=== PATIENT | female | born 1945 | race Caucasian/White ===

== ENCOUNTER 2019-06-03 13:01 | Inpatient (IN) | payer OTHER ==
--- NOTE | 2019-06-03 14:42 | RAD REPORT ---
EXAM DESCRIPTION: Simon Single View06/03/2019 2:28 pm CLINICAL HISTORY: Cough COMPARISON: 2017 FINDINGS: The lungs appear clear of acute infiltrate. The heart is mildly enlarged. Upper lobe vess els are prominent indicative of pulmonary venous hypertension
--- NOTE | 2019-06-03 14:53 | EKG ---
Test Date: 2019-06-03 Test Time: 13:21:11 Lard Maker: DAVIDE MEASUREMENT RESULTS: Intervals: Rate: 130 ME: 214 QRSD: 148 QT: 376 QTc: 553 [place]: P: 82 ME: 214 QRS: -42 T: 100 INTERPRETIVE STATEMENTS: Sinus tachycardia with 1st degree AV block with frequent premature ventricular complexes and fusion complexes Left axis deviation Left bundle branch block Abnormal ECG Compared to ECG 01/20/2017 21:49:05 Fusion complex(es) now present Ventricular premature complex(es) now present First degree AV block now present Left-axis deviation now present Sinus bradycardia no longer present Electronically Signed On 06-03-19 14:52:10 CDT by Bharat Vaca
[2019-06-03 14:59] LABS: ALT/SGPT 21 U/L (12-78); AST/SGOT 16 U/L (15-37); Albumin 3.3 g/dL (3.4-5.0); Alkaline Phosphatase 107 U/L (45-117); BUN Blood Urea Nitrogen 101 mg/dL (7-18); Bicarbonate 22 mmol/L (21-32); Bilirubin Direct < 0.1 mg/dL (0-0.2); Bilirubin Total 0.6 mg/dL (0.2-1.0); Glucose Level 268 mg/dL (74-106); Magnesium 2.4 mg/dL (1.8-2.4); NT PRO-BNP 1054 pg/mL (<125); Protein, Total 7.5 g/dL (6.4-8.2); Sodium Level 133 mmol/L (136-145); Troponin (Emerg Dept Use Only) < 0.02 ng/mL (0.0-0.045)
[2019-06-03 15:14] LABS: Absolute Lymphocytes (CBC) 1.4 K/uL (0.7-4.9); Basophils % 0.3 % (0-1.3); Hematocrit 33.2 % (36.0-45.0); Lymphocytes % 7.9 % (15.3-44.8); MPV 8.1 fL (7.6-11.3); RBC Red Blood Cell Count 3.59 M/uL (3.86-4.86)
[2019-06-03 15:14] LABS: Potassium 7.5 mmol/L (3.5-5.1)
[2019-06-03 15:15] LABS: Protime INR 1.11
[2019-06-03] MEDS ORDERED: INSULIN -REGULAR HUMAN 50 UNIT/0.5 ML ML ONE (15:17)
[2019-06-03] MEDS ORDERED: D50W 25 GM/50 ML SYRINGE IV ONE ×2 (15:18→23:19)
[2019-06-03] MEDS ORDERED: Caclcium Chloride 10% INJ SYR IV ONE (15:18)
[2019-06-03] MEDS ORDERED: NA CHLORIDE 0.9% 100 ML IV ONE (15:18)
[2019-06-03] MEDS ORDERED: SOD POLYSTYREN SUL 15 GM/60 ML UCUP ONE (15:18)
[2019-06-03] MEDS ORDERED: ALBUTEROL 2.5 MG/3 ML NEB SOL ONE (15:18)
[2019-06-03 16:12] LABS: Urine Bacteria >50 /HPF (<20); Urine Culture Reflex Order NOT NEEDED; Urine Mucus 2+ /HPF (NONE SEEN)
[2019-06-03] MEDS ORDERED: METHYLPREDNISOLONE 125 MG INJ ONE (16:12)
[2019-06-03 16:48] LABS: Absolute Lymphocytes (CBC) 3.3 K/uL (0.7-4.9); Basophils % 0.2 % (0-1.3); Hematocrit 31.3 % (36.0-45.0); Lymphocytes % 18.2 % (15.3-44.8); MPV 8.2 fL (7.6-11.3); RBC Red Blood Cell Count 3.33 M/uL (3.86-4.86)
[2019-06-03 17:02] LABS: Albumin 3.3 g/dL (3.4-5.0); Bilirubin Total 0.3 mg/dL (0.2-1.0); Protein, Total 7.2 g/dL (6.4-8.2)
[2019-06-03 17:17] LABS: Blood Morphology Comment NOT SEEN (NOT SEEN); Platelet Estimate ADEQ; Urine White Blood Cell Casts OK
[2019-06-03] MEDS ORDERED: NA CHLORIDE 0.9% 1,000 ML IV SCH ×3 (17:18→18:00)
[2019-06-03] MEDS ORDERED: INSULIN -REGULAR HUMAN 50 UNIT/0.5 ML ML IV ONE ×3 (17:19→23:20)
[2019-06-03] MEDS ORDERED: GLUCAGON 1 MG/VIAL IM PRN ×2 (17:19→23:19)
[2019-06-03] MEDS ORDERED: D50W 25 GM/50 ML SYRINGE IV PRN ×2 (17:19→23:19)
[2019-06-03] MEDS ORDERED: ONDANSETRON 4 MG/2 ML VIAL IV PRN (17:20)
[2019-06-03] MEDS: INSULIN -REGULAR HUMAN 50 UNIT/0.5 ML ML SQ SCH ×2 (17:41→21:59)
--- NOTE | 2019-06-03 17:41 | P.HP ---
Certification for Inpatient Patient admitted to: Inpatient With expected LOS: >2 Midnights Patient will require the following post-hospital care: None Practitioner: I am a practitioner with admitting privileges, knowledge of patient current condition, hospital course, and medical plan of care. Services: Services provided to patient in accordance with Admission requirements found in Title 42 Section 412.3 of the Code of Federal Regulations Patient History Date of Service: 06/03/19 Primary Care Provider: Dr Bustos Reason for admission: Hyperkalemia History of Present Illness: 74 y/o F with H.o of DM, HTN, Hypothyroidism, AFib, CAD, COPD, and DCHF who presented to the ED with generalized Weakness and fall today. Pt states she has been feeling weak for past 1 month and yesterday she was not able to get up out of bed. Her Weakness got progressively worse and she fall this AM and was wound down by her DIL. She did not hit her head or back. She slumped over as far as she can remember but she is not sure. She states she has been having low grade temp as well at home. Negative for chills, N/V, Increase frequency or Polyuria. Pt denies the use of NSAIDS, however does state she has not been taking her Insulin for past 3 to 4 months as she ran out. She has not been having to urinate like before now. She also states she has been having loss of appetite. No other complains to offer. She sees Dr Bustos in the office for Kidney function. In the ER was found to have HyperK with CHELLE and thus was admitted for further care Allergies No Known Allergies Allergy (Verified 01/21/17 05:13) Home Medications: Gabapentin [Neurontin] 800 mg PO TID 12/16/16 Albuterol Sulfate [Ventolin Hfa] 1 puff DOMINICK Q4HR 01/21/17 Aspirin Chewable [Aspirin Chewable*] 162 mg PO DAILY #60 tab.chew 01/23/17 Atorvastatin Calcium [Lipitor] 80 mg PO BEDTIME #60 tab 01/23/17 Carvedilol [Coreg*] 12.5 mg PO BID #60 tab 01/23/17 Clopidogrel Bisulfate [Plavix*] 75 mg PO DAILY #30 01/23/17 Furosemide 1 tab PO BID #60 01/23/17 Levothyroxine [Synthroid*] 0.1 mg PO [id number] #30 tab 01/23/17 Lisinopril [Prinivil*] 10 mg PO BEDTIME #30 tab 01/23/17 Magnesium Oxide [Mag 0X*] 400 mg PO BID #60 tab 01/23/17 Sertraline [Zoloft*] 100 mg PO BEDTIME #30 tab 01/23/17 Spironolactone [Aldactone*] 25 mg PO BID #60 tab 01/23/17 - Past Medical/Surgical History Diabetic: Yes -: hypothyroid -: hx of afib -: hyperlipidemia -: htn -: COPD -: CHF -: IDDM -: [place] x4 stents 2 mos. ago -: thyroidectomy -: coronary stents - Family History Father -: Cancer - Social History Smoking Status: Never smoker Counseled patient to stop smoking for: less than 10 minutes Smoking therapy provided: Yes Patient receptive to therapy: Yes Alcohol use: No CD- Drugs: No Caffeine use: Yes Place of Residence: Home Review of Systems 10-point ROS is otherwise unremarkable Physical Examination - Physical Exam General: Alert, In no apparent distress HEENT: Atraumatic, PERRLA, Mucous membr. moist/pink, EOMI, Sclerae nonicteric Neck: Supple, 2+ carotid pulse no bruit, No LAD, Without JVD or thyroid abnormality Respiratory: Clear to auscultation bilaterally, Normal air movement Cardiovascular: Regular rate/rhythm, Normal S1 S2 Gastrointestinal: Normal bowel sounds, No tenderness Musculoskeletal: No tenderness Integumentary: No rashes Neurological: Normal gait, Normal speech, Normal strength at 5/5 x4 extr, Normal tone, Normal affect Lymphatics: No axilla or inguinal lymphadenopathy - Studies Laboratory Data (last 24 hrs) 06/03/19 14:48: PT 13.0 H, INR 1.11 06/03/19 14:48: WBC 17.3 H, Hgb 10.8 L, Hct 33.2 L, Plt Count 259 06/03/19 14:22: Sodium 133 L, Potassium 7.5 H*, BUN 101 H, Creatinine 4.73 H, Glucose 268 H, Magnesium 2.4, Total Bilirubin 0.6, AST 16, ALT 21, Alkaline Phosphatase 107 Assessment and Plan - Problems (Diagnosis) (1) Fall Current Visit: Yes Status: Acute Plan: Fall most likely 2.2 to Generalized Weakness -Will get CKMB, CPK done at this time given the HyperK and CHELLE -PT/OT consulted. Qualifiers: Encounter type: initial encounter Qualified Code(s): W19.XXXA - Unspecified fall, initial encounter (2) Hyperkalemia Current Visit: Yes Status: Acute Plan: HyperK most likely 2.2 to CHELLE -Initial K 7.2 and Repeat K is 6.0 now -Insulin 10units, Solumedrol 125mg, Albuterol x 1, CaCL, Kax 45mg given in the ER -Nephrology consulted. Appreciated Reccs -Insulin 10units now and Calcium Gluconate 1g q1h for ectopy -IV NS at 50ml/hr -Cardiac Tele for now -Awaiting BM as well (3) CHELLE (acute kidney injury) Current Visit: Yes Status: Acute Plan: CHELLE most likely 2.2 to Dehydration due to Hyperglycemia -IV NS at 50 ml.hr -Nephrology consulted. Appreciated Reccs (4) Afib Current Visit: Yes Status: Chronic Plan: Stable for now -Will restart Home medication Qualifiers: Atrial fibrillation type: longstanding persistent Qualified Code(s): I48.11 - Longstanding persistent atrial fibrillation (5) CAD (coronary artery disease) Onset Date: 01/21/17 Current Visit: No Status: Chronic Plan: AK x 6 in the past with Stent Placement -Cardiac Tele -Restart home medication Qualifiers: Coronary Disease-Associated Artery/Lesion type: creek artery [place] vs. transplanted heart: creek heart Associated angina: without angina Qualified Code(s): I25.10 - Atherosclerotic heart disease of creek coronary artery without angina pectoris (6) COPD (chronic obstructive pulmonary disease) Onset Date: 01/21/17 Current Visit: No Status: Chronic Plan: COPD stable -Duonebs for now Qualifiers: COPD type: chronic bronchitis Chronic bronchitis type: simple Qualified Code(s): J41.0 - Simple chronic bronchitis (7) DM2 (diabetes mellitus, type 2) Onset Date: 01/21/17 Current Visit: No Status: Chronic Plan: ISS and Acc Checks -Pt has not been taking her insulin for past 3 months. -Recently got Insulin and started taking it today Qualifiers: Diabetes mellitus correction insulin use: with correction use Diabetes mellitus complication status: without complication Qualified Code(s): E11.9 - Type 2 diabetes mellitus without complications; Z79.4 - intermission coordinator (current) use of insulin (8) Diastolic dysfunction Onset Date: 01/21/17 Current Visit: No Status: Chronic Plan: Diastolic Dysfunction -Will monitor closely given IV fluids (9) Dyslipidemia Onset Date: 01/21/17 Current Visit: No Status: Chronic Plan: Restart Home medication (10) HTN (hypertension) Onset Date: 01/21/17 Current Visit: No Status: Chronic Plan: Restart Home medication -On hypotensive side for now -Will monitor closely Qualifiers: Hypertension type: essential hypertension Qualified Code(s): I10 - Essential (primary) hypertension (11) Hypothyroidism (acquired) Onset Date: 01/21/17 Current Visit: No Status: Chronic Plan: Restart Home medication - Plan Admit to cardiac Tele for Hyperkalemia with CHELLE Discharge Plan: Home Plan to discharge in: Greater than 2 days - Advance Directives Does patient have a Living Will: No Does patient have a Durable POA for Healthcare: No - Code Status/Comfort Care Code Status Assessed: Yes Critical Care: No
[2019-06-03] MEDS ORDERED: CALCIUM GLUC 10% INJ 4.65 MEQ in NA CHLORIDE 0.9% 100 ML IV ONE ×2 (18:00→23:19)
[2019-06-03] MEDS ORDERED: SOD POLYSTYREN SUL 15 GM/60 ML UCUP PO ONE ×2 (18:00→23:19)
[2019-06-03] MEDS: IPRATROPIUM BROM 0.5MG/2.5ML NEB PRN (18:15)
[2019-06-03] MEDS: LEVALBUTEROL 0.63 MG/3 ML NEB NEB PRN (18:15)
[2019-06-03] MEDS: ENOXAPARIN 40 MG/0.4 ML SQ SCH (18:27)
--- NOTE | 2019-06-03 18:42 | ER ---
Nurse's Notes [facility] Name: Carrol Lundberg Age: 74 yrs Sex: Female : 1945 Arrival Date: 06/03/2019 Time: 13:06 Bed External Waiting Private MD: Diagnosis: Shortness of breath;Hyperkalemia;Weakness;Acute kidney failure Presentation: 06/03 13:07 Presenting complaint: EMS states: Generalized weakness x 3 days. Home health nurse hb report pt is normally able to stand with assistance, has been unable to stand the last few days. BP 122/50, HR 70s, SpO2 95-98% on 3LNC home O2, BGL 362, 20g LAC. Transition of care: patient was not received from another setting of care. Onset of symptoms was June 01, 2019. Risk Assessment: Do you want to hurt yourself or someone else? Patient reports no desire to harm self or others. Initial Sepsis Screen: Does the patient meet any 2 criteria? No. Patient's initial sepsis screen is negative. Does the patient have a suspected source of infection? No. Patient's initial sepsis screen is negative. Care prior to arrival: IV initiated. 20 GA, in the left antecubital area, Glucose check: 362. 13:07 Method Of Arrival: EMS: [facility] 13:07 Acuity: AUGUST 3 hb Historical: - Allergies: 13:10 No Known Allergies; hb - PMHx: 13:10 COPD; Diabetes - IDDM; Myocardial infarction; CHF; Hypertension; hb - Immunization history:: Adult Immunizations up to date. - Social history:: Smoking status: Patient/guardian denies using tobacco. - Ebola Screening: : No symptoms or risks identified at this time. Screenin:17 Abuse screen: Denies threats or abuse. Denies injuries from another. Nutritional ca1 screening: No deficits noted. Tuberculosis screening: No symptoms or risk factors identified. Fall Risk Fall in past 12 months (25 points). IV access (20 points). Ambulatory Aid- Crutches/Cane/Walker (15 pts). Gait- Weak (10 pts.). Total Talbert Fall Scale indicates High Risk Score (45 or more points). Fall prevention measures have been instituted. Side Rails Up X 2 Frequent Obs/Assessments Occuring As available patient and family educated on Fall Prevention Program and Strategies. Assessment: 13:17 General: Appears in no apparent distress. comfortable, Behavior is calm, cooperative, ca1 appropriate for age. General: Reports fatigue for >3 days. Pain: Denies pain. Neuro: Neuro: Level of Consciousness is awake, alert, obeys commands, Oriented to person, place, time, situation, Appropriate for age. Cardiovascular: Heart tones S1 S2 present Capillary refill < 3 seconds Patient's skin is warm and dry. Rhythm is sinus rhythm with unifocal PVCs. Respiratory: Reports cough that is productive, since 2 days ago Airway is patent Respiratory effort is even, unlabored, Respiratory pattern is regular, symmetrical, Sputum is brown Breath sounds are clear bilaterally. GI: Abdomen is round non-distended, Bowel sounds present X 4 quads. Abd is soft and non tender X 4 quads. : No deficits noted. No signs and/or symptoms were reported regarding the genitourinary system. EENT: Reports nasal congestion since 2 days ago. Derm: Skin is intact, is healthy with good turgor, Skin is pink, warm \T\ dry. Musculoskeletal: Circulation, motion, and sensation intact. Capillary refill < 3 seconds, Range of motion: intact in all extremities. 14:28 Reassessment: Patient appears in no apparent distress at this time. Patient and/or ca1 family updated on plan of care and expected duration. Pain level reassessed. Patient is alert, oriented x 3, equal unlabored respirations, skin warm/dry/pink. Family at bedside. 15:30 Reassessment: Patient appears in no apparent distress at this time. Patient and/or ca1 family updated on plan of care and expected duration. Pain level reassessed. Patient is alert, oriented x 3, equal unlabored respirations, skin warm/dry/pink. 16:25 Reassessment: HR elevated to 105. EKG repeated and Pt attached to life pack. ca1 16:30 Reassessment: Patient appears in no apparent distress at this time. Patient and/or ca1 family updated on plan of care and expected duration. Pain level reassessed. Patient is alert, oriented x 3, equal unlabored respirations, skin warm/dry/pink. 17:30 Reassessment: Patient appears in no apparent distress at this time. Patient and/or ca1 family updated on plan of care and expected duration. Pain level reassessed. Patient is alert, oriented x 3, equal unlabored respirations, skin warm/dry/pink. Vital Signs: 13:09 BP 125 / 54; Pulse 81; Resp 23; Temp 98.3; Pulse Ox 97% on 3 lpm NC; Weight 101.6 kg; hb Height 5 ft. 2 in. (157.48 cm); Pain 8/10; 14:28 BP 111 / 55; Pulse 72; Resp 22 S; Pulse Ox 98% on 2 lpm NC; ca1 15:30 BP 102 / 47; Pulse 105; Resp 24 S; Pulse Ox 100% on 2 lpm NC; ca1 16:30 BP 95 / 52; Pulse 105; Resp 22 S; Pulse Ox 100% on 2 lpm NC; ca1 17:30 BP 119 / 52; Pulse 98; Resp 20; Temp 98.1(O); Pulse Ox 99% on 2 lpm NC; ca1 13:09 Body Mass Index 40.97 (101.60 kg, 157.48 cm) hb ED Course: 13:06 Patient arrived in ED. hb 13:08 Marek Bledsoe MD is Attending Physician. kdr 13:09 Triage completed. hb 13:09 Arm band placed on. hb 13:11 Jamila Saldivar, RN is Primary Nurse. ca1 13:17 Patient has correct armband on for positive identification. Placed in gown. Bed in low ca1 position. Call light in reach. Side rails up X2. nurse monitoring on. Pulse ox on. NIBP on. Warm blanket given. 13:17 No provider procedures requiring assistance completed. ca1 13:30 EKG done, by field service tech. reviewed by Marek Bledsoe MD. sm3 13:32 Maintain EMS IV. Dressing intact. Good blood return noted. Site clean \T\ dry. Gauge \T\ ca 1 site: 20G LFA. 14:28 XRAY Chest (1 view) In Process Unspecified. EDMS 14:28 Lab(s) recollected, by me, sent to lab. ca1 15:00 Lab(s) recollected, by me, sent to lab. 3 15:21 Bo cath inserted, using sterile technique, 16 Fr., by me, balloon inflated, to dh3 gravity drainage, urine specimen collected. returned cloudy urine. Patient tolerated well. 15:35 Missed attempt(s): 22 gauge in right forearm. Bleeding controlled, band aid applied, dh3 catheter tip intact. 15:40 Missed attempt(s): 22 gauge in right antecubital area. Bleeding controlled, band aid dh3 applied, catheter tip intact. 16:19 Patient admitted, IV remains in place. Inserted saline lock: 24 gauge in right upper ca1 arm, using aseptic technique. Administered Medications: 15:24 Drug: D50W 50 ml Route: IVP; Site: left upper arm; ca1 17:30 Follow up: Response: No adverse reaction; Other; Potassium Decreased ca1 15:24 Drug: Albuterol 2.5 mg Route: Inhalation; ca1 15:24 Drug: Albuterol 2.5 mg Route: Inhalation; ca1 15:24 Drug: Albuterol 2.5 mg Route: Inhalation; ca1 15:26 Drug: Insulin Regular Human 10 units {Co-Signature: raiza (Kaur Mckenzie RN).} Route: ca1 IVP; Site: left upper arm; 17:30 Follow up: Response: No adverse reaction; No adverse reaction. K decereased. ca1 15:28 Drug: Calcium Chloride 10% 10 ml Route: IVP; Site: left upper arm; ca1 17:30 Follow up: Response: No adverse reaction; K decreased to 6 ca1 16:00 Drug: Kayexalate 45 grams Route: PO; ca1 17:30 Follow up: Response: No adverse reaction; No BM. Notified provider. K decreased to 6 ca1 Intake: Outcome: 17:33 Admitted to Tele accompanied by tech, family with patient, via stretcher, room 412, ca1 with chart, Report called to Ld Ventura RN 17:33 Condition: stable 17:33 Instructed on the need for admit. 18:41 Discharge ordered by . iw 18:41 Patient left the ED. iw Signatures: Dispatcher [employer] EDMS Marek Bledsoe MD MD [facility] Paola Patel RN RN Kaur Mckenzie RN RN Noemi [facility] Briana Weinstein [facility] Jamila Saldivar RN RN ca1 Kaur eastman Corrections: (The following items were deleted from the chart) 13:19 13:17 EENT: No deficits noted. No signs and/or symptoms were reported regarding the ca1 EENT system. ca1 13:21 13:07 Initial Sepsis Screen: Does the patient meet any 2 criteria? hb ca1 14:29 14:28 Reassessment: Patient appears in no apparent distress at this time. Patient ca1 and/or family updated on plan of care and expected duration. Pain level reassessed. Patient is alert, oriented x 3, equal unlabored respirations, skin warm/dry/pink. ca1 15:49 15:30 Missed attempt(s): 22 gauge in right forearm. Bleeding controlled, band aid dh3 applied, catheter tip intact. dh3 20:02 16:30 BP 102 / 47; Pulse 105bpm; Resp 24bpm; Spontaneous; Pulse Ox 100% 2 lpm Nasal ca1 Cannula; ca1
[2019-06-03 18:45] LABS: CKMB Creatine Kinase MB 2.8 ng/mL (0.3-3.6)
[2019-06-03 18:57] LABS: Urine Blood TRACE (NEG); Urine Glucose TRACE (NEG); Urine Protein 2+ (NEG); Urine pH 5.5 (5.0-7.0)
[2019-06-03] MEDS ORDERED: CALCIUM GLUC 10% INJ 4.65 MEQ in NA CHLORIDE 0.9% 100 ML IV PRN (19:00)
[2019-06-03 22:58] LABS: Potassium 7.3 mmol/L (3.5-5.1)
[2019-06-03] MEDS ORDERED: FUROSEMIDE 40 MG/4 ML VIAL IV ONE (23:38)
[2019-06-03] MEDS ORDERED: WATER FOR INJ,STERILE 1,000 ML with NA BICARB 8.4% 100 MEQ IV SCH ×2 (23:45)
[2019-06-04] MEDS ORDERED: CALCIUM GLUCONATE 1 GM IVPB 1 GM/50 ML BAG IV ONE (00:22)
[2019-06-04] MEDS ORDERED: D5W 1,000 ML IV ONE (00:26)
[2019-06-04] MEDS ORDERED: NA BICARB IV SCH ×2 (01:00)
[2019-06-04] MEDS ORDERED: D5 NS IV SCH ×2 (01:00)
[2019-06-04] MEDS ORDERED: INSULIN -REGULAR HUMAN 50 UNIT/0.5 ML ML IV ONE (03:47)
[2019-06-04] MEDS ORDERED: INSULIN -REGULAR HUMAN 100 UNIT in NA CHLORIDE 0.9% 100 ML IV SCH ×2 (04:00→05:15)
[2019-06-04] MEDS ORDERED: FUROSEMIDE 40 MG/4 ML VIAL IV ONE (04:03)
[2019-06-04] MEDS ORDERED: SOD POLYSTYREN SUL 15 GM/60 ML UCUP PO ONE (04:03)
--- NOTE | 2019-06-04 04:19 | P.PN ---
Date of Service: 06/04/19 Patient was seen and examined Her Potassium level inspite of antihyperkalemic measures with Kayexalate , Calcium ,Insulin /dextrose ,Lasix,and Sodabicarb drip are still high aling with High Blood Sugar . Patients Vitals Stable Resting comfortably Monitor showing Sinus Rhythm Will transfer the patient to ICU Will start on Insulin drip, Lasix , Kayexalate and continue sodabicarb drip as well Closely monitor In ICU
[2019-06-04] MEDS ORDERED: NA CHLORIDE 0.9% 100 ML ONE (04:54)
[2019-06-04 06:21] LABS: Bilirubin Total 0.4 mg/dL (0.2-1.0)
[2019-06-04 06:26] LABS: Potassium 6.2 mmol/L (3.5-5.1)
--- NOTE | 2019-06-04 07:44 | EKG ---
Test Date: 2019-06-03 Test Time: 16:33:42 Deputy Fire Marshal: DAVIDE MEASUREMENT RESULTS: Intervals: Rate: 102 OR: 178 QRSD: 152 QT: 360 QTc: 469 [place]: P: 83 OR: 178 QRS: -10 T: 30 INTERPRETIVE STATEMENTS: Sinus tachycardia Left bundle branch block Abnormal ECG Compared to ECG 06/03/2019 13:21:11 Ventricular premature complex(es) no longer present First degree AV block no longer present Left-axis deviation no longer present Electronically Signed On 06-04-19 07:43:44 CDT by Alok Iglesias
[2019-06-04] MEDS ORDERED: PNEUMOCOCCAL VACCINE 0.5 ML IMVAC ONE (08:00)
[2019-06-04] MEDS ORDERED: INFLUENZA VACCINE (for 3y+) 0.5 ML DOSE IMVAC ONE (08:00)
[2019-06-04] MEDS: LEVOTHYROXINE SOD 0.075 MG TAB PO SCH (08:41)
[2019-06-04] MEDS: ENOXAPARIN 40 MG/0.4 ML SQ SCH (08:42)
[2019-06-04] MEDS: SERTRALINE HCL 100 MG TAB PO SCH (08:43)
[2019-06-04] MEDS ORDERED: GLUCAGON 1 MG/VIAL IM PRN (11:52)
[2019-06-04] MEDS ORDERED: D50W 25 GM/50 ML SYRINGE IV PRN (11:52)
[2019-06-04] MEDS: INSULIN -REGULAR HUMAN 50 UNIT/0.5 ML ML SQ SCH ×3 (12:00→21:17)
[2019-06-04] MEDS: CEFTRIAXONE/SWI 1gm 1 GM/10 ML SYR IV SCH (12:03)
[2019-06-04] MEDS: NA CHLORIDE 0.9% 1,000 ML IV SCH (12:03)
--- NOTE | 2019-06-04 15:41 | P.PN ---
Subjective Date of Service: 06/04/19 Primary Care Provider: Dr Bustos Chief Complaint: Hyperkalemia Subjective: Improving Physical Examination - Vital Signs Temperature: 97.6 F Blood Pressure: 122/55 Pulse: 85 Respirations: 14 Pulse Ox (%): 98 - Physical Exam General: Alert, In no apparent distress, Oriented x3, Cooperative HEENT: Atraumatic Neck: Supple Respiratory: Clear to auscultation bilaterally, Normal air movement Cardiovascular: Normal pulses, Regular rate/rhythm Gastrointestinal: Normal bowel sounds, Soft and benign, Non-distended Musculoskeletal: No erythema, No tenderness, No warmth Integumentary: No erythema, No warmth, No cyanosis Neurological: Normal speech, Normal strength at 5/5 x4 extr, Normal tone, Normal affect - Studies Laboratory Data (last 24 hrs) 06/03/19 14:48: WBC 17.3 H, Hgb 10.8 L, Hct 33.2 L, Plt Count 259 Medications List Reviewed: Yes Assessment & Plan Discharge Plan: Home Plan to discharge in: 48 Hours Physician Review Additional Text: Impression: Fatigue secondary to acute on chronic renal disease with hyperkalemia UTI Diabetes mellitus type 2 with hyperglycemia non insulin-dependent Hypertension Hypothyroidism Hyperlipidemia Chronic diastolic CHF COPD CAD Plan: Fatigue secondary to acute on chronic renal disease stage 5 with hyperkalemia: Patient has significantly improved. Case discussed with nephrology. Discontinue IV insulin drip. Hyperkalemia now resolved. Patient stable at this time. Will transfer patient from ICU to telemetry. Will consult physical therapy to ambulate. Continue monitor renal function. Continue with IV fluids. Continue to monitor and recheck electrolytes. Protocol in place. Anticipate discharge in the next 2-3 days with clinical improvement. UTI: Urine culture pending. Continue IV antibiotic therapy. Diabetes mellitus type 2 with hyperglycemia non insulin-dependent: Will check A1c. Prior A1c greater than 12. Continue Accu-Cheks and sliding scale. Patient may require basal insulin. Hypertension: Blood pressure stable at this time. Continue to hold blood pressure medication. If elevated will restart medication. Hypothyroidism: Continue home medication. Hyperlipidemia: Continue home medication. Chronic diastolic CHF: Will discuss with nephrology on when to restart diuretic therapy. Continue 1500 cc per day fluid restriction. COPD: Continue with COPD medication. Maintain sats above 93%. CAD: Restart aspirin and Plavix. Will provide DVT prophylaxis. Time Spent Managing Pts Care (In Minutes): 55
--- NOTE | 2019-06-04 15:51 | ECHO ---
HEIGHT: 5 ft 2 in WEIGHT: 227 lb 0 oz DATE OF STUDY: 06/04/[address]: Dennis Schmitz DO 2-DIMENSIONAL: YES M.MODE: YES DOPPLER: YES COLOR FLOW: YES TDS: NO PORTABLE: NO DEFINITY: NO BUBBLE STUDY: NO DIAGNOSIS: ATRIAL FIBRILLATION/HYPERTENSION CARDIAC HISTORY: CATHERIZATION: NO SURGERY: NO PROSTHETIC VALVE: NO PACEMAKER: NO MEASUREMENTS (cm) DIASTOLIC (NORMALS) SYSTOLIC (NORMALS) IVSd 1.1 (0.6-1.2) LA Diam 3.5 (1.9-4.0) LVEF 57% LVIDd 4.7 (3.5-5.7) LVIDs 3.3 (2.0-3.5) %FS 30% LVPWd 1.1 (0.6-1.2) Ao Diam 2.7 (2.0-3.7) 2 DIMENSIONAL ASSESSMENT: RIGHT ATRIUM: NORMAL LEFT ATRIUM: NORMAL RIGHT VENTRICLE: NORMAL LEFT VENTRICLE: NORMAL TRICUSPID VALVE: NORMAL MITRAL VALVE: NORMAL PULMONIC VALVE: NORMAL AORTIC VALVE: NORMAL PERICARDIAL EFFUSION: NONE AORTIC ROOT: NORMAL LEFT VENTRICULAR WALL MOTION: NORMAL. DOPPLER/COLOR FLOW: NORMAL. COMMENTS: NORMAL 2D ECHO WITH DOPPLER. NORMAL SINUS RHYTHM. TECHNOLOGIST: JONN KYLE
[2019-06-04] MEDS: NYSTATIN PWDR 100000 UNIT/GM TOP SCH ×2 (15:56→21:17)
--- NOTE | 2019-06-04 16:17 | CON ---
Date of Consultation: 06/04/2019 Reason For Consult: Acute renal insufficiency. History Of Present Illness: Ms. Lundberg is a 74-year-old female with past medical history significant f or history of type 2 diabetes, chronic renal insufficiency with history of multiple episodes of CHELLE i n the past, presented to [facility] after she was witnessed to have an episode of fall. She states that she has been progressively getting weak for 1 month prior to admission. She has been un able to get out of her bed and has had progressive decline in her functional status. She was found t o have a creatinine of 4.3 at the time of admission with severe hyperkalemia. She has been admitted and was noted to have hyperglycemia overnight with worsening of her hyperkalemia. She has been admit keegan to the ICU for further level of care and has been started on IV fluids with sodium bicarbonate an d also with multiple doses of Kayexalate and also started on insulin drip. She states that she is do ing okay at this moment and denies any pain or discomfort at this time. Past Medical History: Significant for history of type 2 diabetes, hypertension. The patient was on lisinopril as outpatient. She has history of depression, history of congestive heart failure, hypoth yroidism, AFib, NC with stents 2 months ago, thyroidectomy. Family History: Noncontributory. Social History: She has history of COPD. She is on home oxygen. She has previous history of smokin g. No alcohol or drug use reported. Review of Systems: Positive for weakness, lethargy, falls. Has some shortness of breath. Denies any chest pain. Denie s any abdominal pain. Denies any nausea, vomiting, or diarrhea. Physical Examination: Vital Signs: At this time are showing temperature of 97.6, pulse rate of 81, respiratory rate of 19, and blood pressure 106/60. General: She appears in no acute distress. HEENT: Atraumatic head. Lungs: Auscultation of lungs revealed bilateral equal air entry with wheezes occasionally. Heart: Auscultation of the heart revealed irregular rate and rhythm. Abdomen: Soft and nontender. Extremities: Show no evidence of edema. Current Medications: Include atorvastatin, Lovenox for DVT prophylaxis, Lasix one-time dose, insulin drip, sertraline, multiple doses of Kayexalate. She is getting D5 normal saline with sodium bicarbo megan 100 mEq at 75 cc an hour. Laboratory Data: Showing creatinine improving to 3.4 from 4.7 at the time of admission. Potassium i s improving to 5 from 7.5 at the time of admission. Sodium improving to 141. Albumin of 3. Lactic acid was 1. CBC showing leukocytosis with WBC count of 18,000, hemoglobin of 10.2, hematocrit of 31. 3, and platelet count of 241. Urinalysis showing evidence of 2+ leukocyte esterase and 2+ proteinuri a. Urine preliminary culture is showing more than 100,000 count gram-negative rods. She has not bee n started on any antibiotics at this time. Impression: 1.Acute renal failure, etiology unclear, possibly secondary to acute tubular necrosis. She is nonol iguric and she is making good amount of urine output with improving renal function. Hence, we will h old off on dialysis at this time. We will change IV fluids to just plain normal saline and monitor h er labs closely. 2.Hyperkalemia, possibly secondary to history of TESHA inhibitor use in the setting of acute renal ins ufficiency. Obviously, TESHA inhibitor is on hold at this time. We will continue with IV fluid supple mentation, especially with sodium supplementation to improve distal sodium delivery to promote kaliur esis. 3.Severe hyperglycemia, currently on insulin drip. 4.Possible urinary tract infection. We will go ahead and start her on Rocephin to improve her urina ry tract infection, which possibly could have led to her acute renal insufficiency episode. 5.Underlying chronic obstructive pulmonary disease. The patient does not seem to be having any volu me overload issues at this time or any chronic obstructive pulmonary disease exacerbation. We will c ontinue to monitor closely with nebulizer treatments and pulmonary toilet. Hold off on any steroids secondary to severe hyperglycemia. Plan: Overall, the patient's renal function is improving and I do not think that she would necessari ly require dialysis. Her hyperkalemia is also improving with conservative measures. We will continu e with IV fluid supplementation and start her on antibiotics to treat her urinary tract infection. W e will follow up closely and also request a renal ultrasound for further evaluation as well. Thank you very much for this consultation. Please do not hesitate to call us with any questions or c oncerns. VV/MODL Voice ID: [id number] Report ID: [id number]
--- NOTE | 2019-06-04 19:48 | RAD REPORT ---
EXAM DESCRIPTION: US - Renal Ultrasound-Complete - 06/04/2019 7:39 pm CLINICAL HISTORY: acute renal failure COMPARISON: <Comparisons> FINDINGS: Both kidneys are normal in size, shape and echotexture. The right kidney measures 9.8 x 5.9 x 4.6 cm. No hydronephrosis, focal mass or perinephric fluid. The left kidney measures 9.9 x 5.7 x 4.7 cm. No hydronephrosis, focal mass or perinephric fluid. The urinary bladder is incompletely distended due to Bo catheter. IMPRESSION: Unremarkable renal sonogram.
[2019-06-04] MEDS: ARFORMOTEROL TARTRATE 15 MCG/2 ML VIAL.NEB NEB SCH (20:45)
[2019-06-04] MEDS: ATORVASTATIN 80 MG TAB PO SCH (21:15)
[2019-06-04] MEDS: GABAPENTIN 400 MG CAP PO SCH (21:16)
[2019-06-04] MEDS: HEPARIN 5000 UNIT/ML 1 ML VIAL SQ SCH (21:17)
[2019-06-04] MEDS: JUVEN PACKET PO SCH (21:18)
[2019-06-05] MEDS: NA CHLORIDE 0.9% 1,000 ML IV SCH ×2 (02:18→14:00)
[2019-06-05] MEDS: LEVOTHYROXINE SOD 0.075 MG TAB PO SCH (05:32)
[2019-06-05 05:52] LABS: Absolute Lymphocytes (CBC) 1.3 K/uL (0.7-4.9); Basophils % 0.4 % (0-1.3); Hematocrit 27.5 % (36.0-45.0); Lymphocytes % 11.8 % (15.3-44.8); MPV 8.3 fL (7.6-11.3); RBC Red Blood Cell Count 3.04 M/uL (3.86-4.86)
[2019-06-05 06:01] LABS: Magnesium 2.1 mg/dL (1.8-2.4); Potassium 4.6 mmol/L (3.5-5.1)
[2019-06-05] MEDS: ARFORMOTEROL TARTRATE 15 MCG/2 ML VIAL.NEB NEB SCH ×3 (08:28→20:00)
[2019-06-05] MEDS: NYSTATIN PWDR 100000 UNIT/GM TOP SCH ×2 (09:00→20:31)
[2019-06-05] MEDS: CEFTRIAXONE/SWI 1gm 1 GM/10 ML SYR IV SCH (09:09)
[2019-06-05] MEDS: INSULIN -REGULAR HUMAN 50 UNIT/0.5 ML ML SQ SCH ×4 (09:09→21:42)
[2019-06-05] MEDS: ASPIRIN 81 MG CHEWABLE TABLET PO SCH (09:10)
[2019-06-05] MEDS: SERTRALINE HCL 100 MG TAB PO SCH (09:10)
[2019-06-05] MEDS: CLOPIDOGREL 75 MG TABLET PO SCH (09:10)
[2019-06-05] MEDS: GABAPENTIN 400 MG CAP PO SCH ×3 (09:10→20:31)
[2019-06-05] MEDS: HEPARIN 5000 UNIT/ML 1 ML VIAL SQ SCH ×2 (09:10→20:30)
[2019-06-05] MEDS: JUVEN PACKET PO SCH ×2 (09:11→20:30)
--- NOTE | 2019-06-05 10:02 | P.PN ---
Subjective Date of Service: 06/05/19 Primary Care Provider: Dr Bustos Chief Complaint: Hyperkalemia Subjective: Improving, Doing well Physical Examination - Vital Signs Temperature: 98.1 F Blood Pressure: 125/60 Pulse: 80 Respirations: 20 Pulse Ox (%): 96 - Physical Exam General: Alert, In no apparent distress, Oriented x3, Cooperative HEENT: Atraumatic Neck: Supple Respiratory: Clear to auscultation bilaterally, Normal air movement Cardiovascular: Normal pulses, Regular rate/rhythm Gastrointestinal: Normal bowel sounds, Soft and benign, Non-distended, No tenderness, No masses, No rebound, No guarding Musculoskeletal: No erythema, No tenderness, No warmth Integumentary: No tenderness/swelling, No erythema, No warmth, No cyanosis Neurological: Normal speech, Normal strength at 5/5 x4 extr, Normal tone - Studies Microbiology Data (last 24 hrs): 06/03/19 15:30 Catheterized Urine [place] Count - Final >100,000 CFU/ML. 06/03/19 15:30 Catheterized Urine - Final Escherichia Coli Medications List Reviewed: Yes Assessment & Plan Discharge Plan: Home Plan to discharge in: 48 Hours Physician Review Additional Text: Impression: Fatigue secondary to acute on chronic renal disease stage IV with hyperkalemia UTI, urine culture positive for E coli Diabetes mellitus type 2 with hyperglycemia non insulin-dependent Hypertension Hypothyroidism Hyperlipidemia Chronic diastolic CHF COPD CAD Plan: Fatigue secondary to acute on chronic renal disease stage 4 with hyperkalemia: Patient continues to improve. Renal function also improving. No longer with hyperkalemia. Nephrology continues with IV fluids. Patient now on the floor. Will have physical therapy assess ambulation. Will check chest x-ray today. Continue to monitor closely. Likely discharge in the next 1-2 days with clinical improvement. UTI, urine culture positive for E coli: Urine culture reviewed. Will transition from IV antibiotic to oral doxycycline. Will need course of 7 days. Diabetes mellitus type 2 with hyperglycemia non insulin-dependent: Previous A1c greater than 12. Will check A1c.. Will start Lantus 10 units at night for better diabetic control. Continue to monitor Accu-Cheks and provide sliding scale. Hypertension: Blood pressure stable at this time without medication. Continue to hold lisinopril/hydrochlorothiazide. May need to start medication for blood pressure if blood pressure elevated. Hypothyroidism: Continue home medication. Hyperlipidemia: Continue home medication. Chronic diastolic CHF: Echocardiogram unremarkable. Continue 1500 cc per day fluid restriction. Will discuss with nephrology on whether to restart diuretic therapy. Will check chest x-ray. COPD: Continue with COPD medication. Maintain sats above 93%. CAD: Continue with aspirin and Plavix. Will provide DVT prophylaxis. Time Spent Managing Pts Care (In Minutes): 55
--- NOTE | 2019-06-05 12:18 | RAD REPORT ---
EXAM DESCRIPTION: Simon Schneider (2 Views)06/05/2019 7:56 am CLINICAL HISTORY: sob COMPARISON: June 02, 2019 FINDINGS: Borderline mild interstitial pulmonary edema The heart is mildly enlarged
[2019-06-05] MEDS: ACETAMINOPHEN 500 MG TAB PO PRN (16:00)
--- NOTE | 2019-06-05 18:27 | PN ---
Date of Progress Note: 06/05/2019 Subjective: Patient is seen and examined. Patient is doing much better. She did physical therapy, has been transferred out to the floor. Has remained hemodynamically. Objective: General: She appears in no acute distress. Lungs: Clear to auscultation. Abdomen: Soft and nontender. Extremities: Without any evidence of edema. Laboratory Data: At this time are showing creatinine improving to 2.2. Potassium improving to 4.6. She remains hyperglycemic with blood sugars running above 200. CBC showing stable hemoglobin, hemat ocrit, and platelet count and WBC count has significantly improved. Her urine culture showing eviden ce of E coli on the culture reports, which is sensitive to the cefazolin. Current Medications: Have been reviewed in detail. Impression: 1.Acute renal failure secondary to acute tubular necrosis, improving. 2.Hyperkalemia, improving off TESHA inhibitors at this time. 3.Chronic obstructive pulmonary disease, stable. 4.Hyperglycemia. 5.Urinary tract infection secondary to Escherichia coli. 6.Depression, on Zoloft. Plan: Patient is overall doing okay at this time. We will go ahead and decrease her rate of IV flui ds to 40 cc an hour and monitor her labs closely to prevent any further volume overload at this time. Continue antibiotics and continue PT, OT. We will follow up closely with the labs and hopefully sh ould be able to be discharged by Friday. Continue all other medications and plan of care. Discontinue off the TESHA inhibitor at this time. VV/MODL Voice ID: [id number] Report ID: [id number]
[2019-06-05] MEDS: DOXYCYCLINE 100 MG CAP PO SCH (20:31)
[2019-06-05] MEDS: ATORVASTATIN 80 MG TAB PO SCH (20:31)
[2019-06-05] MEDS ORDERED: INSULIN GLARGINE 100 UNITS/ML SQ SCH (21:00)
[2019-06-06] MEDS: NA CHLORIDE 0.9% 1,000 ML IV SCH (04:09)
[2019-06-06 05:53] VITALS: BMI 41.3
[2019-06-06] MEDS: LEVOTHYROXINE SOD 0.075 MG TAB PO SCH (06:36)
[2019-06-06 06:58] LABS: Absolute Lymphocytes (CBC) 1.2 K/uL (0.7-4.9); Basophils % 0.5 % (0-1.3); Hematocrit 30.3 % (36.0-45.0); Lymphocytes % 12.9 % (15.3-44.8); MPV 8.1 fL (7.6-11.3); RBC Red Blood Cell Count 3.32 M/uL (3.86-4.86)
[2019-06-06 06:59] LABS: Potassium 4.2 mmol/L (3.5-5.1)
[2019-06-06] MEDS ORDERED: IPRATROPIUM BROM 0.5MG/2.5ML ONE (07:29)
[2019-06-06] MEDS ORDERED: ARFORMOTEROL TARTRATE 15 MCG/2 ML VIAL.NEB ONE (07:29)
[2019-06-06] MEDS ORDERED: LEVALBUTEROL 0.63 MG/3 ML NEB ONE (07:29)
[2019-06-06] MEDS: ARFORMOTEROL TARTRATE 15 MCG/2 ML VIAL.NEB NEB SCH (07:45)
[2019-06-06] MEDS: LEVALBUTEROL 0.63 MG/3 ML NEB NEB PRN ×2 (07:45→14:10)
[2019-06-06] MEDS: IPRATROPIUM BROM 0.5MG/2.5ML NEB PRN ×2 (07:45→14:10)
[2019-06-06] MEDS: INSULIN -REGULAR HUMAN 50 UNIT/0.5 ML ML SQ SCH ×4 (08:43→20:50)
[2019-06-06] MEDS: HEPARIN 5000 UNIT/ML 1 ML VIAL SQ SCH ×2 (08:44→20:51)
[2019-06-06] MEDS: SERTRALINE HCL 100 MG TAB PO SCH (08:44)
[2019-06-06] MEDS: GABAPENTIN 400 MG CAP PO SCH ×3 (08:45→20:48)
[2019-06-06] MEDS: DOXYCYCLINE 100 MG CAP PO SCH ×2 (08:46→20:48)
[2019-06-06] MEDS: CLOPIDOGREL 75 MG TABLET PO SCH (08:46)
[2019-06-06] MEDS: JUVEN PACKET PO SCH ×2 (08:46→20:51)
[2019-06-06] MEDS: ASPIRIN 81 MG CHEWABLE TABLET PO SCH (08:46)
[2019-06-06] MEDS: NYSTATIN PWDR 100000 UNIT/GM TOP SCH ×2 (08:47→21:00)
--- NOTE | 2019-06-06 09:37 | P.PN ---
Subjective Date of Service: 06/06/19 Primary Care Provider: Dr Bustos Chief Complaint: Hyperkalemia Subjective: Improving, Doing well Physical Examination - Vital Signs Temperature: 97.2 F Blood Pressure: 135/63 Pulse: 72 Respirations: 20 Pulse Ox (%): 97 - Physical Exam General: Alert, In no apparent distress, Oriented x3, Cooperative HEENT: Atraumatic Neck: Supple Respiratory: Clear to auscultation bilaterally, Normal air movement Cardiovascular: Normal pulses, Regular rate/rhythm Gastrointestinal: Normal bowel sounds, Soft and benign, Non-distended Musculoskeletal: No tenderness, No warmth Integumentary: No erythema, No warmth, No cyanosis Neurological: Normal speech, Normal strength at 5/5 x4 extr, Normal tone, Normal affect - Studies Microbiology Data (last 24 hrs): 06/03/19 15:30 Catheterized Urine [place] Count - Final >100,000 CFU/ML. 06/03/19 15:30 Catheterized Urine - Final Escherichia Coli Medications List Reviewed: Yes Assessment & Plan Discharge Plan: Home Plan to discharge in: 24 Hours Physician Review Additional Text: Impression: Fatigue secondary to acute on chronic renal disease stage 3 with hyperkalemia UTI, urine culture positive for E coli Diabetes mellitus type 2 with hyperglycemia non insulin-dependent Hypertension Hypothyroidism Hyperlipidemia Chronic diastolic CHF COPD CAD Plan: Fatigue secondary to acute on chronic renal disease stage 3 with hyperkalemia: Patient continues to improve. Renal function appears to be returning back to normal baseline function. Patient remains on IV fluids. No hyperkalemia noted. Suspect nephrology to discontinue fluids soon. Encourage oral intake. Will have patient continue to work with physical therapy. Patient desires to go home with home health at discharge. Will consult neonatal social worker to help arrange for discharge planning-home health physical therapy. Anticipate discharge tomorrow.. UTI, urine culture positive for E coli: Urine culture reviewed. Continue with doxycycline. Will need course of 7 days. Diabetes mellitus type 2 with hyperglycemia non insulin-dependent: Previous A1c greater than 12. Await A1c results. Lantus started yesterday. Will continue to adjust for better diabetic control. Continue to monitor Accu-Cheks and provide sliding scale. Hypertension: Blood pressure returning back to normal but slightly elevated. Patient previously on lisinopril/hydrochlorothiazide. Will continue to hold lisinopril/hydrochlorothiazide. Will start low-dose carvedilol. Hypothyroidism: Continue home medication. Hyperlipidemia: Continue home medication. Chronic diastolic CHF: Echocardiogram unremarkable. Continue 1500 cc per day fluid restriction. Will discuss with nephrology on whether to restart diuretic therapy. COPD: Continue with COPD medication. Maintain sats above 93%. CAD: Continue with aspirin and Plavix. Will provide DVT prophylaxis. Time Spent Managing Pts Care (In Minutes): 55
[2019-06-06] MEDS ORDERED: PNEUMOCOCCAL VACCINE 0.5 ML IMVAC ONE (14:00)
[2019-06-06] MEDS ORDERED: INFLUENZA VACCINE (for 3y+) 0.5 ML DOSE IMVAC ONE (14:00)
[2019-06-06] MEDS: ACETAMINOPHEN 500 MG TAB PO PRN (17:10)
[2019-06-06] MEDS: CARVEDILOL 3.125 MG TAB PO SCH (18:00)
[2019-06-06] MEDS: ATORVASTATIN 80 MG TAB PO SCH (20:48)
[2019-06-06] MEDS ORDERED: INSULIN GLARGINE 100 UNITS/ML SQ SCH (21:00)
[2019-06-07 05:51] LABS: Magnesium 1.8 mg/dL (1.8-2.4); Potassium 3.8 mmol/L (3.5-5.1)
[2019-06-07] MEDS: CARVEDILOL 3.125 MG TAB PO SCH (06:49)
[2019-06-07] MEDS: LEVOTHYROXINE SOD 0.075 MG TAB PO SCH (06:50)
[2019-06-07] MEDS: NA CHLORIDE 0.9% 1,000 ML IV SCH (06:51)
[2019-06-07] MEDS: INSULIN -REGULAR HUMAN 50 UNIT/0.5 ML ML SQ SCH (07:30)
[2019-06-07] MEDS: ARFORMOTEROL TARTRATE 15 MCG/2 ML VIAL.NEB NEB SCH (08:00)
[2019-06-07] MEDS: SERTRALINE HCL 100 MG TAB PO SCH (08:30)
[2019-06-07] MEDS: GABAPENTIN 400 MG CAP PO SCH (08:30)
[2019-06-07] MEDS: DOXYCYCLINE 100 MG CAP PO SCH (08:31)
[2019-06-07] MEDS: HEPARIN 5000 UNIT/ML 1 ML VIAL SQ SCH (08:31)
[2019-06-07] MEDS: CLOPIDOGREL 75 MG TABLET PO SCH (08:31)
[2019-06-07] MEDS: ASPIRIN 81 MG CHEWABLE TABLET PO SCH (08:31)
[2019-06-07] MEDS: JUVEN PACKET PO SCH (08:32)
[2019-06-07] MEDS: NYSTATIN PWDR 100000 UNIT/GM TOP SCH (08:32)
[2019-06-07] MEDS ORDERED: MAGNESIUM SULFATE 1 gm IVPB 1 GM/100 ML BAG IV ONE (09:00)
[2019-06-07 09:53] VITALS: O2SAT 98
[2019-06-07 11:01] VITALS: BP 150/59; TEMP 97.9
--- NOTE | 2019-06-07 14:32 | P.DS ---
Admission Date: 06/03/19 Discharge Date: 06/07/19 Primary Care Provider: Dr Bustos Disposition: ROUTINE DISCHARGE Discharge Condition: GOOD Reason for Admission: Hyperkalemia Consultations: Nephrology - Problems (1) Fall Status: Acute Qualifiers: Encounter type: initial encounter Qualified Code(s): W19.XXXA - Unspecified fall, initial encounter (2) Hyperkalemia Status: Acute (3) CHELLE (acute kidney injury) Status: Acute (4) Afib Status: Chronic Qualifiers: Atrial fibrillation type: longstanding persistent Qualified Code(s): I48.11 - Longstanding persistent atrial fibrillation (5) CAD (coronary artery disease) Onset Date: 01/21/17 Status: Chronic Qualifiers: Coronary Disease-Associated Artery/Lesion type: [place] artery [place] vs. transplanted heart: [place] heart Associated angina: without angina Qualified Code(s): I25.10 - Atherosclerotic heart disease of [place] coronary artery without angina pectoris (6) COPD (chronic obstructive pulmonary disease) Onset Date: 01/21/17 Status: Chronic Qualifiers: COPD type: chronic bronchitis Chronic bronchitis type: simple Qualified Code(s): J41.0 - Simple chronic bronchitis (7) DM2 (diabetes mellitus, type 2) Onset Date: 01/21/17 Status: Chronic Qualifiers: Diabetes mellitus training development director insulin use: with fci use Diabetes mellitus complication status: without complication Qualified Code(s): E11.9 - Type 2 diabetes mellitus without complications; Z79.4 - parts remover (current) use of insulin (8) Diastolic dysfunction Onset Date: 01/21/17 Status: Chronic (9) Dyslipidemia Onset Date: 01/21/17 Status: Chronic (10) HTN (hypertension) Onset Date: 01/21/17 Status: Chronic Qualifiers: Hypertension type: essential hypertension Qualified Code(s): I10 - Essential (primary) hypertension (11) Hypothyroidism (acquired) Onset Date: 01/21/17 Status: Chronic Brief History of Present Illness: 74 y/o F with H.o of DM, HTN, Hypothyroidism, AFib, CAD, COPD, and DCHF who presented to the ED with generalized Weakness and fall today. Pt states she has been feeling weak for past 1 month and yesterday she was not able to get up out of bed. Her Weakness got progressively worse and she fall this AM and was wound down by her DIL. She did not hit her head or back. She slumped over as far as she can remember but she is not sure. She states she has been having low grade temp as well at home. Negative for chills, N/V, Increase frequency or Polyuria. Pt denies the use of NSAIDS, however does state she has not been taking her Insulin for past 3 to 4 months as she ran out. She has not been having to urinate like before now. She also states she has been having loss of appetite. No other complains to offer. She sees Dr Bustos in the office for Kidney function. In the ER was found to have HyperK with CHELLE and thus was admitted for further care Hospital Course: Overall during the hospital stay patient remained stable Patient was initially admitted to the hospital for hyperkalemia with chronic kidney disease with acute worsening. Nephrology was consulted. Patient was started on IV fluids while here in the hospital. Patient also had calcium gluconate, insulin, albuterol, Lasix for initial hyperkalemia. Patient had marked improvement and potassium levels were trending down. Patient was monitored here in the hospital for 24-48 hr. Once patient being creatinine was better patient was referred over for discharge. Patient also had physical therapy and occupational therapy consulted here in the hospital. Patient did well overall and thus was discharged home under stable condition. Patient had acute kidney injury was most likely secondary to dehydration. Patient was asked to continue drinking fluids and follow up with nephrology and cardiology in about 1-2 days post discharge. Patient was asked to stop taking lisinopril and hydrochlorothiazide. Resume Lasix and was given a prescription for Coreg. While here in the hospital patient also had a urine culture done which was positive for UTI and thus patient was discharged home on doxycycline as well. Vital Signs/Physical Exam: Temp Pulse Resp BP Pulse Ox 97.9 F 75 17 150/59 H 97 06/07/19 08:00 06/07/19 08:00 06/07/19 08:00 06/07/19 08:00 06/07/19 08:00 General: Alert, In no apparent distress HEENT: Atraumatic, PERRLA, EOMI Neck: Supple, JVD not distended Respiratory: Clear to auscultation bilaterally, Normal air movement Cardiovascular: Regular rate/rhythm, Normal S1 S2 Gastrointestinal: Normal bowel sounds, No tenderness Musculoskeletal: No tenderness Integumentary: No rashes Neurological: Normal speech, Normal tone, Normal affect Lymphatics: No axilla or inguinal lymphadenopathy Laboratory Data at Discharge: WBC 9.6 K/uL (4.3-10.9) 06/06/19 06:01 Hgb 10.0 g/dL (12.0-15.0) L 06/06/19 06:01 Hct 30.3 % (36.0-45.0) L 06/06/19 06:01 Plt Count 201 K/uL (152-406) 06/06/19 06:01 PT 13.0 SECONDS (9.5-12.5) H 06/03/19 14:48 INR 1.11 06/03/19 14:48 Sodium 143 mmol/L (136-145) 06/07/19 05:28 Potassium 3.8 mmol/L (3.5-5.1) 06/07/19 05:28 BUN 39 mg/dL (7-18) H D 06/07/19 05:28 Creatinine 0.93 mg/dL (0.55-1.3) 06/07/19 05:28 Glucose 152 mg/dL (74-106) H 06/07/19 05:28 Magnesium 1.8 mg/dL (1.8-2.4) 06/07/19 05:28 Total Bilirubin 0.4 mg/dL (0.2-1.0) 06/04/19 05:45 AST 14 U/L (15-37) L 06/04/19 05:45 ALT 20 U/L (12-78) 06/04/19 05:45 Alkaline Phosphatase 89 U/L (45-117) 06/04/19 05:45 Home Medications: Gabapentin [Neurontin] 800 mg PO TID 12/16/16 Aspirin Chewable [Aspirin Chewable*] 162 mg PO DAILY #60 tab.chew 01/23/17 Atorvastatin Calcium [Lipitor] 80 mg PO BEDTIME #60 tab 01/23/17 Clopidogrel Bisulfate [Plavix*] 75 mg PO DAILY #30 01/23/17 Furosemide 1 tab PO BID #60 01/23/17 Spironolactone [Aldactone*] 25 mg PO BID #60 tab 01/23/17 Levothyroxine [Synthroid*] 150 mcg PO [id number] 06/03/19 Sertraline [Zoloft*] 2 tab PO DAILY 06/03/19 Carvedilol [Coreg*] 3.125 mg PO BID 6AM 6PM #60 tab 06/07/19 Doxycycline Monohydrate 100 mg PO BID #14 tablet 06/07/19 New Medications: Carvedilol [Coreg*] 3.125 mg PO BID 6AM 6PM #60 tab Doxycycline Monohydrate 100 mg PO BID #14 tablet Patient Discharge Instructions: Please f.u with PCP and Nephrology in 1 to 2 week post discharge. New medication. Coreg 3.125mg BID. Doxycycline 100mg BID for 7 days. Stop medication. Lisinopril/HCTZ Diet: Regular Activity: Ad alireza Followup: Figueroa Martinez DO [ACTIVE - CAN ADMIT] - 1 Week (please call to make an appointment. )
--- NOTE | 2019-06-07 19:28 | P.PN ---
Date of Service: 06/07/19 Vital Signs Temp Pulse Resp BP Pulse Ox 97.9 F 75 17 150/59 H 97 06/07/19 08:00 06/07/19 08:00 06/07/19 08:00 06/07/19 08:00 06/07/19 08:00 Microbiology Results 06/03/19 15:30 Catheterized Urine [place] Count - Final >100,000 CFU/ML. 06/03/19 15:30 Catheterized Urine - Final Escherichia Coli Assessment/ Plan: Nephrology. Feeling better. CPS improved without CP or SOB. No acute events overnight. Vitals, medications, blood work and imaging reviewed in the chart. NAD. Obese. MMM. Neck supple. CTA. RRR. Soft Abd. No C/C. LE Edema 1+. AAO. Normal speech. A/ CHELLE improved. Proteinuria. DM II with CKD. Hyperkalemia resolved. Hypocalcemia. HTN with CKD. Anemia in chronic illness. Acute cystitis. P/ Continue current POC and Medications. Recommend Vitamin D. Agree with Doxycycline. No NSAIDs. AM labs prn. Daily weight. Case reviewed with Dr. Abreu.
[2019-06-08 03:06] LABS: HBsAG Nonreactive (Nonreactive)
--- OUTSIDE RECORDS SUMMARY | 2019-06-13 18:37 | XMS REPORT ---
:1945 Author Organization [facility] Address [address] [place] [address] Care Team Providers Name Role Phone JENNIFER ZELAYA Unavailable Unavailable Problems This patient has no known problems. Allergies, Adverse Reactions, Alerts This patient has no known allergies or adverse reactions. Medications This patient has no known medications. Results Test Description Test Time Test Comments Text Results Atomic Results Result Comments POCT-GLUCOSE METER 2016-10-25 18:02:00 Test Item Value Reference Range Comments POC-GLUCOSE METER (BEAKER) (test 125 mg/dL 70-110 TESTED AT [address] nkyw=8934) [facility] [address] POCT-GLUCOSE [id number] 11:32:00 Test Item Value Reference Range Comments POC-GLUCOSE METER (BEAKER) 178 mg/dL 70-110 TESTED AT [address] (test mwxx=7961) [facility] [address] POCT-GLUCOSE [id number] 07:36:00 Test Item Value Reference Range Comments POC-GLUCOSE METER (BEAKER) 159 mg/dL 70-110 TESTED AT [address] (test zsjr=5424) [facility] [address] [id number] 04:24:00 Test Item Value Reference Range Comments MAGNESIUM (BEAKER) (test rwer=140) 1.8 mg/dL 1.6-2.6 Please draw today if not done already.BASIC METABOLIC [id number] 04:24:00 Test Item Value Reference Range Comments SODIUM (BEAKER) (test 137 meq/L 136-145 mcvv=263) POTASSIUM (BEAKER) (test 3.7 meq/L 3.5-5.1 xsah=916) CHLORIDE (BEAKER) (test 96 meq/L 98-107 rrwx=954) CO2 (BEAKER) (test 28 meq/L 22-29 cibo=707) BLOOD UREA NITROGEN 21 mg/dL 7-21 (BEAKER) (test zivx=935) CREATININE (BEAKER) (test 0.78 mg/dL 0.57-1.25 eamn=148) GLUCOSE RANDOM (BEAKER) 155 mg/dL 70-105 (test rkao=712) CALCIUM (BEAKER) (test 8.6 mg/dL 8.4-10.2 cyys=282) EGFR (BEAKER) (test 73 mL/min/1.73 sq m ESTIMATED GFR IS NOT fvno=5760) ACCURATE CREATININE CLEARANCE IN PREDICTING GLOMERULAR FILTRATION RATE. ESTIMATED GFR IS NOT APPLICABLE FOR DIALYSIS PATIENTS. Please draw today if not done already.CBC (HEMOGRAM ONLY)2016-10-25 04:11:00 Test Item Value Reference Range Comments WHITE BLOOD CELL COUNT (BEAKER) (test yghi=116) 13.9 K/ L 4.0-10.0 RED BLOOD CELL COUNT (BEAKER) (test jiek=529) 3.68 M/ L 4.00-5.00 HEMOGLOBIN (BEAKER) (test bxrs=488) 12.0 GM/DL 12.0-15.0 HEMATOCRIT (BEAKER) (test stgr=222) 34.8 % 36.0-45.0 MEAN CORPUSCULAR VOLUME (BEAKER) (test jghh=064) 94.8 fL 82.0-99.0 MEAN CORPUSCULAR HEMOGLOBIN (BEAKER) (test 32.6 pg 27.0-33.0 kvzu=883) MEAN CORPUSCULAR HEMOGLOBIN CONC (BEAKER) (test 34.4 GM/DL 32.0-36.0 wikz=918) RED CELL DISTRIBUTION WIDTH (BEAKER) (test 13.7 % 10.3-14.2 wcup=429) PLATELET COUNT (BEAKER) (test swot=763) 318 K/CU MM 150-430 MEAN PLATELET VOLUME (BEAKER) (test hxlw=467) 7.2 fL 6.5-10.5 NUCLEATED RED BLOOD CELLS (BEAKER) (test 0 /100 WBC 0-0 hhdt=584) 0.00POCT-GLUCOSE [id number] 21:59:00 Test Item Value Reference Range Comments POC-GLUCOSE METER (BEAKER) 161 mg/dL 70-110 TESTED AT [facility] [address] [facility] (test qukf=2540) [facility] [address] POCT-GLUCOSE [id number] 17:22:00 Test Item Value Reference Range Comments POC-GLUCOSE METER (BEAKER) 106 mg/dL 70-110 TESTED AT [facility] [address] [facility] (test hrit=0812) [facility] [address] POCT-GLUCOSE [id number] 12:49:00 Test Item Value Reference Range Comments POC-GLUCOSE METER (BEAKER) 143 mg/dL 70-110 TESTED AT [address] (test rkvw=3360) [place] [id number] POCT-GLUCOSE [id number] 08:52:00 Test Item Value Reference Range Comments POC-GLUCOSE METER (BEAKER) 257 mg/dL 70-110 TESTED AT [address] (test ynju=1089) [facility] [address] B-TYPE NATRIURETIC FACTOR (BNP)2016-10-24 05:49:00 Test Item Value Reference Range Comments B-TYPE NATRIURETIC PEPTIDE (BEAKER) (test 478 pg/mL 0-100 altf=300) [id number] 05:45:00 Test Item Value Reference Range Comments MAGNESIUM (BEAKER) (test mmub=295) 2.0 mg/dL 1.6-2.6 Please draw today if not done already.BASIC METABOLIC [id number] 05:45:00 Test Item Value Reference Range Comments SODIUM (BEAKER) (test 140 meq/L 136-145 djha=003) POTASSIUM (BEAKER) (test 3.7 meq/L 3.5-5.1 gloc=525) CHLORIDE (BEAKER) (test 99 meq/L 98-107 iehu=558) CO2 (BEAKER) (test 30 meq/L 22-29 fals=755) BLOOD UREA NITROGEN 18 mg/dL 7-21 (BEAKER) (test mddi=412) CREATININE (BEAKER) (test 0.75 mg/dL 0.57-1.25 ozpv=183) GLUCOSE RANDOM (BEAKER) 97 mg/dL 70-105 (test kcis=530) CALCIUM (BEAKER) (test 8.6 mg/dL 8.4-10.2 ujvf=012) EGFR (BEAKER) (test 77 mL/min/1.73 sq m ESTIMATED GFR IS NOT saay=4718) ACCURATE CREATININE CLEARANCE IN PREDICTING GLOMERULAR FILTRATION RATE. ESTIMATED GFR IS NOT APPLICABLE FOR DIALYSIS PATIENTS. Please draw today if not done already.POCT-GLUCOSE [id number] 21:05:00 Test Item Value Reference Range Comments POC-GLUCOSE METER (BEAKER) 207 mg/dL 70-110 TESTED AT [address] (test okkw=3745) [place] [id number] POCT-GLUCOSE [id number] 17:36:00 Test Item Value Reference Range Comments POC-GLUCOSE METER (BEAKER) 217 mg/dL 70-110 TESTED AT [address] (test blqj=0837) [place] [address] POCT-GLUCOSE [id number] 12:27:00 Test Item Value Reference Range Comments POC-GLUCOSE METER (BEAKER) 187 mg/dL 70-110 TESTED AT [address] (test wwhq=8500) [place] [id number] POCT-GLUCOSE [id number] 08:32:00 Test Item Value Reference Range Comments POC-GLUCOSE METER (BEAKER) 190 mg/dL 70-110 TESTED AT [address] (test xucd=0346) [place] [address] CBC (HEMOGRAM ONLY)2016-10-23 05:22:00 Test Item Value Reference Range Comments WHITE BLOOD CELL COUNT (BEAKER) (test gger=556) 13.1 K/ L 4.0-10.0 RED BLOOD CELL COUNT (BEAKER) (test ecgx=261) 4.12 M/ L 4.00-5.00 HEMOGLOBIN (BEAKER) (test utag=151) 11.5 GM/DL 12.0-15.0 HEMATOCRIT (BEAKER) (test nsek=283) 39.0 % 36.0-45.0 MEAN CORPUSCULAR VOLUME (BEAKER) (test eccd=303) 94.7 fL 82.0-99.0 MEAN CORPUSCULAR HEMOGLOBIN (BEAKER) (test 27.8 pg 27.0-33.0 exxo=448) MEAN CORPUSCULAR HEMOGLOBIN CONC (BEAKER) (test 29.4 GM/DL 32.0-36.0 bbcu=735) RED CELL DISTRIBUTION WIDTH (BEAKER) (test 13.1 % 10.3-14.2 gtlt=180) PLATELET COUNT (BEAKER) (test uaxv=472) 296 K/CU MM 150-430 MEAN PLATELET VOLUME (BEAKER) (test ixkz=682) 7.4 fL 6.5-10.5 NUCLEATED RED BLOOD CELLS (BEAKER) (test 0 /100 WBC 0-0 krws=575) [id number] 05:21:00 Test Item Value Reference Range Comments MAGNESIUM (BEAKER) (test cplw=962) 2.0 mg/dL 1.6-2.6 Please draw today if not done already.BASIC METABOLIC [id number] 05:21:00 Test Item Value Reference Range Comments SODIUM (BEAKER) (test 138 meq/L 136-145 ymfy=603) POTASSIUM (BEAKER) (test 4.0 meq/L 3.5-5.1 pkte=729) CHLORIDE (BEAKER) (test 99 meq/L 98-107 hpcy=152) CO2 (BEAKER) (test 25 meq/L 22-29 akhy=423) BLOOD UREA NITROGEN 18 mg/dL 7-21 (BEAKER) (test itrk=378) CREATININE (BEAKER) (test 0.78 mg/dL 0.57-1.25 tspk=305) GLUCOSE RANDOM (BEAKER) 219 mg/dL 70-105 (test ncng=434) CALCIUM (BEAKER) (test 8.8 mg/dL 8.4-10.2 ghsx=612) EGFR (BEAKER) (test 73 mL/min/1.73 sq m ESTIMATED GFR IS NOT ktvs=2181) ACCURATE CREATININE CLEARANCE IN PREDICTING GLOMERULAR FILTRATION RATE. ESTIMATED GFR IS NOT APPLICABLE FOR DIALYSIS PATIENTS. Please draw today if not done already.POCT-GLUCOSE [id number] 04:07:00 Test Item Value Reference Range Comments POC-GLUCOSE METER (BEAKER) 226 mg/dL 70-110 TESTED AT [facility] [address] [facility] (test gukb=1175) [facility] [address] POCT-GLUCOSE [id number] 23:07:00 Test Item Value Reference Range Comments POC-GLUCOSE METER (BEAKER) 208 mg/dL 70-110 TESTED AT [address] (test yrfa=4888) [facility] [address] POCT-GLUCOSE [id number] 20:53:00 Test Item Value Reference Range Comments POC-GLUCOSE METER (BEAKER) 279 mg/dL 70-110 TESTED AT [address] (test crbe=5603) [facility] [address] POCT-GLUCOSE [id number] 18:27:00 Test Item Value Reference Range Comments POC-GLUCOSE METER (BEAKER) 233 mg/dL 70-110 TESTED AT [address] (test kjyu=2314) [facility] [address] POCT-GLUCOSE [id number] 12:41:00 Test Item Value Reference Range Comments POC-GLUCOSE METER (BEAKER) 282 mg/dL 70-110 TESTED AT [address] (test glim=4477) [facility] [address] BLOOD GAS, [id number] 10:14:00 Test Item Value Reference Range Comments PH VENOUS (BEAKER) (test mfzz=872) 7.48 7.32-7.42 PCO2 VENOUS (BEAKER) (test glpr=605) 41 mmHg 41-51 PO2 VENOUS (BEAKER) (test ycja=847) 141 mmHg 25-40 O2 SATURATION VENOUS (BEAKER) (test itnc=388) 99.0 % 40.0-70.0 HCO3 VENOUS (BEAKER) (test udgm=151) 30 mmol/L 21-29 BASE EXCESS VENOUS (BEAKER) (test yvjd=837) 5.5 mmol/L -2.0-3.0 PATIENT TEMPERATURE (BEAKER) (test emqt=4673) 36.0 C FIO2 (BEAKER) (test ptqb=0552) 21.0 % POCT-GLUCOSE [id number] 08:55:00 Test Item Value Reference Range Comments POC-GLUCOSE METER (BEAKER) 149 mg/dL 70-110 TESTED AT [address] (test ddhm=2587) [facility] [address] [id number] 07:04:00 Test Item Value Reference Range Comments PARTIAL THROMBOPLASTIN TIME (BEAKER) (test 27.7 seconds 22.5-36.0 kufv=817) [id number] 04:59:00 Test Item Value Reference Range Comments MAGNESIUM (BEAKER) (test lhvk=929) 1.9 mg/dL 1.6-2.6 Please draw today if not done already.BASIC METABOLIC [id number] 04:59:00 Test Item Value Reference Range Comments SODIUM (BEAKER) (test 138 meq/L 136-145 hxbr=514) POTASSIUM (BEAKER) (test 4.4 meq/L 3.5-5.1 efpz=049) CHLORIDE (BEAKER) (test 99 meq/L 98-107 ttfh=804) CO2 (BEAKER) (test 29 meq/L 22-29 okjt=907) BLOOD UREA NITROGEN 12 mg/dL 7-21 (BEAKER) (test ttbg=632) CREATININE (BEAKER) (test 0.68 mg/dL 0.57-1.25 ntri=008) GLUCOSE RANDOM (BEAKER) 161 mg/dL 70-105 (test ehsz=111) CALCIUM (BEAKER) (test 8.6 mg/dL 8.4-10.2 iwkk=223) EGFR (BEAKER) (test 86 mL/min/1.73 sq m ESTIMATED GFR IS NOT yptt=5716) ACCURATE CREATININE CLEARANCE IN PREDICTING GLOMERULAR FILTRATION RATE. ESTIMATED GFR IS NOT APPLICABLE FOR DIALYSIS PATIENTS. Please draw today if not done already.CBC (HEMOGRAM ONLY)2016-10-22 04:57:00 Test Item Value Reference Range Comments WHITE BLOOD CELL COUNT (BEAKER) (test ubjd=931) 14.2 K/ L 4.0-10.0 RED BLOOD CELL COUNT (BEAKER) (test ptgc=622) 3.80 M/ L 4.00-5.00 HEMOGLOBIN (BEAKER) (test xbxn=542) 11.2 GM/DL 12.0-15.0 HEMATOCRIT (BEAKER) (test ajra=857) 35.7 % 36.0-45.0 MEAN CORPUSCULAR VOLUME (BEAKER) (test jktd=709) 94.0 fL 82.0-99.0 MEAN CORPUSCULAR HEMOGLOBIN (BEAKER) (test 29.6 pg 27.0-33.0 rszy=783) MEAN CORPUSCULAR HEMOGLOBIN CONC (BEAKER) (test 31.5 GM/DL 32.0-36.0 okhw=696) RED CELL DISTRIBUTION WIDTH (BEAKER) (test 13.0 % 10.3-14.2 ijhy=344) PLATELET COUNT (BEAKER) (test ycpw=867) 247 K/CU MM 150-430 MEAN PLATELET VOLUME (BEAKER) (test kqbo=023) 7.1 fL 6.5-10.5 NUCLEATED RED BLOOD CELLS (BEAKER) (test 0 /100 WBC 0-0 prkv=317) 0.00POCT-GLUCOSE [id number] 20:38:00 Test Item Value Reference Range Comments POC-GLUCOSE METER (BEAKER) 196 mg/dL 70-110 TESTED AT [address] (test ewgb=5005) [place] [address] POCT-GLUCOSE [id number] 17:09:00 Test Item Value Reference Range Comments POC-GLUCOSE METER (BEAKER) 146 mg/dL 70-110 TESTED AT [address] (test wfga=3428) [place] [address] POCT-GLUCOSE [id number] 13:52:00 Test Item Value Reference Range Comments POC-GLUCOSE METER (BEAKER) 96 mg/dL 70-110 TESTED AT [address] (test ahap=7920) [place] [address] [id number] 11:12:00 Test Item Value Reference Range Comments ACTIVATED CLOTTING TIME 255 sec [address] (BEAKER) (test tksz=230) [place] [address] [id number] 10:21:00 Test Item Value Reference Range Comments ACTIVATED CLOTTING TIME 302 sec [address] (BEAKER) (test uwpy=614) [place] [address] [id number] 10:21:00 Test Item Value Reference Range Comments ACTIVATED CLOTTING TIME 569 sec [address] (BEAKER) (test vyxq=111) [place] [address] POCT-GLUCOSE [id number] 07:23:00 Test Item Value Reference Range Comments POC-GLUCOSE METER (BEAKER) 87 mg/dL 70-110 TESTED AT [address] (test klly=4621) [place] [address] B-TYPE NATRIURETIC FACTOR (BNP)2016-10-21 06:33:00 Test Item Value Reference Range Comments B-TYPE NATRIURETIC PEPTIDE (BEAKER) (test 494 pg/mL 0-100 dzam=315) [id number] 06:21:00 Test Item Value Reference Range Comments MAGNESIUM (BEAKER) (test etkv=352) 1.9 mg/dL 1.6-2.6 Please draw today if not done already.BASIC METABOLIC [id number] 06:21:00 Test Item Value Reference Range Comments SODIUM (BEAKER) (test 139 meq/L 136-145 vdne=998) POTASSIUM (BEAKER) (test 3.4 meq/L 3.5-5.1 btln=545) CHLORIDE (BEAKER) (test 99 meq/L 98-107 cgud=905) CO2 (BEAKER) (test 31 meq/L 22-29 vfcl=316) BLOOD UREA NITROGEN 16 mg/dL 7-21 (BEAKER) (test lozx=862) CREATININE (BEAKER) (test 0.65 mg/dL 0.57-1.25 utnm=672) GLUCOSE RANDOM (BEAKER) 88 mg/dL 70-105 (test wbtp=581) CALCIUM (BEAKER) (test 8.6 mg/dL 8.4-10.2 jggl=371) EGFR (BEAKER) (test 90 mL/min/1.73 sq m ESTIMATED GFR IS NOT dwiw=3219) ACCURATE CREATININE CLEARANCE IN PREDICTING GLOMERULAR FILTRATION RATE. ESTIMATED GFR IS NOT APPLICABLE FOR DIALYSIS PATIENTS. Please draw today if not done already.CBC (HEMOGRAM ONLY)2016-10-21 06:01:00 Test Item Value Reference Range Comments WHITE BLOOD CELL COUNT (BEAKER) (test upfg=914) 13.9 K/ L 4.0-10.0 RED BLOOD CELL COUNT (BEAKER) (test jteg=688) 4.06 M/ L 4.00-5.00 HEMOGLOBIN (BEAKER) (test ajti=250) 11.9 GM/DL 12.0-15.0 HEMATOCRIT (BEAKER) (test izmu=020) 38.2 % 36.0-45.0 MEAN CORPUSCULAR VOLUME (BEAKER) (test ogjo=933) 94.2 fL 82.0-99.0 MEAN CORPUSCULAR HEMOGLOBIN (BEAKER) (test 29.4 pg 27.0-33.0 xjdu=908) MEAN CORPUSCULAR HEMOGLOBIN CONC (BEAKER) (test 31.2 GM/DL 32.0-36.0 llsa=964) RED CELL DISTRIBUTION WIDTH (BEAKER) (test 13.0 % 10.3-14.2 luni=935) PLATELET COUNT (BEAKER) (test wrpu=290) 229 K/CU MM 150-430 MEAN PLATELET VOLUME (BEAKER) (test kgfr=513) 7.2 fL 6.5-10.5 NUCLEATED RED BLOOD CELLS (BEAKER) (test 0 /100 WBC 0-0 kxzy=056) 0.00POCT-GLUCOSE [id number] 20:36:00 Test Item Value Reference Range Comments POC-GLUCOSE METER (BEAKER) 280 mg/dL 70-110 TESTED AT [address] (test vpdd=1800) [facility] [address] POCT-GLUCOSE [id number] 16:29:00 Test Item Value Reference Range Comments POC-GLUCOSE METER (BEAKER) 218 mg/dL 70-110 TESTED AT [address] (test btyg=6035) [facility] [address] POCT-GLUCOSE [id number] 12:24:00 Test Item Value Reference Range Comments POC-GLUCOSE METER (BEAKER) 193 mg/dL 70-110 TESTED AT [address] (test dpzz=0746) [place] [id number] POCT-GLUCOSE [id number] 07:21:00 Test Item Value Reference Range Comments POC-GLUCOSE METER (BEAKER) 179 mg/dL 70-110 TESTED AT [address] (test bvyy=4999) [facility] [address] [id number] 06:24:00 Test Item Value Reference Range Comments THYROID STIMULATING HORMONE (BEAKER) (test 1.09 uIU/mL 0.35-4.94 ntjf=923) [id number] 05:47:00 Test Item Value Reference Range Comments MAGNESIUM (BEAKER) (test peuw=743) 2.0 mg/dL 1.6-2.6 Please draw today if not done already.BASIC METABOLIC [id number] 05:47:00 Test Item Value Reference Range Comments SODIUM (BEAKER) (test 137 meq/L 136-145 nysw=156) POTASSIUM (BEAKER) (test 4.0 meq/L 3.5-5.1 lxse=824) CHLORIDE (BEAKER) (test 98 meq/L 98-107 rern=286) CO2 (BEAKER) (test 27 meq/L 22-29 irgf=341) BLOOD UREA NITROGEN 16 mg/dL 7-21 (BEAKER) (test szjb=234) CREATININE (BEAKER) (test 0.67 mg/dL 0.57-1.25 mamz=888) GLUCOSE RANDOM (BEAKER) 200 mg/dL 70-105 (test ajsp=951) CALCIUM (BEAKER) (test 8.4 mg/dL 8.4-10.2 jhnc=615) EGFR (BEAKER) (test 87 mL/min/1.73 sq m ESTIMATED GFR IS NOT xksi=0478) ACCURATE CREATININE CLEARANCE IN PREDICTING GLOMERULAR FILTRATION RATE. ESTIMATED GFR IS NOT APPLICABLE FOR DIALYSIS PATIENTS. Please draw today if not done already.POCT-GLUCOSE [id number] 21:41:00 Test Item Value Reference Range Comments POC-GLUCOSE METER (BEAKER) 191 mg/dL 70-110 TESTED AT [address] (test ddhu=1994) [facility] [address] POCT-GLUCOSE [id number] 17:13:00 Test Item Value Reference Range Comments POC-GLUCOSE METER (BEAKER) 197 mg/dL 70-110 TESTED AT [address] (test nfli=3044) [facility] [address] POCT-GLUCOSE [id number] 11:30:00 Test Item Value Reference Range Comments POC-GLUCOSE METER (BEAKER) 236 mg/dL 70-110 TESTED AT [address] (test cfhy=4818) [facility] [address] POCT-GLUCOSE [id number] 07:26:00 Test Item Value Reference Range Comments POC-GLUCOSE METER (BEAKER) 231 mg/dL 70-110 TESTED AT [address] (test ekuu=4145) [facility] [address] BASIC METABOLIC [id number] 06:07:00 Test Item Value Reference Range Comments SODIUM (BEAKER) (test 137 meq/L 136-145 rixs=801) POTASSIUM (BEAKER) (test 4.7 meq/L 3.5-5.1 wqlg=581) CHLORIDE (BEAKER) (test 98 meq/L 98-107 wcdm=489) CO2 (BEAKER) (test 29 meq/L 22-29 npkk=988) BLOOD UREA NITROGEN 21 mg/dL 7-21 (BEAKER) (test lcyu=593) CREATININE (BEAKER) (test 0.84 mg/dL 0.57-1.25 xjon=845) GLUCOSE RANDOM (BEAKER) 211 mg/dL 70-105 (test pmry=683) CALCIUM (BEAKER) (test 8.1 mg/dL 8.4-10.2 nyhr=150) EGFR (BEAKER) (test 67 mL/min/1.73 sq m ESTIMATED GFR IS NOT lnwb=5207) ACCURATE CREATININE CLEARANCE IN PREDICTING GLOMERULAR FILTRATION RATE. ESTIMATED GFR IS NOT APPLICABLE FOR DIALYSIS PATIENTS. Please draw today if not done already.CBC (HEMOGRAM ONLY)2016-10-19 05:56:00 Test Item Value Reference Range Comments WHITE BLOOD CELL COUNT (BEAKER) (test uxfo=627) 15.2 K/ L 4.0-10.0 RED BLOOD CELL COUNT (BEAKER) (test bjtw=239) 4.05 M/ L 4.00-5.00 HEMOGLOBIN (BEAKER) (test sfdm=127) 12.1 GM/DL 12.0-15.0 HEMATOCRIT (BEAKER) (test dcys=475) 37.9 % 36.0-45.0 MEAN CORPUSCULAR VOLUME (BEAKER) (test vgeb=516) 93.5 fL 82.0-99.0 MEAN CORPUSCULAR HEMOGLOBIN (BEAKER) (test 29.9 pg 27.0-33.0 tzeg=847) MEAN CORPUSCULAR HEMOGLOBIN CONC (BEAKER) (test 32.0 GM/DL 32.0-36.0 bilh=648) RED CELL DISTRIBUTION WIDTH (BEAKER) (test 13.2 % 10.3-14.2 qpel=725) PLATELET COUNT (BEAKER) (test ntmu=237) 224 K/CU MM 150-430 MEAN PLATELET VOLUME (BEAKER) (test epmv=648) 7.4 fL 6.5-10.5 NUCLEATED RED BLOOD CELLS (BEAKER) (test 0 /100 WBC 0-0 gyzt=972) 0.00TROPONIN [id number] 01:02:00 Test Item Value Reference Range Comments TROPONIN I (BEAKER) (test gkdt=936) 30.39 ng/mL 0.00-0.03 Effective 06/21/2014: Reference Range ChangeNew: 0.00-0.03 Previous 0.00- 0.15Troponin I (TnI) levels must be interpreted in the context of the presenting symptoms and the clinical findings. Elevated TnI levels indicate myocardial damage, but are not specific for ischemic heart disease. Elevated TnI levels are seen in patients with other cardiac conditions (including myocarditis and congestive heartfailure), and slight TnI elevations occur in patients with other conditions, including sepsis, renalfailure, acidosis, acute neurological disease, and persistent tachyarrhythmia.FastingLIPID [id number] 00:53:00 Test Item Value Reference Range Comments TRIGLYCERIDES (BEAKER) (test nesi=991) 184 mg/dL CHOLESTEROL (BEAKER) (test qthh=044) 204 mg/dL HDL CHOLESTEROL (BEAKER) (test jjeu=644) 39 mg/dL LDL CHOLESTEROL CALCULATED (BEAKER) (test 128 mg/dL phgg=649) Triglyceride Reference Range: Low Risk <150 Borderline 150- 199 High Risk 200-499 Very High Risk >=500Cholesterol Reference Range: Low Risk <200 Borderline 200-239 High Risk > 240HDL Cholesterol Reference Range: Low Risk >=60 High Risk <40LDL Cholesterol Reference Range: Optimal <100 Near Optimal 100-129 Borderline 130-159 High 160-189 Very High >=190 FastingPOCT-GLUCOSE [id number] 21:57:00 Test Item Value Reference Range Comments POC-GLUCOSE METER ([place] MOD) 223 mg/dL 70-110 TESTED AT [address] (test rznq=5295) [place] [id number] TROPONIN [id number] 18:46:00 Test Item Value Reference Range Comments TROPONIN I (BEAKER) (test yqln=720) 30.60 ng/mL 0.00-0.03 Effective 06/21/2014: Reference Range ChangeNew: 0.00-0.03 Previous 0.00- 0.15Troponin I (TnI) levels must be interpreted in the context of the presenting symptoms and the clinical findings. Elevated TnI levels indicate myocardial damage, but are not specific for ischemic heart disease. Elevated TnI levels are seen in patients with other cardiac conditions (including myocarditis and congestive heartfailure), and slight TnI elevations occur in patients with other conditions, including sepsis, renalfailure, acidosis, acute neurological disease, and persistent tachyarrhythmia.POCT-GLUCOSE [id number] 17:10:00 Test Item Value Reference Range Comments POC-GLUCOSE METER ([facility] MOD) 225 mg/dL 70-110 TESTED AT [address] (test awcf=8720) [place] [id number] POCT-GLUCOSE [id number] 14:36:00 Test Item Value Reference Range Comments POC-GLUCOSE METER (BEAKER) 303 mg/dL 70-110 [facility] [address] [facility] (test zoyd=5283) [facility] [address] HEMOGLOBIN [id number] 13:32:00 Test Item Value Reference Range Comments HEMOGLOBIN A1C (BEAKER) (test ksco=608) 11.4 % 4.3-6.1 TROPONIN [id number] 12:17:00 Test Item Value Reference Range Comments TROPONIN I (BEAKER) (test seix=934) 19.92 ng/mL 0.00-0.03 Effective 06/21/2014: Reference Range ChangeNew: 0.00-0.03 Previous 0.00- 0.15Troponin I (TnI) levels must be interpreted in the context of the presenting symptoms and the clinical findings. Elevated TnI levels indicate myocardial damage, but are not specific for ischemic heart disease. Elevated TnI levels are seen in patients with other cardiac conditions (including myocarditis and congestive heartfailure), and slight TnI elevations occur in patients with other conditions, including sepsis, renalfailure, acidosis, acute neurological disease, and persistent tachyarrhythmia.COMPREHENSIVE METABOLIC [id number] 12:16:00 Test Item Value Reference Range Comments TOTAL PROTEIN (BEAKER) 6.6 gm/dL 6.0-8.3 Specimen slightly (test wqdb=060) hemolyzed ALBUMIN (BEAKER) (test 3.4 g/dL 3.5-5.0 Specimen slightly mqbh=9814) hemolyzed ALKALINE PHOSPHATASE 79 U/L 40-150 (BEAKER) (test mdfj=700) BILIRUBIN TOTAL (BEAKER) 0.7 mg/dL 0.2-1.2 Specimen slightly (test cbod=243) hemolyzed SODIUM (BEAKER) (test 134 meq/L 136-145 wltf=117) POTASSIUM (BEAKER) (test 4.6 meq/L 3.5-5.1 Specimen slightly dvpz=746) hemolyzed CHLORIDE (BEAKER) (test 96 meq/L 98-107 rxny=663) CO2 (BEAKER) (test 24 meq/L 22-29 tfvc=263) BLOOD UREA NITROGEN 21 mg/dL 7-21 (BEAKER) (test luqt=235) CREATININE (BEAKER) (test 0.92 mg/dL 0.57-1.25 Specimen slightly buhz=056) hemolyzed GLUCOSE RANDOM (BEAKER) 451 mg/dL 70-105 (test ceol=945) CALCIUM (BEAKER) (test 7.9 mg/dL 8.4-10.2 jmuf=222) AST (SGOT) (BEAKER) (test 35 U/L 5-34 Specimen slightly gxim=345) hemolyzed ALT (SGPT) (BEAKER) (test 19 U/L 6-55 Specimen slightly tvaj=248) hemolyzed EGFR (BEAKER) (test 61 mL/min/1.73 sq m INSUFFICIENT CLINICAL qqfc=2993) DATA TO CALCULATE ESTIMATED GFR. B-TYPE NATRIURETIC FACTOR (BNP)2016-10-18 10:49:00 Test Item Value Reference Range Comments B-TYPE NATRIURETIC PEPTIDE (BEAKER) (test 351 pg/mL 0-100 pbyn=224) [id number] 10:41:00 Test Item Value Reference Range Comments PARTIAL THROMBOPLASTIN TIME (BEAKER) (test 58.8 seconds 22.5-36.0 puca=577) Prior to initiating heparinPROTHROMBIN TIME/[id number] 10:40:00 Test Item Value Reference Range Comments PROTIME (BEAKER) (test gmjv=728) 14.1 seconds 11.7-14.7 INR (BEAKER) (test lypz=273) 1.1 <=5.9 RECOMMENDED COUMADIN/WARFARIN INR THERAPY RANGESSTANDARD DOSE: 2.0 - 3.0 Includes: PROPHYLAXIS forvenous thrombosis, systemic embolization; TREATMENT for venous thrombosis and/or pulmonary embolus.HIGH RISK: Target INR is 2.5-3.5 for patients with mechanical heart valves.Prior to initiating heparinPLATELET [id number] 10:39:00 Test Item Value Reference Range Comments PLATELET COUNT (BEAKER) (test elnd=453) 242 K/CU MM 150-430 CBC (HEMOGRAM ONLY)2016-10-18 10:39:00 Test Item Value Reference Range Comments WHITE BLOOD CELL COUNT (BEAKER) (test rsdm=152) 13.4 K/ L 4.0-10.0 RED BLOOD CELL COUNT (BEAKER) (test bvwf=049) 4.53 M/ L 4.00-5.00 HEMOGLOBIN (BEAKER) (test txuv=710) 14.2 GM/DL 12.0-15.0 HEMATOCRIT (BEAKER) (test wizd=425) 41.8 % 36.0-45.0 MEAN CORPUSCULAR VOLUME (BEAKER) (test tbsa=129) 92.4 fL 82.0-99.0 MEAN CORPUSCULAR HEMOGLOBIN (BEAKER) (test 31.3 pg 27.0-33.0 uiwb=360) MEAN CORPUSCULAR HEMOGLOBIN CONC (BEAKER) (test 33.9 GM/DL 32.0-36.0 bzbe=729) RED CELL DISTRIBUTION WIDTH (BEAKER) (test 13.2 % 10.3-14.2 rbte=329) PLATELET COUNT (BEAKER) (test tvye=841) 242 K/CU MM 150-430 MEAN PLATELET VOLUME (BEAKER) (test qmgz=889) 8.0 fL 6.5-10.5 NUCLEATED RED BLOOD CELLS (BEAKER) (test 0 /100 WBC 0-0 kiaj=739) POCT-GLUCOSE [id number] 09:41:00 Test Item Value Reference Range Comments POC-GLUCOSE METER ([facility]) 416 mg/dL 70-110 TESTED AT [address] (test ixtd=5381) [place] [address] [id number] 08:15:00 Test Item Value Reference Range Comments ACTIVATED CLOTTING TIME 209 sec TESTED AT [place] [id number] [facility] ([facility]) (test hrnt=309) [place] [address] [id number] 07:18:00 Test Item Value Reference Range Comments ACTIVATED CLOTTING TIME 286 sec TESTED AT [address] ([facility]) (test wwgi=413) [place] [address]
== END 2019-06-07 12:10 | disposition home health service (06) | DRG 291 ==
LOC: ER 13:01 → ERHOLD 16:04 → 4TH 17:35 → 3RD-ICU 06-04 04:40 → 2ND 06-04 15:20
PROVIDERS: ADMIT Family Medicine; ATTEND Family Medicine
DX: I13.0 Hypertensive heart and chronic kidney disease with heart failure and stage 1 through stage 4 chronic kidney disease, or unspecified chronic kidney disease (principal); N17.0 Acute kidney failure with tubular necrosis; N39.0 Urinary tract infection, site not specified; I50.32 Chronic diastolic (congestive) heart failure; E87.5 Hyperkalemia; B96.20 Unspecified Escherichia coli [E. coli] as the cause of diseases classified elsewhere; E11.22 Type 2 diabetes mellitus with diabetic chronic kidney disease; E11.65 Type 2 diabetes mellitus with hyperglycemia; N18.3 Chronic kidney disease, stage 3 (moderate); E03.9 Hypothyroidism, unspecified; E78.5 Hyperlipidemia, unspecified; J44.9 Chronic obstructive pulmonary disease, unspecified; I25.10 Atherosclerotic heart disease of native coronary artery without angina pectoris; F32.9 Major depressive disorder, single episode, unspecified; Z99.81 Dependence on supplemental oxygen; Z87.891 Personal history of nicotine dependence; Z23 Encounter for immunization
CPT/HCPCS: 36415; 51702; 71045; 71046; 76770; 80048; 80053; 80076; 81003; 81015; 82550; 82553; 82947; 83036; 83605; 83735; 83880; 84145; 84484; 85025; 85610; 86704; 86706; 86803; 87077; 87086; 87088; 87186; 87340; 90471; 93005; 93306; 94640; 96374; 96375; 97112; 97116; 97161; 97530; 99285; J0610; J0696; J1610; J1644; J1650; J1815; J1940; J2930; J3475; J7030; J7042; J7605; Q2035

== ENCOUNTER 2020-02-17 13:02 | Day surgery (SDC) | payer OTHER ==
[2020-02-14 13:50] LABS: Absolute Lymphocytes (CBC) 1.5 K/uL (0.7-4.9); Basophils % 0.7 % (0-1.3); Lymphocytes % 16.8 % (15.3-44.8); MPV 8.4 fL (7.6-11.3); RBC Red Blood Cell Count 4.15 M/uL (3.86-4.86)
[2020-02-14 14:03] LABS: Potassium 4.6 mmol/L (3.5-5.1)
[2020-02-17] MEDS ORDERED: NA CHLORIDE 0.9% 500 ML ONE (13:17)
[2020-02-17] MEDS ORDERED: HEPARIN 5000 UNIT/ML 1 ML VIAL ONE (13:35)
[2020-02-17] MEDS ORDERED: MIDAZOLAM HCL 2 MG/2 ML INJ ONE (13:35)
[2020-02-17] MEDS ORDERED: HEPA 1000U/500MLS 1,000 UNIT/500 ML BAG IV ONE (13:35)
[2020-02-17] MEDS ORDERED: HEPARIN 10,000 UNIT/10 ML VIAL IV ONE (13:36)
[2020-02-17] MEDS ORDERED: ATROPINE SULF 1 MG/10 ML SYR IV ONE (13:36)
[2020-02-17] MEDS ORDERED: FENTANYL CITR 100 MCG/2 ML ONE ×2 (13:36→15:04)
[2020-02-17] MEDS ORDERED: NICARDIPINE HCL 25 MG/10 ML IV ONE (13:36)
[2020-02-17] MEDS ORDERED: NITROGLYCERIN 100 MCG/ML SYR (for cath lab use only) IV ONE (13:36)
--- OUTSIDE RECORDS SUMMARY | 2020-02-17 14:01 | XMS REPORT | Continuity of Care Document ---
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[facility] - type 2, type 2, 00:00: Medical uncontroll uncontroll 00 Ce nter ed, with ed, with complicati complicati ons ons Hypertensi Hypertensi Disease Active [facility] on 3[facility] - 00:00: Medical 00 [place] CAD, CAD, Disease Active [facility] multiple multiple 3-18 [facility] - vessel vessel 00:00: Medical 00 [place] 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 [facility] - coronary coronary 00:00: Medica l artery of artery of 00 [facility] [place] heart with heart with unstable unstable angina angina pectoris pectoris Coronary Coronary Disease [facility] - calcificat calcificat 00:00: Me dical ion of ion of 00 [place] artery artery Hyperlipid Hyperlipid Disease Active [facility] em[facility] emia 3-18 [facility] - associated associated 00:00: Me dical with type with type 00 Cent er 2 diabetes 2 diabetes mellitus mellitus Continuous Continuous Disease Active [facility] tobacco tobacco 3-18 [facility] - abuse abuse 00:00: Medical [address] Disease [facility] elevation elevation 3-17 [facility] - myocardial myocardial 00:00: Me dical infarction infarction 00 Ce nter (STEMI) (STEMI) involving involving right right coronary coronary artery artery Allergies, Adverse Reactions, Alerts This patient has no known allergies or adverse reactions. Social History Social Habit Start Date Stop Date Quantity Comments Source Sex Assigned At [facility] Smoking Status Start Date Stop Date Source Current every day smoker 2016-10-23 00:00:00 [facility] Medications Ordered Filled Start Stop Current Ordering Indication Dosage Frequency Signature Comments Components Source Medication Medication Date Date Medication? Clinician (SIG) Name Name furosemide Yes visible 40mg Q.5D Take [address] (LASIX) 40 3-24 water tablet (40 Starr kes - MG tablet 00:00: retention mg total) Medical 00 by mouth 2 Center (two) times daily. gabapentin Yes neuropathic 800mg [id number] Take [address] (NEURONTIN) 3-17 pain [id number] mg by L ukes - 300 MG 13:08: 3D mouth 3 Medical capsule 37 (three) Center times daily . levothyroxi Yes a condition 150ug Take [address] ne 3-17 with low mcg by [facility] - (SYNTHROID, 12:36: thyroid mouth Me dical LEVOTHROID) 49 hormone Every Cent er 100 MCG levels morning on tablet an empty stomach . sertraline Yes 150mg QD Take [address] (ZOLOFT) 3-17 mg by [facility] - 100 MG 12:36: mouth Medical tablet 49 daily Center Unknown dose. Procedures This patient has no known procedures. Results Test Description Test Time Test Comments Results Result Comments Source POCT-GLUCOSE METER 2016-10-25 18:02:00 Test Item Value Reference Range Interpretation Comme nts POC-GLUCOSE METER (Marro.ws) (test 125 mg/dL 70-[address] [facility] [address] [facility] code = 1538) [facility] 7703 0 POCT-GLUCOSE [id number] 11:32:00 Test Item Value Reference Range Interpretation Comments POC-GLUCOSE METER 178 mg/dL 70-[address] [facility] 6720 ([facility]) (test code = CANDIDO Page [facility] 1538) [id number] POCT-GLUCOSE [id number] 07:36:00 Test Item Value Reference Range Interpretation Comments POC-GLUCOSE METER 159 mg/dL 70-[address] [facility] 6720 (BEAKER) (test code = CANDIDO SURESH 1538) [id number] 04:24:00 Test Item Value Reference Range Interpretation Comments MAGNESIUM (BEAKER) (test code = 1.8 mg/dL 1.6-2.6 627) Please draw today if not done already.BASIC METABOLIC [id number] 04:24:00 Test Item Value Reference Range Interpretation Comments SODIUM (BEAKER) 137 meq/L 136-145 (test code = 381) POTASSIUM (BEAKER) 3.7 meq/L 3.5-5.1 (test code = 379) CHLORIDE (BEAKER) 96 meq/L 98-107 L (test code = 382) CO2 (BEAKER) (test 28 meq/L 22-29 code = 355) BLOOD UREA NITROGEN 21 mg/dL 7-21 (BEAKER) (test code = 354) CREATININE (BEAKER) 0.78 mg/dL 0.57-1.25 (test code = 358) GLUCOSE RANDOM 155 mg/dL 70-105 H (BEAKER) (test code = 652) CALCIUM (BEAKER) 8.6 mg/dL 8.4-10.2 (test code = 697) EGFR (BEAKER) (test 73 mL/min/1.73 ESTIMA TAMMI GFR IS code = 1092) sq m NOT ACCURATE CREATININE CLEARANCE IN PREDICTING GLOMERULAR FILTRATION RATE . ESTIMATED GFR I S NOT APPLICABLE FOR DIALYSIS PATIEN TS. Please draw today if not done already.CBC (HEMOGRAM ONLY)2016-10-25 04:11:00 Test Item Value Reference Range Interpretation Comments WHITE BLOOD CELL COUNT (BEAKER) 13.9 K/ L 4.0-10.0 H (test code = 775) RED BLOOD CELL COUNT (BEAKER) 3.68 M/ L 4.00-5.00 L (test code = 761) HEMOGLOBIN (BEAKER) (test code = 12.0 GM/DL 12.0-15.0 410) HEMATOCRIT (BEAKER) (test code = 34.8 % 36.0-45.0 L 411) MEAN CORPUSCULAR VOLUME (BEAKER) 94.8 fL 82.0-99.0 (test code = 753) MEAN CORPUSCULAR HEMOGLOBIN 32.6 pg 27.0-33.0 ([facility]) (test code = 751) MEAN CORPUSCULAR HEMOGLOBIN CONC 34.4 GM/DL 32.0-36.0 ([facility]) (test code = 752) RED CELL DISTRIBUTION WIDTH 13.7 % 10.3-14.2 ([facility]) (test code = 412) PLATELET COUNT ([facility]) (test 318 K/CU MM 150-430 code = 756) MEAN PLATELET VOLUME ([facility]) 7.2 fL 6.5-10.5 (test code = 754) NUCLEATED RED BLOOD CELLS 0 /100 WBC 0-0 ([facility]) (test code = 413) 0.00POCT-GLUCOSE [id number] 21:59:00 Test Item Value Reference Range Interpretation Comments POC-GLUCOSE METER 161 mg/dL 70-110 H TESTED AT [place] [address] ([facility]) (test code = CANDIDO Page [facility] 1538) [id number] POCT-GLUCOSE [id number] 17:22:00 Test Item Value Reference Range Interpretation Comments POC-GLUCOSE METER 106 mg/dL 70-110 TESTED AT [place] [address] ([facility]) (test code = CANDIDO Page [facility] 1538) [address] POCT-GLUCOSE [id number] 12:49:00 Test Item Value Reference Range Interpretation Comments POC-GLUCOSE METER 143 mg/dL 70-110 H TESTED AT [place] [address] ([facility]) [facility] 1538[facility] [id number] POCT-GLUCOSE [id number] 08:52:00 Test Item Value Reference Range Interpretation Comments POC-GLUCOSE METER 257 mg/dL 70-110 H TESTED AT [place] [address] ([facility]) (test code = [facility] Kaylee [facility] 1538) [id number] B-TYPE NATRIURETIC FACTOR (BNP)2016-10-24 05:49:00 Test Item Value Reference Range Interpretation Comments B-TYPE NATRIURETIC PEPTIDE ([facility]) 478 pg/mL 0-100 H (test code = 700) [id number] 05:45:00 Test Item Value Reference Range Interpretation Comments MAGNESIUM ([facility]) (test code = 2.0 mg/dL 1.6-2.6 627) Please draw today if not done already.BASIC METABOLIC [id number] 05:45:00 Test Item Value Reference Range Interpretation Comments SODIUM (BEAKER) 140 meq/L 136-145 (test code = 381) POTASSIUM (BEAKER) 3.7 meq/L 3.5-5.1 (test code = 379) CHLORIDE (BEAKER) 99 meq/L 98-107 (test code = 382) CO2 (BEAKER) (test 30 meq/L 22-29 H code = 355) BLOOD UREA NITROGEN 18 mg/dL 7-21 (BEAKER) (test code = 354) CREATININE (BEAKER) 0.75 mg/dL 0.57-1.25 (test code = 358) GLUCOSE RANDOM 97 mg/dL 70-105 (BEAKER) (test code = 652) CALCIUM (BEAKER) 8.6 mg/dL 8.4-10.2 (test code = 697) EGFR (BEAKER) (test 77 mL/min/1.73 ESTIMA TAMMI GFR IS code = 1092) sq m NOT ACCURATE CREATININE CLEARANCE IN PREDICTING GLOMERULAR FILTRATION RATE . ESTIMATED GFR I S NOT APPLICABLE FOR DIALYSIS PATIEN TS. Please draw today if not done already.POCT-GLUCOSE [id number] 21:05:00 Test Item Value Reference Range Interpretation Comments POC-GLUCOSE METER 207 mg/dL 70-110 H TESTED AT [place] [address] ([facility]) (test code = [facility] 1538) [address] POCT-GLUCOSE [id number] 17:36:00 Test Item Value Reference Range Interpretation Comments POC-GLUCOSE METER 217 mg/dL 70-110 H TESTED AT [place] [address] ([facility]) (test code = [facility] 1538) [address] POCT-GLUCOSE [id number] 12:27:00 Test Item Value Reference Range Interpretation Comments POC-GLUCOSE METER 187 mg/dL 70-[address] [facility] 6720 ([facility] (test code = [facility] 1538) [id number] POCT-GLUCOSE [id number] 08:32:00 Test Item Value Reference Range Interpretation Comments POC-GLUCOSE METER 190 mg/dL 70-110 H TESTED AT [place] [id number] ([facility]) (test code = [facility] 1538) [id number] CBC (HEMOGRAM ONLY)2016-10-23 05:22:00 Test Item Value Reference Range Interpretation Comments WHITE BLOOD CELL COUNT (BEAKER) 13.1 K/ L 4.0-10.0 H (test code = 775) RED BLOOD CELL COUNT (BEAKER) 4.12 M/ L 4.00-5.00 (test code = 761) HEMOGLOBIN (BEAKER) (test code = 11.5 GM/DL 12.0-15.0 L 410) HEMATOCRIT (BEAKER) (test code = 39.0 % 36.0-45.0 411) MEAN CORPUSCULAR VOLUME (BEAKER) 94.7 fL 82.0-99.0 (test code = 753) MEAN CORPUSCULAR HEMOGLOBIN 27.8 pg 27.0-33.0 (BEAKER) (test code = 751) MEAN CORPUSCULAR HEMOGLOBIN CONC 29.4 GM/DL 32.0-36.0 L (BEAKER) (test code = 752) RED CELL DISTRIBUTION WIDTH 13.1 % 10.3-14.2 (BEAKER) (test code = 412) PLATELET COUNT (BEAKER) (test 296 K/CU MM 150-430 code = 756) MEAN PLATELET VOLUME (BEAKER) 7.4 fL 6.5-10.5 (test code = 754) NUCLEATED RED BLOOD CELLS 0 /100 WBC 0-0 (BEAKER) (test code = 413) [id number] 05:21:00 Test Item Value Reference Range Interpretation Comments MAGNESIUM (BEAKER) (test code = 2.0 mg/dL 1.6-2.6 627) Please draw today if not done already.BASIC METABOLIC [id number] 05:21:00 Test Item Value Reference Range Interpretation Comments SODIUM (BEAKER) 138 meq/L 136-145 (test code = 381) POTASSIUM (BEAKER) 4.0 meq/L 3.5-5.1 (test code = 379) CHLORIDE (BEAKER) 99 meq/L 98-107 (test code = 382) CO2 (BEAKER) (test 25 meq/L 22-29 code = 355) BLOOD UREA NITROGEN 18 mg/dL 7-21 (BEAKER) (test code = 354) CREATININE (BEAKER) 0.78 mg/dL 0.57-1.25 (test code = 358) GLUCOSE RANDOM 219 mg/dL 70-105 H ([facility]) (test code = 652) CALCIUM (BEAKER) 8.8 mg/dL 8.4-10.2 (test code = 697) EGFR ([facility]) (test 73 mL/min/1.73 ESTIMA TAMMI GFR IS code = 1092) sq m NOT ACCURATE CREATININE CLEARANCE IN PREDICTING GLOMERULAR FILTRATION RATE . ESTIMATED GFR I S NOT APPLICABLE FOR DIALYSIS PATIEN TS. Please draw today if not done already.POCT-GLUCOSE [id number] 04:07:00 Test Item Value Reference Range Interpretation Comments POC-GLUCOSE METER 226 mg/dL 70-110 H TESTED AT [place] [address] ([facility]) (test code = [employer] [place] 1538) [id number] POCT-GLUCOSE [id number] 23:07:00 Test Item Value Reference Range Interpretation Comments POC-GLUCOSE METER 208 mg/dL 70-110 H TESTED AT [place] [address] ([facility]) (test code = [facility] [employer] [place] 1538) [address] POCT-GLUCOSE [id number] 20:53:00 Test Item Value Reference Range Interpretation Comments POC-GLUCOSE METER 279 mg/dL 70-110 H TESTED AT [place] [address] ([facility]) (test code = [employer] [place] 1538) [id number] POCT-GLUCOSE [id number] 18:27:00 Test Item Value Reference Range Interpretation Comments POC-GLUCOSE METER 233 mg/dL 70-110 H TESTED AT [place] [address] ([facility]) (test code = [employer] [place] 1538) [id number] POCT-GLUCOSE [id number] 12:41:00 Test Item Value Reference Range Interpretation Comments POC-GLUCOSE METER 282 mg/dL 70-110 H TESTED AT [place] [address] ([facility]) (test code = [facility] [employer] [place] 1538) [address] BLOOD GAS, [id number] 10:14:00 Test Item Value Reference Range Interpretation Comments PH VENOUS ([facility]) (test code = 7.48 7.32-7.42 H 701) PCO2 VENOUS ([facility]) (test code = 41 mmHg 41-51 755) PO2 VENOUS ([facility]) (test code = 141 mmHg 25-40 H 702) O2 SATURATION VENOUS (BEAKER) 99.0 % 40.0-70.0 H (test code = 703) HCO3 VENOUS (BEAKER) (test code = 30 mmol/L 21-29 H 705) BASE EXCESS VENOUS (BEAKER) (test 5.5 mmol/L -2.0-3.0 H code = 704) PATIENT TEMPERATURE (BEAKER) (test 36.0 C code = 1818) FIO2 (BEAKER) (test code = 1819) 21.0 % POCT-GLUCOSE [id number] 08:55:00 Test Item Value Reference Range Interpretation Comments POC-GLUCOSE METER 149 mg/dL 70-[address] [facility] 6720 (BEAKER) (test code = [place]O [place] 1538) [id number] 07:04:00 Test Item Value Reference Range Interpretation Comments PARTIAL THROMBOPLASTIN TIME 27.7 seconds 22.5-36.0 (BEAKER) (test code = 760) [id number] 04:59:00 Test Item Value Reference Range Interpretation Comments MAGNESIUM (BEAKER) (test code = 1.9 mg/dL 1.6-2.6 627) Please draw today if not done already.BASIC METABOLIC [id number] 04:59:00 Test Item Value Reference Range Interpretation Comments SODIUM (BEAKER) 138 meq/L 136-145 (test code = 381) POTASSIUM (BEAKER) 4.4 meq/L 3.5-5.1 (test code = 379) CHLORIDE (BEAKER) 99 meq/L 98-107 (test code = 382) CO2 (BEAKER) (test 29 meq/L 22-29 code = 355) BLOOD UREA NITROGEN 12 mg/dL 7-21 (BEAKER) (test code = 354) CREATININE (BEAKER) 0.68 mg/dL 0.57-1.25 (test code = 358) GLUCOSE RANDOM 161 mg/dL 70-105 H (BEAKER) (test code = 652) CALCIUM (BEAKER) 8.6 mg/dL 8.4-10.2 (test code = 697) EGFR (BEAKER) (test 86 mL/min/1.73 ESTIMA TAMMI GFR IS code = 1092) sq m NOT ACCURATE CREATININE CLEARANCE IN PREDICTING GLOMERULAR FILTRATION RATE . ESTIMATED GFR I S NOT APPLICABLE FOR DIALYSIS PATIEN TS. Please draw today if not done already.CBC (HEMOGRAM ONLY)2016-10-22 04:57:00 Test Item Value Reference Range Interpretation Comments WHITE BLOOD CELL COUNT (BEAKER) 14.2 K/ L 4.0-10.0 H (test code = 775) RED BLOOD CELL COUNT (BEAKER) 3.80 M/ L 4.00-5.00 L (test code = 761) HEMOGLOBIN (BEAKER) (test code = 11.2 GM/DL 12.0-15.0 L 410) HEMATOCRIT (BEAKER) (test code = 35.7 % 36.0-45.0 L 411) MEAN CORPUSCULAR VOLUME (BEAKER) 94.0 fL 82.0-99.0 (test code = 753) MEAN CORPUSCULAR HEMOGLOBIN 29.6 pg 27.0-33.0 (BEAKER) (test code = 751) MEAN CORPUSCULAR HEMOGLOBIN CONC 31.5 GM/DL 32.0-36.0 L (BEAKER) (test code = 752) RED CELL DISTRIBUTION WIDTH 13.0 % 10.3-14.2 (BEAKER) (test code = 412) PLATELET COUNT (BEAKER) (test 247 K/CU MM 150-430 code = 756) MEAN PLATELET VOLUME (BEAKER) 7.1 fL 6.5-10.5 (test code = 754) NUCLEATED RED BLOOD CELLS 0 /100 WBC 0-0 (BEAKER) (test code = 413) 0.00POCT-GLUCOSE [id number] 20:38:00 Test Item Value Reference Range Interpretation Comments POC-GLUCOSE METER 196 mg/dL 70-110 H TESTED AT [place] [address] ([facility]) (test code = [facility] 1538) [id number] POCT-GLUCOSE [id number] 17:09:00 Test Item Value Reference Range Interpretation Comments POC-GLUCOSE METER 146 mg/dL 70-110 H TESTED AT [place] [address] ([facility]) (test code = [facility] 1538) [id number] POCT-GLUCOSE [id number] 13:52:00 Test Item Value Reference Range Interpretation Comments POC-GLUCOSE METER 96 mg/dL 70-110 TESTED AT [place] [address] ([facility]) (test code = [facility] [id number] 1538) [id number] 11:12:00 Test Item Value Reference Range Interpretation Comments ACTIVATED CLOTTING TIME 255 sec TEST ED AT [place] [address] ([facility] (test code = CANDIDO Page [place] 441) [address] [id number] 10:21:00 Test Item Value Reference Range Interpretation Comments ACTIVATED CLOTTING TIME 302 sec TEST ED AT [place] [address] ([facility]) (test code = CANDIDO Page [place] 441) [address] [id number] 10:21:00 Test Item Value Reference Range Interpretation Comments ACTIVATED CLOTTING TIME 569 sec TEST ED AT [place] [address] ([facility] (test code = CANDIDO Page [place] 441) [address] POCT-GLUCOSE [id number] 07:23:00 Test Item Value Reference Range Interpretation Comments POC-GLUCOSE METER 87 mg/dL 70-110 TESTED AT [place] [address] ([facility]) (test code = CANDIDO Page [facility] [address] 1538) B-TYPE NATRIURETIC FACTOR (BNP)2016-10-21 06:33:00 Test Item Value Reference Range Interpretation Comments B-TYPE NATRIURETIC PEPTIDE (BEAKER) 494 pg/mL 0-100 H (test code = 700) [id number] 06:21:00 Test Item Value Reference Range Interpretation Comments MAGNESIUM (BEAKER) (test code = 1.9 mg/dL 1.6-2.6 627) Please draw today if not done already.BASIC METABOLIC [id number] 06:21:00 Test Item Value Reference Range Interpretation Comments SODIUM (BEAKER) 139 meq/L 136-145 (test code = 381) POTASSIUM (BEAKER) 3.4 meq/L 3.5-5.1 L (test code = 379) CHLORIDE (BEAKER) 99 meq/L 98-107 (test code = 382) CO2 (BEAKER) (test 31 meq/L 22-29 H code = 355) BLOOD UREA NITROGEN 16 mg/dL 7-21 (BEAKER) (test code = 354) CREATININE (BEAKER) 0.65 mg/dL 0.57-1.25 (test code = 358) GLUCOSE RANDOM 88 mg/dL 70-105 (BEAKER) (test code = 652) CALCIUM (BEAKER) 8.6 mg/dL 8.4-10.2 (test code = 697) EGFR (BEAKER) (test 90 mL/min/1.73 ESTIMA TAMMI GFR IS code = 1092) sq m NOT ACCURATE CREATININE CLEARANCE IN PREDICTING GLOMERULAR FILTRATION RATE . ESTIMATED GFR I S NOT APPLICABLE FOR DIALYSIS PATIEN TS. Please draw today if not done already.CBC (HEMOGRAM ONLY)2016-10-21 06:01:00 Test Item Value Reference Range Interpretation Comments WHITE BLOOD CELL COUNT (BEAKER) 13.9 K/ L 4.0-10.0 H (test code = 775) RED BLOOD CELL COUNT (BEAKER) 4.06 M/ L 4.00-5.00 (test code = 761) HEMOGLOBIN (BEAKER) (test code = 11.9 GM/DL 12.0-15.0 L 410) HEMATOCRIT (BEAKER) (test code = 38.2 % 36.0-45.0 411) MEAN CORPUSCULAR VOLUME (BEAKER) 94.2 fL 82.0-99.0 (test code = 753) MEAN CORPUSCULAR HEMOGLOBIN 29.4 pg 27.0-33.0 (BEAKER) (test code = 751) MEAN CORPUSCULAR HEMOGLOBIN CONC 31.2 GM/DL 32.0-36.0 L (BEAKER) (test code = 752) RED CELL DISTRIBUTION WIDTH 13.0 % 10.3-14.2 (BEAKER) (test code = 412) PLATELET COUNT (BEAKER) (test 229 K/CU MM 150-430 code = 756) MEAN PLATELET VOLUME (BEAKER) 7.2 fL 6.5-10.5 (test code = 754) NUCLEATED RED BLOOD CELLS 0 /100 WBC 0-0 (BEAKER) (test code = 413) 0.00POCT-GLUCOSE [id number] 20:36:00 Test Item Value Reference Range Interpretation Comments POC-GLUCOSE METER 280 mg/dL 70-[address] [facility] 6720 ([facility]) (test code = CANDIDO Page [place] 1538) [id number] POCT-GLUCOSE [id number] 16:29:00 Test Item Value Reference Range Interpretation Comments POC-GLUCOSE METER 218 mg/dL 70-[address] [facility] 6720 ([facility]) (test code = CANDIDO Page [place] 1538) [address] POCT-GLUCOSE [id number] 12:24:00 Test Item Value Reference Range Interpretation Comments POC-GLUCOSE METER 193 mg/dL 70-[address] [facility] 6720 (BEAKER) (test code = CANDIDO Page [place] 1538) [id number] POCT-GLUCOSE [id number] 07:21:00 Test Item Value Reference Range Interpretation Comments POC-GLUCOSE METER 179 mg/dL 70-[address] [facility] 6720 (BEAKER) (test code = CANDIDO Page [facility] 1538) [address] [id number] 06:24:00 Test Item Value Reference Range Interpretation Comments THYROID STIMULATING HORMONE 1.09 uIU/mL 0.35-4.94 (BEAKER) (test code = 772) [id number] 05:47:00 Test Item Value Reference Range Interpretation Comments MAGNESIUM (BEAKER) (test code = 2.0 mg/dL 1.6-2.6 627) Please draw today if not done already.BASIC METABOLIC [id number] 05:47:00 Test Item Value Reference Range Interpretation Comments SODIUM (BEAKER) 137 meq/L 136-145 (test code = 381) POTASSIUM (BEAKER) 4.0 meq/L 3.5-5.1 (test code = 379) CHLORIDE (BEAKER) 98 meq/L 98-107 (test code = 382) CO2 (BEAKER) (test 27 meq/L 22-29 code = 355) BLOOD UREA NITROGEN 16 mg/dL 7-21 (BEAKER) (test code = 354) CREATININE (BEAKER) 0.67 mg/dL 0.57-1.25 (test code = 358) GLUCOSE RANDOM 200 mg/dL 70-105 H (BEAKER) (test code = 652) CALCIUM (BEAKER) 8.4 mg/dL 8.4-10.2 (test code = 697) EGFR (BEAKER) (test 87 mL/min/1.73 ESTIMA TAMMI GFR IS code = 1092) sq m NOT ACCURATE CREATININE CLEARANCE IN PREDICTING GLOMERULAR FILTRATION RATE . ESTIMATED GFR I S NOT APPLICABLE FOR DIALYSIS PATIEN TS. Please draw today if not done already.POCT-GLUCOSE [id number] 21:41:00 Test Item Value Reference Range Interpretation Comments POC-GLUCOSE METER 191 mg/dL 70-110 H TESTED AT [facility] 6720 (BEAKER) (test code = CANDIDO Page [facility] 1538) [id number] POCT-GLUCOSE [id number] 17:13:00 Test Item Value Reference Range Interpretation Comments POC-GLUCOSE METER 197 mg/dL 70-110 H TESTED AT [place] [address] ([facility]) (test code = CANDIDO Page [facility] 1538) [id number] POCT-GLUCOSE [id number] 11:30:00 Test Item Value Reference Range Interpretation Comments POC-GLUCOSE METER 236 mg/dL 70-110 H TESTED AT [place] [address] ([facility]) (test code = [facility] Kaylee [facility] 1538) [address]185 POCT-GLUCOSE [id number] 07:26:00 Test Item Value Reference Range Interpretation Comments POC-GLUCOSE METER 231 mg/dL 70-110 H TESTED AT [place] [address] ([facility]) (test code = [facility] 1538) [id number] BASIC METABOLIC [id number] 06:07:00 Test Item Value Reference Range Interpretation Comments SODIUM (BEAKER) 137 meq/L 136-145 (test code = 381) POTASSIUM (BEAKER) 4.7 meq/L 3.5-5.1 (test code = 379) CHLORIDE (BEAKER) 98 meq/L 98-107 (test code = 382) CO2 (BEAKER) (test 29 meq/L 22-29 code = 355) BLOOD UREA NITROGEN 21 mg/dL 7-21 (BEAKER) (test code = 354) CREATININE (BEAKER) 0.84 mg/dL 0.57-1.25 (test code = 358) GLUCOSE RANDOM 211 mg/dL 70-105 H (BEAKER) (test code = 652) CALCIUM (BEAKER) 8.1 mg/dL 8.4-10.2 L (test code = 697) EGFR (BEAKER) (test 67 mL/min/1.73 ESTIMA TAMMI GFR IS code = 1092) sq m NOT ACCURATE CREATININE CLEARANCE IN PREDICTING GLOMERULAR FILTRATION RATE . ESTIMATED GFR I S NOT APPLICABLE FOR DIALYSIS PATIEN TS. Please draw today if not done already.CBC (HEMOGRAM ONLY)2016-10-19 05:56:00 Test Item Value Reference Range Interpretation Comments WHITE BLOOD CELL COUNT (BEAKER) 15.2 K/ L 4.0-10.0 H (test code = 775) RED BLOOD CELL COUNT (BEAKER) 4.05 M/ L 4.00-5.00 (test code = 761) HEMOGLOBIN (BEAKER) (test code = 12.1 GM/DL 12.0-15.0 410) HEMATOCRIT (BEAKER) (test code = 37.9 % 36.0-45.0 411) MEAN CORPUSCULAR VOLUME (BEAKER) 93.5 fL 82.0-99.0 (test code = 753) MEAN CORPUSCULAR HEMOGLOBIN 29.9 pg 27.0-33.0 (BEAKER) (test code = 751) MEAN CORPUSCULAR HEMOGLOBIN CONC 32.0 GM/DL 32.0-36.0 (BEAKER) (test code = 752) RED CELL DISTRIBUTION WIDTH 13.2 % 10.3-14.2 (BEAKER) (test code = 412) PLATELET COUNT (BEAKER) (test 224 K/CU MM 150-430 code = 756) MEAN PLATELET VOLUME (BEAKER) 7.4 fL 6.5-10.5 (test code = 754) NUCLEATED RED BLOOD CELLS 0 /100 WBC 0-0 (BEAKER) (test code = 413) 0.00TROPONIN [id number] 01:02:00 Test Item Value Reference Range Interpretation Comments TROPONIN I (BEAKER) (test code = 30.39 ng/mL 0.00-0.03 HH 397) Effective 06/21/2014: Reference Range ChangeNew: 0.00-0.03 Previous [...] acidosis, acute neurological disease, and persistent tachyarrhythmia.FastingLIPID [id number] 00:53:00 Test Item Value Reference Range Interpretation Comments TRIGLYCERIDES (BEAKER) (test code = 184 mg/dL 540) CHOLESTEROL (BEAKER) (test code = 204 mg/dL 631) HDL CHOLESTEROL (BEAKER) (test code 39 mg/dL = 976) LDL CHOLESTEROL CALCULATED ([facility]) 128 mg/dL (test code = 633) Triglyceride Reference Range: Low Risk <150 Borderline 150-199 High Risk 200-499 Very High Risk >=500Cholesterol Reference Range: Low Risk <200 Borderline 200-239 High Risk >240HDL Cholesterol Reference Range: Low Risk >=60 High Risk <40LDL Cholesterol Reference Range: Optimal <100 Near Optimal 100-129 Borderline 130-159 High 160-189 Very High >=190 FastingPOCT-GLUCOSE [id number] 21:57:00 Test Item Value Reference Range Interpretation Comments POC-GLUCOSE METER 223 mg/dL 70-110 H TESTED AT [place] [address] ([facility]) (test code = [facility] 1538) [id number] TROPONIN [id number] 18:46:00 Test Item Value Reference Range Interpretation Comments TROPONIN I ([facility]) (test code = 30.60 ng/mL 0.00-0.03 397) Effective 06/21/2014: Reference Range ChangeNew: 0.00-0.03 Previous [...] acidosis, acute neurological disease, and persistent tachyarrhythmia.POCT-GLUCOSE [id number] 17:10:00 Test Item Value Reference Range Interpretation Comments POC-GLUCOSE METER 225 mg/dL 70-[address] [facility] [address] ([facility]) (test code = [facility] 1538) [id number] POCT-GLUCOSE [id number] 14:36:00 Test Item Value Reference Range Interpretation Comments POC-GLUCOSE METER 303 mg/dL 70-[address] [facility] 67 ([facility]) (test code = [facility] 1538) [id number] HEMOGLOBIN [id number] 13:32:00 Test Item Value Reference Range Interpretation Comments HEMOGLOBIN A1C (BEAKER) (test code = 11.4 % 4.3-6.1 H 368) TROPONIN [id number] 12:17:00 Test Item Value Reference Range Interpretation Comments TROPONIN I (BEAKER) (test code = 19.92 ng/mL 0.00-0.03 HH 397) Effective 06/21/2014: Reference Range ChangeNew: 0.00-0.03 Previous [...] acute neurological disease, and persistent tachyarrhythmia.COMPREHENSIVE METABOLIC [id number] 12:16:00 Test Item Value Reference Range Interpretation Comments TOTAL PROTEIN 6.6 gm/dL 6.0-8.3 Specimen sligh tly (BEAKER) (test code hemolyze d = 770) ALBUMIN (BEAKER) 3.4 g/dL 3.5-5.0 L Specimen sl ightly (test code = 1145) hemolyzed ALKALINE PHOSPHATASE 79 U/L 40-150 (BEAKER) (test code = 346) BILIRUBIN TOTAL 0.7 mg/dL 0.2-1.2 Specimen sli ghtly (BEAKER) (test code hemolyze d = 377) SODIUM (BEAKER) 134 meq/L 136-145 L (test code = 381) POTASSIUM (BEAKER) 4.6 meq/L 3.5-5.1 Specimen slightly (test code = 379) hemolyzed CHLORIDE (BEAKER) 96 meq/L 98-107 L (test code = 382) CO2 (BEAKER) (test 24 meq/L 22-29 code = 355) BLOOD UREA NITROGEN 21 mg/dL 7-21 (BEAKER) (test code = 354) CREATININE (BEAKER) 0.92 mg/dL 0.57-1.25 Specimen slightly (test code = 358) hemolyzed GLUCOSE RANDOM 451 mg/dL 70-105 HH (BEAKER) (test code = 652) CALCIUM (BEAKER) 7.9 mg/dL 8.4-10.2 L (test code = 697) AST (SGOT) (BEAKER) 35 U/L 5-34 H Specimen slightly (test code = 353) hemolyzed ALT (SGPT) (BEAKER) 19 U/L 6-55 Specimen slightly (test code = 347) hemolyzed EGFR (BEAKER) (test 61 mL/min/1.73 INSUFF ICIENT code = 1092) sq m CLINICAL DATA T O CALCULATE ESTIM ATED GFR. B-TYPE NATRIURETIC FACTOR (BNP)2016-10-18 10:49:00 Test Item Value Reference Range Interpretation Comments B-TYPE NATRIURETIC PEPTIDE (BEAKER) 351 pg/mL 0-100 H (test code = 700) [id number] 10:41:00 Test Item Value Reference Range Interpretation Comments PARTIAL THROMBOPLASTIN TIME 58.8 seconds 22.5-36.0 H (BEAKER) (test code = 760) Prior to initiating heparinPROTHROMBIN TIME/[id number] 10:40:00 Test Item Value Reference Range Interpretation Comments PROTIME (BEAKER) (test code = 14.1 seconds 11.7-14.7 759) INR (BEAKER) (test code = 370) 1.1 <=5.9 RECOMMENDED COUMADIN/WARFARIN INR THERAPY RANGESSTANDARD DOSE: 2.0 - 3.0 Includes: PROPHYLAXIS forvenous thrombosis, systemic embolization; TREATMENT for venous thrombosis and/or pulmonary embolus.HIGH RISK: Target INR is 2.5-3.5 for patients with mechanical heart valves.Prior to initiating heparinPLATELET COUNT 2016-10-18 10:39:00 Test Item Value Reference Range Interpretation Comments PLATELET COUNT (BEAKER) (test 242 K/CU MM 150-430 code = 756) CBC (HEMOGRAM ONLY)2016-10-18 10:39:00 Test Item Value Reference Range Interpretation Comments WHITE BLOOD CELL COUNT (BEAKER) 13.4 K/ L 4.0-10.0 H (test code = 775) RED BLOOD CELL COUNT (BEAKER) 4.53 M/ L 4.00-5.00 (test code = 761) HEMOGLOBIN (BEAKER) (test code = 14.2 GM/DL 12.0-15.0 410) HEMATOCRIT (BEAKER) (test code = 41.8 % 36.0-45.0 411) MEAN CORPUSCULAR VOLUME ([facility]) 92.4 fL 82.0-99.0 (test code = 753) MEAN CORPUSCULAR HEMOGLOBIN 31.3 pg 27.0-33.0 ([facility]) (test code = 751) MEAN CORPUSCULAR HEMOGLOBIN CONC 33.9 GM/DL 32.0-36.0 ([facility]) (test code = 752) RED CELL DISTRIBUTION WIDTH 13.2 % 10.3-14.2 ([facility]) (test code = 412) PLATELET COUNT ([facility]) (test 242 K/CU MM 150-430 code = 756) MEAN PLATELET VOLUME ([facility]) 8.0 fL 6.5-10.5 (test code = 754) NUCLEATED RED BLOOD CELLS 0 /100 WBC 0-0 ([facility]) (test code = 413) POCT-GLUCOSE [id number] 09:41:00 Test Item Value Reference Range Interpretation Comments POC-GLUCOSE METER 416 mg/dL 70-110 HH TESTED AT [place] [address] ([facility]) (test code = [facility] 1538) [id number] 08:15:00 Test Item Value Reference Range Interpretation Comments ACTIVATED CLOTTING TIME 209 sec TEST ED AT [place] [address] ([facility]) (test code = [facility] 441) [id number] 07:18:00 Test Item Value Reference Range Interpretation Comments ACTIVATED CLOTTING TIME 286 sec TEST ED AT [place] [address] ([facility]) (test code = [facility] 441) [id number]
--- OUTSIDE RECORDS SUMMARY | 2020-02-17 14:01 | XMS REPORT | Clinical Summary ---
:1945 Author Organization [facility] Address [address] [place] [address] Care Team Providers Name Role Phone George Primary Care Provider Allergies No Known Allergies Medications Medication Sig Dispensed Refills Start Date End Date Status levothyroxine Take 150 mcg by 0 Active (SYNTHROID, LEVOTHROID) mouth Every 100 MCG morning on an tabletIndications: a empty stomach . condition with low thyroid hormone levels gabapentin (NEURONTIN) Take 800 mg by 0 Active 300 MG mouth 3 (three) capsuleIndications: times daily . neuropathic pain sertraline (ZOLOFT) 100 Take 150 mg by 0 Active MG tablet mouth daily Unknown dose. furosemide (LASIX) 40 Take 1 tablet (40 60 tablet 1 10/25/2016 Active MG tabletIndications: mg total) by visible water retention mouth 2 (two) times daily. Active Problems Problem Noted Date Diabetes mellitus type 2, uncontrolled, with complicat ions 10/19/2016 Hypertension 10/19/2016 CAD, multiple vessel 10/19/2016 Atherosclerosis of coronary artery of [place] heart wit h unstable angina 10/19/2016 pectoris Coronary artery calcification of [place] artery 017 Hyperlipidemia associated with type 2 diabetes mellitu s 10/19/2016 Continuous tobacco abuse 10/19/[address] elevation myocardial infarction (STEMI) invol ving right coronary 10/18/2016 artery Social History Tobacco Use Types Packs/Day Years Used Date Current Every Day Smoker 50 Alcohol Use Drinks/Week oz/Week Comments No Sex Assigned at Date Recorded Not on file Job Start Date Occupation Industry Not on file Not on file Not on file Travel History Travel Start Travel End No recent travel history available. Last Filed Vital Signs Not on file Plan of Treatment Not on file Implants Implanted Type Area Juvenile Probation Officer Device Shelf Model / Identifier Expiration Serial / Date Lot Device Clsr Angio-Seal Vip 8fr [id number] - [id number] Cardiovascular N/A: Groin ST RAMU 03/03/2017 [id number] / Implanted: Qty: 1 on 10/21/2016 by Derick Schwarz MD MED:CARDIAC / [id number] [id number] Synergy Stents-Coronary N/A: [place] 07/04/2017 H74 [id number] / Implanted: Qty: 1 on 10/18/2016 by Derick Schwarz MD [employer] / [id number] Synergy Stents-Coronary N/A: [place] 07/04/2017 H74 [id number] / Implanted: Qty: 1 on 10/18/2016 by Derick Schwarz MD [employer] / [id number] Synergy Stents-Coronary N/A: [place] 06/10/2017 H74 [id number] / Implanted: Qty: 1 on 10/18/2016 by Derick Schwarz MD [employer] / [id number] Synergy Stents-Coronary N/A: [place] 07/04/2017 H74 [id number] / Implanted: Qty: 1 on 10/21/2016 by Derick Schwarz MD [employer] / [id number] Results Not on fileafter 02/16/2019 Insurance Payer Benefit Plan / Group Subscriber ID Type Phone A ddress MEDICARE MEDICARE A B xxxxxxxxxx Medicare Advance Directives For more information, please contact:[place] [id number] [place], [place] [phone] Code Status Date Activated Date Inactivated Comments Full Code 10/18/2016 9:54 AM 10/25/2016 8:57 PM This code status was determined by: Patient
[2020-02-17] MEDS ORDERED: CLOPIDOGREL 75 MG TABLET ONE (15:19)
[2020-02-17] MEDS ORDERED: NITROGLYCERIN 0.4 MG/TAB SL PRN (16:41)
[2020-02-17] MEDS ORDERED: ACETAMINOPHEN 325 MG TABLET PO PRN (16:41)
[2020-02-17] MEDS ORDERED: ONDANSETRON 4 MG/2 ML VIAL IV PRN (16:45)
[2020-02-17] MEDS ORDERED: ZOLPIDEM TARTRATE 5 MG TABLET PO PRN (16:45)
[2020-02-17] MEDS ORDERED: FENTANYL CITR 100 MCG/2 ML IV PRN (16:46)
[2020-02-17] MEDS: NA CHLORIDE 0.9% 1,000 ML IV SCH (17:00)
[2020-02-17] MEDS: FUROSEMIDE 40 MG/4 ML VIAL IV SCH (17:00)
[2020-02-17] MEDS ORDERED: GLUCAGON 1 MG/VIAL IM PRN (17:50)
[2020-02-17] MEDS ORDERED: D50W 25 GM/50 ML SYRINGE/VIAL IV PRN (17:50)
--- NOTE | 2020-02-17 18:03 | P.HP ---
Certification for Inpatient Patient admitted to: Observation With expected LOS: <2 Midnights Patient will require the following post-hospital care: Home Health Services Practitioner: I am a practitioner with admitting privileges, knowledge of patient current condition, hospital course, and medical plan of care. Services: Services provided to patient in accordance with Admission requirements found in Title 42 Section 412.3 of the Code of Federal Regulations Patient History Date of Service: 02/17/20 Primary Care Provider: Graciela Miles NP; Cardiology-Dr. Wilson Reason for admission: Status post heart catheterization History of Present Illness: 74-year-old female with history of diabetes, hypertension, CAD, COPD, hyperlipidemia and hypothyroidism. Patient was admitted for observation after heart catheterization. Patient had recent stress test done. Heart catheterization done today. Patient had stent to the proximal and distal RCA. Patient also has mid LAD stenosis. Cardiology asked the hospitalist service to admit the patient for observation. Patient will continue with aspirin, Plavix, statin medication and beta-tor therapy. Cardiology anticipates home discharge tomorrow. When I saw the patient in recovery, she was doing fine. No complaints noted. No chest pain noted. Patient did refuse COVID test. She is practicing social distance seen and hand washing. She also uses a mask. Patient stable this time. Blood pressure stable. Allergies No Known Allergies Allergy (Verified 02/14/20 12:33) Home medications list reviewed: Yes Home Medications: Gabapentin [Neurontin] 800 mg PO TID 12/16/16 Aspirin Chewable [Aspirin Chewable*] 162 mg PO DAILY #60 tab.chew 01/23/17 Atorvastatin Calcium [Lipitor] 80 mg PO BEDTIME #60 tab 01/23/17 Clopidogrel Bisulfate [Plavix*] 75 mg PO DAILY #30 01/23/17 Furosemide 1 tab PO BID #60 01/23/17 Spironolactone [Aldactone*] 25 mg PO BID #60 tab 01/23/17 Levothyroxine [Synthroid*] 150 mcg PO [id number] 06/03/19 Sertraline [Zoloft*] 2 tab PO DAILY 06/03/19 Doxycycline Monohydrate 100 mg PO BID #14 tablet 06/07/19 carvediloL [Coreg*] 3.125 mg PO BID 6AM 6PM #60 tab 06/07/19 - Past Medical/Surgical History Diabetic: Yes -: Postsurgical hypothyroidism -: History of atrial fibrillation -: Hyperlipidemia -: Hypertension -: CAD -: COPD -: Diabetes mellitus type 2 insulin dependent -: Diastolic CHF -: Depression with anxiety -: Thyroidectomy -: CAD with prior stents Psychosocial/ Personal History: Patient is a . She lives at home. - Family History Father -: Cancer Sister -: Cancer morther -: Cancer - Social History Smoking Status: Former smoker Alcohol use: No CD- Drugs: No Caffeine use: Yes Place of Residence: Home Review of Systems 10-point ROS is otherwise unremarkable Physical Examination - Vital Signs Temperature: 97.3 F Blood Pressure: 117/50 Pulse: 63 Respirations: 16 - Physical Exam General: Alert, In no apparent distress, Oriented x3, Cooperative HEENT: Atraumatic, Mucous membr. moist/pink Neck: Supple Respiratory: Clear to auscultation bilaterally, Normal air movement Cardiovascular: Normal pulses, Regular rate/rhythm Gastrointestinal: Normal bowel sounds, Soft and benign, Non-distended, No tenderness, No masses, No rebound, No guarding Musculoskeletal: No erythema, No tenderness, No warmth Integumentary: No erythema, No warmth, No cyanosis, Tenderness/swelling (Minimal pitting edema to the lower extremities) Neurological: Normal speech, Normal strength at 5/5 x4 extr, Normal tone, Normal affect Assessment and Plan - Plan Impression: CAD status post heart catheterization with stenting of the proximal and distal RCA with noted mid LAD stenosis Hypertension Diabetes mellitus type 2 insulin dependent Chronic diastolic CHF Postsurgical hypothyroidism COPD on chronic oxygen Hyperlipidemia Depression with anxiety Plan: CAD status post heart catheterization with stenting of the proximal and distal RCA with noted mid LAD stenosis: Case discussed at length with cardiology. Patient had successful stenting of the proximal and distal RCA. Anticipate discharge tomorrow. Patient will continue with aspirin, Plavix, statin medication and blood pressure medication. Cardiology plans to provide IV Lasix 40 mg twice daily Overnite. Will monitor the patient closely. Anticipate improvement Overnite and discharge tomorrow. I will turn the service over to the hospitalist team tomorrow. I will go the plan of care with him. Hypertension: Continue home medication. Diabetes mellitus type 2 insulin dependent: Will provide sliding scale. Continue home medication of NPH. Accu-Cheks to be monitored. Chronic diastolic CHF: Cardiology plans to start Lasix IV 40 mg twice daily. Patient also takes Aldactone. Continue 1500 cc per day fluid restriction and low-salt diet. Postsurgical hypothyroidism: Continue home medication levothyroxine 150 mcg daily. COPD on chronic oxygen: Patient uses home oxygen. Continue to maintain oxygen above 93%. Will provide Dulera and albuterol. Hyperlipidemia: Continue Lipitor 80 mg daily Depression with anxiety: Continue home medication. Discharge Plan: Home Plan to discharge in: 24 Hours - Advance Directives Does patient have a Living Will: No Does patient have a Durable POA for Healthcare: No - Code Status/Comfort Care Code Status Assessed: Yes (Patient is full code) Time Spent Managing Pts Care (In Minutes): 55
[2020-02-17] MEDS ORDERED: ATORVASTATIN 80 MG TAB PO SCH (21:00)
[2020-02-17] MEDS: DULERA 100/5 (MOMETASONE/FORMOTEROL) INHALER IH SCH (21:28)
[2020-02-17] MEDS: ALBUTEROL INHALER 60 PUFF/8 GM IH PRN (21:28)
[2020-02-17] MEDS: INSULIN -REGULAR HUMAN 50 UNIT/0.5 ML ML SQ SCH (21:35)
[2020-02-17] MEDS: GABAPENTIN 300 MG CAP PO SCH (21:35)
--- NOTE | 2020-02-18 01:44 | OP ---
Date of Procedure: 02/17/2020 Surgeon: NAYAN LOWERY Procedures Performed: 1.Selective coronary angiogram. 2.Percutaneous coronary intervention of proximal severe right coronary artery stenosis using 2.75 x 16 mm Synergy drug-eluting stent. Lesion length is 12 mm that is calcified. Stenosis is 90% before percutaneous coronary intervention. SERGEY-3 flow before and after percutaneous coronary intervention and no complication. Residual stenosis post percutaneous coronary intervention is 0%. 3.Percutaneous coronary intervention of severe distal right coronary artery stenosis post stent. St enosis is 80%. Length is 10 mm. Used 2.75 x 16 mm Synergy drug-eluting stent. SERGEY-3 flow before a nd after percutaneous coronary intervention and 0% residual stenosis. 4.Left heart catheterization. Indication For Procedure: Unstable angina with abnormal stress test and low EF. Access: Right radial artery 6-[place] closed with TR band. Anesthesia: Total sedation time is 55 minutes. Description Of Procedure: After risks, benefits, alternatives were explained to the patient, she agr eed to the procedure and signed informed consent. The patient was brought to the cardiac catheteriza tion laboratory, prepped and draped in usual sterile fashion. Then, using fentanyl and Versed in inc remental doses, adequate amount of sedation was achieved. Then, we took a pediatric micropuncture ki t and accessed the right radial artery. A 6-[place] slender sheath was placed and we took a 5-[place] catheter into the aortic root and over the J-wire engaged left main and right coronary artery a nd took standard views and then proceeded to the intervention part. Intervention Details: Systemic heparin was given to assure ACT level above 250 throughout the proced ure and we took JR4 guide over a J-wire into the aortic root, engaged the RCA and then we took a shor t run-through wire across the stenosis of the proximal and distal RCA. Initially, we took a 2.5 x 15 mm Compliant balloon, dilated the distal lesion and then we placed a 2.75 x 16 mm Synergy drug-eluti ng stent without complication. Overlap was ballooned as well. Then, we took the same balloon and __ the proximal lesion. We took 2.75 x 16 mm Synergy drug-eluting stent across the proximal le pedro pablo, deployed without complication. Then, we removed the wires and took final pictures. There was no complication with excellent results and 0 residual stenosis. We took wires and catheters outside the body and we took the sheath out. We closed with TR band. Findings: 1.Severe proximal RCA stenosis, status post PCI as above. 2.Severe distal RCA stenosis, status post PCI as above. 3.Patent mid RCA stent. 4.Large normal left main. 5.Proximal LAD with 20% diffuse stenosis and mid LAD 50% stenosis. 6.Knjcwmuy-vb-hivec left circumflex with proximal to mid patent stent and then distal stent has 40% stenosis and the first OM branch has 40% to 50% ostial stenosis. 7.The JR4 catheter was advanced over the J-wire into the LV across the aortic valve and recorded LVE DP of 24 mmHg. Catheter was pulled back and there was no gradient, recording LVEDP of 24 mmHg. Impression: 1.Severe proximal and distal right coronary artery, status post percutaneous coronary intervention a s above with excellent results. 2.Moderate mid left anterior descending stenosis that will require fractional flow reserve-guided in tervention and due to contrast load that was given today and due to the lack of availabili ty of fractional flow reserve as well, we will stage the left anterior descending procedure and will do fractional flow reserve-guided percutaneous coronary intervention. 3.Recommend IV Lasix 40 mg q.12 hours over the next 24 hours while in the hospital. 4.Loaded with 300 mg of Plavix as she is on 75 mg daily. Continue 75 mg daily along with aspirin 81 mg daily and high-dose statin at least Lipitor 40 or 80 mg q.h.s. or its equivalent. The patient is to follow up with me in the office in 4 weeks post discharge. SR/MODL Voice ID: [id number] Report ID: [id number]
[2020-02-18] MEDS: NA CHLORIDE 0.9% 1,000 ML IV SCH (06:22)
[2020-02-18] MEDS ORDERED: LEVOTHYROXINE SOD 0.125 MG TAB PO SCH (06:30)
[2020-02-18 07:20] LABS: Protime INR 1.05
[2020-02-18] MEDS ORDERED: NPH (HUMAN) 100 UNITS/ML INSULIN SQ SCH (08:00)
[2020-02-18] MEDS: GABAPENTIN 300 MG CAP PO SCH (08:10)
[2020-02-18] MEDS: FUROSEMIDE 40 MG/4 ML VIAL IV SCH (08:11)
[2020-02-18] MEDS: INSULIN -REGULAR HUMAN 50 UNIT/0.5 ML ML SQ SCH (08:12)
[2020-02-18] MEDS: DULERA 100/5 (MOMETASONE/FORMOTEROL) INHALER IH SCH (08:12)
[2020-02-18 08:13] VITALS: BP 143/61
--- NOTE | 2020-02-18 08:50 | PN ---
Date of Progress Note: 02/18/2020 Subjective: The patient had a catheterization yesterday by Dr. Wilson, underwent stent to the RCA in 2 different lesions in the proximal and distal area. She had some other moderate disease in the LAD that had been treated medically. Overnight, she had some issues with bleeding from her right wrist site, but that has been controlled since. She had no complaints this morning. Objective: Vital Signs: Stable. She was afebrile. Chest: Clear. Extremities: Her right wrist site appeared intact without any hematoma and good radial pulse. She h ad no edema. Assessment And Plan: The patient is status post angioplasty and stent of her right coronary artery, moderate left anterior descending disease. We will continue her aspirin, Lipitor, and Plavix at home . Plan is to discharge today and she will follow up with Dr. Wilson in the next 3 to 4 weeks. RONAN/SVETLANA Voice ID: [id number] Report ID: [id number]
[2020-02-18] MEDS ORDERED: VITAMIN D 1000 UNIT TAB PO SCH (09:00)
[2020-02-18] MEDS ORDERED: SERTRALINE HCL 100 MG TAB PO SCH (09:00)
[2020-02-18] MEDS ORDERED: SPIRONOLACTONE 25 MG TABLET PO SCH (09:00)
[2020-02-18] MEDS ORDERED: CLOPIDOGREL 75 MG TABLET PO SCH (09:00)
[2020-02-18] MEDS ORDERED: ASPIRIN EC 81 MG TAB PO SCH (09:00)
[2020-02-18 09:42] VITALS: TEMP 97
[2020-02-18 09:44] VITALS: O2SAT 94
[2020-02-18] MEDS: ALBUTEROL INHALER 60 PUFF/8 GM IH PRN (09:48)
--- NOTE | 2020-02-18 12:38 | P.DS ---
Discharge Date: 02/18/20 Primary Care Provider: Graciela Miles NP; Cardiology-Dr. Wilson Disposition: DC HOME/HOME HEALTH CARE Discharge Condition: GOOD Reason for Admission: Status post heart catheterization Brief History of Present Illness: 74-year-old female with history of diabetes, hypertension, CAD, COPD, hyperlipidemia and hypothyroidism. Patient was admitted for observation after heart catheterization. Patient had recent stress test done. Heart catheterization done today. Patient had stent to the proximal and distal RCA. Patient also has mid LAD stenosis. Cardiology asked the hospitalist service to admit the patient for observation. Patient will continue with aspirin, Plavix, statin medication and beta-tor therapy. Hospital Course: Patient was admitted and was monitor closely under telemetry. No acute events were noted. Cardiology recommended conservative management with outpatient follow up The patient is being discharged home today in a stable condition with advice to follow up with PCP and also with Cardiology in 1-2 weeks Vital Signs/Physical Exam: Temp Pulse Resp BP Pulse Ox 97 F 77 20 143/61 H 94 02/18/20 10:59 02/18/20 10:59 02/18/20 10:59 02/18/20 10:59 02/18/20 08:00 General: Alert, In no apparent distress HEENT: Atraumatic, Normocephalic Neck: Supple Respiratory: Clear to auscultation bilaterally, Normal air movement Cardiovascular: Normal pulses, Regular rate/rhythm Capillary refill: <2 Seconds Gastrointestinal: Non-distended, W/out hepatosplenomegaly Musculoskeletal: No clubbing, No swelling Integumentary: No rashes, No breakdown Neurological: Normal strength at 5/5 x4 extr Lymphatics: No axilla or inguinal lymphadenopathy Laboratory Data at Discharge: WBC 8.9 K/uL (4.3-10.9) 02/14/20 12:53 Hgb 11.7 g/dL (12.0-15.0) L 02/14/20 12:53 Hct 36.0 % (36.0-45.0) 02/14/20 12:53 Plt Count 204 K/uL (152-406) 02/14/20 12:53 PT 12.4 SECONDS (9.5-12.5) 02/18/20 06:45 INR 1.05 02/18/20 06:45 APTT 29.9 SECONDS (24.3-36.9) 02/18/20 06:45 Sodium 138 mmol/L (136-145) 02/14/20 12:50 Potassium 4.6 mmol/L (3.5-5.1) 02/14/20 12:50 BUN 31 mg/dL (7-18) H 02/14/20 12:50 Creatinine 1.17 mg/dL (0.55-1.3) 02/14/20 12:50 Glucose 262 mg/dL (74-106) H 02/14/20 12:50 Home Medications: Atorvastatin Calcium [Lipitor] 80 mg PO BEDTIME #60 tab 01/23/17 Clopidogrel Bisulfate [Plavix*] 75 mg PO DAILY #30 01/23/17 Furosemide 1 tab PO BID #60 01/23/17 Spironolactone [Aldactone*] 25 mg PO BID #60 tab 01/23/17 Levothyroxine [Synthroid*] 150 mcg PO [id number] 06/03/19 Sertraline [Zoloft*] 2 tab PO DAILY 06/03/19 Aspirin Chewable [Aspirin Chewable*] 81 mg PO DAILY 02/17/20 Cholecalciferol (Vitamin D3) [Vitamin D3] 1 cap PO DAILY 02/17/20 Insulin Lispro [Humalog] 5 unit SQ TIDWM 02/17/20 NPH, Human Insulin Isophane [Humulin N] 25 unit SQ BID 02/17/20 Followup: Darren Wilson MD [OUTSIDE PHYSICIAN] - Time spent managing pt's care (in minutes): 35
== END 2020-02-18 11:05 | disposition home health service (06) ==
LOC: CCL 13:02 → 2ND 17:38 → CCL 02-18 11:05
PROVIDERS: ATTEND Internal Medicine
DX: I25.110 Atherosclerotic heart disease of native coronary artery with unstable angina pectoris (principal); I11.0 Hypertensive heart disease with heart failure; I50.32 Chronic diastolic (congestive) heart failure; I48.91 Unspecified atrial fibrillation; E78.5 Hyperlipidemia, unspecified; E11.9 Type 2 diabetes mellitus without complications; J44.9 Chronic obstructive pulmonary disease, unspecified; E89.0 Postprocedural hypothyroidism; F41.8 Other specified anxiety disorders; Z95.5 Presence of coronary angioplasty implant and graft; Z87.891 Personal history of nicotine dependence; Z99.81 Dependence on supplemental oxygen; Z79.82 Long term (current) use of aspirin; Z80.9 Family history of malignant neoplasm, unspecified
CPT/HCPCS: 85025; 80048; 36415 ×2; 85610 ×2; 82947 ×3; 85347; 85730 ×2; 93458; C1893; C1725; C9600; J1940; J1644 ×2; J2250; J3010 ×2; J7040; J1815; J7606

== ENCOUNTER 2020-05-30 11:28 | Observation (INO) | payer OTHER ==
--- OUTSIDE RECORDS SUMMARY | 2020-05-30 11:58 | XMS REPORT | Clinical Summary ---
:1945 Author Organization [facility] Address [address] [place] [address] Care Team Providers Name Role Phone George Primary Care Provider Allergies No Known Allergies Medications Medication Sig Dispensed Refills Start Date End Date Status levothyroxine Take 150 mcg by 0 Active (SYNTHROID, LEVOTHROID) mouth Every 100 MCG morning on an tabletIndications: empty stomach . hypothyroidism gabapentin (NEURONTIN) Take 800 mg by 0 Active 300 MG mouth 3 (three) capsuleIndications: times daily . neuropathic pain sertraline (ZOLOFT) 100 Take 150 mg by 0 Active MG tablet mouth daily Unknown dose. furosemide (LASIX) 40 MG Take 1 tablet 60 tablet 1 10/25/2016 Active tabletIndications: edema (40 mg total) by mouth 2 (two) times daily. Active Problems Problem Noted Date Diabetes mellitus type 2, uncontrolled, with complicat ions 10/19/2016 Hypertension 10/19/2016 CAD, multiple vessel 10/19/2016 Atherosclerosis of coronary artery of [place] heart wit h unstable angina 10/19/2016 pectoris Coronary artery calcification of [place] artery 017 Hyperlipidemia associated with type 2 diabetes mellitu s 10/19/2016 Continuous tobacco abuse 10/19/[address] elevation myocardial infarction (STEMI) invol ving right coronary 10/18/2016 artery Social History Tobacco Use Types Packs/Day Years Used Date Current Every Day Smoker 50 Alcohol Use Drinks/Week oz/Week Comments No Sex Assigned at Date Recorded Not on file Last Filed Vital Signs Not on file Plan of Treatment Not on file Implants Implanted Type Area Internet Sales Representative Device Shelf Model / Identifier Expiration Serial / Date Lot Device Clsr Angio-Seal Vip 8fr [id number] - [id number] Cardiovascular N/A: Groin ST RAMU 03/03/2017 [id number] / Implanted: Qty: 1 on 10/21/2016 by Derick Gonzalez MD at [facility] MED:CARDIAC / SURG [id number] Synergy Stents-Coronary N/A: [place] 07/04/2017 H74 [id number] / Implanted: Qty: 1 on 10/18/2016 by Derick Gonzalez MD at [facility] Coronary SCIENTIFIC / Synergy Stents-Coronary N/A: [place] 07/04/2017 H74 [id number] / Implanted: Qty: 1 on 10/18/2016 by Derick Gonzalez MD at [facility] Coronary SCIENTIFIC / Synergy Stents-Coronary N/A: [place] 06/10/2017 H74 [id number] / Implanted: Qty: 1 on 10/18/2016 by Derick Gonzalez MD at [facility] Coronary SCIENTIFIC / [id number] Synergy Stents-Coronary N/A: [place] 07/04/2017 H74 [id number] / Implanted: Qty: 1 on 10/21/2016 by Derick Gonzalez MD at [facility] Coronary SCIENTIFIC / Description:[facility] Results Not on fileafter 05/30/2019 Advance Directives For more information, please contact: [phone] Code Status Date Activated Date Inactivated Comments Full Code 10/18/2016 9:54 AM 10/25/2016 8:57 PM This code status was determined by: Patient
--- OUTSIDE RECORDS SUMMARY | 2020-05-30 11:59 | XMS REPORT | Continuity of Care Document ---
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 [facility] - coronary coronary 00:00: Medica l artery of artery of 00 [facility] [place] with heart with unstable unstable angina angina pectoris pectoris Coronary Coronary Disease Active [facility] artery artery 3[facility]18 [facility] - calcificat calcificat 00:00: Me dical ion of ion of 00 [place] artery artery Hyperlipid Hyperlipid Disease Active C [...] Date Quantity Comments Source Sex Assigned At [facility] Alcohol intake 2016-10-23 2016-10-23 [facility] non-drinker of Medical Ce nter alcohol (finding) Smoking Status Start Date Stop Date Source Current every day smoker 2016-10-23 00:00:00 [facility] Medications Ordered Filled Start Stop Current Ordering Indication Dosage Frequency Signature Comments Components Source Medication Medication Date Date Medication? Clinician (SIG) Name Name levothyroxi Yes hypothyroid 150ug Take [address] ne 3-24 ism mcg by [facility] - (SYNTHROID, 18:57: mouth Medic al LEVOTHROID) 38 Every Center 100 MCG morning on tablet an empty stomach . gabapentin Yes neuropathic 800mg [id number] Take [address] (NEURONTIN) 3-24 pain [id number] mg by L ukes - 300 MG 18:57: 3D mouth 3 Medical capsule 38 (three) Center times daily . sertraline Yes 150mg QD Take [address] (ZOLOFT) 3-24 mg by [facility] - 100 MG 18:57: mouth Medical tablet 38 daily Center Unknown dose. furosemide Yes edema 40mg Q.5D Take [address] (LASIX) 40 3-24 tablet (40 Riaz es - MG tablet 00:00: mg total) Med ical 00 by mouth 2 Center (two) times daily. Procedures This patient has no known procedures. Results Test Description Test Time Test Comments Results Result Comments Source POCT-GLUCOSE METER 2016-10-25 18:02:00 Test Item Value Reference Range Interpretation Comme nts POC-GLUCOSE METER (BEAKER) (test 125 mg/dL 70-110 H TESTED AT [facility] [address] [facility] 1538[facility] 7703 0 POCT-GLUCOSE [id number] 11:32:00 Test Item Value Reference Range Interpretation Comments POC-GLUCOSE METER 178 mg/dL 70-110 H TESTED AT [facility] 6720 (BEAKER) (test code = [place] 1538) [address] POCT-GLUCOSE [id number] 07:36:00 Test Item Value Reference Range Interpretation Comments POC-GLUCOSE METER 159 mg/dL 70-110 [facility] ([facility] (test code = CANDIDO Page [place] 1538) [address] [id number] 04:24:00 Test Item Value Reference Range Interpretation Comments MAGNESIUM (BEAKER) (test code = 1.8 mg/dL 1.6-2.6 627) Please draw today if not done already.BASIC METABOLIC [id number] 04:24:00 Test Item Value Reference Range Interpretation [...] % 36.0-45.0 L 411) MEAN CORPUSCULAR VOLUME ([facility]) 94.8 fL 82.0-99.0 (test code = 753) MEAN CORPUSCULAR HEMOGLOBIN 32.6 pg 27.0-33.0 ([facility]) (test code = 751) MEAN CORPUSCULAR HEMOGLOBIN CONC 34.4 GM/DL 32.0-36.0 ([facility]) (test code = 752) RED CELL DISTRIBUTION WIDTH 13.7 % 10.3-14.2 (AKER) (test code = 412) PLATELET COUNT ([facility]) (test 318 K/CU MM 150-430 code = 756) MEAN PLATELET VOLUME ([facility]) 7.2 fL 6.5-10.5 (test code = 754) NUCLEATED RED BLOOD CELLS 0 /100 WBC 0-0 ([facility]) (test code = 413) 0.00POCT-GLUCOSE [id number] 21:59:00 Test Item Value Reference Range Interpretation Comments POC-GLUCOSE METER 161 mg/dL 70-110 H TESTED AT [place] [address] ([facility]) (test code = [facility] 1538) [address] POCT-GLUCOSE [id number] 17:22:00 Test Item Value Reference Range Interpretation Comments POC-GLUCOSE METER 106 mg/dL 70-110 TESTED AT [place] [address] ([facility]) (test code = [facility] 1538) [address] POCT-GLUCOSE [id number] 12:49:00 Test Item Value Reference Range Interpretation Comments POC-GLUCOSE METER 143 mg/dL 70-110 H TESTED AT [place] [address] ([facility]) (test code = [facility] 1538) [address] POCT-GLUCOSE [id number] 08:52:00 Test Item Value Reference Range Interpretation Comments POC-GLUCOSE METER 257 mg/dL 70-110 H TESTED AT [place] [address] ([facility]) (test code = [facility] 1538) [address] B-TYPE NATRIURETIC FACTOR (BNP)2016-10-24 05:49:00 Test Item Value Reference Range Interpretation Comments B-TYPE NATRIURETIC PEPTIDE ([facility]) 478 pg/mL 0-100 H (test code = 700) [id number] 05:45:00 Test Item Value Reference Range Interpretation Comments MAGNESIUM (BEAKER) (test code = 2.0 mg/dL 1.6-2.6 627) Please draw today if not done already.BASIC METABOLIC [id number] 05:45:00 Test Item Value Reference Range Interpretation [...] Please draw today if not done already.POCT-GLUCOSE [id number] 21:05:00 Test Item Value Reference Range Interpretation Comments POC-GLUCOSE METER 207 mg/dL 70-110 H TESTED AT [facility] 6720 (BEAKER) (test code = CANDIDO Page [place] 1538) [address] POCT-GLUCOSE [id number] 17:36:00 Test Item Value Reference Range Interpretation Comments POC-GLUCOSE METER 217 mg/dL 70-110 H TESTED AT [facility] 6720 (BEAKER) (test code = CANDIDO Page [place] 1538) [address] POCT-GLUCOSE [id number] 12:27:00 Test Item Value Reference Range Interpretation Comments POC-GLUCOSE METER 187 mg/dL 70-110 H TESTED AT [facility] 6720 (BEAKER) (test code = CANDIDO Page [place] 1538) [address] POCT-GLUCOSE [id number] 08:32:00 Test Item Value Reference Range Interpretation Comments POC-GLUCOSE METER 190 mg/dL 70-110 H TESTED AT [facility] 6720 (BEAKER) (test code = [place] 9223) [address] CBC (HEMOGRAM ONLY)2016-10-23 05:22:00 Test Item Value [...] WBC 0-0 (BEAKER) (test code = 413) [id number] 05:21:00 Test Item Value Reference Range Interpretation Comments MAGNESIUM (BEAKER) (test code = 2.0 mg/dL 1.6-2.6 627) Please draw today if not done already.BASIC METABOLIC [id number] 05:21:00 Test Item Value Reference Range Interpretation Comments SODIUM (BEAKER) 138 meq/L 136-145 (test code = 381) POTASSIUM (BEAKER) 4.0 meq/L 3.5-5.1 (test code = 379) CHLORIDE (BEAKER) 99 meq/L 98-107 (test code = 382) CO2 (BEAKER) (test 25 meq/L 22-29 code = 355) BLOOD UREA NITROGEN 18 mg/dL 7-21 ([facility]) (test code = 354) CREATININE ([facility]) 0.78 mg/dL 0.57-1.25 (test code = 358) GLUCOSE RANDOM 219 mg/dL 70-105 H ([facility]) (test code = 652) CALCIUM ([facility]) 8.8 mg/dL 8.4-10.2 (test code = 697) EGFR ([facility]) (test 73 mL/min/1.73 ESTIMA TAMMI GFR IS code = 1092) sq m NOT ACCURATE CREATININE CLEARANCE IN PREDICTING GLOMERULAR FILTRATION RATE . ESTIMATED GFR I S NOT APPLICABLE FOR DIALYSIS PATIEN TS. Please draw today if not done already.POCT-GLUCOSE [id number] 04:07:00 Test Item Value Reference Range Interpretation Comments POC-GLUCOSE METER 226 mg/dL 70-110 H TESTED AT [place] [address] ([facility]) (test code = RENEEJALYN Kaylee [place] 1538) [address] POCT-GLUCOSE [id number] 23:07:00 Test Item Value Reference Range Interpretation Comments POC-GLUCOSE METER 208 mg/dL 70-110 H TESTED AT [place] [address] ([facility]) (test code = [facility] [place] 1538) [address] POCT-GLUCOSE [id number] 20:53:00 Test Item Value Reference Range Interpretation Comments POC-GLUCOSE METER 279 mg/dL 70-110 H TESTED AT [place] [address] ([facility]) (test code = [facility] [employer] [place] 1538) [address] POCT-GLUCOSE [id number] 18:27:00 Test Item Value Reference Range Interpretation Comments POC-GLUCOSE METER 233 mg/dL 70-110 H TESTED AT [place] [address] ([facility]) (test code = [facility] [employer] [place] 1538) [address] POCT-GLUCOSE [id number] 12:41:00 Test Item Value Reference Range Interpretation Comments POC-GLUCOSE METER 282 mg/dL 70-110 H TESTED AT [place] [address] ([facility]) (test code = [facility] [employer] [place] 1538) [address] BLOOD GAS, [id number] 10:14:00 Test Item Value Reference Range Interpretation Comments PH VENOUS ([facility]) (test code = 7.48 7.32-7.42 H 701) PCO2 VENOUS (BEAKER) (test code = 41 mmHg 41-51 755) PO2 VENOUS (BEAKER) (test code = 141 mmHg 25-40 H 702) O2 SATURATION VENOUS (BEAKER) 99.0 % 40.0-70.0 H (test code = 703) HCO3 VENOUS (BEAKER) (test code = 30 mmol/L 21-29 H 705) BASE EXCESS VENOUS (BEAKER) (test 5.5 mmol/L -2.0-3.0 H code = 704) PATIENT TEMPERATURE (BEAKER) (test 36.0 C code = 1818) FIO2 (BEAKER) (test code = 1819) 21.0 % POCT-GLUCOSE [id number] 08:55:00 Test Item Value Reference Range Interpretation Comments POC-GLUCOSE METER 149 mg/dL 70-110 H TESTED AT [facility] 6720 (BEAKER) (test code = [place] 1538) [address] [id number] 07:04:00 Test Item Value Reference Range Interpretation Comments PARTIAL THROMBOPLASTIN TIME 27.7 seconds 22.5-36.0 (BEAKER) (test code = 760) [id number] 04:59:00 Test Item Value Reference Range Interpretation Comments MAGNESIUM (BEAKER) (test code = 1.9 mg/dL 1.6-2.6 627) Please draw today if not done already.BASIC METABOLIC [id number] 04:59:00 Test Item Value Reference Range Interpretation [...] 0-0 (BEAKER) (test code = 413) 0.00POCT-GLUCOSE [id number] 20:38:00 Test Item Value Reference Range Interpretation Comments POC-GLUCOSE METER 196 mg/dL 70-110 H TESTED AT [facility] 6720 ([facility] (test code = [place] 1538) [address] POCT-GLUCOSE [id number] 17:09:00 Test Item Value Reference Range Interpretation Comments POC-GLUCOSE METER 146 mg/dL 70-110 H TESTED AT [facility] 6720 (BEAKER) (test code = CANDIDO [place] 1538) [address] POCT-GLUCOSE [id number] 13:52:00 Test Item Value Reference Range Interpretation Comments POC-GLUCOSE METER 96 mg/dL 70-110 TESTED AT [place] [address] ([facility]) (test code = CANDIDO Page [facility] [address] 1538) [id number] 11:12:00 Test Item Value Reference Range Interpretation Comments ACTIVATED CLOTTING TIME 255 sec TEST ED AT [place] [address] ([facility]) (test code = CANDIDO Page [facility] 441) [address] [id number] 10:21:00 Test Item Value Reference Range Interpretation Comments ACTIVATED CLOTTING TIME 302 sec TEST ED AT [place] [address] ([facility]) (test code = CANDIDO Page [facility] 441) [address] [id number] 10:21:00 Test Item Value Reference Range Interpretation Comments ACTIVATED CLOTTING TIME 569 sec TEST ED AT [place] [address] ([facility]) (test code = CANDIDO Page [facility] 441) [address] POCT-GLUCOSE [id number] 07:23:00 Test Item Value Reference Range Interpretation Comments POC-GLUCOSE METER 87 mg/dL 70-110 TESTED AT [place] [address] ([facility]) (test code = CNADIDO Page [facility] [address] 1538) B-TYPE NATRIURETIC FACTOR (BNP)2016-10-21 06:33:00 Test Item Value Reference Range Interpretation Comments B-TYPE NATRIURETIC PEPTIDE (BEAKER) 494 pg/mL 0-100 H (test code = 700) [id number] 06:21:00 Test Item Value Reference Range Interpretation Comments MAGNESIUM (BEAKER) (test code = 1.9 mg/dL 1.6-2.6 627) Please draw today if not done already.BASIC METABOLIC [id number] 06:21:00 Test Item Value Reference Range Interpretation [...] 0-0 (BEAKER) (test code = 413) 0.00POCT-GLUCOSE [id number] 20:36:00 Test Item Value Reference Range Interpretation Comments POC-GLUCOSE METER 280 mg/dL 70-110 H TESTED AT [facility] 6720 (BEAKER) (test code = [place] 1538) [address] POCT-GLUCOSE [id number] 16:29:00 Test Item Value Reference Range Interpretation Comments POC-GLUCOSE METER 218 mg/dL 70-110 H TESTED AT [facility] 6720 (BEAKER) (test code = CANDIDO Page [facility] 1538) [address] POCT-GLUCOSE [id number] 12:24:00 Test Item Value Reference Range Interpretation Comments POC-GLUCOSE METER 193 mg/dL 70-110 H TESTED AT [facility] 6720 (BEAKER) (test code = CANDIDO Page [facility] 1538) [address] POCT-GLUCOSE [id number] 07:21:00 Test Item Value Reference Range Interpretation Comments POC-GLUCOSE METER 179 mg/dL 70-110 H TESTED AT [facility] 6720 (BEAKER) (test code = [facility] Kaylee [facility] 1538) [address] [id number] 06:24:00 Test Item Value Reference Range Interpretation Comments THYROID STIMULATING HORMONE 1.09 uIU/mL 0.35-4.94 (BEAKER) (test code = 772) [id number] 05:47:00 Test Item Value Reference Range Interpretation Comments MAGNESIUM (BEAKER) (test code = 2.0 mg/dL 1.6-2.6 627) Please draw today if not done already.BASIC METABOLIC [id number] 05:47:00 Test Item Value Reference Range Interpretation [...] Please draw today if not done already.POCT-GLUCOSE [id number] 21:41:00 Test Item Value Reference Range Interpretation Comments POC-GLUCOSE METER 191 mg/dL 70-110 H TESTED AT [facility] 6720 (BEAKER) (test code = [facility] 1538) [address] POCT-GLUCOSE [id number] 17:13:00 Test Item Value Reference Range Interpretation Comments POC-GLUCOSE METER 197 mg/dL 70-110 H TESTED AT [place] [address] ([facility] (test code = [facility] 1538) [address] POCT-GLUCOSE [id number] 11:30:00 Test Item Value Reference Range Interpretation Comments POC-GLUCOSE METER 236 mg/dL 70-110 H TESTED AT [place] [address] ([facility] (test code = [facility] 1538) [address] POCT-GLUCOSE [id number] 07:26:00 Test Item Value Reference Range Interpretation Comments POC-GLUCOSE METER 231 mg/dL 70-110 H TESTED AT [place] [address] ([facility] (test code = [facility] 1538) [address] BASIC METABOLIC [id number] 06:07:00 Test Item Value Reference Range Interpretation [...] 0-0 (BEAKER) (test code = 413) 0.00TROPONIN [id number] 01:02:00 Test Item Value Reference Range Interpretation [...] acidosis, acute neurological disease, and persistent tachyarrhythmia.FastingLIPID [id number] 00:53:00 Test Item Value Reference Range Interpretation Comments TRIGLYCERIDES (BEAKER) (test code = 184 mg/dL 540) CHOLESTEROL ([facility]) (test code = 204 mg/dL 631) HDL CHOLESTEROL ([facility]) (test code 39 mg/dL = 976) LDL CHOLESTEROL CALCULATED ([facility]) 128 mg/dL (test code = 633) Triglyceride Reference Range: Low Risk <150 Borderline 150-199 High Risk 200-499 Very High Risk >=500Cholesterol Reference Range: Low Risk <200 Borderline 200-239 High Risk >240HDL Cholesterol Reference Range: Low Risk >=60 High Risk <40LDL Cholesterol Reference Range: Optimal <100 Near Optimal 100-129 Borderline 130-159 High 160-189 Very High >=190 FastingPOCT-GLUCOSE [id number] 21:57:00 Test Item Value Reference Range Interpretation Comments POC-GLUCOSE METER 223 mg/dL 70-110 H TESTED AT [place] [address] ([facility]) (test code = [facility] 1538) [address] TROPONIN [id number] 18:46:00 Test Item Value Reference Range Interpretation Comments TROPONIN I ([facility]) (test code = 30.60 ng/mL 0.00-0.03 HH 397) Effective 06/21/2014: Reference [...] acidosis, acute neurological disease, and persistent tachyarrhythmia.POCT-GLUCOSE [id number] 17:10:00 Test Item Value Reference Range Interpretation Comments POC-GLUCOSE METER 225 mg/dL 70-110 H TESTED AT [place] [address] ([facility]) (test code = [facility] 1538) 11962 POCT-GLUCOSE [id number] 14:36:00 Test Item Value Reference Range Interpretation Comments POC-GLUCOSE METER 303 mg/dL 70-110 H TESTED AT [place] [address] ([facility]) (test code = [facility] 1538) [address] HEMOGLOBIN [id number] 13:32:00 Test Item Value Reference Range Interpretation Comments HEMOGLOBIN A1C (BEAKER) (test code = 11.4 % 4.3-6.1 H 368) TROPONIN [id number] 12:17:00 Test Item Value Reference Range Interpretation [...] acute neurological disease, and persistent tachyarrhythmia.COMPREHENSIVE METABOLIC [id number] 12:16:00 Test Item Value Reference Range Interpretation [...] pg/mL 0-100 H (test code = 700) [id number] 10:41:00 Test Item Value Reference Range Interpretation Comments PARTIAL THROMBOPLASTIN TIME 58.8 seconds 22.5-36.0 H (BEAKER) (test code = 760) Prior to initiating heparinPROTHROMBIN [id number] 10:40:00 Test Item Value Reference Range Interpretation [...] code = 14.2 GM/DL 12.0-15.0 410) HEMATOCRIT ([facility]) (test code = 41.8 % 36.0-45.0 411) MEAN CORPUSCULAR VOLUME ([facility]) 92.4 fL 82.0-99.0 (test code = 753) MEAN CORPUSCULAR HEMOGLOBIN 31.3 pg 27.0-33.0 ([facility]) (test code = 751) MEAN CORPUSCULAR HEMOGLOBIN CONC 33.9 GM/DL 32.0-36.0 ([facility]) (test code = 752) RED CELL DISTRIBUTION WIDTH 13.2 % 10.3-14.2 ([facility]) (test code = 412) PLATELET COUNT ([facility]) (test 242 K/CU MM 150-430 code = 756) MEAN PLATELET VOLUME ([facility]) 8.0 fL 6.5-10.5 (test code = 754) NUCLEATED RED BLOOD CELLS 0 /100 WBC 0-0 ([facility]) (test code = 413) POCT-GLUCOSE [id number] 09:41:00 Test Item Value Reference Range Interpretation Comments POC-GLUCOSE METER 416 mg/dL 70-110 HH TESTED AT [place] [address] ([facility]) (test code = CANDIDO aPge [place] 1538) [address] [id number] 08:15:00 Test Item Value Reference Range Interpretation Comments ACTIVATED CLOTTING TIME 209 sec TEST ED AT [place] [address] ([facility]) (test code = RENEEAR Kaylee [facility] 441) [address] [id number] 07:18:00 Test Item Value Reference Range Interpretation Comments ACTIVATED CLOTTING TIME 286 sec TEST ED AT [place] [address] ([facility]) (test code = [facility] 441) [address]
--- NOTE | 2020-05-30 12:39 | EDPHYS ---
Physician Documentation [facility] Name: Carrol Lundberg Age: 74 yrs Sex: Female : 1945 Arrival Date: 05/30/2020 Time: 11:29 Bed 3 Private MD: ED Physician Je Mcdonough HPI: 05/30 12:25 This 74 yrs old Female presents to ER via EMS with complaints of Fall Injury. mayela 12:25 Details of fall: The patient fell from an upright position, while walking. Onset: The mayela symptoms/episode began/occurred just prior to arrival. Associated injuries: The patient sustained injury to the head, neck injury, chest, contusion, laceration. Severity of symptoms: At their worst the symptoms were mild, in the emergency department the symptoms are unchanged. 12:28 The patient or guardian reports chest pain that is located primarily in the substernal mayela area. The patient has experienced near-syncope. Duration: This was a single episode, that is still ongoing. The pain does not radiate. Associated signs and symptoms: Pertinent positives: dizziness, lightheadedness, near-syncope. Historical: - Allergies: 11:25 No Known Allergies; rb1 - Home Meds: 11:25 aspirin 81 mg Oral chew [Active]; atorvastatin 80 mg Oral tab 1 tab once daily rb1 [Active]; Atrovent Inhl [Active]; clopidogrel 75 mg Oral tab 1 tab once daily [Active]; furosemide 40 mg Oral tab 1 tab 2 times per day for Hypertension [Active]; Novolog 100 unit/mL Sub-Q soln [Active]; ReliOn Glucose 15-400 gram-unit/60 mL Oral liqd [Active]; spironolactone 25 mg Oral tab 1 tab 2 times per day [Active]; Ventolin HFA 90 mcg/actuation Nebulizer HFAA 1 puff every 4 hours [Active]; symbacort [Active]; 11:25 levothyroxine 150 mcg oral tab 1 tab once daily [Active]; gabapentin 800 mg Oral tab 3 rb1 times per day [Active]; sertraline 100 mg Oral tab 2 tabs once daily [Active]; - PMHx: 11:25 CHF; COPD; Diabetes - IDDM; Hypertension; Myocardial infarction; rb1 - PSHx: 11:25 Heart stents; rb1 - Immunization history:: Adult Immunizations not up to date. - Social history:: Smoking status: Patient/guardian denies using. - Immunization history: Last tetanus immunization: unknown. - Family history:: not pertinent. ROS: 12:28 Constitutional: Negative for fever, chills, and weight loss, Eyes: Negative for injury, mayela pain, redness, and discharge, ENT: Negative for injury, pain, and discharge, Neck: Negative for injury, pain, and swelling, Respiratory: Negative for shortness of breath, cough, wheezing, and pleuritic chest pain, Abdomen/GI: Negative for abdominal pain, nausea, vomiting, diarrhea, and constipation, Back: Negative for injury and pain, : Negative for injury, bleeding, discharge, and swelling, MS/Extremity: Negative for injury and deformity, Skin: Negative for injury, rash, and discoloration, Neuro: Negative for headache, weakness, numbness, tingling, and seizure, Psych: Negative for depression, anxiety, suicide ideation, homicidal ideation, and hallucinations, Allergy/Immunology: Negative for hives, rash, and allergies, Endocrine: Negative for neck swelling, polydipsia, polyuria, polyphagia, and marked weight changes. 12:28 Cardiovascular: Positive for chest pain. 12:28 MS/extremity: Positive for abrasion, laceration, of the palmar aspect of right forearm. Exam: 12:28 Constitutional: This is a well developed, well nourished patient who is awake, alert, mayela and in no acute distress. Head/Face: Normocephalic, atraumatic. Eyes: Pupils equal round and reactive to light, extra-ocular motions intact. Lids and lashes normal. Conjunctiva and sclera are non-icteric and not injected. Cornea within normal limits. Periorbital areas with no swelling, redness, or edema. ENT: Nares patent. No nasal discharge, no septal abnormalities noted. Tympanic membranes are normal and external auditory canals are clear. Oropharynx with no redness, swelling, or masses, exudates, or evidence of obstruction, uvula midline. Mucous membranes moist. Neck: Trachea midline, no thyromegaly or masses palpated, and no cervical lymphadenopathy. Supple, full range of motion without nuchal rigidity, or vertebral point tenderness. No Meningismus. Chest/axilla: Normal chest wall appearance and motion. Nontender with no deformity. No lesions are appreciated. Cardiovascular: Regular rate and rhythm with a normal S1 and S2. No gallops, murmurs, or rubs. Normal PMI, no JVD. No pulse deficits. Respiratory: Lungs have equal breath sounds bilaterally, clear to auscultation and percussion. No rales, rhonchi or wheezes noted. No increased work of breathing, no retractions or nasal flaring. Abdomen/GI: Soft, non-tender, with normal bowel sounds. No distension or tympany. No guarding or rebound. No evidence of tenderness throughout. Back: No spinal tenderness. No costovertebral tenderness. Full range of motion. Skin: Warm, dry with normal turgor. Normal color with no rashes, no lesions, and no evidence of cellulitis. MS/ Extremity: Pulses equal, no cyanosis. Neurovascular intact. Full, normal range of motion. Neuro: Awake and alert, GCS 15, oriented to person, place, time, and situation. Cranial nerves II-XII grossly intact. Motor strength 5/5 in all extremities. Sensory grossly intact. Cerebellar exam normal. Normal gait. Psych: Awake, alert, with orientation to person, place and time. Behavior, mood, and affect are within normal limits. 12:28 Musculoskeletal/extremity: ROM: intact in all extremities, full active range of motion, full passive range of motion, Circulation is intact in all extremities. Sensation intact. Compartment Syndrome exam of affected extremity: is normal. DVT Exam: no swelling, negative Homans' sign noted on exam, no appreciated bluish discoloration, no erythema, no increased warmth, pain, tenderness. 14:00 ECG was reviewed by the Attending Physician. mayela Vital Signs: 11:25 BP 153 / 59; Pulse 74; Resp 25; Temp 98; Pulse Ox 100% on 2 lpm NC; Weight 120.66 kg; rb1 Height 5 ft. 2 in. (157.48 cm); 12:30 BP 120 / 51; Pulse 62; Resp 19; Pulse Ox 100% on R/A; rb1 13:40 BP 125 / 46; Pulse 74; Resp 19; Pulse Ox 99% on 2 lpm NC; rb1 14:40 BP 122 / 49; Pulse 65; Resp 19; Pulse Ox 99% on 2 lpm NC; Pain 4/10; rb1 15:40 BP 134 / 78; Pulse 66; Resp 20; Pulse Ox 100% on 2 lpm NC; rb1 11:25 Body Mass Index 48.65 (120.66 kg, 157.48 cm) rb1 [place] Coma Score: 11:25 Eye Response: spontaneous(4). Verbal Response: oriented(5). Motor Response: obeys rb1 commands(6). Total: 15. Trauma Score (Adult): 11:25 Eye Response: spontaneous(1); Verbal Response: oriented(1); Motor Response: obeys rb1 commands(2); Systolic BP: > 89 mm Hg(4); Respiratory Rate: 10 to 29 per min(4); Briseyda Score: 15; Trauma Score: 12 12:30 Eye Response: spontaneous(1); Verbal Response: oriented(1); Motor Response: obeys rb1 commands(2); Systolic BP: > 89 mm Hg(4); Respiratory Rate: 10 to 29 per min(4); [place] Score: 15; Trauma Score: 12 13:40 Eye Response: spontaneous(1); Verbal Response: oriented(1); Motor Response: obeys rb1 commands(2); Systolic BP: > 89 mm Hg(4); Respiratory Rate: 10 to 29 per min(4); [place] Score: 15; Trauma Score: 12 14:40 Eye Response: spontaneous(1); Verbal Response: oriented(1); Motor Response: obeys rb1 commands(2); Systolic BP: > 89 mm Hg(4); Respiratory Rate: 10 to 29 per min(4); Briseyda Score: 15; Trauma Score: 12 15:40 Eye Response: spontaneous(1); Verbal Response: oriented(1); Motor Response: obeys rb1 commands(2); Systolic BP: > 89 mm Hg(4); Respiratory Rate: 10 to 29 per min(4); Briseyda Score: 15; Trauma Score: 12 MDM: 11:31 Patient medically screened. [facility] 12:31 Differential diagnosis: abnormal EKG, acute pericarditis, anxiety, congestive heart mayela failure hiatal hernia, pancreatitis, stable angina, unstable angina. HEART Score: History: Moderately Suspicious (1), ECG: Non specific repolarization disturbance / LBTB / PM (1), Age: > or = 65 years (2), Risk Factors: > or = 3 Risk factors for atherosclerotic disease (2), [Hypercholesterolemia] [Hypertension] [DM] [+ Family HX] [Obesity] Troponin: < or = 1 x Normal Limit (0). Differential diagnosis: closed head injury, contusion, multiple trauma, sprain, strain, cardiac arrhythmia, GI bleed, idiopathic syncope, seizure, transient ischemic attack, vasovagal episode. The patient was given aspirin in the Emergency Department. The patient's deep vein thrombosis risk score was calculated as follows: Total Score: 0. This patient was found to be at low risk for a deep vein thrombosis by using the Well's assessment criteria. The patient's pulmonary embolism risk score was calculated as follows: Total Score: 0-2 points. This patient was found to be at low risk for a pulmonary embolism by using the Well's assessment criteria. SERGEY Risk Score: 1 - patient's age is greater or equal to 65 years, 1 - Three or more CAD risk factors, 1 - ASA use in past 7 days, TOTAL SCORE = 3. Data reviewed: vital signs, nurses notes, lab test result(s), EKG, radiologic studies, CT scan, plain films. 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 Test interpretation: by ED physician or midlevel provider: ECG, plain radiologic studies. Counseling: I had a detailed discussion with the patient and/or guardian regarding: the historical points, exam findings, and any diagnostic results supporting the discharge/admit diagnosis, lab results, radiology results, the need for further work-up and treatment in the hospital. 05/30 12:25 Order name: Basic Metabolic Panel [facility] 05/30 12:25 Order name: CBC with Diff 05/30 12:25 Order name: LFT's 05/30 12:25 Order name: Magnesium [facility] 05/30 12:25 Order name: NT PRO-BNP 05/30 12:25 Order name: PT-INR 05/30 12:25 Order name: Troponin (emerg Dept Use Only) 05/30 12:25 Order name: Lipase [facility] 05/30 12:25 Order name: Urine Culture [facility] 05/30 12:56 Order name: CBC with Automated Diff; Complete Time: 13:39 [facility] 05/30 12:57 Order name: Protime (+INR); Complete Time: 13:39 [facility]MO 05/30 13:10 Order name: Basic Metabolic Panel; Complete Time: 13:39 [facility] 05/30 13:10 Order name: Liver (Hepatic) Function; Complete Time: 13:39 [facility] 05/30 13:10 Order name: Troponin (Emerg Dept Use Only); Complete Time: 13:39 [facility] 05/30 12:25 Order name: XRAY Chest (1 view) [facility] 05/30 12:25 Order name: EKG; Complete Time: 12:26 [facility] 05/30 12:25 Order name: CT Traumagram (Head C Spine CAP wo con) [facility] 05/30 13:09 Order name: CT; Complete Time: 13:39 [facility] 05/30 13:10 Order name: NT PRO-BNP; Complete Time: 13:39 [facility] 05/30 13:10 Order name: Magnesium; Complete Time: 13:39 [facility] 05/30 13:10 Order name: Lipase; Complete Time: 13:39 [facility] 05/30 13:48 Order name: RAD; Complete Time: 15:27 [facility] 05/30 14:18 Order name: Urine Dipstick--Ancillary (enter results) 05/30 14:59 Order name: Urine Dipstick-Ancillary; Complete Time: 15:27 [facility] 05/30 15:28 Order name: COVID-19 iw 05/30 15:43 Order name: CORONAVIRUS [facility] 05/30 16:42 Order name: SARS-COV-2 RT PCR [facility] 05/30 12:25 Order name: Cardiac monitoring; Complete Time: 12:44 [facility] 05/30 12:25 Order name: EKG - Nurse/Tech; Complete Time: 14:24 [facility] 05/30 12:25 Order name: IV Saline Lock; Complete Time: 12:44 [facility] 05/30 12:25 Order name: Labs collected and sent; Complete Time: 12:44 [facility] 05/30 12:25 Order name: O2 Per Protocol; Complete Time: 12:44 [facility] 05/30 12:25 Order name: O2 Sat Monitoring; Complete Time: 12:44 [facility] 05/30 12:25 Order name: Urine Dipstick-Ancillary (obtain specimen); Complete Time: 14:23 [facility] 05/30 12:25 Order name: Misc. Order: clean and dress right arm skin tear; Complete Time: 14:55 [facility] EC:00 Rate is 60 beats/min. Rhythm is regular. QRS [place] is Normal. [place] interval is normal. QRS mayela interval is prolonged at 134 msec. QT interval is normal. No Q waves. T waves are Normal. No ST changes noted. Clinical impression: NSR w/ Non-specific ST/T Changes. Interpreted by me. Reviewed by me. Administered Medications: 12:39 Drug: NS 0.9% 1000 ml Route: IV; Rate: 75 ml/hr; Site: right wrist; rb1 14:24 Follow up: IV Status: Infusion continued upon admission jl7 12:39 Drug: Pepcid 20 mg Route: IVP; Site: right wrist; rb1 13:10 Follow up: Response: No adverse reaction jl7 16:35 Drug: Proventil 2.5 mg Route: Inhalation; rb1 Disposition: 12:31 Critical Care:. mayela Disposition: 05/30/20 12:38 Hospitalization ordered by Pedro Youssef for Observation. Preliminary diagnosis are Syncope and collapse - near, Fall due to bumping against object, Chest pain, unspecified, Obesity, unspecified, Type 1 diabetes mellitus. - Bed requested for Telemetry/MedSurg (observation). - Status is Observation. rb1 - Condition is Stable. - Problem is new. - Symptoms have improved. Critical care time excluding procedures: 12:31 Critical care time: Bedside Care: 20 minutes, Consultation: 5 minutes. Total time: 25 mayela minutes Signatures: Dispatcher [employer] Faviola Sorensen RN RN dw Anderson, Corey, MD MD cha Barber, Rebecca, RN RN rb1 Marquis Jarrett RN RN [email or web address] Corrections: (The following items were deleted from the chart) 11:25 Home Meds: Anoro Ellipta 62.5-25 mcg/actuation inhalation dsdv 1 puff once daily; rb1 rb1 11:25 Home Meds: gabapentin 800 mg Oral tab 3 times per day; rb1 rb1 11:25 Home Meds: levothyroxine 100 mcg tab; rb1 rb1 11:25 Home Meds: sertraline 100 mg Oral tab 1.5 tabs once daily; rb1 rb1 15:00 12:38 Hospitalization Ordered by Pedro Youssef MD for Observation. Preliminary dw diagnosis is Syncope and collapse - near; Fall due to bumping against object; Chest pain, unspecified; Obesity, unspecified; Type 1 diabetes mellitus. Bed requested for Telemetry/MedSurg (observation). Status is Observation. Condition is Stable. Problem is new. Symptoms have improved. mayela 16:55 15:00 05/30/2020 12:38 Hospitalization Ordered by Pedro Youssef MD for Observation. rb1 Preliminary diagnosis is Syncope and collapse - near; Fall due to bumping against object; Chest pain, unspecified; Obesity, unspecified; Type 1 diabetes mellitus. Bed requested for Telemetry/MedSurg (observation). Status is Observation. Condition is Stable. Problem is new. Symptoms have improved. dw
--- NOTE | 2020-05-30 12:39 | ER ---
Nurse's Notes [facility] Name: Carrol Lunbderg Age: 74 yrs Sex: Female : 1945 Arrival Date: 05/30/2020 Time: 11:29 Bed 3 Private MD: Diagnosis: Syncope and collapse-near;Fall due to bumping against object;Chest pain, unspecified;Obesity, unspecified;Type 1 diabetes mellitus Presentation: 05/30 11:25 Chief complaint: EMS states: Pt. is 74 yr., A \T\ O x 4, fell and landed on her right arm rb1 and hit her head on the TV stand when she fell. Is currently on Blood Thinners. Pt. reports that she fell due to chest pain and dizziness.. C/o SOB, and cough x 2 weeks. Has a cardiac history. 12 Lead showed PVC's, Couplets, and L BBB. IV 22 g R wrist, EMS administered aspirin 324 mg PO x once, Zofran 4 mg IVP x once. Stroke assessment was negative. BP 160's-170's/100, 97% 2 L NC, R 20, P 100, BS 212. Care prior to arrival: Medication(s) given: ASA, 324 mg zofran 4 mg, IV initiated. 22 GA, in the right wrist. Mechanism of Injury: Fall. 11:25 Acuity: AUGUST 3 rb1 11:25 Method Of Arrival: EMS: [facility] rb1 11:25 Coronavirus screen: Client denies travel out of the [place] in the last 14 days. cough rb1 unrelated to allergies, shortness of breath. Ebola Screen: Patient denies travel to an Ebola-affected area in the 21 days before illness onset. Initial Sepsis Screen: Does the patient meet any 2 criteria? No. Patient's initial sepsis screen is negative. Risk Assessment: Do you want to hurt yourself or someone else? Patient reports no desire to harm self or others. Onset of symptoms was May 30, 2020. 11:25 Initial Sepsis Screen: Does the patient have a suspected source of infection? No. rb1 Patient's initial sepsis screen is negative. Triage Assessment: 11:25 General: See triage assessment. rb1 Historical: - Allergies: 11:25 No Known Allergies; rb1 - Home Meds: 11:25 aspirin 81 mg Oral chew [Active]; atorvastatin 80 mg Oral tab 1 tab once daily rb1 [Active]; Atrovent Inhl [Active]; clopidogrel 75 mg Oral tab 1 tab once daily [Active]; furosemide 40 mg Oral tab 1 tab 2 times per day for Hypertension [Active]; Novolog 100 unit/mL Sub-Q soln [Active]; ReliOn Glucose 15-400 gram-unit/60 mL Oral liqd [Active]; spironolactone 25 mg Oral tab 1 tab 2 times per day [Active]; Ventolin HFA 90 mcg/actuation Nebulizer HFAA 1 puff every 4 hours [Active]; symbacort [Active]; 11:25 levothyroxine 150 mcg oral tab 1 tab once daily [Active]; gabapentin 800 mg Oral tab 3 rb1 times per day [Active]; sertraline 100 mg Oral tab 2 tabs once daily [Active]; - PMHx: 11:25 CHF; COPD; Diabetes - IDDM; Hypertension; Myocardial infarction; rb1 - PSHx: 11:25 Heart stents; rb1 - Immunization history:: Adult Immunizations not up to date. - Social history:: Smoking status: Patient/guardian denies using. - Immunization history: Last tetanus immunization: unknown. - Family history:: not pertinent. Screenin:25 Abuse screen: Denies threats or abuse. Tuberculosis screening: No symptoms or risk rb1 factors identified. 14:24 Nutritional screening: No deficits noted. Fall Risk Fall in past 12 months (25 points). jl7 IV access (20 points). Gait- Weak (10 pts.). Total Talbert Fall Scale indicates High Risk Score (45 or more points). Fall prevention measures have been instituted. Side Rails Up X 2 Placed Close to Nursing Station Frequent Obs/Assessments Occuring As available patient and family educated on Fall Prevention Program and Strategies. Primary Survey: 11:25 NO uncontrolled hemorrhage observed. A: The patient is alert. Airway: patent, Oxygen rb1 via nasal cannula at 2 liters per minute. Breathing/Chest: Respiratory pattern: regular, Respiratory effort: spontaneous, unlabored, Chest inspection: symmetrical rise and fall of the chest. Circulation: Skin color: pink, Skin temperature: warm, dry. Disability Alert. Exposure/Environment: All clothing and personal items were removed. Forensic evidence collection is not deemed to be indicated at this time. Items placed in patient belonging bag. There is no evidence of uncontrolled external bleeding. Obvious injury(ies) are noted at this time: skin tear on the right forearm. 11:56 Reassessment Airway Airway Patent Breathing/Chest Respiratory pattern Regular jl7 Respiratory effort Spontaneous Unlabored Breath sounds Wheezes Chest inspection Symmetrical Circulation Pulses Palpable Color [place] Temperature Warm. Assessment: 11:25 General: Appears in no apparent distress. comfortable, Behavior is calm, cooperative. rb1 Neuro: Level of Consciousness is awake, alert, obeys commands, Oriented to person, place, time, situation, Reports dizziness. Cardiovascular: Patient's skin is warm and dry. Respiratory: Reports shortness of breath cough that is since SOB for months but has gotten increasingly worse the last 2 weeks Airway is patent Respiratory effort is even, unlabored, Respiratory pattern is regular, symmetrical. 11:25 Pain: Complains of pain in mid-sternal area Pain radiates to right anterior chest Pain rb1 currently is 4 out of 10 on a pain scale. at worst was 6 out of 10 on a pain scale. 11:25 GI: No signs and/or symptoms were reported involving the gastrointestinal system. : rb1 No signs and/or symptoms were reported regarding the genitourinary system. Derm: Skin is pink, warm \T\ dry. Musculoskeletal: Swelling present in bilateral lower extremities. 12:22 Reassessment: Patient appears in no apparent distress at this time. No changes from rb1 previously documented assessment. 12:40 Reassessment: Pt. went to CT. rb1 13:28 Reassessment: Patient appears in no apparent distress at this time. Patient and/or rb1 family updated on plan of care and expected duration. Pain level reassessed. Patient is alert, oriented x 3, equal unlabored respirations, skin warm/dry/pink. 14:40 Reassessment: Patient appears in no apparent distress at this time. Patient and/or rb1 family updated on plan of care and expected duration. Pain level reassessed. Patient is alert, oriented x 3, equal unlabored respirations, skin warm/dry/pink. 15:18 Reassessment: Tried to call report, unable to give report at this time, Tavon will rb1 call me back when he is done passing medications. 16:00 Reassessment: Waiting on COVID results to send the pt. to the floor. rb1 16:15 Reassessment: Patient appears in no apparent distress at this time. Patient and/or rb1 family updated on plan of care and expected duration. Pain level reassessed. Patient is alert, oriented x 3, equal unlabored respirations, skin warm/dry/pink. 16:27 Reassessment: Received verbal order via telephone from Dr. Youssef for Proventil 0.0083% rb1 2.5 mg Neb x once. 100% verbal read back. Vital Signs: 11:25 BP 153 / 59; Pulse 74; Resp 25; Temp 98; Pulse Ox 100% on 2 lpm NC; Weight 120.66 kg; rb1 Height 5 ft. 2 in. (157.48 cm); 12:30 BP 120 / 51; Pulse 62; Resp 19; Pulse Ox 100% on R/A; rb1 13:40 BP 125 / 46; Pulse 74; Resp 19; Pulse Ox 99% on 2 lpm NC; rb1 14:40 BP 122 / 49; Pulse 65; Resp 19; Pulse Ox 99% on 2 lpm NC; Pain 4/10; rb1 15:40 BP 134 / 78; Pulse 66; Resp 20; Pulse Ox 100% on 2 lpm NC; rb1 11:25 Body Mass Index 48.65 (120.66 kg, 157.48 cm) rb1 [place] Coma Score: 11:25 Eye Response: spontaneous(4). Verbal Response: oriented(5). Motor Response: obeys rb1 commands(6). Total: 15. Trauma Score (Adult): 11:25 Eye Response: spontaneous(1); Verbal Response: oriented(1); Motor Response: obeys rb1 commands(2); Systolic BP: > 89 mm Hg(4); Respiratory Rate: 10 to 29 per min(4); Briseyda Score: 15; Trauma Score: 12 12:30 Eye Response: spontaneous(1); Verbal Response: oriented(1); Motor Response: obeys rb1 commands(2); Systolic BP: > 89 mm Hg(4); Respiratory Rate: 10 to 29 per min(4); [place] Score: 15; Trauma Score: 12 13:40 Eye Response: spontaneous(1); Verbal Response: oriented(1); Motor Response: obeys rb1 commands(2); Systolic BP: > 89 mm Hg(4); Respiratory Rate: 10 to 29 per min(4); Briseyda Score: 15; Trauma Score: 12 14:40 Eye Response: spontaneous(1); Verbal Response: oriented(1); Motor Response: obeys rb1 commands(2); Systolic BP: > 89 mm Hg(4); Respiratory Rate: 10 to 29 per min(4); Briseyda Score: 15; Trauma Score: 12 15:40 Eye Response: spontaneous(1); Verbal Response: oriented(1); Motor Response: obeys rb1 commands(2); Systolic BP: > 89 mm Hg(4); Respiratory Rate: 10 to 29 per min(4); [place] Score: 15; Trauma Score: 12 ED Course: 11:25 Patient has correct armband on for positive identification. Placed in gown. Bed in low rb1 position. Call light in reach. Side rails up X2. 11:25 Arm band placed on right wrist. rb1 11:25 Oxygen administration via nasal cannula \T\ 2L/min. rb1 11:25 Maintain EMS IV. Dressing intact. Good blood return noted. Site clean \T\ dry. Gauge \T\ jl 7 site: 22 right wrist. 11:25 Thermoregulation: warm blanket given to patient. rb1 11:29 Patient arrived in ED. rb1 11:31 Je Mcdonough MD is Attending Physician. mayela 11:40 Triage completed. rb1 11:56 Marquis Jarrett, CHELSEA is Primary Nurse. jl7 12:36 Pedro Youssef MD is Hospitalizing Provider. mayela 13:37 Yohana Roberson, RN is Primary Nurse. rb1 14:24 child monitor on. Pulse ox on. NIBP on. jl7 16:12 COVID-19 Sent. rb1 16:51 No provider procedures requiring assistance completed. Patient admitted, IV remains in rb1 place. Administered Medications: 12:39 Drug: NS 0.9% 1000 ml Route: IV; Rate: 75 ml/hr; Site: right wrist; rb1 14:24 Follow up: IV Status: Infusion continued upon admission jl7 12:39 Drug: Pepcid 20 mg Route: IVP; Site: right wrist; rb1 13:10 Follow up: Response: No adverse reaction jl7 16:35 Drug: Proventil 2.5 mg Route: Inhalation; rb1 Outcome: 12:38 Decision to Hospitalize by Provider. mayela 16:51 Admitted to Med/surg accompanied by tech, via stretcher, room 225, with oxygen, with rb1 chart, Report called to CHELSEA Montes De Oca 16:51 Condition: stable 16:51 Instructed on the need for admit. 16:51 Patient's length of stay in the Emergency Department was greater than 2 hours. Being rb1 admitted.Patient's length of stay extended due to 16:55 Patient left the ED. rb1 Signatures: Je Mcdonough MD MD cha Barber, Rebecca, RN RN rb1 Marquis Jarrett RN RN jl7 Corrections: (The following items were deleted from the chart) 11:49 11:25 Neuro: Level of Consciousness is awake, alert, obeys commands, Oriented to rb1 person, place, time, situation, rb1 11:25 Home Meds: Anoro Ellipta 62.5-25 mcg/actuation inhalation dsdv 1 puff once daily; rb1 rb1 11:25 Home Meds: gabapentin 800 mg Oral tab 3 times per day; rb1 rb1 11:25 Home Meds: levothyroxine 100 mcg tab; rb1 rb1 11:25 Home Meds: sertraline 100 mg Oral tab 1.5 tabs once daily; rb1 rb1
[2020-05-30] MEDS ORDERED: FAMOTIDINE 20 MG/2 ML VIAL IV ONE (12:43)
[2020-05-30] MEDS ORDERED: NA CHLORIDE 0.9% 1,000 ML ONE (12:43)
[2020-05-30 12:54] LABS: Protime INR 0.97
[2020-05-30 12:56] LABS: Absolute Lymphocytes (CBC) 1.6 K/uL (0.7-4.9); Basophils % 0.8 % (0-1.3); Lymphocytes % 17.7 % (15.3-44.8); MPV 7.5 fL (7.6-11.3); RBC Red Blood Cell Count 3.93 M/uL (3.86-4.86)
--- NOTE | 2020-05-30 13:07 | RAD REPORT ---
EXAM DESCRIPTION: CT - Head C Spine Cap Wo Con - 05/30/2020 12:49 pm CLINICAL HISTORY: Trauma, head and neck injury. Chest, abdomen and pelvis pain. Pain;Weakness COMPARISON: No comparisons TECHNIQUE: CT head without contrast. CT cervical spine without contrast with coronal and sagittal reformatted images. CT chest, abdomen and pelvis without contrast with coronal and sagittal reformatted images of the [facility] ne. All CT scans are performed using dose optimization technique as appropriate and may include automated exposure control or mA/KV adjustment according to patient size. FINDINGS: CT HEAD WITHOUT CONTRAST: No intracranial hemorrhage, hydrocephalus or extra-axial fluid collection. No areas of brain edema o r midline shift. The paranasal sinuses and mastoids are clear. The calvarium is intact. Mild vertebral atherosclerosis . CT CERVICAL SPINE WITHOUT CONTRAST: No fracture or subluxation. Degenerative changes are present mid and lower cervical spine with disc t hinning and posterior osteophyte. The prevertebral soft tissues are normal in thickness. CT CHEST, ABDOMEN, PELVIS WITHOUT CONTRAST: NOTE: Lack of contrast is a significant limitation in the assessment of trauma related findings. Spec ifically, solid organ, vascular and bowel evaluation is significantly limited. The lungs are clear.No pneumothorax or pericardial/pleural fluid. No evidence of intra-abdominal visceral injury, free fluid or free air is seen within the above detai led limitations. Small gallstones. 2 cm nonspecific left adrenal mass. Aortoiliac atherosclerosis. No concerning pelvic findings. No acute fracture is seen. IMPRESSION: Negative for acute traumatic findings within the above detailed limitations.
[2020-05-30 13:09] LABS: ALT/SGPT 20 U/L (12-78); AST/SGOT 14 U/L (15-37); Albumin 3.1 g/dL (3.4-5.0); Alkaline Phosphatase 96 U/L (45-117); BUN Blood Urea Nitrogen 24 mg/dL (7-18); Bicarbonate 33 mmol/L (21-32); Bilirubin Direct < 0.1 mg/dL (0-0.2); Bilirubin Total 0.3 mg/dL (0.2-1.0); Glucose Level 201 mg/dL (74-106); Lipase 111 U/L (73-393); Magnesium 2.1 mg/dL (1.8-2.4); NT PRO-BNP 724 pg/mL (<125); Potassium 4.3 mmol/L (3.5-5.1); Sodium Level 140 mmol/L (136-145); Troponin (Emerg Dept Use Only) < 0.02 ng/mL (0.0-0.045)
--- NOTE | 2020-05-30 13:46 | RAD REPORT ---
EXAM DESCRIPTION: RAD - Chest Single View - 05/30/2020 1:35 pm CLINICAL HISTORY: Cough;Chest pain, fall COMPARISON: June 2019 TECHNIQUE: AP portable chest image was obtained 05/30/2020 1:35 pm . FINDINGS: Prominent interstitial markings are present similar to comparison. Right upper lobe opacif ication seen previously has cleared. No dense consolidation or mass. Hilar regions within normal limi ts. Trachea is midline. Heart and vasculature are normal. No measurable pleural effusion and no pneum othorax. No acute bony abnormality seen. No acute aortic findings suspected. IMPRESSION: No acute cardiopulmonary finding. No worrisome change from 2019 comparison.
--- NOTE | 2020-05-30 13:51 | P.HP ---
Certification for Inpatient Patient admitted to: Observation With expected LOS: <2 Midnights Practitioner: I am a practitioner with admitting privileges, knowledge of patient current condition, hospital course, and medical plan of care. Services: Services provided to patient in accordance with Admission requirements found in Title 42 Section 412.3 of the Code of Federal Regulations Patient History Date of Service: 05/30/20 Reason for admission: near-syncope, chest pain History of Present Illness: 74yo female, PMH: AFib, HFpEF, prior AL s/p stents, IDDM, COPD on chronic 2 L NC, hypothyroidism who presented to the ED this morning after a fall at home. She reports she fell when taking a step backwards from her front door. Reports some dizziness at that time, no loss of consciousness. She hit her right forearm on her entertainment center and hit her head as well. She endorses history of falls, but has been doing well in the past year. She denies any new weakness. She does endorse some progressively worsening dyspnea on exertion over the past month is with some slight increase in lower extremity swelling despite taking Lasix and spironolactone b.i.d.. She otherwise denies any recent illness, no fever/chills, no abdominal pain, no dysuria, no diarrhea. Patient reports prior to the fall she had chest pain, located substernally, no radiation, no recurrence. She states this is typical for her chest pain that she gets a few times a month. Labwork notable for no leukocytosis, mild anemia (11.3), mild a KI (1.39), mild elevation BNP (724), negative troponin. Afebrile CT head, C-spine, chest, abdomen, pelvis: Negative for acute traumatic findings. Lungs are clear. No pneumothorax, no pericardial/pleural fluid Allergies No Known Allergies Allergy (Verified 02/14/20 12:33) Home Medications: Atorvastatin Calcium [Lipitor] 80 mg PO BEDTIME #60 tab 01/23/17 Clopidogrel Bisulfate [Plavix*] 75 mg PO DAILY #30 01/23/17 Furosemide 1 tab PO BID #60 01/23/17 Spironolactone [Aldactone*] 25 mg PO BID #60 tab 01/23/17 Levothyroxine [Synthroid*] 150 mcg PO [id number] 06/03/19 Sertraline [Zoloft*] 2 tab PO DAILY 10/31/19 Aspirin Chewable [Aspirin Chewable*] 81 mg PO DAILY 02/17/20 Cholecalciferol (Vitamin D3) [Vitamin D3] 1 cap PO DAILY 02/17/20 Insulin Lispro [Humalog] 5 unit SQ TIDWM 02/17/20 NPH, Human Insulin Isophane [Humulin N] 25 unit SQ BID 02/17/20 - Past Medical/Surgical History Diabetic: Yes -: Postsurgical hypothyroidism -: History of atrial fibrillation -: Hyperlipidemia -: Hypertension -: CAD -: COPD -: Diabetes mellitus type 2 insulin dependent -: Diastolic CHF -: Depression with anxiety -: Thyroidectomy -: CAD with prior stents Psychosocial/ Personal History: Patient is a . She lives at home. - Family History Father -: Cancer Sister -: Cancer morther -: Cancer - Social History Smoking Status: Former smoker Alcohol use: No CD- Drugs: No Caffeine use: Yes Review of Systems 10-point ROS is otherwise unremarkable Physical Examination - Physical Exam General: Alert, In no apparent distress, Oriented x3 HEENT: Mucous membr. moist/pink, Sclerae nonicteric Neck: Supple Respiratory: Clear to auscultation bilaterally Cardiovascular: Edema (1+ bilateral lower extremities), Irregular heart rate/rhythm Gastrointestinal: Soft and benign, Non-distended, No tenderness Musculoskeletal: No tenderness Neurological: Normal speech, Normal affect - Studies Laboratory Data (last 24 hrs) 05/30/20 12:35: PT 11.5, INR 0.97 05/30/20 12:35: WBC 9.1, Hgb 11.3 L, Hct 34.0 L, Plt Count 228 05/30/20 12:35: Sodium 140, Potassium 4.3, BUN 24 H, Creatinine 1.39 H, Glucose 201 H, Magnesium 2.1, Total Bilirubin 0.3, AST 14 L, ALT 20, Alkaline Phosphatase 96, Lipase 111 Assessment and Plan - Advance Directives Does patient have a Living Will: No Does patient have a Durable POA for Healthcare: No Physician Review Additional Text: Chest pain fall, near-syncope ?CHELLE AFib HFpEF prior AL s/p stents IDDM COPD on chronic 2 L NC hypothyroidism (s/p thyroidectomy) -bring pt in for obs -significant cardiac history, patient reports chest pain was no different than what she typically has -trend troponins, initial negative -fall sounds mechanical, non-syncopal / no LOC -CT negative for acute traumatic injuries, also known pneumonia/pulmonary edema/pleural effusions noted -will monitor on telemetry overnight -unclear etiology of CHELLE / if true CHELLE, BUN/Cr: ~17, will check urine studies. - baseline seems to be ~1.17, Cr today was 1.39 -pt received bolus of 1L NS in ED -repeat labs in AM -obtain and continue home medications -Urine dip with trace blood, will check UA w/ micro, CPK, possible myoglobinuria Dispo: anticipate dc home to resume HH in 24 hrs Time Spent Managing Pts Care (In Minutes): 55
[2020-05-30 14:59] LABS: Urine Blood TRACE (NEG); Urine Glucose NEGATIVE (NEG); Urine Protein 1+ (NEG)
[2020-05-30] MEDS ORDERED: ACETAMINOPHEN 500 MG TAB PO PRN (15:54)
[2020-05-30] MEDS ORDERED: ALBUTEROL 2.5 MG/3 ML NEB SOL NEB PRN (15:54)
[2020-05-30] MEDS: INSULIN -REGULAR HUMAN 50 UNIT/0.5 ML ML SQ SCH ×2 (16:30→21:03)
[2020-05-30] MEDS ORDERED: ALBUTEROL 2.5 MG/3 ML NEB SOL ONE (16:43)
[2020-05-30 17:09] VITALS: BMI 41.3
[2020-05-30 17:27] LABS: Creatine Phosphokinase 337 U/L (26-192); Troponin I < 0.02 ng/mL (0.0-0.045)
[2020-05-30] MEDS: ENOXAPARIN 40 MG/0.4 ML SQ SCH (17:40)
[2020-05-30] MEDS ORDERED: INFLUENZA VACCINE (for 3y+) 0.5 ML DOSE IMVAC ONE (20:00)
[2020-05-31] MEDS ORDERED: IPRATROPIUM 200 PUFF/12.9 GM INH IH PRN (03:35)
[2020-05-31 05:16] LABS: Absolute Lymphocytes (CBC) 1.4 K/uL (0.7-4.9); Basophils % 0.7 % (0-1.3); Hematocrit 32.6 % (36.0-45.0); Lymphocytes % 16.8 % (15.3-44.8); MPV 7.7 fL (7.6-11.3); RBC Red Blood Cell Count 3.77 M/uL (3.86-4.86)
[2020-05-31 05:33] LABS: Albumin 2.9 g/dL (3.4-5.0); Bilirubin Total 0.4 mg/dL (0.2-1.0); Magnesium 2.2 mg/dL (1.8-2.4); Potassium 4.5 mmol/L (3.5-5.1); Protein, Total 6.5 g/dL (6.4-8.2)
[2020-05-31] MEDS ORDERED: LEVOTHYROXINE SOD 0.1 MG TAB PO SCH (06:00)
--- NOTE | 2020-05-31 07:21 | EKG ---
Test Date: 2020-05-30 Test Time: 13:22:27 Outreach Liaison: ABAD MEASUREMENT RESULTS: Intervals: Rate: 60 LA: 170 QRSD: 134 QT: 444 QTc: 444 [place]: P: 70 LA: 170 QRS: -30 T: 112 INTERPRETIVE STATEMENTS: Normal sinus rhythm Left axis deviation Left bundle branch block Abnormal ECG Compared to ECG 06/03/2019 16:33:42 Left-axis deviation now present Sinus tachycardia no longer present Electronically Signed On 05-31-20 07:19:39 CDT by Bharat Vaca
[2020-05-31] MEDS: ENOXAPARIN 40 MG/0.4 ML SQ SCH (07:57)
[2020-05-31] MEDS: INSULIN -REGULAR HUMAN 50 UNIT/0.5 ML ML SQ SCH (07:57)
[2020-05-31] MEDS: METHYLPREDNISOLONE 40 MG INJ IV SCH ×2 (07:59→08:27)
[2020-05-31] MEDS ORDERED: ASPIRIN 81 MG CHEWABLE TABLET PO SCH (09:00)
[2020-05-31] MEDS ORDERED: NPH (HUMAN) 100 UNITS/ML INSULIN SQ SCH (09:00)
[2020-05-31] MEDS ORDERED: CLOPIDOGREL 75 MG TABLET PO SCH (09:00)
[2020-05-31] MEDS ORDERED: SERTRALINE HCL 100 MG TAB PO SCH (09:00)
[2020-05-31] MEDS ORDERED: SPIRONOLACTONE 25 MG TABLET PO SCH (09:00)
[2020-05-31] MEDS ORDERED: FUROSEMIDE 40 MG TABLET PO SCH (09:00)
[2020-05-31] MEDS ORDERED: GABAPENTIN 400 MG CAP PO SCH (09:00)
[2020-05-31 12:28] VITALS: BP 149/67; TEMP 97.9; O2SAT 95
--- NOTE | 2020-05-31 15:32 | P.DS ---
Admission Date: 05/30/20 Discharge Date: 05/31/20 Disposition: [place] HOME/HOME HEALTH CARE Discharge Condition: GOOD Reason for Admission: near-syncope, chest pain, COPD exacerbation Procedures: CXR (05/30): No acute cardiopulmonary findings. Prominent interstitial markings are present similar to comparison. Right upper lobe opacification seen previously has cleared. CT traumaogram (head, C-spine, chest, abdomen, pelvis): Negative for acute traumatic findings. Lungs are clear. No pneumothorax or pericardial/pleural fluid. Problem list Chest pain fall, near-syncope COPD exacerbation AFib HFpEF prior [place] s/p stents IDDM COPD on chronic 2 L NC hypothyroidism (s/p thyroidectomy) Brief History of Present Illness: 74yo female, PMH: AFib, HFpEF, prior [place] s/p stents, IDDM, COPD on chronic 2 L NC, hypothyroidism who presented to the ED this morning after a fall at home. She fell when taking a step backwards from her front door. Reports some dizziness at that time, no loss of consciousness. She hit her right forearm on her entertainment center and hit her head as well. She endorses history of falls, but has been doing well in the past year. She denies any new weakness. She does endorse some progressively worsening dyspnea on exertion over the past month is with some slight increase in lower extremity swelling despite taking Lasix and spironolactone b.i.d.. She otherwise denies any recent illness, no fever/chills, no abdominal pain, no dysuria, no diarrhea. Patient reports prior to the fall she had chest pain, located substernally, no radiation, no recurrence. She states this is typical for her chest pain that she gets a few times a month. Hospital Course: Patient was brought in for observation and further evaluation. On exam, patient was noted to have some expiratory wheezing, and she was treated for a COPD exacerbation. Her troponins were trended and remained negative. Physical therapy was consulted and patient did well but would become dyspneic with short distances. On day of discharge, patient was breathing much more comfortably she was able to walk from the nursing station back to her room. She was breathing more comfortably on her chronic 2 L nasal cannula. She is discharged home with home health/physical therapy and a short course of prednisone for COPD exacerbation. She did have a mild increase in her CPK (337) likely from her fall, which improved to 133. Her renal function remained stable and near her baseline (1.39 on admission, 1.38 on discharge). Baseline seems to be around 1.2. She was advised to follow up with her PCP who can repeat BMP to monitor her renal function. Vital Signs/Physical Exam: Temp Pulse Resp BP Pulse Ox 97.9 F 65 18 149/67 H 95 05/31/20 12:00 05/31/20 12:00 05/31/20 12:00 05/31/20 12:00 05/31/20 12:00 General: Alert, In no apparent distress, Oriented x3 HEENT: Sclerae nonicteric Neck: Supple Respiratory: Expiratory wheezes (Mild, diffusely) Cardiovascular: Regular rate/rhythm, Edema (Trace-1+ to the knees bilaterally) Gastrointestinal: Soft and benign, Non-distended, No tenderness Integumentary: No rashes Neurological: Normal speech, Normal affect Laboratory Data at Discharge: WBC 8.1 K/uL (4.3-10.9) 05/31/20 04:56 Hgb 10.9 g/dL (12.0-15.0) L 05/31/20 04:56 Hct 32.6 % (36.0-45.0) L 05/31/20 04:56 Plt Count 212 K/uL (152-406) 05/31/20 04:56 PT 11.5 SECONDS (9.5-12.5) 05/30/20 12:35 INR 0.97 05/30/20 12:35 Sodium 140 mmol/L (136-145) 05/31/20 04:56 Potassium 4.5 mmol/L (3.5-5.1) 05/31/20 04:56 BUN 22 mg/dL (7-18) H 05/31/20 04:56 Creatinine 1.38 mg/dL (0.55-1.3) H 05/31/20 04:56 Glucose 225 mg/dL (74-106) H 05/31/20 04:56 Magnesium 2.2 mg/dL (1.8-2.4) 05/31/20 04:56 Total Bilirubin 0.4 mg/dL (0.2-1.0) 05/31/20 04:56 AST 14 U/L (15-37) L 05/31/20 04:56 ALT 17 U/L (12-78) 05/31/20 04:56 Alkaline Phosphatase 86 U/L (45-117) 05/31/20 04:56 Troponin I < 0.02 ng/mL (0.0-0.045) 05/30/20 23:22 Lipase 111 U/L (73-393) 05/30/20 12:35 Home Medications: Atorvastatin Calcium [Lipitor] 80 mg PO BEDTIME #60 tab 01/23/17 Clopidogrel Bisulfate [Plavix*] 75 mg PO DAILY #30 01/23/17 Furosemide 1 tab PO BID #60 01/23/17 Spironolactone [Aldactone*] 25 mg PO BID #60 tab 01/23/17 Levothyroxine [Synthroid*] 150 mcg PO [id number] 06/03/19 Sertraline [Zoloft*] 2 tab PO DAILY 06/03/19 Aspirin Chewable [Aspirin Chewable*] 81 mg PO DAILY 02/17/20 Insulin Lispro [Humalog] 5 unit SQ TIDWM 02/17/20 NPH, Human Insulin Isophane [Humulin N] 25 unit SQ BID 02/17/20 Gabapentin [Neurontin] 800 mg PO TID 05/30/20 Ipratropium Mdi [Atrovent Hf Inhaler*] 200 puff IH BID PRN 05/30/20 predniSONE [Deltasone] 20 mg PO BID 5 Days #10 tab 05/31/20 New Medications: predniSONE [Deltasone] 20 mg PO BID 5 Days #10 tab Patient Discharge Instructions: follow up with PCP within 1 week. follow up with jockey room custodian (Dr. Patricia) in the next few weeks. Diet: ADA Activity: Fall precautions Followup: Ramin Patricia MD [ACTIVE - CAN ADMIT] - Unknown,U [Primary Care Provider] - Time spent managing pt's care (in minutes): 35
[2020-05-31] MEDS ORDERED: ATORVASTATIN 80 MG TAB PO SCH (21:00)
== END 2020-05-31 12:22 | disposition home health service (06) ==
LOC: ER 11:28 → ERHOLD 13:47 → 2ND 15:46
PROVIDERS: ADMIT Hospitalist; ATTEND Hospitalist
DX: R07.9 Chest pain, unspecified (principal); R55 Syncope and collapse; J44.1 Chronic obstructive pulmonary disease with (acute) exacerbation; I48.91 Unspecified atrial fibrillation; Z20.828 Contact with and (suspected) exposure to other viral communicable diseases; I25.2 Old myocardial infarction; Z95.5 Presence of coronary angioplasty implant and graft; E11.9 Type 2 diabetes mellitus without complications; Z79.4 Long term (current) use of insulin; E89.0 Postprocedural hypothyroidism; Z99.81 Dependence on supplemental oxygen; Z91.81 History of falling; Z79.02 Long term (current) use of antithrombotics/antiplatelets; Z79.52 Long term (current) use of systemic steroids; I11.0 Hypertensive heart disease with heart failure; I50.30 Unspecified diastolic (congestive) heart failure; E78.5 Hyperlipidemia, unspecified; I25.10 Atherosclerotic heart disease of native coronary artery without angina pectoris; F41.8 Other specified anxiety disorders; Z87.891 Personal history of nicotine dependence; R94.31 Abnormal electrocardiogram [ECG] [EKG]
CPT/HCPCS: 96361; 93005; 87088; 85025 ×2; 87086; 80048; 36415; 83735 ×2; 82550 ×2; 85610; 82947 ×4; 80076; 81003; 84484 ×3; 83690; 80053; 83880; 70450; 71250; 72125; 71045; 97110; 97116; 97161; 97530; 94760 ×3; 96374; 99285; U0003; J1650 ×2; J7030; J2920; G0378 ×3; J1815

== ENCOUNTER 2021-02-05 12:14 | Inpatient (IN) | payer OTHER ==
[2021-02-05 12:25] LABS: Urine Blood 1+ (Negative); Urine Glucose 2+ (Negative); Urine Protein 2+ (Negative); Urine Specific Gravity 1.015 (1.005-1.030)
--- OUTSIDE RECORDS SUMMARY | 2021-02-05 12:37 | XMS REPORT | Continuity of Care Document ---
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 00 [facility] 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 Coronary Coronary Disease [facility] - calcificat calcificat 00:00: Me dical ion of ion of 00 Center match[facility] band match-e-be-nash-she-wish band artery artery Hyperlipid Hyperlipid Disease Active [facility] emia emia 3-18 [facility] - associated associated 00:00: Me dical with type with type 00 Cent er 2 diabetes 2 diabetes mellitus mellitus Continuous Continuous Disease Active [facility] tobacco tobacco -18 [facility] abuse abuse [facility]: [facility] Diabetes Diabetes Disease [facility] - type 2, type 2, 00:00: Medical uncontroll uncontroll 00 Ce nter ed, with ed, with complicati complicati ons ons Hypertensi Hypertensi Disease Active [facility] on [facility] - 00:[facility]: Medical 00 Center CAD, CAD, Disease Active [facility] multiple multiple 3-18 [facility] - vessel vessel 00:00: Medical [address] Acute [...] Date Quantity Comments Source Sex Assigned At [facility] Alcohol intake 2016-10-23 2016[facility] non-drinker of Medical Ce nter alcohol (finding) Smoking Status Start Date Stop Date Source Current every day smoker 2016-10-23 00:00:00 [facility] Medications Ordered Filled Start Stop Current Ordering Indication Dosage Frequency Signature Comments Components Source Medication Medication Date Date Medication? Clinician (SIG) Name Name levothyroxi Yes hypothyroid 150ug Take [address] [facility] ne 3-24 ism mcg by [facility] - (SYNTHROID, 18:57: mouth Medic al LEVOTHROID) 38 Every Center 100 MCG morning on tablet an empty stomach . gabapentin Yes neuropathic 800mg [id number] Take [address] (NEURONTIN) 3-24 pain [id number] mg by L ukes - 300 MG [...] (test 125 mg/dL 70-110 H TESTED AT [facility] [address] code = 1538) [facility] 7703 0 POCT-GLUCOSE [id number] 11:32:00 Test Item Value Reference Range Interpretation Comments POC-GLUCOSE METER 178 mg/dL 70-110 H TESTED AT [facility] 67[address] (BEAKER) (test code = [address] [place] 1538) [address] POCT-GLUCOSE [id number] 07:36:00 Test Item Value Reference Range Interpretation Comments POC-GLUCOSE METER 159 mg/dL 70-110 H TESTED AT [facility] 6720 (BEAKER) (test code = [address] [place] 1538) [address] [id number] 04:24:00 Test Item Value Reference Range Interpretation Comments MAGNESIUM (BEAKER) (test code = 1.8 mg/dL 1.6-2.6 627) Please draw today if not done already.BASIC METABOLIC [id number] 04:24:00 Test Item Value Reference Range Interpretation [...] % 36.0-45.0 L 411) MEAN CORPUSCULAR VOLUME ([facility]) 94.8 fL 82.0-99.0 (test code = 753) MEAN CORPUSCULAR HEMOGLOBIN 32.6 pg 27.0-33.0 (AKER) (test code = 751) MEAN CORPUSCULAR HEMOGLOBIN CONC 34.4 GM/DL 32.0-36.0 ([facility]) (test code = 752) RED CELL DISTRIBUTION WIDTH 13.7 % 10.3-14.2 (AKER) (test code = 412) PLATELET COUNT ([facility]) (test 318 K/CU MM 150-430 code = 756) MEAN PLATELET VOLUME ([facility]) 7.2 fL 6.5-10.5 (test code = 754) NUCLEATED RED BLOOD CELLS 0 /100 WBC 0-0 ([facility]) (test code = 413) 0.00POCT-GLUCOSE [id number] 21:59:00 Test Item Value Reference Range Interpretation Comments POC-GLUCOSE METER 161 mg/dL 70-110 H TESTED AT [place] [address] ([facility]) (test code = [facility] 1538) [address] POCT-GLUCOSE [id number] 17:22:00 Test Item Value Reference Range Interpretation Comments POC-GLUCOSE METER 106 mg/dL 70-110 TESTED AT [place] [address] ([facility]) (test code = [facility] 1538) 14049 POCT-GLUCOSE [id number] 12:49:00 Test Item Value Reference Range Interpretation Comments POC-GLUCOSE METER 143 mg/dL 70-110 H TESTED AT [place] [address] ([facility]) (test code = [facility] 1538) 45855 POCT-GLUCOSE [id number] 08:52:00 Test Item Value Reference Range Interpretation Comments POC-GLUCOSE METER 257 mg/dL 70-110 H TESTED AT [place] [address] ([facility]) (test code = [facility] 1538) [address] B-TYPE NATRIURETIC FACTOR (BNP)2016-10-24 05:49:00 Test Item Value Reference Range Interpretation Comments B-TYPE NATRIURETIC PEPTIDE ([facility]) 478 pg/mL 0-100 H (test code = 700) [id number] 05:45:00 Test Item Value Reference Range Interpretation Comments MAGNESIUM (BEAKER) (test code = 2.0 mg/dL 1.6-2.6 627) Please draw today if not done already.BASIC METABOLIC [id number] 05:45:00 Test Item Value Reference Range Interpretation [...] Please draw today if not done already.POCT-GLUCOSE [id number] 21:05:00 Test Item Value Reference Range Interpretation Comments POC-GLUCOSE METER 207 mg/dL 70-110 H TESTED AT [facility] 67[address] (BEAKER) (test code = [address] [place] 1538) [address] POCT-GLUCOSE [id number] 17:36:00 Test Item Value Reference Range Interpretation Comments POC-GLUCOSE METER 217 mg/dL 70-110 H TESTED AT [facility] 67[address] (BEAKER) (test code = [address] [place] 1538) 7[address] POCT-GLUCOSE [id number] 12:27:00 Test Item Value Reference Range Interpretation Comments POC-GLUCOSE METER 187 mg/dL 70-110 H TESTED AT [facility] 6720 (BEAKER) (test code = [address] [place] 1538) 101[address] POCT-GLUCOSE [id number] 08:32:00 Test Item Value Reference Range Interpretation Comments POC-GLUCOSE METER 190 mg/dL 70-110 H TESTED AT [facility] 67[address] (BEAKER) (test code = [address] [place] 1530) [address] CBC (HEMOGRAM ONLY)2016-10-23 05:22:00 Test Item Value [...] WBC 0-0 (BEAKER) (test code = 413) [id number] 05:21:00 Test Item Value Reference Range Interpretation Comments MAGNESIUM (BEAKER) (test code = 2.0 mg/dL 1.6-2.6 627) Please draw today if not done already.BASIC METABOLIC [id number] 05:21:00 Test Item Value Reference Range Interpretation Comments SODIUM (BEAKER) 138 meq/L 136-145 (test code = 381) POTASSIUM (BEAKER) 4.0 meq/L 3.5-5.1 (test code = 379) CHLORIDE (BEAKER) 99 meq/L 98-107 (test code = 382) CO2 (BEAKER) (test 25 meq/L 22-29 code = 355) BLOOD UREA NITROGEN 18 mg/dL 7-21 ([facility]) (test code = 354) CREATININE ([facility]) 0.78 mg/dL 0.57-1.25 (test code = 358) GLUCOSE RANDOM 219 mg/dL 70-105 H ([facility]) (test code = 652) CALCIUM ([facility]) 8.8 mg/dL 8.4-10.2 (test code = 697) EGFR ([facility]) (test 73 mL/min/1.73 ESTIMA TAMMI GFR IS code = 1092) sq m NOT ACCURATE CREATININE CLEARANCE IN PREDICTING GLOMERULAR FILTRATION RATE . ESTIMATED GFR I S NOT APPLICABLE FOR DIALYSIS PATIEN TS. Please draw today if not done already.POCT-GLUCOSE [id number] 04:07:00 Test Item Value Reference Range Interpretation Comments POC-GLUCOSE METER 226 mg/dL 70-110 H TESTED AT [place] [address] ([facility]) (test code = [facility] [email or web address] [facility] 1538) 21863 POCT-GLUCOSE [id number] 23:07:00 Test Item Value Reference Range Interpretation Comments POC-GLUCOSE METER 208 mg/dL 70-110 H TESTED AT [place] [address] ([facility]) (test code = [facility] [email or web address] [facility] 1538) 14941 POCT-GLUCOSE [id number] 20:53:00 Test Item Value Reference Range Interpretation Comments POC-GLUCOSE METER 279 mg/dL 70-110 H TESTED AT [place] [address] ([facility]) (test code = [facility] [email or web address] [facility] 1538) 45171 POCT-GLUCOSE [id number] 18:27:00 Test Item Value Reference Range Interpretation Comments POC-GLUCOSE METER 233 mg/dL 70-110 H TESTED AT [place] [address] ([facility]) (test code = [facility] [email or web address] [facility] 1538) 66008 POCT-GLUCOSE [id number] 12:41:00 Test Item Value Reference Range Interpretation Comments POC-GLUCOSE METER 282 mg/dL 70-110 H TESTED AT [place] [address] ([facility]) (test code = [facility] [email or web address] [place] 1538) 14[address] BLOOD GAS, [id number] 10:14:00 Test Item Value Reference Range Interpretation Comments PH VENOUS ([facility]) (test code = 7.48 7.32-7.42 H 701) PCO2 VENOUS ([facility]) (test code = 41 mmHg 41-51 [...] (test code = 1819) 21.0 % POCT-GLUCOSE [id number] 08:55:00 Test Item Value Reference Range Interpretation Comments POC-GLUCOSE METER 149 mg/dL 70-110 H TESTED AT [facility] 67[address] (BEAKER) (test code = [address] [place] 1538) [address] [id number] 07:04:00 Test Item Value Reference Range Interpretation Comments PARTIAL THROMBOPLASTIN TIME 27.7 seconds 22.5-36.0 (BEAKER) (test code = 760) [id number] 04:59:00 Test Item Value Reference Range Interpretation Comments MAGNESIUM (BEAKER) (test code = 1.9 mg/dL 1.6-2.6 627) Please draw today if not done already.BASIC METABOLIC [id number] 04:59:00 Test Item Value Reference Range Interpretation [...] 0-0 (BEAKER) (test code = 413) 0.00POCT-GLUCOSE [id number] 20:38:00 Test Item Value Reference Range Interpretation Comments POC-GLUCOSE METER 196 mg/dL 70-110 H TESTED AT [facility] 6720 ([facility]) (test code = [address] [place] 1538) 28681 POCT-GLUCOSE [id number] 17:09:00 Test Item Value Reference Range Interpretation Comments POC-GLUCOSE METER 146 mg/dL 70-110 H TESTED AT [facility] 6720 ([facility]) (test code = [address] [place] 1538) [address] POCT-GLUCOSE [id number] 13:52:00 Test Item Value Reference Range Interpretation Comments POC-GLUCOSE METER 96 mg/dL 70-110 TESTED AT [place] [address] ([facility]) (test code = [address] [facility] [address] 1538) [id number] 11:12:00 Test Item Value Reference Range Interpretation Comments ACTIVATED CLOTTING TIME 255 sec TEST ED AT [place] [address] ([facility]) (test code = [address] [facility] 441) [address] [id number] 10:21:00 Test Item Value Reference Range Interpretation Comments ACTIVATED CLOTTING TIME 302 sec TEST ED AT [place] [address] ([facility]) (test code = [address] [facility] 441) 97875 [id number] 10:21:00 Test Item Value Reference Range Interpretation Comments ACTIVATED CLOTTING TIME 569 sec TEST ED AT [place] [address] ([facility]) (test code = [address] [facility] 441) 23132 POCT-GLUCOSE [id number] 07:23:00 Test Item Value Reference Range Interpretation Comments POC-GLUCOSE METER 87 mg/dL 70-110 TESTED AT [place] [address] ([facility]) (test code = [address] [facility] [address] 1538) B-TYPE NATRIURETIC FACTOR (BNP)2016-10-21 06:33:00 Test Item Value Reference Range Interpretation Comments B-TYPE NATRIURETIC PEPTIDE (BEAKER) 494 pg/mL 0-100 H (test code = 700) [id number] 06:21:00 Test Item Value Reference Range Interpretation Comments MAGNESIUM (BEAKER) (test code = 1.9 mg/dL 1.6-2.6 627) Please draw today if not done already.BASIC METABOLIC [id number] 06:21:00 Test Item Value Reference Range Interpretation [...] 0-0 (BEAKER) (test code = 413) 0.00POCT-GLUCOSE [id number] 20:36:00 Test Item Value Reference Range Interpretation Comments POC-GLUCOSE METER 280 mg/dL 70-110 H TESTED AT [facility] 6720 (BEAKER) (test code = [address] [place] 1538) 9[address] POCT-GLUCOSE [id number] 16:29:00 Test Item Value Reference Range Interpretation Comments POC-GLUCOSE METER 218 mg/dL 70-110 H TESTED AT [facility] 6720 (BEAKER) (test code = [address] [place] 1538) 40[address] POCT-GLUCOSE [id number] 12:24:00 Test Item Value Reference Range Interpretation Comments POC-GLUCOSE METER 193 mg/dL 70-110 H TESTED AT [facility] 6720 (BEAKER) (test code = [address] [place] 1538) 0[address] POCT-GLUCOSE [id number] 07:21:00 Test Item Value Reference Range Interpretation Comments POC-GLUCOSE METER 179 mg/dL 70-110 H TESTED AT [place] [address] (BEAKER) (test code = [address]ID[address] Page [facility] 1538) 97675 [id number] 06:24:00 Test Item Value Reference Range Interpretation Comments THYROID STIMULATING HORMONE 1.09 uIU/mL 0.35-4.94 (BEAKER) (test code = 772) [id number] 05:47:00 Test Item Value Reference Range Interpretation Comments MAGNESIUM (BEAKER) (test code = 2.0 mg/dL 1.6-2.6 627) Please draw today if not done already.BASIC METABOLIC [id number] 05:47:00 Test Item Value Reference Range Interpretation [...] Please draw today if not done already.POCT-GLUCOSE [id number] 21:41:00 Test Item Value Reference Range Interpretation Comments POC-GLUCOSE METER 191 mg/dL 70-110 H TESTED AT [facility] 6720 (BEAKER) (test code = [facility] 1538) 14974 POCT-GLUCOSE [id number] 17:13:00 Test Item Value Reference Range Interpretation Comments POC-GLUCOSE METER 197 mg/dL 70-110 H TESTED AT [place] [address] ([facility]) (test code = [facility] 1538) 41036 POCT-GLUCOSE [id number] 11:30:00 Test Item Value Reference Range Interpretation Comments POC-GLUCOSE METER 236 mg/dL 70-110 H TESTED AT [place] [address] ([facility]) (test code = [facility] 1538) 88090 POCT-GLUCOSE [id number] 07:26:00 Test Item Value Reference Range Interpretation Comments POC-GLUCOSE METER 231 mg/dL 70-110 H TESTED AT [place] [address] ([facility]) (test code = [facility] 1538) 749[address] BASIC METABOLIC [id number] 06:07:00 Test Item Value Reference Range Interpretation [...] 0-0 (BEAKER) (test code = 413) 0.00TROPONIN [id number] 01:02:00 Test Item Value Reference Range Interpretation [...] acidosis, acute neurological disease, and persistent tachyarrhythmia.FastingLIPID [id number] 00:53:00 Test Item Value Reference Range Interpretation Comments TRIGLYCERIDES (BEAKER) (test code = 184 mg/dL 540) CHOLESTEROL ([facility]) (test code = 204 mg/dL 631) HDL CHOLESTEROL ([facility]) (test code 39 mg/dL = 976) LDL CHOLESTEROL CALCULATED ([facility]) 128 mg/dL (test code = 633) Triglyceride Reference Range: Low Risk <150 Borderline 150-199 High Risk 200-499 Very High Risk >=500Cholesterol Reference Range: Low Risk <200 Borderline 200-239 High Risk >240HDL Cholesterol Reference Range: Low Risk >=60 High Risk <40LDL Cholesterol Reference Range: Optimal <100 Near Optimal 100-129 Borderline 130-159 High 160-189 Very High >=190 FastingPOCT-GLUCOSE [id number] 21:57:00 Test Item Value Reference Range Interpretation Comments POC-GLUCOSE METER 223 mg/dL 70-110 H TESTED AT [place] [address] ([facility]) (test code = [facility] 1538) 25774 TROPONIN [id number] 18:46:00 Test Item Value Reference Range Interpretation Comments TROPONIN I ([facility]) (test code = 30.60 ng/mL 0.00-0.03 [...] acidosis, acute neurological disease, and persistent tachyarrhythmia.POCT-GLUCOSE [id number] 17:10:00 Test Item Value Reference Range Interpretation Comments POC-GLUCOSE METER 225 mg/dL 70-110 H TESTED AT [place] [address] ([facility]) (test code = [facility] 1538) 04548 POCT-GLUCOSE [id number] 14:36:00 Test Item Value Reference Range Interpretation Comments POC-GLUCOSE METER 303 mg/dL 70-110 H TESTED AT [place] [address] ([facility]) (test code = [facility] 1538) 96532 HEMOGLOBIN [id number] 13:32:00 Test Item Value Reference Range Interpretation Comments HEMOGLOBIN A1C (BEAKER) (test code = 11.4 % 4.3-6.1 H 368) TROPONIN [id number] 12:17:00 Test Item Value Reference Range Interpretation [...] acute neurological disease, and persistent tachyarrhythmia.COMPREHENSIVE METABOLIC [id number] 12:16:00 Test Item Value Reference Range Interpretation [...] pg/mL 0-100 H (test code = 700) [id number] 10:41:00 Test Item Value Reference Range Interpretation Comments PARTIAL THROMBOPLASTIN TIME 58.8 seconds 22.5-36.0 H (BEAKER) (test code = 760) Prior to initiating heparinPROTHROMBIN [id number] 10:40:00 Test Item Value Reference Range Interpretation [...] code = 14.2 GM/DL 12.0-15.0 410) HEMATOCRIT ([facility]) (test code = 41.8 % 36.0-45.0 411) MEAN CORPUSCULAR VOLUME ([facility]) 92.4 fL 82.0-99.0 (test code = 753) MEAN CORPUSCULAR HEMOGLOBIN 31.3 pg 27.0-33.0 ([facility]) (test code = 751) MEAN CORPUSCULAR HEMOGLOBIN CONC 33.9 GM/DL 32.0-36.0 ([facility]) (test code = 752) RED CELL DISTRIBUTION WIDTH 13.2 % 10.3-14.2 ([facility]) (test code = 412) PLATELET COUNT ([facility]) (test 242 K/CU MM 150-430 code = 756) MEAN PLATELET VOLUME ([facility]) 8.0 fL 6.5-10.5 (test code = 754) NUCLEATED RED BLOOD CELLS 0 /100 WBC 0-0 ([facility]) (test code = 413) POCT-GLUCOSE [id number] 09:41:00 Test Item Value Reference Range Interpretation Comments POC-GLUCOSE METER 416 mg/dL 70-110 HH TESTED AT [place] [address] ([facility]) (test code = [address] [place] 1538) [id number] 08:15:00 Test Item Value Reference Range Interpretation Comments ACTIVATED CLOTTING TIME 209 sec TEST ED AT [place] [address] ([facility]) (test code = C[address]IDO Page [facility] 441) 459[address] [id number] 07:18:00 Test Item Value Reference Range Interpretation Comments ACTIVATED CLOTTING TIME 286 sec TEST ED AT [place] [address] ([facility]) (test code = CANDIDO Page [facility] 441) 0[address]
[2021-02-05 12:58] LABS: Absolute Lymphocytes (CBC) 1.2 K/uL (0.7-4.9); Basophils % 0.6 % (0-1.3); Hematocrit 34.3 % (36.0-45.0); Lymphocytes % 12.5 % (15.3-44.8); MPV 7.5 fL (7.6-11.3); RBC Red Blood Cell Count 3.88 M/uL (3.86-4.86)
[2021-02-05 13:01] LABS: Protime INR 0.95
--- NOTE | 2021-02-05 13:20 | RAD REPORT ---
EXAM DESCRIPTION: RAD - Chest Single View - 02/05/2021 1:10 pm CLINICAL HISTORY: DYSPNEA Chest pain. COMPARISON: Chest Single View dated 05/30/2020; Chest Pa And Lat (2 Views) dated 06/05/2019; Chest Si ngle View dated 06/03/2019; Chest Single View dated 01/20/2017 FINDINGS: Portable technique limits examination quality. Mild interstitial pulmonary edema suspected. The heart is mildly enlarged in size. No displaced fract ures. IMPRESSION: Mild CHF.
[2021-02-05 13:21] LABS: ALT/SGPT 25 U/L (12-78); AST/SGOT 16 U/L (15-37); Albumin 2.9 g/dL (3.4-5.0); Alkaline Phosphatase 102 U/L (45-117); BUN Blood Urea Nitrogen 17 mg/dL (7-18); Bicarbonate 32 mmol/L (21-32); Bilirubin Direct < 0.1 mg/dL (0-0.2); Bilirubin Total 0.4 mg/dL (0.2-1.0); Glucose Level 357 mg/dL (74-106); Magnesium 2.9 mg/dL (1.8-2.4); NT PRO-BNP 1089 pg/mL (<125); Potassium 4.1 mmol/L (3.5-5.1); Sodium Level 137 mmol/L (136-145); Troponin (Emerg Dept Use Only) 0.02 ng/mL (0.0-0.045)
--- NOTE | 2021-02-05 14:30 | ER ---
Nurse's Notes [facility] Name: Carrol Lundberg Age: 75 yrs Sex: Female : 1945 Arrival Date: 02/05/2021 Time: 12:14 Bed 4 Private MD: Diagnosis: Unspecified combined systolic (congestive) and diastolic (congestive) heart failure;COPD/ Chronic obstructive pulmonary disease, unspecified Presentation: 02/05 12:15 Chief complaint: EMS states: SOB, COPD and CHF exacerbation. Coronavirus screen: Client kg denies travel out of the [place] in the last 14 days. At this time, unable to obtain information related to travel outside the [place] At this time, the client does not indicate any symptoms associated with coronavirus-19. Ebola Screen: Patient negative for fever greater than or equal to 101.5 degrees Fahrenheit, and additional compatible Ebola Virus Disease symptoms Patient denies exposure to infectious person. Patient denies travel to an Ebola-affected area in the 21 days before illness onset. Initial Sepsis Screen: Does the patient meet any 2 criteria? No. Patient's initial sepsis screen is negative. Does the patient have a suspected source of infection? No. Patient's initial sepsis screen is negative. Risk Assessment: Do you want to hurt yourself or someone else? Patient reports no desire to harm self or others. Onset of symptoms was February 02, 2021. 12:15 Method Of Arrival: EMS: [facility] kg 12:15 Acuity: AUGUST 3 kg 12:31 Note Pt received, 1 GM mag IV and 125 mg solumedrol IV in route from [facility]. Care kg prior to arrival: Medication(s) given: 1G Mag, 125 mg solumedrol. Triage Assessment: 12:33 General: Appears uncomfortable, Behavior is calm, cooperative, appropriate for age. kg Pain: Complains of pain in Generalized Pain currently is 6 out of 10 on a pain scale. at worst was 8 out of 10 on a pain scale. level that patient reports is acceptable is 3 out of 10 on a pain scale. Quality of pain is described as aching. EENT: No deficits noted. Neuro: Level of Consciousness is awake, alert, obeys commands, Oriented to person, place, time, situation, Appropriate for age Weakness Gait is unsteady. Cardiovascular: No deficits noted. Heart tones S1 S2. Respiratory: Airway is patent Trachea midline Respiratory effort is even, labored, with nasal flaring, pursed lip, using tripod position, Respiratory pattern is Ventilator assessment: HOB > 30 degrees. Breath sounds with wheezes bilaterally. in left posterior upper lobe, right posterior upper lobe, left posterior lower lobe, right posterior middle lobe and right posterior lower lobe the patient has moderate shortness of breath. GI: No deficits noted. : No deficits noted. Derm: Skin is fragile, with poor turgor has blisters on BLE Skin is moist, Skin is red, Skin temperature is warm. Historical: - Allergies: 16:42 No Known Allergies; kg - Home Meds: 12:25 spironolactone 50 mg oral tab [Active]; symbacort [Active]; sertraline 100 mg Oral tab kg 2 tabs once daily [Active]; furosemide 40 mg Oral tab 1 tab 2 times per day for Hypertension [Active]; clopidogrel 75 mg Oral tab 1 tab once daily [Active]; atorvastatin 80 mg Oral tab 1 tab once daily [Active]; aspirin 81 mg Oral chew [Active]; Ventolin HFA 90 mcg/actuation Nebulizer HFAA 1 puff every 4 hours [Active]; Atrovent Inhl [Active]; levothyroxine 150 mcg tab 1 tab once daily [Active]; Novolog 100 unit/mL Sub-Q soln [Active]; - PMHx: 12:25 CHF; COPD; Diabetes - IDDM; Hypertension; Myocardial infarction; kg - Immunization history:: Adult Immunizations not up to date, Client reports having NOT received the Covid vaccine. - Social history:: Smoking status: Patient denies any tobacco usage or history of. Smoking status: Patient denies any tobacco usage or history of. Patient/guardian denies using tobacco, but has a distant history of tobacco abuse. Screenin:32 Abuse screen: Denies threats or abuse. Denies injuries from another. Nutritional kg screening: No deficits noted. Tuberculosis screening: No symptoms or risk factors identified. Fall Risk None identified. No fall in past 12 months (0 pts). No secondary diagnosis (0 pts). IV access (20 points). Ambulatory Aid- Crutches/Cane/Walker (15 pts). Gait- Weak (10 pts.). Mental Status- Oriented to own ability (0 pts). Total Talbert Fall Scale indicates Low Risk Score (25-44 pts). Fall prevention measures have been instituted. Side Rails Up X 2 Placed close to Nursing Station Frequent Obs/Assesments occuring Family Present and informed to notify staff if they need to leave bedside As available Patient and Family Educated on Fall Prevention Program and strategies. Assessment: 12:55 Reassessment: See triage assessment. kg Vital Signs: 12:15 BP 132 / 86; Pulse 85; Resp 24; Temp 98.2(O); Pulse Ox 99% on 2 lpm NC; Weight 113.4 kg kg; Height 5 ft. 3 in. (160.02 cm); Pain 6/10; 12:30 BP 113 / 86; Pulse 79; Resp 20; Pulse Ox 100% on 2 lpm NC; kg 13:28 BP 118 / 78; Pulse 82; Resp 18; Pulse Ox 99% on 2 lpm NC; kg 15:00 BP 155 / 52; Pulse 83; Resp 20; Pulse Ox 98% on 2 lpm NC; kg 15:30 BP 148 / 78; Pulse 75; Resp 20; Pulse Ox 97% ; kg 16:30 BP 148 / 63; Pulse 76; Resp 21; Pulse Ox 99% on 2 lpm NC; kg 12:15 Body Mass Index 44.29 (113.40 kg, 160.02 cm) kg ED Course: 12:14 Patient arrived in ED. kg 12:14 Sahara Lester, RN is Primary Nurse. kg 12:15 Maintain EMS IV. Dressing intact. Good blood return noted. Site clean \T\ dry. Gauge \T\ kg site: 20 L forearm. 12:25 Triage completed. kg 12:26 Marilyn Goldberg FNP-C is PHCP. kb 12:26 Je Mcdonough MD is Attending Physician. kb 12:33 Arm band placed on left wrist. kg 13:09 Patient has correct armband on for positive identification. Placed in gown. Bed in low kg position. Call light in reach. Side rails up X2. 13:11 XRAY Chest (1 view) In Process Unspecified. EDMS 13:15 Assisted with bedpan. mt 14:29 Dennis Schmitz DO is Hospitalizing Provider. kb 14:39 Gerry Velazquez is Hospitalizing Provider. kb 16:56 No provider procedures requiring assistance completed. Converted IV to saline lock on kg left forearm. Administered Medications: 15:06 Drug: Lasix (furosemide) 20 mg Route: IVP; Site: left forearm; kg 16:57 Follow up: Response: No adverse reaction kg Outcome: 14:29 Decision to Hospitalize by Provider. kb 16:56 Admitted to Med/surg accompanied by tech, via stretcher, room 215, with oxygen, Report kg called to Marly TRAN 16:57 Condition: stable kg 16:57 Instructed on the need for admit. 17:16 Patient left the ED. iw Signatures: Dispatcher [employer] EDMS Marilyn Goldberg, LAURA-C STAFF MIDWIFE-Paola Saldaña RN RN Radha León RN RN [facility] Sahara Maravilla RN RN kg Corrections: (The following items were deleted from the chart) 13:47 12:30 BP 113 / 86; Pulse 79bpm; Resp 20bpm; Pulse Ox 100% RA; kg kg 13:47 13:28 BP 118 / 78; Pulse 82bpm; Resp 18bpm; Pulse Ox 99% RA; ph kg
--- NOTE | 2021-02-05 14:30 | EDPHYS ---
Physician Documentation [facility] Name: Carrol Lundberg Age: 75 yrs Sex: Female : 1945 Arrival Date: 02/05/2021 Time: 12:14 Bed 4 Private MD: ED Physician Je Mcdonough HPI: 02/05 14:22 This 75 yrs old Female presents to ER via EMS with complaints of shortness of kb breath. 14:22 The patient has shortness of breath at rest, with light activity. Onset: The kb symptoms/episode began/occurred 2 week(s) ago. Duration: The symptoms are continuous, and are steadily getting worse. The patient's shortness of breath is aggravated by exertion, light activity, talking. Associated signs and symptoms: Pertinent positives: non-productive cough. Severity of symptoms: At their worst the symptoms were moderate in the emergency department the symptoms are unchanged. The patient has not experienced similar symptoms in the past. The patient has not recently seen a physician. Pt reports shortness of breath, worse on exertion, for the past 2 weeks. Symptoms worse over the past 2-3 days. Today couldn't make it to the restroom without having a very hard time breathing. Historical: - Allergies: 16:42 No Known Allergies; kg - Home Meds: 12:25 spironolactone 50 mg oral tab [Active]; symbacort [Active]; sertraline 100 mg Oral tab kg 2 tabs once daily [Active]; furosemide 40 mg Oral tab 1 tab 2 times per day for Hypertension [Active]; clopidogrel 75 mg Oral tab 1 tab once daily [Active]; atorvastatin 80 mg Oral tab 1 tab once daily [Active]; aspirin 81 mg Oral chew [Active]; Ventolin HFA 90 mcg/actuation Nebulizer HFAA 1 puff every 4 hours [Active]; Atrovent Inhl [Active]; levothyroxine 150 mcg tab 1 tab once daily [Active]; Novolog 100 unit/mL Sub-Q soln [Active]; - PMHx: 12:25 CHF; COPD; Diabetes - IDDM; Hypertension; Myocardial infarction; kg - Immunization history:: Adult Immunizations not up to date, Client reports having NOT received the Covid vaccine. - Social history:: Smoking status: Patient denies any tobacco usage or history of. Smoking status: Patient denies any tobacco usage or history of. Patient/guardian denies using tobacco, but has a distant history of tobacco abuse. ROS: 14:21 Constitutional: Negative for fever, chills, and weight loss. kb 14:21 Respiratory: Positive for dyspnea on exertion, shortness of breath. 14:21 All other systems are negative. Exam: 14:21 Constitutional: This is a well developed, well nourished patient who is awake, alert, kb and in no acute distress. Head/Face: Normocephalic, atraumatic. ENT: Moist Mucous membranes Cardiovascular: Regular rate and rhythm with a normal S1 and S2. No gallops, murmurs, or rubs. No pulse deficits. Abdomen/GI: Soft, non-tender. No distention Skin: Warm, dry with normal turgor. Normal color. MS/ Extremity: Pulses equal, no cyanosis. Neurovascular intact. Full, normal range of motion. Neuro: Awake and alert, GCS 15, oriented to person, place, time, and situation. Moves all extremities. Normal gait. Psych: Awake, alert, with orientation to person, place and time. Behavior, mood, and affect are within normal limits. 14:21 Respiratory: mild respiratory distress is noted, Respirations: labored breathing, that is mild, that is moderate, Breath sounds: wheezing: expiratory that is mild, is scattered. Vital Signs: 12:15 BP 132 / 86; Pulse 85; Resp 24; Temp 98.2(O); Pulse Ox 99% on 2 lpm NC; Weight 113.4 kg kg; Height 5 ft. 3 in. (160.02 cm); Pain 6/10; 12:30 BP 113 / 86; Pulse 79; Resp 20; Pulse Ox 100% on 2 lpm NC; kg 13:28 BP 118 / 78; Pulse 82; Resp 18; Pulse Ox 99% on 2 lpm NC; kg 15:00 BP 155 / 52; Pulse 83; Resp 20; Pulse Ox 98% on 2 lpm NC; kg 15:30 BP 148 / 78; Pulse 75; Resp 20; Pulse Ox 97% ; kg 16:30 BP 148 / 63; Pulse 76; Resp 21; Pulse Ox 99% on 2 lpm NC; kg 12:15 Body Mass Index 44.29 (113.40 kg, 160.02 cm) kg MDM: 12:26 Patient medically screened. kb 14:20 Data reviewed: vital signs, nurses notes. Data interpreted: Pulse oximetry: on room air kb is 99 %. Interpretation: normal. Counseling: I had a detailed discussion with the patient and/or guardian regarding: the historical points, exam findings, and any diagnostic results supporting the discharge/admit diagnosis, lab results, radiology results, the need for further work-up and treatment in the hospital. 14:28 Physician consultation: and will see patient in ED, shortly, CATHY Phillips contacted about admission. . 02/05 12:25 Order name: Urine Dipstick-Ancillary EDMS 02/05 12:27 Order name: Basic Metabolic Panel; Complete Time: 13:41 kb 02/05 12:27 Order name: CBC with Diff; Complete Time: 13:06 kb 02/05 12:27 Order name: LFT's; Complete Time: 13:41 kb 02/05 12:27 Order name: Magnesium; Complete Time: 13:41 kb 02/05 12:27 Order name: NT PRO-BNP; Complete Time: 13:41 kb 02/05 12:27 Order name: PT-INR; Complete Time: 13:07 kb 02/05 12:27 Order name: Troponin (emerg Dept Use Only); Complete Time: 13:41 kb 02/05 12:27 Order name: XRAY Chest (1 view); Complete Time: 13:28 kb 02/05 12:27 Order name: EKG; Complete Time: 12:28 kb 02/05 12:27 Order name: Cardiac monitoring; Complete Time: 12:49 kb 02/05 15:59 Order name: SARS-COV-2 RT PCR; Complete Time: 16:02 EDDE 02/05 12:27 Order name: EKG - Nurse/Tech; Complete Time: 12:49 kb 02/05 12:27 Order name: IV Saline Lock; Complete Time: 12:49 kb 02/05 12:27 Order name: Labs collected and sent; Complete Time: 12:49 kb 02/05 12:27 Order name: O2 Per Protocol; Complete Time: 12:49 kb 02/05 12:27 Order name: O2 Sat Monitoring; Complete Time: 12:49 kb Administered Medications: 15:06 Drug: Lasix (furosemide) 20 mg Route: IVP; Site: left forearm; kg 16:57 Follow up: Response: No adverse reaction kg Disposition Summary: 02/05/21 14:29 Hospitalization Ordered Hospitalization Status: Observation kb Location: Telemetry/MedSurg (observation) kb Condition: Stable kb Problem: new kb Symptoms: are unchanged kb Bed/Room Type: Standard kb Provider: Gerry Velazquez(02/05/21 14:39) kb Room Assignment: 215(02/05/21 15:48) bd Diagnosis - Unspecified combined systolic (congestive) and diastolic (congestive) heart failure kb - COPD/ Chronic obstructive pulmonary disease, unspecified kb Forms: - Medication Reconciliation Form kb - SBAR form kb Addendum: 02/06/2021 18:46 Co-signature as Attending Physician, Je Mcdonough MD I agree with the assessment and c thomson plan of care. Signatures: Dispatcher [employer] EDMarilyn Herrera, EXERCISER-C EXERCISER-Ckb Gillian Mclean Corey, MD MD cha Hall, Patricia RN RN Sahara Lester RN RN kg Corrections: (The following items were deleted from the chart) 07 14:39 14:29 Dennis Schmitz kb kb 15:04 12:44 CORONAVIRUS+MR.LAB.BRZ ordered. EDMS EDMS 15:48 14:29 kb bd 15:48 15:48 212 bd bd
[2021-02-05] MEDS ORDERED: FUROSEMIDE 20 MG/ 2ML VIAL ONE (15:20)
--- NOTE | 2021-02-05 16:16 | P.HP ---
Certification for Inpatient Patient admitted to: Observation With expected LOS: <2 Midnights Patient will require the following post-hospital care: None Practitioner: I am a practitioner with admitting privileges, knowledge of patient current condition, hospital course, and medical plan of care. Services: Services provided to patient in accordance with Admission requirements found in Title 42 Section 412.3 of the Code of Federal Regulations Patient History Date of Service: 02/05/21 Primary Care Provider: Dr. Martinez Reason for admission: CHF exacerbation History of Present Illness: This is a 75 y/o HFpEF, COPD on chronic 2L NC, IDDM who presents today w/ worsening SOB after light activity. She reports that her dyspnea has been ongoing for 1 month. After walking to the bathroom she could not catch her breath. She c/o orthopnea and requires several pillows when sleeping. She c/o productive cough and wheezing. She is on 2 L home oxygen and increased it to 5 L today with no relief of SOB. Her oxygen saturation was reportedly 91-92% in route from EMS and she recieved IV solu-medrol. Now has some relief and oxygen 98% at bedside. She denies any chest pain. BNP 1089 CXR: FINDINGS: Portable technique limits examination quality. Mild interstitial pulmonary edema suspected. The heart is mildly enlarged in size. No displaced fractures. IMPRESSION: Mild CHF. Allergies No Known Allergies Allergy (Verified 02/14/20 12:33) Home Medications: Atorvastatin Calcium [Lipitor] 80 mg PO BEDTIME #60 tab 01/23/17 Clopidogrel Bisulfate [Plavix*] 75 mg PO DAILY #30 01/23/17 Spironolactone [Aldactone*] 25 mg PO BID #60 tab 01/23/17 Levothyroxine [Synthroid*] 150 mcg PO [id number] 06/03/19 Sertraline [Zoloft*] 2 tab PO DAILY 06/03/19 Aspirin Chewable [Aspirin Chewable*] 81 mg PO DAILY 02/17/20 Insulin Lispro [Humalog] 5 unit SQ TIDWM 02/17/20 NPH, Human Insulin Isophane [Humulin N] 25 unit SQ BID 02/17/20 Gabapentin [Neurontin] 800 mg PO TID 05/30/20 Ipratropium Mdi [Atrovent Hf Inhaler*] 2 puff IH BID PRN 05/30/20 Furosemide 80 mg PO BID 02/05/21 - Past Medical/Surgical History Diabetic: Yes -: Postsurgical hypothyroidism -: History of atrial fibrillation -: Hyperlipidemia -: Hypertension -: CAD -: COPD -: Diabetes mellitus type 2 insulin dependent -: Diastolic CHF -: Depression with anxiety -: Kidney disease -: Thyroidectomy -: CAD with prior stents Psychosocial/ Personal History: Patient is a . She lives with son and grandkids. - Family History Father -: Cancer Sister -: Cancer morther -: Cancer - Social History Smoking Status: Former smoker Alcohol use: No CD- Drugs: No Caffeine use: Yes Place of Residence: Home Review of Systems 10-point ROS is otherwise unremarkable Respiratory: Shortness of Breath, SOB with Excertion, Sputum, Wheezing Physical Examination - Physical Exam General: Alert, Oriented x3, Cooperative HEENT: Atraumatic, Normocephalic, EOMI Neck: Supple Respiratory: Crackles/rales, Expiratory wheezes Cardiovascular: No edema, Normal S1 S2 Capillary refill: <2 Seconds Gastrointestinal: Normal bowel sounds, Soft and benign, No tenderness, No guarding Musculoskeletal: No clubbing, No warmth Integumentary: No warmth, Rash(es) Neurological: Normal speech, Normal tone, Normal affect Lymphatics: No axilla or inguinal lymphadenopathy - Studies Laboratory Data (last 24 hrs) 02/05/21 12:43: PT 10.9, INR 0.95 02/05/21 12:43: WBC 9.80, Hgb 11.1 L, Hct 34.3 L, Plt Count 212 02/05/21 12:43: Sodium 137, Potassium 4.1, BUN 17, Creatinine 1.27, Glucose 357 H, Magnesium 2.9 H D, Total Bilirubin 0.4, AST 16, ALT 25, Alkaline Phosphatase 102 Assessment and Plan - Plan impression: dyspnea likely secondary to acute on chronic heart failure COPD T2IDM plan: dyspnea likely secondary to acute on chronic heart failure: CXR shows mild CHF. will start IV lasix. monitor daily weight and I/O. anticipate improvement over next 24 hour. consult cardiology and await recommendations. COPD: will start IV steroids and nebs prn. maintain oxygen above 93%. recheck CXR tomorrow. T2IDM: 10 units of lantus daily. accuchecks and SSI Discharge Plan: Home Plan to discharge in: 24 Hours - Advance Directives Does patient have a Living Will: No Does patient have a Durable POA for Healthcare: No Time Spent Managing Pts Care (In Minutes): 55
[2021-02-05] MEDS ORDERED: IPRATROPIUM BROM 0.5MG/2.5ML NEB PRN (16:52)
[2021-02-05] MEDS ORDERED: ALBUTEROL 2.5 MG/3 ML NEB SOL NEB PRN (16:52)
[2021-02-05] MEDS ORDERED: GLUCAGON 1 MG/VIAL IM PRN (16:52)
[2021-02-05] MEDS ORDERED: ONDANSETRON 4 MG/2 ML VIAL IV PRN (16:52)
[2021-02-05] MEDS ORDERED: D50W 25 GM/50 ML SYRINGE IV PRN (16:52)
[2021-02-05] MEDS: METHYLPREDNISOLONE 40 MG INJ IV SCH (17:35)
[2021-02-05] MEDS: SPIRONOLACTONE 25 MG TABLET PO SCH (17:35)
[2021-02-05] MEDS: FUROSEMIDE 40 MG/4 ML VIAL IV SCH (17:36)
[2021-02-05] MEDS ORDERED: INSULIN -REGULAR HUMAN 50 UNIT/0.5 ML ML SQ SCH ×2 (18:00→21:00)
[2021-02-05] MEDS: INSULIN -REGULAR HUMAN 50 UNIT/0.5 ML ML SQ SCH ×2 (18:14→20:09)
[2021-02-05] MEDS ORDERED: INSULIN -REGULAR HUMAN 50 UNIT/0.5 ML ML IV ONE (19:51)
[2021-02-05 19:52] LABS: Urine Appearance CLEAR (Clear); Urine Bilirubin NEGATIVE (Negative); Urine Blood TRACE (Negative); Urine Color YELLOW (Yellow); Urine Glucose 3+ (Negative); Urine Protein 2+ (Negative); Urine Urobilinogen 0.2 mg/dL (0.2-1.0)
[2021-02-05 19:55] LABS: Urine Microscopic Reflex ORDER UMIC
[2021-02-05 20:02] LABS: Thyroid Stimulating Hormone 22.8 uIU/mL (0.360-3.740)
[2021-02-05] MEDS: ATORVASTATIN 80 MG TAB PO SCH (20:08)
[2021-02-05] MEDS: GABAPENTIN 300 MG CAP PO SCH (20:08)
[2021-02-05 20:56] LABS: Urine Bacteria <20 /HPF (<20); Urine RBC <5 /HPF (NONE SEEN)
[2021-02-05] MEDS ORDERED: INSULIN GLARGINE 100 UNITS/ML SQ SCH (21:00)
[2021-02-06] MEDS: MORPHINE 2 MG/ML SYR IV PRN (00:02)
[2021-02-06] MEDS: METHYLPREDNISOLONE 40 MG INJ IV SCH (00:08)
[2021-02-06] MEDS: LEVOTHYROXINE SOD 0.075 MG TAB PO SCH (05:22)
[2021-02-06 06:40] LABS: Magnesium 2.2 mg/dL (1.8-2.4); Phosphorus 3.7 mg/dL (2.5-4.9); Potassium 4.6 mmol/L (3.5-5.1)
--- NOTE | 2021-02-06 07:50 | P.PN ---
Subjective Date of Service: 02/06/21 Primary Care Provider: Dr. Martinez Chief Complaint: CHF exacerbation Subjective: Improving (reports brief chest pain last night; better today, breathing more comfortably, feels swelling has slightly improved in feet. walks with walker but hasn't ambulted much in several weeks) Review of Systems 10-point ROS is otherwise unremarkable Physical Examination - Vital Signs Temperature: 97 F Blood Pressure: 150/60 Pulse: 75 Respirations: 19 Pulse Ox (%): 93 - Studies Laboratory Data (last 24 hrs) 02/05/21 12:43: PT 10.9, INR 0.95 02/05/21 12:43: WBC 9.80, Hgb 11.1 L, Hct 34.3 L, Plt Count 212 02/05/21 12:43: Sodium 137, Potassium 4.1, BUN 17, Creatinine 1.27, Glucose 357 H, Magnesium 2.9 H D, Total Bilirubin 0.4, AST 16, ALT 25, Alkaline Phosphatase 102 Assessment & Plan Physician Review Additional Text: Physical Exam General: Alert, Oriented x3 HEENT: normal conjunctiva, sclera anicteric Respiratory: b/l crackles/rales, mild expiratory wheeze, mild labored respirations on 3L NC Cardiovascular: regular rate/rhythm, 2+ edema b/l to knees Gastrointestinal: soft, nontender, nondistended Neurological: Normal speech, Normal affect Problem List acute on chronic respiratory failure with hypoxia secondary to acute on chronic diastolic heart failure (HFpEF) acute on chronic COPD exacerbation, on chronic 2L NC at home DM2, insulin dependent HTN -CXR and patient with improvement this morning, on IV lasix 40mg BID and PO spironolactone. pt on PO lasix at home -reports has been taking as prescribed -improvement in sypmtoms and swelling, but still requiring higher O2 supplementation and with significant edema -transition IV solumedrol to PO prednisone, nebs, suspect component of COPD exacerbation, but likely CHF is main culprit -no evidence of infection -hyperglycemia worsened by steroid use, accucheks, aggressive SSI, lantus - t itrate as needed -confirm and restart home meds as appropriate -PT consulted VTE: lovenox Code: full Dispo: anticipate dc home in ~24-48hrs Time Spent Managing Pts Care (In Minutes): 45
--- NOTE | 2021-02-06 07:51 | RAD REPORT ---
EXAM DESCRIPTION: RAD - Chest Single View - 02/06/2021 6:14 am CLINICAL HISTORY: f/u CHF, shortness of breath COMPARISON: February 05 TECHNIQUE: AP portable chest image was obtained 02/06/2021 6:14 am . FINDINGS: Interstitial markings remain prominent. Heart size and vasculature have improved. No progr essive lung parenchymal process. Heart size is in normal range. Trachea is midline. No measurable ple ural effusion and no pneumothorax. No acute bony abnormality seen. No acute aortic findings suspected . IMPRESSION: Partial resolution of the CHF/volume overload pattern since prior day imaging.
[2021-02-06] MEDS ORDERED: METHYLPREDNISOLONE 40 MG INJ IV SCH (09:00)
[2021-02-06] MEDS ORDERED: INSULIN GLARGINE 100 UNITS/ML SQ ONE (10:00)
[2021-02-06] MEDS: INSULIN -REGULAR HUMAN 50 UNIT/0.5 ML ML SQ SCH ×4 (10:14→20:28)
[2021-02-06] MEDS: ENOXAPARIN 40 MG/0.4 ML SQ SCH (10:15)
[2021-02-06] MEDS: FUROSEMIDE 40 MG/4 ML VIAL IV SCH ×2 (10:16→17:30)
[2021-02-06] MEDS: GABAPENTIN 300 MG CAP PO SCH ×3 (10:17→20:28)
[2021-02-06] MEDS: SPIRONOLACTONE 25 MG TABLET PO SCH ×2 (10:17→17:29)
[2021-02-06] MEDS: ASPIRIN EC 81 MG TAB PO SCH (10:18)
[2021-02-06] MEDS: CLOPIDOGREL 75 MG TABLET PO SCH (10:18)
--- NOTE | 2021-02-06 16:10 | EKG ---
Test Date: 2021-02-05 Test Time: 23:55:28 Patient Navigator: RT MEASUREMENT RESULTS: Intervals: Rate: 70 AL: 164 QRSD: 138 QT: 438 QTc: 473 [place]: P: 72 AL: 164 QRS: -43 T: 109 INTERPRETIVE STATEMENTS: Normal sinus rhythm Left axis deviation Nonspecific intraventricular block Cannot rule out Septal infarct, age undetermined Possible Lateral infarct, age undetermined Abnormal ECG Compared to ECG 05/30/2020 13:22:27 Myocardial infarct finding now present Left bundle-branch block no longer present Electronically Signed On 02-06-21 16:08:28 CDT by Bharat Vaca
--- NOTE | 2021-02-06 16:13 | EKG ---
Test Date: 2021-02-05 Test Time: 11:57:56 [employer]: CLEMENTE MEASUREMENT RESULTS: Intervals: Rate: 79 NV: 142 QRSD: 130 QT: 402 QTc: 460 [place]: P: 80 NV: 142 QRS: -39 T: 99 INTERPRETIVE STATEMENTS: Sinus rhythm with frequent premature ventricular complexes Left axis deviation Nonspecific intraventricular block Cannot rule out Septal infarct, age undetermined Possible Lateral infarct, age undetermined Abnormal ECG Compared to ECG 05/30/2020 13:22:27 Ventricular premature complex(es) now present Myocardial infarct finding now present Left bundle-branch block no longer present Electronically Signed On 02-06-21 16:08:56 CDT by Bharat Vaca
[2021-02-06] MEDS ORDERED: D50W 25 GM/50 ML VIAL IV PRN (17:00)
[2021-02-06] MEDS: predniSONE 20 MG TAB PO SCH (20:27)
[2021-02-06] MEDS: ATORVASTATIN 80 MG TAB PO SCH (20:28)
[2021-02-06] MEDS: INSULIN GLARGINE 100 UNITS/ML SQ SCH (20:29)
[2021-02-07] MEDS: BENZONATATE 100 MG CAP PO PRN ×2 (05:13→14:21)
[2021-02-07] MEDS: LEVOTHYROXINE SOD 0.075 MG TAB PO SCH (05:13)
[2021-02-07 06:09] LABS: Absolute Lymphocytes (CBC) 1.3 K/uL (0.7-4.9); Basophils % 0.8 % (0-1.3); Hematocrit 33.3 % (36.0-45.0); MPV 7.6 fL (7.6-11.3); RBC Red Blood Cell Count 3.82 M/uL (3.86-4.86)
[2021-02-07 06:23] LABS: Magnesium 2.4 mg/dL (1.8-2.4); Phosphorus 4.9 mg/dL (2.5-4.9); Potassium 4.4 mmol/L (3.5-5.1)
[2021-02-07] MEDS: predniSONE 20 MG TAB PO SCH ×2 (08:19→20:46)
[2021-02-07] MEDS: FUROSEMIDE 40 MG/4 ML VIAL IV SCH ×2 (08:19→16:42)
[2021-02-07] MEDS: ASPIRIN EC 81 MG TAB PO SCH (08:19)
[2021-02-07] MEDS: GABAPENTIN 300 MG CAP PO SCH ×3 (08:19→20:46)
[2021-02-07] MEDS: ENOXAPARIN 40 MG/0.4 ML SQ SCH (08:19)
[2021-02-07] MEDS: INSULIN -REGULAR HUMAN 50 UNIT/0.5 ML ML SQ SCH ×4 (08:20→20:56)
[2021-02-07] MEDS: SPIRONOLACTONE 25 MG TABLET PO SCH ×2 (08:20→16:42)
[2021-02-07] MEDS: CLOPIDOGREL 75 MG TABLET PO SCH (08:22)
--- NOTE | 2021-02-07 08:59 | P.CNS ---
Date of Consult: 02/07/21 Reason for Consult: CEHLLE/ CKD Requesting Physician: Pedro Youssef Primary Care Provider: Dr. Martinez Chief Complaint: CHF exacerbation History of Present Illness: This is a 75 y/o HFpEF, COPD on chronic 2L NC, IDDM who presents today w/ worsening SOB after light activity. She reports that her dyspnea has been ongoing for 1 month. After walking to the bathroom she could not catch her breath. She c/o orthopnea and requires several pillows when sleeping. She c/o productive cough and wheezing. She is on 2 L home oxygen and increased it to 5 L today with no relief of SOB. Her oxygen saturation was reportedly 91-92% in route from EMS and she recieved IV solu-medrol. Now has some relief and oxygen 98% at bedside. She denies any chest pain. 14:22 This 75 yrs old Female presents to ER via EMS with complaints of shortness of kb breath. 14:22 The patient has shortness of breath at rest, with light activity. Onset: The kb symptoms/episode began/occurred 2 week(s) ago. Duration: The symptoms are continuous, and are steadily getting worse. The patient's shortness of breath is aggravated by exertion, light activity, talking. Associated signs and symptoms: Pertinent positives: non-productive cough. Severity of symptoms: At their worst the symptoms were moderate in the emergency department the symptoms are unchanged. The patient has not experienced similar symptoms in the past. The patient has not recently seen a physician. Pt reports shortness of breath, worse on exertion, for the past 2 weeks. Symptoms worse over the past 2-3 days. Today couldn't make it to the restroom without having a very hard time breathing. Allergies No Known Allergies Allergy (Verified 02/14/20 12:33) Home medications list reviewed: Yes Home Medications: Atorvastatin Calcium [Lipitor] 80 mg PO BEDTIME #60 tab 01/23/17 Clopidogrel Bisulfate [Plavix*] 75 mg PO DAILY #30 01/23/17 Spironolactone [Aldactone*] 25 mg PO BID #60 tab 01/23/17 Levothyroxine [Synthroid*] 150 mcg PO [id number] 06/03/19 Sertraline [Zoloft*] 2 tab PO DAILY 06/03/19 Aspirin Chewable [Aspirin Chewable*] 81 mg PO DAILY 02/17/20 Insulin Lispro [Humalog] 5 unit SQ TIDWM 02/17/20 NPH, Human Insulin Isophane [Humulin N] 25 unit SQ BID 02/17/20 Gabapentin [Neurontin] 800 mg PO TID 05/30/20 Ipratropium Mdi [Atrovent Hf Inhaler*] 2 puff IH BID PRN 05/30/20 Furosemide 80 mg PO BID 02/05/21 - Past Medical/Surgical History Diabetic: Yes -: Postsurgical hypothyroidism -: History of atrial fibrillation -: Hyperlipidemia -: Hypertension -: CAD -: COPD -: Diabetes mellitus type 2 insulin dependent -: Diastolic CHF -: Depression with anxiety -: Kidney disease -: Thyroidectomy -: CAD with prior stents Psychosocial/ Personal History: Patient is a . She lives with son and gran dkids. - Family History Father Medical History: Cancer Sister Medical History: Cancer morther Medical History: Cancer - Social History Smoking Status: Former smoker Alcohol use: No CD- Drugs: No Caffeine use: Yes Place of Residence: Home Review of Systems 10-point ROS is otherwise unremarkable General: Weakness, Malaise Respiratory: SOB with Excertion Cardiovascular: Edema Neurological: Weakness Physical Examination Temp Pulse Resp BP Pulse Ox 97.2 F 58 16 132/59 L 94 02/07/21 04:00 02/07/21 08:20 02/07/21 04:00 02/07/21 08:20 02/07/21 04:00 General: In no apparent distress, Oriented x3, Cooperative HEENT: Atraumatic Neck: Supple Respiratory: Diminished Cardiovascular: Regular rate/rhythm, Edema Gastrointestinal: Soft and benign, Non-distended Musculoskeletal: No clubbing, No contractures Integumentary: No rashes, No cyanosis Neurological: Normal speech Blood work reviewed in the chart. Imagings Data: EXAM DESCRIPTION: RAD - Chest Single View - 02/06/2021 6:14 am CLINICAL HISTORY: f/u CHF, shortness of breath COMPARISON: February 05 TECHNIQUE: AP portable chest image was obtained 02/06/2021 6:14 am . FINDINGS: Interstitial markings remain prominent. Heart size and vasculature have improved. No progressive lung parenchymal process. Heart size is in normal range. Trachea is midline. No measurable pleural effusion and no pneumothorax. No acute bony abnormality seen. No acute aortic findings suspected. IMPRESSION: Partial resolution of the CHF/volume overload pattern since prior day imaging. Conclusions/Impression: CHELLE likely due to diuresis CKD III with proteinuria -No NSAIDs -We may have to tolerate a higher serum creatinine to control her volume/ CHF HTN with CKD/ CHF -Continue diuretics Diastolic CHF, A/C -Low sodium diet -Continue Furosemide and Spironolactone DM II with hyperglycemia and CKD -Continue Lantus -RISS Moderate malnutrition -Encourage nutrition Anemia in chronic illness -Monitor H&H Thank you kindly for the consultation. Case reviewed with Dr. Youssef
[2021-02-07] MEDS ORDERED: EUCERIN TOP SCH (09:00)
[2021-02-07] MEDS: GUAIFENESIN 600 MG SA TAB PO SCH ×2 (09:29→20:46)
--- NOTE | 2021-02-07 10:16 | P.PN ---
Subjective Date of Service: 02/07/21 Primary Care Provider: Dr. Martinez Chief Complaint: CHF exacerbation Subjective: Improving (feeling better - breathing more comfortably on 2-3 L NC, edema slowly improving, renal function worse. appetite is ok, no new complaints/issues) Review of Systems 10-point ROS is otherwise unremarkable Physical Examination - Vital Signs Temperature: 97.2 F Blood Pressure: 132/59 Pulse: 58 Respirations: 16 Pulse Ox (%): 94 Assessment & Plan Physician Review Additional Text: Physical Exam General: Alert, Oriented x3 HEENT: normal conjunctiva, sclera anicteric Respiratory: mild b/l crackles/rales at bases, with mild expiratory wheeze, nonlabored respirations on 2.5L NC Cardiovascular: regular rate/rhythm, 1+ edema b/l up to thighs Gastrointestinal: soft, nontender, nondistended Neurological: Normal speech, Normal affect Problem List acute on chronic respiratory failure with hypoxia secondary to acute on chronic diastolic heart failure (HFpEF) acute on chronic COPD exacerbation, on chronic 2L NC at home HCELLE on CKDIII DM2, insulin dependent HTN -symptomatically improving, O2 is weaning down, on Lasix 40mg BID IV, and PO spironolactone -edema slowly improving, still with a significant amount -renal function worsening, likely from diuretic usage, nephrology consulted -continue PO prednisone, nebs, suspect component of COPD exacerbation, but likely CHF is main culprit -no evidence of infection -hyperglycemia worsened by steroid use, accucheks, aggressive SSI, lantus - titrate as needed, improving -PT consulted VTE: lovenox Code: full Dispo: anticipate dc home in ~24-48hrs Time Spent Managing Pts Care (In Minutes): 45
[2021-02-07] MEDS ORDERED: ZINC OXIDE 20% OINTMENT 60gm TOP PRN (12:45)
[2021-02-07] MEDS ORDERED: ALBUTEROL 2.5 MG/3 ML NEB SOL NEB PRN (15:00)
[2021-02-07] MEDS: MORPHINE 2 MG/ML SYR IV PRN (20:46)
[2021-02-07] MEDS: ATORVASTATIN 80 MG TAB PO SCH (20:46)
[2021-02-07] MEDS: INSULIN GLARGINE 100 UNITS/ML SQ SCH (20:57)
--- NOTE | 2021-02-08 04:26 | PN ---
Date of Progress Note: 02/07/2021 Ms. Lundberg came in with acute on chronic diastolic congestive heart failure. Creatinine was 1.32 today, went up to 1.54. Her O2 saturation, however, remained excellent at 97% on nasal cannula 2 L. Her sugar is better controlled from 457 to 242. She is known to have normal eje ction fraction, significant coronary artery disease status post RCA stent approximately a year ago. I am comfortable with her going home whenever it is okay with admitting physician and we will see her in the office in the very near future. She will need a stress test MPI in the near future and repe at an echocardiogram as well, but we will see her in the office soon. Continue present regimen for n ow. RONAN/SVETLANA Voice ID: [id number] Report ID: [id number]
--- NOTE | 2021-02-08 04:31 | CON ---
Date of Consultation: 02/06/2021 The patient was admitted to Dr. Velazquez on 02/06/2021. I saw the patient on 02/06/2021. Reason For Consultation: Congestive heart failure. History Of Present Illness: Ms. Lundberg is a 75-year-old woman who came in complaining of shortness of breath that has been going on for 2 weeks. It is mostly upon exertion. Has had a nonproductive coug h. The patient denies any chest pain. She denied any unexplained nausea, vomiting, or diaphoresis. She did not have any PND or orthopnea. She has some pedal edema, but no palpitations and no syncope . Denied any fever or chills. Past Medical History: Extensive and includes CHF, COPD, diabetes, hypertension, and coronary artery disease. Allergies: NONE. Review of Systems: Negative. Social History: Negative. Family History: Noncontributory. Medications: Her medications at home include spironolactone, sertraline, Lasix 40 mg b.i.d., clopido grel, Lipitor, aspirin, Ventolin inhaler, levothyroxine, and insulin. Physical Examination: General: When she came in, her blood pressure was 132/86, her pulse was 85, respiratory rate was 24, pulse oxygen saturation was 99% on 2 L. She weighed 113 kg. HEENT Exam: Negative. Neck: Supple without any bruit, lymphadenopathy, JVD, or thyromegaly. Chest: Reveals rales, both bases. Cardiac Exam: Revealed a regular rhythm and rate. No murmurs, gallops, or rubs. Abdomen: Obese, but benign. Extremities: Revealed 2+ edema. Pulses are present distally bilaterally. Neurological: She was nonfocal. Skin: Dry and intact. Diagnostic Data: Showed a glucose of 475. She had a creatinine of 1.32. Her sodium was 133. Her T SH was 22.8. Troponin was negative. BNP was pending. Chest x-ray showed mild congestive heart fail ure. EKG showed normal sinus rhythm, left axis deviation, nonspecific intraventricular conduction de lay. Impression And Plan: 1.Acute diastolic congestive heart failure. 2.Hypertension. 3.Diabetes, very poorly controlled. 4.Chronic obstructive pulmonary disease. 5.Coronary artery disease. 6.Hypothyroidism. The patient needs to have her sugar better controlled. Echocardiogram in June of 2019 showed a n ormal ejection fraction and it may be reasonable to repeat another one. She has significant coronary artery disease in February of 2020. She underwent an RCA stent by Dr. Wilson. She had a mid RCA stent in the past that was patent. She had a 20% LAD stenosis. She had a 40% to 50% OM stenosis. She nee ds to continue her regimen at home including the Plavix. She needs to be diuresed gently. We will c ji to follow her along. She needs to have an outpatient followup in our office as soon as she i s ready to go home. RONAN/SVETLANA Voice ID: [id number] Report ID: [id number]
[2021-02-08 06:11] LABS: Absolute Lymphocytes (CBC) 1.2 K/uL (0.7-4.9); Basophils % 0.7 % (0-1.3); Hematocrit 33.9 % (36.0-45.0); RBC Red Blood Cell Count 3.85 M/uL (3.86-4.86)
[2021-02-08] MEDS: LEVOTHYROXINE SOD 0.075 MG TAB PO SCH (06:15)
[2021-02-08 06:28] LABS: Magnesium 2.3 mg/dL (1.8-2.4); Potassium 4.6 mmol/L (3.5-5.1)
--- NOTE | 2021-02-08 07:18 | RAD REPORT ---
EXAM DESCRIPTION: RAD - Chest Single View - 02/08/2021 6:11 am CLINICAL HISTORY: hypoxia, f/u pulm edema COMPARISON: Portable chest February 06 TECHNIQUE: AP portable chest image was obtained 02/08/2021 6:11 am . FINDINGS: No peripheral mass consolidation. Interstitial pattern has diminished in prominence. Vascu lature also improved with heart size slightly diminished, now in normal range. Chest is at or near ba seline. Heart and vasculature are normal. No measurable pleural effusion and no pneumothorax. No acut e bony abnormality seen. No acute aortic findings suspected. IMPRESSION: Continued resolution of the CHF/volume overload pattern. No new or progressive finding.
[2021-02-08] MEDS: predniSONE 20 MG TAB PO SCH ×2 (08:19→20:42)
[2021-02-08] MEDS: ENOXAPARIN 40 MG/0.4 ML SQ SCH (08:19)
[2021-02-08] MEDS: ASPIRIN EC 81 MG TAB PO SCH (08:20)
[2021-02-08] MEDS: GABAPENTIN 300 MG CAP PO SCH ×3 (08:20→20:42)
[2021-02-08] MEDS: SPIRONOLACTONE 25 MG TABLET PO SCH ×2 (08:21→17:09)
[2021-02-08] MEDS: GUAIFENESIN 600 MG SA TAB PO SCH ×2 (08:21→20:41)
[2021-02-08] MEDS: CLOPIDOGREL 75 MG TABLET PO SCH (08:21)
[2021-02-08] MEDS: INSULIN -REGULAR HUMAN 50 UNIT/0.5 ML ML SQ SCH ×4 (08:22→20:40)
[2021-02-08] MEDS: FUROSEMIDE 40 MG/4 ML VIAL IV SCH ×2 (08:22→17:09)
[2021-02-08 08:37] LABS: Blood Morphology Comment NOT SEEN (NOT SEEN); Platelet Estimate ADEQ
--- NOTE | 2021-02-08 09:39 | P.PN ---
Date of Service: 02/08/21 Vital Signs Temp Pulse Resp BP Pulse Ox 97.1 F 59 20 152/67 H 97 02/08/21 08:00 02/08/21 08:00 02/08/21 08:00 02/08/21 08:00 02/08/21 08:00 Medications Acetaminophen (Acetaminophen 500 Mg Tab) 500 mg PO Q4HP PRN PRN Reason: Pain scale 2-4 (Mild) Albuterol Sulfate (Albuterol 2.5 Mg/3 Ml Neb Shari) 2.5 mg NEB [id number] PRN PRN Reason: SHORTNESS OF BREATH Aspirin (Aspirin Ec 81 Mg Tab) 81 mg PO DAILY [facility] Last Admin: 02/08/21 08:20 Dose: 81 mg Documented by: Atorvastatin Calcium (Atorvastatin 80 Mg Tab) 80 mg PO BEDTIME [facility] Last Admin: 02/07/21 20:46 Dose: 80 mg Documented by: Benzonatate (Benzonatate 100 Mg Cap) 100 mg PO Q8H PRN PRN Reason: COUGH Last Admin: 02/07/21 14:21 Dose: 100 mg Documented by: Clopidogrel Bisulfate (Clopidogrel 75 Mg Tablet) 75 mg PO DAILY [facility] Last Admin: 02/08/21 08:21 Dose: 75 mg Documented by: Dextrose (D50w 25 Gm/50 Ml Vial) 12.5 gm IV PRN PRN; Protocol PRN Reason: HYPOGLYCEMIA Enoxaparin Sodium (Enoxaparin 40 Mg/0.4 Ml) 40 mg SQ DAILY [facility] Last Admin: 02/08/21 08:19 Dose: 40 mg Documented by: Furosemide (Furosemide 40 Mg/4 Ml Vial) 40 mg IV BIDL [facility] Last Admin: 02/08/21 08:22 Dose: 40 mg Documented by: Gabapentin (Gabapentin 300 Mg Cap) 600 mg PO TID [facility] Last Admin: 02/08/21 08:20 Dose: 600 mg Documented by: Glucagon (Glucagon 1 Mg/Vial) 1 mg IM 1X PRN; Protocol PRN Reason: HYPOGLYCEMIA Guaifenesin (Guaifenesin 600 Mg Sa Tab) 600 mg PO BID [facility] Last Admin: 02/08/21 08:21 Dose: 600 mg Documented by: Insulin Glargine (Insulin Glargine 100 Units/Ml) 20 units SQ BEDTIME [facility] Last Admin: 02/07/21 20:57 Dose: 20 units Documented by: Insulin Human Regular (Insulin -Regular Human 50 Unit/0.5 Ml Ml) 0 unit SQ ACHS [facility]; Protocol Last Admin: 02/08/21 08:22 Dose: 8 unit Documented by: Ipratropium [place] (Ipratropium Brom 0.5mg/2.5ml) 0.5 mg NEB [id number] PRN PRN Reason: SHORTNESS OF BREATH Levothyroxine Sodium (Levothyroxine Sod 0.075 Mg Tab) 0.15 mg PO DAILYAC [facility] Last Admin: 02/08/21 06:15 Dose: 0.15 mg Documented by: Morphine Sulfate (Morphine 2 Mg/Ml Syr) 2 mg IV Q6H PRN PRN Reason: Pain scale 5-7 (Moderate) Last Admin: 02/07/21 20:46 Dose: 2 mg Documented by: Ondansetron HCl (Ondansetron 4 Mg/2 Ml Vial) 4 mg IV Q6HP PRN PRN Reason: NAUSEA / VOMITING Prednisone (Prednisone 20 Mg Tab) 20 mg PO BID [facility] Last Admin: 02/08/21 08:19 Dose: 20 mg Documented by: Sodium Chloride (Flush Normal Saline 10 Ml) 10 ml IV BID [facility] Last Admin: 02/08/21 08:22 Dose: 10 ml Documented by: Spironolactone (Spironolactone 25 Mg Tablet) 25 mg PO BIDL [facility] Last Admin: 02/08/21 08:21 Dose: 25 mg Documented by: Zinc Oxide (Zinc Oxide 20% Ointment 60gm) 1 appl TOP BIDP PRN PRN Reason: DRYNESS Assessment/ Plan: Nephrology Feeling better today. Persistent productive cough. She is having trouble getting the phlegm out. No acute events overnight. Vitals, medications, blood work and imaging reviewed in the chart. General: In no apparent distress, Oriented x3, Cooperative HEENT: Atraumatic Neck: Supple Respiratory: Diminished Cardiovascular: Regular rate/rhythm, Edema Gastrointestinal: Soft and benign, Non-distended Musculoskeletal: No clubbing, No contractures Integumentary: No rashes, No cyanosis Neurological: Normal speech Blood work reviewed in the chart. Imagings Data: EXAM DESCRIPTION: RAD - Chest Single View - 02/06/2021 6:14 am CLINICAL HISTORY: f/u CHF, shortness of breath COMPARISON: February 05 TECHNIQUE: AP portable chest image was obtained 02/06/2021 6:14 am . FINDINGS: Interstitial markings remain prominent. Heart size and vasculature have improved. No progressive lung parenchymal process. Heart size is in normal range. Trachea is midline. No measurable pleural effusion and no pneumothorax. No acute bony abnormality seen. No acute aortic findings suspected. IMPRESSION: Partial resolution of the CHF/volume overload pattern since prior day imaging. Conclusions/Impression: CHELLE likely CRS CKD III with proteinuria -No NSAIDs -Continue diuresis HTN with CKD/ CHF -Continue diuretics Diastolic CHF, A/C -Low sodium diet -Continue Furosemide and Spironolactone DM II with hyperglycemia and CKD -Continue Lantus -RISS Moderate malnutrition -Encourage nutrition Anemia in chronic illness -Monitor H&H
--- NOTE | 2021-02-08 16:49 | P.PN ---
Subjective Date of Service: 02/08/21 Primary Care Provider: Dr. Martinez Chief Complaint: CHF exacerbation Subjective: Improving (gradually improving, breathing more comfortably, +dizziness and unsteady on feet per patient, continues with cough,difficult to expectorate) Review of Systems 10-point ROS is otherwise unremarkable Physical Examination - Vital Signs Temperature: 97.6 F Blood Pressure: 157/68 Pulse: 64 Respirations: 20 Pulse Ox (%): 98 Assessment & Plan Physician Review Additional Text: Physical Exam General: Alert, Oriented x3, NAD HEENT: normal conjunctiva, sclera anicteric Respiratory: mild b/l crackles/rales at bases, with mild expiratory wheeze, nonlabored respirations on 2.5L NC, +cough Cardiovascular: regular rate/rhythm, 1+ edema b/l up to thighs Gastrointestinal: soft, nontender, nondistended Neurological: Normal speech, Normal affect Problem List acute on chronic respiratory failure with hypoxia secondary to acute on chronic diastolic heart failure (HFpEF) acute on chronic COPD exacerbation, on chronic 2L NC at home CHELLE on CKDIII DM2, insulin dependent HTN -symptomatically improving, O2 is weaning down, on Lasix 40mg BID IV, and PO spironolactone -reports some unsteadiness on feet with some lightheadedness when standing -edema slowly improving -renal function improved today, nephrology following, continue current regimen -continue PO prednisone, nebs, suspect component of COPD exacerbation, but likely CHF is main culprit -no evidence of infection -CXR improved -hyperglycemia worsened by steroid use, accucheks, aggressive SSI, lantus - titrate as needed -PT consulted VTE: lovenox Code: full Dispo: anticipate dc home in ~24hrs Time Spent Managing Pts Care (In Minutes): 40
[2021-02-08 18:38] VITALS: BMI 44.0
[2021-02-08] MEDS: ATORVASTATIN 80 MG TAB PO SCH (20:42)
[2021-02-08] MEDS ORDERED: INSULIN GLARGINE 100 UNITS/ML SQ SCH (21:00)
[2021-02-09] MEDS: ACETAMINOPHEN 500 MG TAB PO PRN ×2 (03:10→12:46)
[2021-02-09] MEDS: LEVOTHYROXINE SOD 0.075 MG TAB PO SCH (05:41)
[2021-02-09 06:51] LABS: Magnesium 2.4 mg/dL (1.8-2.4); Potassium 4.3 mmol/L (3.5-5.1)
[2021-02-09] MEDS: INSULIN -REGULAR HUMAN 50 UNIT/0.5 ML ML SQ SCH ×4 (08:17→21:29)
[2021-02-09] MEDS: SPIRONOLACTONE 25 MG TABLET PO SCH ×2 (08:18→16:39)
[2021-02-09] MEDS: predniSONE 20 MG TAB PO SCH ×2 (08:18→21:27)
[2021-02-09] MEDS: GABAPENTIN 300 MG CAP PO SCH ×3 (08:18→21:27)
[2021-02-09] MEDS: GUAIFENESIN 600 MG SA TAB PO SCH ×2 (08:18→21:27)
[2021-02-09] MEDS: ASPIRIN EC 81 MG TAB PO SCH (08:19)
[2021-02-09] MEDS: CLOPIDOGREL 75 MG TABLET PO SCH (08:19)
[2021-02-09] MEDS: FUROSEMIDE 40 MG/4 ML VIAL IV SCH ×2 (08:19→16:39)
[2021-02-09] MEDS: ENOXAPARIN 40 MG/0.4 ML SQ SCH (08:19)
--- NOTE | 2021-02-09 15:36 | P.PN ---
Date of Service: 02/09/21 Vital Signs Temp Pulse Resp BP Pulse Ox 97 F 57 19 142/65 H 99 02/09/21 12:00 02/09/21 12:00 02/09/21 12:00 02/09/21 12:00 02/09/21 12:00 Medications Acetaminophen (Acetaminophen 500 Mg Tab) 500 mg PO Q4HP PRN PRN Reason: Pain scale 2-4 (Mild) Last Admin: 02/09/21 12:46 Dose: 500 mg Documented by: Albuterol Sulfate (Albuterol 2.5 Mg/3 Ml Neb Shari) 2.5 mg NEB [id number] PRN PRN Reason: SHORTNESS OF BREATH Aspirin (Aspirin Ec 81 Mg Tab) 81 mg PO DAILY [facility] Last Admin: 02/09/21 08:19 Dose: 81 mg Documented by: Atorvastatin Calcium (Atorvastatin 80 Mg Tab) 80 mg PO BEDTIME [facility] Last Admin: 02/08/21 20:42 Dose: 80 mg Documented by: Benzonatate (Benzonatate 100 Mg Cap) 100 mg PO Q8H PRN PRN Reason: COUGH Last Admin: 02/07/21 14:21 Dose: 100 mg Documented by: Clopidogrel Bisulfate (Clopidogrel 75 Mg Tablet) 75 mg PO DAILY [facility] Last Admin: 02/09/21 08:19 Dose: 75 mg Documented by: Dextrose (D50w 25 Gm/50 Ml Vial) 12.5 gm IV PRN PRN; Protocol PRN Reason: HYPOGLYCEMIA Enoxaparin Sodium (Enoxaparin 40 Mg/0.4 Ml) 40 mg SQ DAILY [facility] Last Admin: 02/09/21 08:19 Dose: 40 mg Documented by: Furosemide (Furosemide 40 Mg/4 Ml Vial) 40 mg IV BIDL [facility] Last Admin: 02/09/21 08:19 Dose: 40 mg Documented by: Gabapentin (Gabapentin 300 Mg Cap) 600 mg PO TID [facility] Last Admin: 02/09/21 14:53 Dose: 600 mg Documented by: Glucagon (Glucagon 1 Mg/Vial) 1 mg IM 1X PRN; Protocol PRN Reason: HYPOGLYCEMIA Guaifenesin (Guaifenesin 600 Mg Sa Tab) 600 mg PO BID [facility] Last Admin: 02/09/21 08:18 Dose: 600 mg Documented by: Insulin Glargine (Insulin Glargine 100 Units/Ml) 25 units SQ BEDTIME [facility] Last Admin: 02/08/21 20:41 Dose: 25 units Documented by: Insulin Human Regular (Insulin -Regular Human 50 Unit/0.5 Ml Ml) 0 unit SQ ACHS [facility]; Protocol Last Admin: 02/09/21 12:46 Dose: 4 unit Documented by: Ipratropium [place] (Ipratropium Brom 0.5mg/2.5ml) 0.5 mg NEB [id number] PRN PRN Reason: SHORTNESS OF BREATH Levothyroxine Sodium (Levothyroxine Sod 0.075 Mg Tab) 0.15 mg PO DAILYAC [facility] Last Admin: 02/09/21 05:41 Dose: 0.15 mg Documented by: Morphine Sulfate (Morphine 2 Mg/Ml Syr) 2 mg IV Q6H PRN PRN Reason: Pain scale 5-7 (Moderate) Last Admin: 02/07/21 20:46 Dose: 2 mg Documented by: Ondansetron HCl (Ondansetron 4 Mg/2 Ml Vial) 4 mg IV Q6HP PRN PRN Reason: NAUSEA / VOMITING Prednisone (Prednisone 20 Mg Tab) 20 mg PO BID [facility] Last Admin: 02/09/21 08:18 Dose: 20 mg Documented by: Sodium Chloride (Flush Normal Saline 10 Ml) 10 ml IV BID [facility] Last Admin: 02/09/21 08:19 Dose: 10 ml Documented by: Spironolactone (Spironolactone 25 Mg Tablet) 25 mg PO BIDL [facility] Last Admin: 02/09/21 08:18 Dose: 25 mg Documented by: Zinc Oxide (Zinc Oxide 20% Ointment 60gm) 1 appl TOP BIDP PRN PRN Reason: DRYNESS Assessment/ Plan: Nephrology Feeling better today. Fatigue with PT. No acute events overnight. Vitals, medications, blood work and imaging reviewed in the chart. General: In no apparent distress, Oriented x3, Cooperative HEENT: Atraumatic Neck: Supple Respiratory: Diminished Cardiovascular: Regular rate/rhythm, Edema Gastrointestinal: Soft and benign, Non-distended Musculoskeletal: No clubbing, No contractures Integumentary: No rashes, No cyanosis Neurological: Normal speech Blood work reviewed in the chart. Imagings Data: EXAM DESCRIPTION: RAD - Chest Single View - 02/06/2021 6:14 am CLINICAL HISTORY: f/u CHF, shortness of breath COMPARISON: February 05 TECHNIQUE: AP portable chest image was obtained 02/06/2021 6:14 am . FINDINGS: Interstitial markings remain prominent. Heart size and vasculature have improved. No progressive lung parenchymal process. Heart size is in normal range. Trachea is midline. No measurable pleural effusion and no pneumothorax. No acute bony abnormality seen. No acute aortic findings suspected. IMPRESSION: Partial resolution of the CHF/volume overload pattern since prior day imaging. Conclusions/Impression: CHELLE likely CRS CKD III with proteinuria -No NSAIDs -Continue diuresis Hypocalcemia -Start Vitamin D3 HTN with CKD/ CHF -Continue diuretics Diastolic CHF, A/C -Low sodium diet -Continue Furosemide and Spironolactone DM II with hyperglycemia and CKD -Increase Lantus 28 units qhs -RISS Moderate malnutrition -Encourage nutrition Anemia in chronic illness -Monitor H&H
[2021-02-09] MEDS ORDERED: METOLAZONE 5 MG TABLET PO SCH (16:00)
[2021-02-09] MEDS: VITAMIN D 5,000 UNIT CAP PO SCH (16:39)
--- NOTE | 2021-02-09 16:39 | P.PN ---
Subjective Date of Service: 02/09/21 Primary Care Provider: Dr. Martinez Chief Complaint: CHF exacerbation Subjective: No new changes (Feels about the same, maybe slightly better. Having intermittent dizziness with standing/ambulating. Reports significant dyspnea on exertion, didn't do much with PT yesterday) Review of Systems 10-point ROS is otherwise unremarkable Physical Examination - Vital Signs Temperature: 97 F Blood Pressure: 142/65 Pulse: 57 Respirations: 19 Pulse Ox (%): 99 Assessment & Plan Physician Review Additional Text: Physical Exam General: Alert, Oriented x3 HEENT: normal conjunctiva, sclera anicteric Respiratory: mild b/l crackles/rales at bases, nonlabored respirations on 2L NC, +cough Cardiovascular: regular rate/rhythm, 1+ edema b/l up to thighs Gastrointestinal: soft, nontender, nondistended Neurological: Normal speech, Normal affect Problem List acute on chronic respiratory failure with hypoxia secondary to acute on chronic diastolic heart failure (HFpEF) acute on chronic COPD exacerbation, on chronic 2L NC at home CHELLE on CKDIII DM2, insulin dependent HTN -symptomatically improving, O2 is weaning down, on Lasix 40mg BID IV, and PO spironolactone -reports some unsteadiness on feet with some lightheadedness when standing -recheck check orthostatics today -edema slowly improving, breathing improving -renal function improved today, nephrology following, continue current regimen -will discuss with nephrology, may benefit from small extra diuretic today -continue PO prednisone, nebs, suspect component of COPD exacerbation -no evidence of infection -CXR improved, repeat in AM -hyperglycemia worsened by steroid use, accucheks, aggressive SSI, lantus - titrate as needed -PT consulted VTE: lovenox Code: full Dispo: anticipate dc home in ~24hrs Time Spent Managing Pts Care (In Minutes): 35
[2021-02-09] MEDS ORDERED: INSULIN GLARGINE 100 UNITS/ML SQ SCH (21:00)
[2021-02-09] MEDS: ATORVASTATIN 80 MG TAB PO SCH (21:28)
[2021-02-10] MEDS: LEVOTHYROXINE SOD 0.075 MG TAB PO SCH (05:42)
[2021-02-10 06:10] LABS: Hematocrit 37.8 % (36.0-45.0); MPV 7.8 fL (7.6-11.3); RBC Red Blood Cell Count 4.32 M/uL (3.86-4.86)
[2021-02-10 06:29] LABS: Magnesium 2.3 mg/dL (1.8-2.4); Potassium 4.5 mmol/L (3.5-5.1)
[2021-02-10] MEDS: ENOXAPARIN 40 MG/0.4 ML SQ SCH (08:33)
[2021-02-10] MEDS: VITAMIN D 5,000 UNIT CAP PO SCH (08:34)
[2021-02-10] MEDS: FUROSEMIDE 40 MG/4 ML VIAL IV SCH (08:34)
[2021-02-10] MEDS: SPIRONOLACTONE 25 MG TABLET PO SCH (08:34)
[2021-02-10] MEDS: GABAPENTIN 300 MG CAP PO SCH (08:34)
[2021-02-10] MEDS: CLOPIDOGREL 75 MG TABLET PO SCH (08:34)
[2021-02-10] MEDS: ASPIRIN EC 81 MG TAB PO SCH (08:34)
[2021-02-10] MEDS: predniSONE 20 MG TAB PO SCH (08:35)
[2021-02-10] MEDS: GUAIFENESIN 600 MG SA TAB PO SCH (08:35)
[2021-02-10] MEDS: INSULIN -REGULAR HUMAN 50 UNIT/0.5 ML ML SQ SCH ×2 (08:36→12:17)
--- NOTE | 2021-02-10 08:54 | RAD REPORT ---
EXAM DESCRIPTION: RAD - Chest Single View - 02/10/2021 7:54 am CLINICAL HISTORY: CHF, shortness of breath COMPARISON: Portable February 08, portable February 06 TECHNIQUE: AP portable chest image was obtained 02/10/2021 7:54 am . FINDINGS: No new mass or consolidation. Interstitial and alveolar opacities continue to improve. Car diomegaly remains. Central vasculature is mildly prominent. No measurable pleural effusion and no pne umothorax. No acute bony abnormality seen. No acute aortic findings suspected. IMPRESSION: Continued improvement in the lung parenchymal CHF/ volume overload findings peer Continued cardiomegaly.
[2021-02-10 09:35] VITALS: O2SAT 97
[2021-02-10] MEDS: ACETAMINOPHEN 500 MG TAB PO PRN (10:52)
[2021-02-10 13:09] VITALS: BP 142/65; TEMP 97.5
--- NOTE | 2021-02-10 15:45 | P.DS ---
Admission Date: 02/06/21 Discharge Date: 02/10/21 Primary Care Provider: Dr. Martinez Disposition: DC HOME/HOME HEALTH CARE Discharge Condition: GOOD Reason for Admission: CHF exacerbation Consultations: Cardiology - Dr. Vaca Nephrology - Dr. Martinez Procedures: CXR (02/05): Mild interstitial pulmonary edema suspected. The heart is mildly enlarged in size. No displaced fractures. IMPRESSION: Mild CHF. CXR (02/06: FINDINGS: Interstitial markings remain prominent. Heart size and vasculature have improved. No progressive lung parenchymal process. Heart size is in normal range. Trachea is midline. No measurable pleural effusion and no pneumothorax. No acute bony abnormality seen. No acute aortic findings suspected. IMPRESSION: Partial resolution of the CHF/volume overload pattern since prior day imaging. CXR (02/08): FINDINGS: No peripheral mass consolidation. Interstitial pattern has diminished in prominence. Vasculature also improved with heart size slightly diminished, now in normal range. Chest is at or near baseline. Heart and vasculature are normal. No measurable pleural effusion and no pneumothorax. No acute bony abnormality seen. No acute aortic findings suspected. IMPRESSION: Continued resolution of the CHF/volume overload pattern. No new or progressive finding. CXR (02/10): FINDINGS: No new mass or consolidation. Interstitial and alveolar opacities continue to improve. Cardiomegaly remains. Central vasculature is mildly prominent. No measurable pleural effusion and no pneumothorax. No acute bony abnormality seen. No acute aortic findings suspected. IMPRESSION: Continued improvement in the lung parenchymal CHF/ volume overload findings peer Continued cardiomegaly. Problem List acute on chronic respiratory failure with hypoxia secondary to acute on chronic diastolic heart failure (HFpEF) acute on chronic COPD exacerbation, on chronic 2L NC at home chronic dizziness, gait instability CHELLE on CKDIII DM2, insulin dependent HTN Brief History of Present Illness: 75 y/o HFpEF, COPD on chronic 2L NC, IDDM who presents today w/ worsening SOB after light activity. She reports that her dyspnea has been ongoing for 1 month. After walking to the bathroom she could not catch her breath. She c/o orthopnea and requires several pillows when sleeping. She c/o productive cough and wheezing. She is on 2 L home oxygen and increased it to 5 L today with no relief of SOB. Her oxygen saturation was reportedly 91-92% in route from EMS and she recieved IV solu-medrol. Now has some relief and oxygen 98% at bedside. She denies any chest pain. BNP 1089 Hospital Course: Patient was gently diuresed with IV Lasix 40mg BID with gradual improvement of her volume status and respirations. She was also treated with steroids and nebulizers for component of COPD exacerbation. She was weaned down to her home level of oxygen supplementation. She did report some more dizziness/lightheadedness with ambulation during her hospitalization. On review of her medications with her son, it was revealed she did not take her Gabapentin anymore due to unknown reason. Patient was getting gabapentin scheduled during her hospitalization. This was discontinued prior to discharge. Renal function initially worsened, then improved with diuresis. Suspect Cardiorenal syndrome Patient was recommended to ambulate only with assistance / supervision, but mostly to use her wheelchair for the next few days as the Gabapentin effects wear off and as she continues to recover. Discharged home with home health/PT to resume her Lasix 80mg PO BID as well as her other medications. Vital Signs/Physical Exam: Physical Exam General: Alert, Oriented x3 HEENT: normal conjunctiva, sclera anicteric Respiratory: nonlabored respirations on 2L NC, +cough Cardiovascular: regular rate/rhythm, trace edema to knees bilaterally Gastrointestinal: soft, nontender, nondistended Neurological: Normal speech, Normal affect Temp Pulse Resp BP Pulse Ox 97.5 F 64 18 142/65 H 99 02/10/21 12:00 02/10/21 12:00 02/10/21 12:00 02/10/21 12:00 02/10/21 12:00 Laboratory Data at Discharge: WBC 11.30 K/uL (4.3-10.9) H 02/10/21 05:35 Hgb 12.2 g/dL (12.0-15.0) 02/10/21 05:35 Hct 37.8 % (36.0-45.0) 02/10/21 05:35 Plt Count 291 K/uL (152-406) 02/10/21 05:35 PT 10.9 SECONDS (9.5-12.5) 02/05/21 12:43 INR 0.95 02/05/21 12:43 Sodium 137 mmol/L (136-145) 02/10/21 05:35 Potassium 4.5 mmol/L (3.5-5.1) 02/10/21 05:35 BUN 49 mg/dL (7-18) H 02/10/21 05:35 Creatinine 1.20 mg/dL (0.55-1.3) 02/10/21 05:35 Glucose 212 mg/dL (74-106) H 02/10/21 05:35 Phosphorus 4.0 mg/dL (2.5-4.9) 02/08/21 05:40 Magnesium 2.3 mg/dL (1.8-2.4) 02/10/21 05:35 Total Bilirubin 0.4 mg/dL (0.2-1.0) 02/05/21 12:43 AST 16 U/L (15-37) 02/05/21 12:43 ALT 25 U/L (12-78) 02/05/21 12:43 Alkaline Phosphatase 102 U/L (45-117) 02/05/21 12:43 Troponin I < 0.02 ng/mL (0.0-0.045) 02/07/21 19:02 Home Medications: Atorvastatin Calcium [Lipitor] 80 mg PO BEDTIME #60 tab 01/23/17 Clopidogrel Bisulfate [Plavix*] 75 mg PO DAILY #30 01/23/17 Spironolactone [Aldactone*] 25 mg PO BID #60 tab 01/23/17 Levothyroxine [Synthroid*] 150 mcg PO [id number] 06/03/19 Sertraline [Zoloft*] 2 tab PO DAILY 06/03/19 Aspirin Chewable [Aspirin Chewable*] 81 mg PO DAILY 02/17/20 Insulin Lispro [Humalog] 5 unit SQ TIDWM 02/17/20 NPH, Human Insulin Isophane [Humulin N] 25 unit SQ BID 02/17/20 Ipratropium Mdi [Atrovent Hf Inhaler*] 2 puff IH BID PRN 05/30/20 Furosemide 80 mg PO BID 02/05/21 predniSONE [Prednisone*] 20 mg PO SEECOM 4 Days #4 tab 02/10/21 New Medications: predniSONE [Prednisone*] 20 mg PO SEECOM 4 Days #4 tab Physician Discharge Instructions: PROBLEM: COPD Exacerbation, CHF GOAL: Clear understanding of disease process INSTRUCTIONS: Diet: Heart healthy Activity: Fall precautions COMMUNITY SERVICES Services Needed: Home Health Name of Company: [facility] w/ PT Date or Referral: 02/07/21 You were found to have acute congestive heart failure with volume overload. You improved significantly with diuresis. Continue lasix 80mg twice a day. Your dizziness/lightheadedness is likely due to the quicker removal of your fluid and from the gabapentin you received, and this was discontinued. You need to have someone with you if you get up to walk. Recommend using wheelchair for the next few days as the gabapentin wears off. Please follow up with your PCP in 3-5 days. follow up with your Soft Boarder in the next few weeks You are discharged with home health and physical therapy Diet: AHA Activity: Fall precautions Followup: Bharat Vaca MD [ACTIVE - CAN ADMIT] - NONE,NONE [Primary Care Provider] - Time spent managing pt's care (in minutes): 45
--- NOTE | 2021-02-12 08:09 | ECHO ---
HEIGHT: 5 ft 3 in WEIGHT: 248 lb 8 oz DATE OF STUDY: 02/09/[address]: Pedro Youssef MD 2-DIMENSIONAL: YES M.MODE: YES DOPPLER: YES COLOR FLOW: YES TDS: YES PORTABLE: NO DEFINITY: NO BUBBLE STUDY: NO DIAGNOSIS: EVALUATE CONGESTIVE HEART FAILURE CARDIAC HISTORY: CATHERIZATION: NO SURGERY: NO PROSTHETIC VALVE: NO PACEMAKER: NO MEASUREMENTS (cm) DIASTOLIC (NORMALS) SYSTOLIC (NORMALS) IVSd 1.4 (0.6-1.2) LA Diam 3.2 (1.9-4.0) LVEF 38% LVIDd 4.5 (3.5-5.7) LVIDs 3.7 (2.0-3.5) %FS 18% LVPWd 0.8 (0.6-1.2) Ao Diam 2.8 (2.0-3.7) 2 DIMENSIONAL ASSESSMENT: RIGHT ATRIUM: NORMAL LEFT ATRIUM: NORMAL RIGHT VENTRICLE: NORMAL LEFT VENTRICLE: LEFT VENTRICULAR HYPERTROPHY TRICUSPID VALVE: NORMAL MITRAL VALVE: NORMAL PULMONIC VALVE: NORMAL AORTIC VALVE: NORMAL PERICARDIAL EFFUSION: NONE AORTIC ROOT: NORMAL LEFT VENTRICULAR WALL MOTION: MODERATE GLOBAL HYPOKINESIS. DOPPLER/COLOR FLOW: NORMAL. COMMENTS: MODERATE GLOBAL HYPOKINESIS/ EJECTION FRACTION 35-40%. NO EFFUSION. LEFT VENTRICULAR HYPERTROPHY. TECHNOLOGIST: JONN KYLE
--- NOTE | 2021-02-13 17:30 | P.PN ---
Date of Service: 02/10/21 Vital Signs Temp Pulse Resp BP Pulse Ox 97.5 F 64 18 142/65 H 99 02/10/21 12:00 02/10/21 12:00 02/10/21 12:00 02/10/21 12:00 02/10/21 12:00 Assessment/ Plan: Nephrology Feeling better today. Persistent weakness and fatigue. Appetite improving. No acute events overnight. Vitals, medications, blood work and imaging reviewed in the chart. General: In no apparent distress, Oriented x3, Cooperative HEENT: Atraumatic Neck: Supple Respiratory: Diminished Cardiovascular: Regular rate/rhythm, Edema Gastrointestinal: Soft and benign, Non-distended Musculoskeletal: No clubbing, No contractures Integumentary: No rashes, No cyanosis Neurological: Normal speech Blood work reviewed in the chart. Imagings Data: EXAM DESCRIPTION: RAD - Chest Single View - 02/06/2021 6:14 am CLINICAL HISTORY: f/u CHF, shortness of breath COMPARISON: February 05 TECHNIQUE: AP portable chest image was obtained 02/06/2021 6:14 am . FINDINGS: Interstitial markings remain prominent. Heart size and vasculature have improved. No progressive lung parenchymal process. Heart size is in normal range. Trachea is midline. No measurable pleural effusion and no pneumothorax. No acute bony abnormality seen. No acute aortic findings suspected. IMPRESSION: Partial resolution of the CHF/volume overload pattern since prior day imaging. Conclusions/Impression: CHELLE likely CRS CKD III with proteinuria -No NSAIDs -Continue diuresis Hypocalcemia -Continue Vitamin D3 HTN with CKD/ CHF -Continue diuretics Diastolic CHF, A/C -Low sodium diet -Continue Furosemide and Spironolactone DM II with hyperglycemia and CKD -Continue Lantus 28 units qhs -RISS Moderate malnutrition -Encourage nutrition Anemia in chronic illness -Monitor H&H Case reviewed with Dr. Youssef Late entry due to computer access problems.
== END 2021-02-10 14:39 | disposition home health service (06) | DRG 291 ==
LOC: ER 12:14 → ERHOLD 15:33 → 2ND 17:04 → OBSVTOIN 02-06 14:54
PROVIDERS: ADMIT Internal Medicine; ATTEND Internal Medicine
DX: I13.0 Hypertensive heart and chronic kidney disease with heart failure and stage 1 through stage 4 chronic kidney disease, or unspecified chronic kidney disease (principal); I50.33 Acute on chronic diastolic (congestive) heart failure; J96.20 Acute and chronic respiratory failure, unspecified whether with hypoxia or hypercapnia; N17.9 Acute kidney failure, unspecified; J44.1 Chronic obstructive pulmonary disease with (acute) exacerbation; E46 Unspecified protein-calorie malnutrition; Z68.41 Body mass index [BMI] 40.0-44.9, adult; E11.22 Type 2 diabetes mellitus with diabetic chronic kidney disease; N18.30 Chronic kidney disease, stage 3 unspecified; R42 Dizziness and giddiness; R26.89 Other abnormalities of gait and mobility; E83.51 Hypocalcemia; D63.8 Anemia in other chronic diseases classified elsewhere; L89.152 Pressure ulcer of sacral region, stage 2; E03.9 Hypothyroidism, unspecified; I25.10 Atherosclerotic heart disease of native coronary artery without angina pectoris; Z95.5 Presence of coronary angioplasty implant and graft; Z99.81 Dependence on supplemental oxygen; Z20.822 Contact with and (suspected) exposure to COVID-19
CPT/HCPCS: 36415; 71045; 80048; 80076; 81003; 81015; 82947; 83735; 83880; 84100; 84439; 84443; 84484; 85025; 85027; 85610; 93005; 93306; 96374; 97110; 97112; 97116; 97161; 97530; 99285; G0378; J1650; J1815; J1940; J2270; J2920; J7512; U0003

== ENCOUNTER 2021-02-16 10:38 | Emergency (ER) | payer OTHER ==
--- OUTSIDE RECORDS SUMMARY | 2021-02-16 10:41 | XMS REPORT | Continuity of Care Document ---
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 Coronary Coronary Disease [facility] - calc[facility]at calcificat 00:00: Me dical ion of ion of 00 [place] artery artery Hyperlipid Hyperlipid Disease Active C [...] on 3-18 [facility] CAD, [...] Date Quantity Comments Source Sex Assigned At [facility] Alcohol intake 2016-10-23 2016-10-23 [facility] non-drinker of Medical Ce nter alcohol (finding) Smoking Status Start Date Stop Date Source Current every day smoker 2016-10-23 00:00:00 [facility] Medications Ordered Filled Start Stop Current Ordering Indication Dosage Frequency Signature Comments Components Source Medication Medication Date Date Medication? Clinician (SIG) Name Name levothyroxi Yes hypothyroid 150ug Take [address] ne 3-24 ism mcg by [facility] - (SYNTHROID, 18:57: mouth Medic al LEVOTHROID) 38 Every Center 100 MCG morning on tablet an empty stomach . gabapentin Yes neuropathic 800mg [id number] Take [address] (NEURONTIN) 3-24 pain [id number] mg by L ukes - 300 MG [...] (test 125 mg/dL 70-110 H TESTED AT [facility] [address] [facility] = 1538) [facility] 7703 0 POCT-GLUCOSE [id number] 11:32:00 Test Item Value Reference Range Interpretation Comments POC-GLUCOSE METER 178 mg/dL 70-110 H TESTED AT [facility] 6720 (BEAKER) (test code = [place] 1538) [address] POCT-GLUCOSE [id number] 07:36:00 Test Item Value Reference Range Interpretation Comments POC-GLUCOSE METER 159 mg/dL 70-110 H TESTED AT [facility] 6720 (BEAKER) (test code = [place] 1538) [address] [id number] 04:24:00 Test Item Value Reference Range Interpretation Comments MAGNESIUM (BEAKER) (test code = 1.8 mg/dL 1.6-2.6 627) Please draw today if not done already.BASIC METABOLIC [id number] 04:24:00 Test Item Value Reference Range Interpretation [...] % 36.0-45.0 L 411) MEAN CORPUSCULAR VOLUME ([facility]) 94.8 fL 82.0-99.0 (test code = 753) MEAN CORPUSCULAR HEMOGLOBIN 32.6 pg 27.0-33.0 ([facility]) (test code = 751) MEAN CORPUSCULAR HEMOGLOBIN CONC 34.4 GM/DL 32.0-36.0 ([facility]) (test code = 752) RED CELL DISTRIBUTION WIDTH 13.7 % 10.3-14.2 ([facility]) (test code = 412) PLATELET COUNT ([facility]) (test 318 K/CU MM 150-430 code = 756) MEAN PLATELET VOLUME ([facility]) 7.2 fL 6.5-10.5 (test code = 754) NUCLEATED RED BLOOD CELLS 0 /100 WBC 0-0 ([facility]) (test code = 413) 0.00POCT-GLUCOSE [id number] 21:59:00 Test Item Value Reference Range Interpretation Comments POC-GLUCOSE METER 161 mg/dL 70-110 H TESTED AT [place] [address] ([facility]) (test code = [facility] Kaylee [facility] 1538) [id number] POCT-GLUCOSE [id number] 17:22:00 Test Item Value Reference Range Interpretation Comments POC-GLUCOSE METER 106 mg/dL 70-110 TESTED AT [place] [address] ([facility]) (test code = [facility] Kaylee [facility] 1538) [address] POCT-GLUCOSE [id number] 12:49:00 Test Item Value Reference Range Interpretation Comments POC-GLUCOSE METER 143 mg/dL 70-110 H TESTED AT [place] [address] ([facility]) (test code = [facility] 1538) [address] POCT-GLUCOSE [id number] 08:52:00 Test Item Value Reference Range Interpretation Comments POC-GLUCOSE METER 257 mg/dL 70-110 H TESTED AT [place] [address] ([facility]) (test code = [facility] Kaylee [facility] 1538) [address] B-TYPE NATRIURETIC FACTOR (BNP)2016-10-24 05:49:00 Test Item Value Reference Range Interpretation Comments B-TYPE NATRIURETIC PEPTIDE ([facility]) 478 pg/mL 0-100 H (test code = 700) [id number] 05:45:00 Test Item Value Reference Range Interpretation Comments MAGNESIUM (BEAKER) (test code = 2.0 mg/dL 1.6-2.6 627) Please draw today if not done already.BASIC METABOLIC [id number] 05:45:00 Test Item Value Reference Range Interpretation [...] Please draw today if not done already.POCT-GLUCOSE [id number] 21:05:00 Test Item Value Reference Range Interpretation Comments POC-GLUCOSE METER 207 mg/dL 70-110 H TESTED AT [facility] 6720 (BEAKER) (test code = CANDIDO Page [place] 1538) [address] POCT-GLUCOSE [id number] 17:36:00 Test Item Value Reference Range Interpretation Comments POC-GLUCOSE METER 217 mg/dL 70-110 H TESTED AT [facility] 6720 (BEAKER) ([facility] [place] 1538) [address] POCT-GLUCOSE [id number] 12:27:00 Test Item Value Reference Range Interpretation Comments POC-GLUCOSE METER 187 mg/dL 70-110 H TESTED AT [facility] 6720 (BEAKER) (test code = CANDID[place] Page [place] 1538) [address] POCT-GLUCOSE [id number] 08:32:00 Test Item Value Reference Range Interpretation Comments POC-GLUCOSE METER 190 mg/dL 70-110 H TESTED AT [facility] 6720 (BEAKER) (test code = [place] 1532) [address] CBC (HEMOGRAM ONLY)2016-10-23 05:22:00 Test Item Value [...] WBC 0-0 (BEAKER) (test code = 413) [id number] 05:21:00 Test Item Value Reference Range Interpretation Comments MAGNESIUM (BEAKER) (test code = 2.0 mg/dL 1.6-2.6 627) Please draw today if not done already.BASIC METABOLIC [id number] 05:21:00 Test Item Value Reference Range Interpretation Comments SODIUM (BEAKER) 138 meq/L 136-145 (test code = 381) POTASSIUM (BEAKER) 4.0 meq/L 3.5-5.1 (test code = 379) CHLORIDE (BEAKER) 99 meq/L 98-107 (test code = 382) CO2 (BEAKER) (test 25 meq/L 22- code = 355) BLOOD UREA NITROGEN 18 mg/dL 7-21 ([facility]) (test code = 354) CREATININE ([facility]) 0.78 mg/dL 0.57-1.25 (test code = 358) GLUCOSE RANDOM 219 mg/dL 70-105 H ([facility]) (test code = 652) CALCIUM ([facility]) 8.8 mg/dL 8.4-10.2 (test code = 697) EGFR ([facility]) (test 73 mL/min/1.73 ESTIMA TAMMI GFR IS code = 1092) sq m NOT ACCURATE CREATININE CLEARANCE IN PREDICTING GLOMERULAR FILTRATION RATE . ESTIMATED GFR I S NOT APPLICABLE FOR DIALYSIS PATIEN TS. Please draw today if not done already.POCT-GLUCOSE [id number] 04:07:00 Test Item Value Reference Range Interpretation Comments POC-GLUCOSE METER 226 mg/dL 70-110 H TESTED AT [place] [address] ([facility]) ([facility] 1538) [address] POCT-GLUCOSE [id number] 23:07:00 Test Item Value Reference Range Interpretation Comments POC-GLUCOSE METER 208 mg/dL 70-110 H TESTED AT [place] [address] ([facility]) (test code = [facility] Kaylee [place] 1538) [address] POCT-GLUCOSE [id number] 20:53:00 Test Item Value Reference Range Interpretation Comments POC-GLUCOSE METER 279 mg/dL 70-110 H TESTED AT [place] [address] ([facility]) (test code = [facility] Kaylee [place] 1538) [address] POCT-GLUCOSE [id number] 18:27:00 Test Item Value Reference Range Interpretation Comments POC-GLUCOSE METER 233 mg/dL 70-110 H TESTED AT [place] [address] ([facility]) (test code = [facility] [employer] [place] 1538) [address] POCT-GLUCOSE [id number] 12:41:00 Test Item Value Reference Range Interpretation Comments POC-GLUCOSE METER 282 mg/dL 70-110 H TESTED AT [place] [address] ([facility]) (test code = [facility] [employer] [place] 1538) [address] BLOOD GAS, [id number] 10:14:00 Test Item Value Reference Range Interpretation Comments PH VENOUS ([facility]) (test code = 7.48 7.32-7.42 H 701) [...] (test code = 1819) 21.0 % POCT-GLUCOSE [id number] 08:55:00 Test Item Value Reference Range Interpretation Comments POC-GLUCOSE METER 149 mg/dL 70-110 H TESTED AT [facility] 6720 (BEAKER) (test code = [place] 1538) [address] [id number] 07:04:00 Test Item Value Reference Range Interpretation Comments PARTIAL THROMBOPLASTIN TIME 27.7 seconds 22.5-36.0 (BEAKER) (test code = 760) [id number] 04:59:00 Test Item Value Reference Range Interpretation Comments MAGNESIUM (BEAKER) (test code = 1.9 mg/dL 1.6-2.6 627) Please draw today if not done already.BASIC METABOLIC [id number] 04:59:00 Test Item Value Reference Range Interpretation [...] 0-0 (BEAKER) (test code = 413) 0.00POCT-GLUCOSE [id number] 20:38:00 Test Item Value Reference Range Interpretation Comments POC-GLUCOSE METER 196 mg/dL 70-110 H TESTED AT [facility] 6720 [facility] (test code = [place] 1538) [address] POCT-GLUCOSE [id number] 17:09:00 Test Item Value Reference Range Interpretation Comments POC-GLUCOSE METER 146 mg/dL 70-110 H TESTED AT [facility] 6720 [facility] (test code = [place] 1538) [address] POCT-GLUCOSE [id number] 13:52:00 Test Item Value Reference Range Interpretation Comments POC-GLUCOSE METER 96 mg/dL 70-110 TESTED AT [place] [address] ([facility]) (test code = CANDIDO Page [facility] [id number] 1538) [id number] 11:12:00 Test Item Value Reference Range Interpretation Comments ACTIVATED CLOTTING TIME 255 sec TEST ED AT [place] [address] ([facility]) (test code = CANDIDO Page [facility] 441) [address] [id number] 10:21:00 Test Item Value Reference Range Interpretation Comments ACTIVATED CLOTTING TIME 302 sec TEST ED AT [place] [address] ([facility]) (test code = CANDIDO Page [facility] 441) [address] [id number] 10:21:00 Test Item Value Reference Range Interpretation Comments ACTIVATED CLOTTING TIME 569 sec TEST ED AT [place] [address] ([facility]) (test code = CANDIDO Page [facility] 441) 6[address] POCT-GLUCOSE [id number] 07:23:00 Test Item Value Reference Range Interpretation Comments POC-GLUCOSE METER 87 mg/dL 70-110 TESTED AT [place] [address] ([facility]) (test code = CANDIDO Page [facility] [address] 1538) B-TYPE NATRIURETIC FACTOR (BNP)2016-10-21 06:33:00 Test Item Value Reference Range Interpretation Comments B-TYPE NATRIURETIC PEPTIDE (BEAKER) 494 pg/mL 0-100 H (test code = 700) [id number] 06:21:00 Test Item Value Reference Range Interpretation Comments MAGNESIUM (BEAKER) (test code = 1.9 mg/dL 1.6-2.6 627) Please draw today if not done already.BASIC METABOLIC [id number] 06:21:00 Test Item Value Reference Range Interpretation [...] 0-0 (BEAKER) (test code = 413) 0.00POCT-GLUCOSE [id number] 20:36:00 Test Item Value Reference Range Interpretation Comments POC-GLUCOSE METER 280 mg/dL 70-110 H TESTED AT [facility] 6720 (BEAKER) (test code = [place] 1538) [address] POCT-GLUCOSE [id number] 16:29:00 Test Item Value Reference Range Interpretation Comments POC-GLUCOSE METER 218 mg/dL 70-110 H TESTED AT [facility] 6720 (BEAKER) (test code = CANDIDO Page [facility] 1538) 78652 POCT-GLUCOSE [id number] 12:24:00 Test Item Value Reference Range Interpretation Comments POC-GLUCOSE METER 193 mg/dL 70-110 H TESTED AT [facility] 6720 (BEAKER) ([facility] 1538) [address]78 POCT-GLUCOSE [id number] 07:21:00 Test Item Value Reference Range Interpretation Comments POC-GLUCOSE METER 179 mg/dL 70-110 H TESTED AT [facility] 6720 (BEAKER) (test code = [facility] Kaylee [facility] 1538) [address] [id number] 06:24:00 Test Item Value Reference Range Interpretation Comments THYROID STIMULATING HORMONE 1.09 uIU/mL 0.35-4.94 (BEAKER) (test code = 772) [id number] 05:47:00 Test Item Value Reference Range Interpretation Comments MAGNESIUM (BEAKER) (test code = 2.0 mg/dL 1.6-2.6 627) Please draw today if not done already.BASIC METABOLIC [id number] 05:47:00 Test Item Value Reference Range Interpretation [...] Please draw today if not done already.POCT-GLUCOSE [id number] 21:41:00 Test Item Value Reference Range Interpretation Comments POC-GLUCOSE METER 191 mg/dL 70-110 H TESTED AT [facility] 6720 [facility] (test code = [facility] 1538) [address] POCT-GLUCOSE [id number] 17:13:00 Test Item Value Reference Range Interpretation Comments POC-GLUCOSE METER 197 mg/dL 70-110 H TESTED AT [place] [address] ([facility]) (test code = [facility] 1538) 25349 POCT-GLUCOSE [id number] 11:30:00 Test Item Value Reference Range Interpretation Comments POC-GLUCOSE METER 236 mg/dL 70-110 H TESTED AT [place] [address] ([facility] (test code = [facility] 1538) 22292 POCT-GLUCOSE [id number] 07:26:00 Test Item Value Reference Range Interpretation Comments POC-GLUCOSE METER 231 mg/dL 70-110 H TESTED AT [place] [address] ([facility] (test code = [facility] 1538) [address] BASIC METABOLIC [id number] 06:07:00 Test Item Value Reference Range Interpretation [...] 0-0 (BEAKER) (test code = 413) 0.00TROPONIN [id number] 01:02:00 Test Item Value Reference Range Interpretation [...] acidosis, acute neurological disease, and persistent tachyarrhythmia.FastingLIPID [id number] 00:53:00 Test Item Value Reference Range Interpretation Comments TRIGLYCERIDES (BEAKER) (test code = 184 mg/dL 540) CHOLESTEROL ([facility]) (test code = 204 mg/dL 631) HDL CHOLESTEROL ([facility]) (test code 39 mg/dL = 976) LDL CHOLESTEROL CALCULATED ([facility]) 128 mg/dL (test code = 633) Triglyceride Reference Range: Low Risk <150 Borderline 150-199 High Risk 200-499 Very High Risk >=500Cholesterol Reference Range: Low Risk <200 Borderline 200-239 High Risk >240HDL Cholesterol Reference Range: Low Risk >=60 High Risk <40LDL Cholesterol Reference Range: Optimal <100 Near Optimal 100-129 Borderline 130-159 High 160-189 Very High >=190 FastingPOCT-GLUCOSE [id number] 21:57:00 Test Item Value Reference Range Interpretation Comments POC-GLUCOSE METER 223 mg/dL 70-110 H TESTED AT [place] [address] ([facility]) (test code = [facility] 1538) [address] TROPONIN [id number] 18:46:00 Test Item Value Reference Range Interpretation Comments TROPONIN I ([facility]) (test code = 30.60 ng/mL 0.00-0.03 HH [...] acidosis, acute neurological disease, and persistent tachyarrhythmia.POCT-GLUCOSE [id number] 17:10:00 Test Item Value Reference Range Interpretation Comments POC-GLUCOSE METER 225 mg/dL 70-110 H TESTED AT [place] [address] ([facility]) (test code = [facility] 1538) 97084 POCT-GLUCOSE [id number] 14:36:00 Test Item Value Reference Range Interpretation Comments POC-GLUCOSE METER 303 mg/dL 70-110 H TESTED AT [place] [address] ([facility]) (test code = [facility] 1538) 01381 HEMOGLOBIN [id number] 13:32:00 Test Item Value Reference Range Interpretation Comments HEMOGLOBIN A1C (BEAKER) (test code = 11.4 % 4.3-6.1 H 368) TROPONIN [id number] 12:17:00 Test Item Value Reference Range Interpretation [...] acute neurological disease, and persistent tachyarrhythmia.COMPREHENSIVE METABOLIC [id number] 12:16:00 Test Item Value Reference Range Interpretation [...] pg/mL 0-100 H (test code = 700) [id number] 10:41:00 Test Item Value Reference Range Interpretation Comments PARTIAL THROMBOPLASTIN TIME 58.8 seconds 22.5-36.0 H (BEAKER) (test code = 760) Prior to initiating heparinPROTHROMBIN TIME/[id number] 10:40:00 Test Item Value Reference Range Interpretation [...] code = 14.2 GM/DL 12.0-15.0 410) HEMATOCRIT ([facility]) (test code = 41.8 % 36.0-45.0 411) MEAN CORPUSCULAR VOLUME ([facility]) 92.4 fL 82.0-99.0 (test code = 753) MEAN CORPUSCULAR HEMOGLOBIN 31.3 pg 27.0-33.0 ([facility]) (test code = 751) MEAN CORPUSCULAR HEMOGLOBIN CONC 33.9 GM/DL 32.0-36.0 (AKER) (test code = 752) RED CELL DISTRIBUTION WIDTH 13.2 % 10.3-14.2 ([facility]) (test code = 412) PLATELET COUNT ([facility]) (test 242 K/CU MM 150-430 code = 756) MEAN PLATELET VOLUME ([facility]) 8.0 fL 6.5-10.5 (test code = 754) NUCLEATED RED BLOOD CELLS 0 /100 WBC 0-0 ([facility]) (test code = 413) POCT-GLUCOSE [id number] 09:41:00 Test Item Value Reference Range Interpretation Comments POC-GLUCOSE METER 416 mg/dL 70-110 HH TESTED AT [place] [address] ([facility]) (test code = CANDIDO Page [place] 1538) [address] [id number] 08:15:00 Test Item Value Reference Range Interpretation Comments ACTIVATED CLOTTING TIME 209 sec TEST ED AT [place] [address] ([facility]) (test code = [facility] Kaylee [facility] 441) [address] [id number] 07:18:00 Test Item Value Reference Range Interpretation Comments ACTIVATED CLOTTING TIME 286 sec TEST ED AT [place] [address] ([facility]) (test code = [facility] 441) [address]
[2021-02-16] MEDS ORDERED: ACETAMINOPHEN 500 MG TAB ONE (11:42)
[2021-02-16] MEDS ORDERED: FAMOTIDINE 20 MG TAB ONE (11:42)
[2021-02-16 11:48] LABS: Absolute Lymphocytes (CBC) 1.9 K/uL (0.7-4.9); Basophils % 0.7 % (0-1.3); Hematocrit 36.2 % (36.0-45.0); Lymphocytes % 15.9 % (15.3-44.8); MPV 7.5 fL (7.6-11.3); RBC Red Blood Cell Count 4.08 M/uL (3.86-4.86)
[2021-02-16 12:12] LABS: ALT/SGPT 29 U/L (12-78); Albumin 2.7 g/dL (3.4-5.0); Alkaline Phosphatase 117 U/L (45-117); BUN Blood Urea Nitrogen 48 mg/dL (7-18); Bicarbonate 34 mmol/L (21-32); Bilirubin Direct < 0.1 mg/dL (0-0.2); Bilirubin Total 0.3 mg/dL (0.2-1.0); Glucose Level 245 mg/dL (74-106); Lipase 159 U/L (73-393); Protein, Total 6.7 g/dL (6.4-8.2); Sodium Level 138 mmol/L (136-145)
[2021-02-16 12:14] LABS: AST/SGOT 17 U/L (15-37); Potassium 4.2 mmol/L (3.5-5.1)
[2021-02-16] MEDS ORDERED: Ringers Lactate 1,000 ML IV ONE (14:20)
[2021-02-16] MEDS ORDERED: KETOROLAC 30 MG/ML INJ ONE (14:21)
--- NOTE | 2021-02-16 14:41 | EDPHYS ---
Physician Documentation [facility] Name: Carrol Lundberg Age: 75 yrs Sex: Female : 1945 Arrival Date: 02/16/2021 Time: 10:41 Bed 20 Private MD: ED Physician Ricardo Valencia HPI: 02/16 13:19 This 75 yrs old Female presents to ER via EMS with complaints of Headache, jr8 General Weakness. 13:19 Onset: The symptoms/episode began/occurred acutely, today. Associated signs and jr8 symptoms: Pertinent positives: heartburn . Severity of symptoms: At its worst the pain was mild, in the emergency department the pain is unchanged. The patient has not experienced similar symptoms in the past. The patient has been recently seen by a physician:. Historical: - Allergies: 10:46 No Known Allergies; iw - Home Meds: 10:46 aspirin 81 mg Oral chew [Active]; atorvastatin 80 mg Oral tab 1 tab once daily iw [Active]; Atrovent Inhl [Active]; clopidogrel 75 mg Oral tab 1 tab once daily [Active]; furosemide 40 mg Oral tab 1 tab 2 times per day for Hypertension [Active]; gabapentin 800 mg Oral tab 3 times per day [Active]; levothyroxine 150 mcg tab 1 tab once daily [Active]; Novolog 100 unit/mL Sub-Q soln [Active]; ReliOn Glucose 15-400 gram-unit/60 mL Oral liqd [Active]; sertraline 100 mg Oral tab 2 tabs once daily [Active]; spironolactone 50 mg Oral tab [Active]; Symbicort inhalation [Active]; Ventolin HFA 90 mcg/actuation Nebulizer HFAA 1 puff every 4 hours [Active]; - PMHx: 10:46 CHF; COPD; Diabetes - IDDM; Hypertension; Myocardial infarction; iw - Immunization history:: Flu vaccine status is unknown. - Social history:: Smoking status: Patient/guardian denies using tobacco, the patient reports quitting approximately 4 years ago. ROS: 13:19 Eyes: Negative for injury, pain, redness, and discharge, ENT: Negative for injury, jr8 pain, and discharge, Neck: Negative for injury, pain, and swelling, Cardiovascular: Negative for chest pain, palpitations, and edema, Respiratory: Negative for shortness of breath, cough, wheezing, and pleuritic chest pain, Back: Negative for injury and pain, MS/Extremity: Negative for injury and deformity, Skin: Negative for injury, rash, and discoloration. 13:19 Abdomen/GI: Negative for abdominal pain, nausea, vomiting, and diarrhea, abdominal distension, hematemesis. 13:19 Neuro: Positive for headache. Exam: 13:19 Constitutional: This is a well developed, well nourished patient who is awake, alert, jr8 and in no acute distress. ENT: Nares patent. No nasal discharge, no septal abnormalities noted. Tympanic membranes are normal and external auditory canals are clear. Oropharynx with no redness, swelling, or masses, exudates, or evidence of obstruction, uvula midline. Mucous membranes moist. Neck: Trachea midline, no thyromegaly or masses palpated, and no cervical lymphadenopathy. Supple, full range of motion without nuchal rigidity, or vertebral point tenderness. No Meningismus. Cardiovascular: Regular rate and rhythm with a normal S1 and S2. No gallops, murmurs, or rubs. Normal PMI, no JVD. No pulse deficits. Respiratory: Lungs have equal breath sounds bilaterally, clear to auscultation and percussion. No rales, rhonchi or wheezes noted. No increased work of breathing, no retractions or nasal flaring. Abdomen/GI: Soft, non-tender, with normal bowel sounds. No distension or tympany. No guarding or rebound. No evidence of tenderness throughout. Back: No spinal tenderness. No costovertebral tenderness. Full range of motion. Skin: Warm, dry with normal turgor. Normal color with no rashes, no lesions, and no evidence of cellulitis. MS/ Extremity: Pulses equal, no cyanosis. Neurovascular intact. Full, normal range of motion. Neuro: Awake and alert, GCS 15, oriented to person, place, time, and situation. Cranial nerves II-XII grossly intact. Motor strength 5/5 in all extremities. Sensory grossly intact. Cerebellar exam normal. Vital Signs: 10:53 BP 131 / 58; Pulse 60; Resp 22; Temp 97.8; Pulse Ox 97% on NC; Weight 112.94 kg; Height ll1 5 ft. 2 in. (157.48 cm); Pain 8/10; 13:19 BP 140 / 64; Pulse 59; Resp 16; Pulse Ox 100% on R/A; zb 10:53 Body Mass Index 45.54 (112.94 kg, 157.48 cm) ll1 MDM: 11:07 Patient medically screened. [facility] 14:38 Data reviewed: vital signs, nurses notes, lab test result(s), and as a result, I will jr8 discharge patient. Data interpreted: Pulse oximetry: on room air is 100 %. Interpretation: normal. Counseling: I had a detailed discussion with the patient and/or guardian regarding: the historical points, exam findings, and any diagnostic results supporting the discharge/admit diagnosis, lab results, the need for outpatient follow up, a family practitioner, to return to the emergency department if symptoms worsen or persist or if there are any questions or concerns that arise at home. Response to treatment: the patient's symptoms have markedly improved after treatment, patient is well hydrated. 14:38 ED course: Unable to obtain urine sample. Patient A\T\O x 4. No acute distress. Feeling jr8 better. VS stable. Return precautions given . 02/16 11:04 Order name: Basic Metabolic Panel; Complete Time: 12:34 [facility] 02/16 11:04 Order name: CBC with Diff; Complete Time: 12:34 [facility] 02/16 11:04 Order name: Hepatic Function; Complete Time: 12:34 [facility] 02/16 11:04 Order name: Lipase; Complete Time: 12:34 [facility] 02/16 11:07 Order name: Troponin (emerg Dept Use Only); Complete Time: 12:34 [facility] 02/16 11:04 Order name: IV Saline Lock; Complete Time: 11: [facility] 02/16 11:04 Order name: Labs collected and sent; Complete Time: 11: [facility] 02/16 11:04 Order name: EKG - Nurse/Tech; Complete Time: 12:02 Administered Medications: 11:20 Drug: Tylenol 1000 mg Route: PO; ll1 14:12 Follow up: Response: No adverse reaction; Pain is unchanged, physician notified zb 11:21 Drug: Pepcid (famotidine) 20 mg Route: PO; ll1 14:12 Follow up: Response: No adverse reaction zb 14:12 Drug: Ringers - Lactated Ringers Solution 1000 ml Route: IV; Rate: bolus; Site: right zb wrist; 15:30 Follow up: Response: No adverse reaction; IV Status: Completed infusion; IV Intake: zb 1000ml 14:12 Drug: Ketorolac 15 mg Route: IVP; Site: right wrist; zb 14:58 Follow up: Response: No adverse reaction; Marked relief of symptoms zb Disposition: 02/17 04:19 Co-signature as Attending Physician, Ricardo Valencia MD. [email or web address] Disposition Summary: 02/16/21 14:40 Discharge Ordered Location: Home jr8 Problem: new jr8 Symptoms: have improved jr8 Condition: Stable jr8 Diagnosis - Headache jr8 - Dehydration jr8 Followup: jr8 - With: Private Physician - When: 2 - 3 days - Reason: If symptoms return, Recheck today's complaints, Continuance of care, Re-evaluation by your physician Discharge Instructions: - Discharge Summary Sheet jr8 - Dehydration, Adult jr8 Forms: - Medication Reconciliation Form jr8 - Thank You Letter jr8 - Antibiotic Education jr8 - Prescription Opioid Use jr8 Signatures: Dispatcher [employer] Paola Cummins RN RN Jose Roberto Ann PA [facility]8 Nicolás Hines RN RN 1 Ricardo Valencia MD MD 7 Nita Gaona RN RN zb Corrections: (The following items were deleted from the chart) 02/16 10:47 10:46 Home Meds: symbacort; [facility]
--- NOTE | 2021-02-16 14:41 | ER ---
Nurse's Notes [facility] Name: Carrol Lundberg Age: 75 yrs Sex: Female : 1945 Arrival Date: 02/16/2021 Time: 10:41 Bed 20 Private MD: Diagnosis: Headache;Dehydration Presentation: 02/16 10:42 Chief complaint: EMS states: pt c/o headache since last week after being d/c from hospital , also having generalized weakness , pt thinks she is being a burden to her family. Coronavirus screen: At this time, the client does not indicate any symptoms associated with coronavirus-19. Ebola Screen: Patient negative for fever greater than or equal to 101.5 degrees Fahrenheit, and additional compatible Ebola Virus Disease symptoms Patient denies exposure to infectious person. Patient denies travel to an Ebola-affected area in the 21 days before illness onset. No symptoms or risks identified at this time. Initial Sepsis Screen: Does the patient meet any 2 criteria? No. Patient's initial sepsis screen is negative. Does the patient have a suspected source of infection? No. Patient's initial sepsis screen is negative. Risk Assessment: Do you want to hurt yourself or someone else?. Onset of symptoms was February 09, 2021. 10:42 Method Of Arrival: EMS: [facility] 10:42 Acuity: AUGUST 3 10:53 Initial Sepsis Screen: Does the patient meet any 2 criteria? Does the patient have a ll1 suspected source of infection? Yes: Acute abdominal pain. 10:55 Chief complaint: Patient states: Abd burning with nausea started today. No fever. ll1 Triage Assessment: 15:49 Headache History: The patient has had previous headaches and this one is similar to zb previous episodes. General: Appears. General: Behavior is calm. 15:50 Pain: Pain currently is 8 out of 10 on a pain scale. Pain began 6 days ago Also zb complains of. Historical: - Allergies: 10:46 No Known Allergies; - Home Meds: 10:46 aspirin 81 mg Oral chew [Active]; atorvastatin 80 mg Oral tab 1 tab once daily iw [Active]; Atrovent Inhl [Active]; clopidogrel 75 mg Oral tab 1 tab once daily [Active]; furosemide 40 mg Oral tab 1 tab 2 times per day for Hypertension [Active]; gabapentin 800 mg Oral tab 3 times per day [Active]; levothyroxine 150 mcg tab 1 tab once daily [Active]; Novolog 100 unit/mL Sub-Q soln [Active]; ReliOn Glucose 15-400 gram-unit/60 mL Oral liqd [Active]; sertraline 100 mg Oral tab 2 tabs once daily [Active]; spironolactone 50 mg Oral tab [Active]; Symbicort inhalation [Active]; Ventolin HFA 90 mcg/actuation Nebulizer HFAA 1 puff every 4 hours [Active]; - PMHx: 10:46 CHF; COPD; Diabetes - IDDM; Hypertension; Myocardial infarction; iw - Immunization history:: Flu vaccine status is unknown. - Social history:: Smoking status: Patient/guardian denies using tobacco, the patient reports quitting approximately 4 years ago. Screenin:19 Abuse screen: Denies threats or abuse. Denies injuries from another. Nutritional zb screening: No deficits noted. Tuberculosis screening: No symptoms or risk factors identified. Fall Risk None identified. Assessment: 12:30 General: Appears uncomfortable, Behavior is calm. Pain: Complains of pain in forehead zb Pain does not radiate. Pain currently is 8 out of 10 on a pain scale. Neuro: Level of Consciousness is awake, alert, obeys commands, Oriented to person, place, time, situation, Reports headache in entire. Cardiovascular: Patient's skin is warm and dry. Respiratory: Airway is patent Respiratory effort is even, unlabored, Respiratory pattern is regular, symmetrical. : No deficits noted. Urine is clear. Derm: Skin is intact, is healthy with good turgor, Skin is dry, Skin is normal, Skin temperature is warm. Musculoskeletal: Capillary refill < 3 seconds, in bilateral Range of motion: intact in all extremities. 13:30 Reassessment: Patient appears in no apparent distress at this time. Patient and/or zb family updated on plan of care and expected duration. Pain level reassessed. Patient is alert, oriented x 3, equal unlabored respirations, skin warm/dry/pink. 14:30 Reassessment: Patient appears in no apparent distress at this time. Patient and/or zb family updated on plan of care and expected duration. Pain level reassessed. Patient is alert, oriented x 3, equal unlabored respirations, skin warm/dry/pink. Vital Signs: 10:53 BP 131 / 58; Pulse 60; Resp 22; Temp 97.8; Pulse Ox 97% on NC; Weight 112.94 kg; Height ll1 5 ft. 2 in. (157.48 cm); Pain 8/10; 13:19 BP 140 / 64; Pulse 59; Resp 16; Pulse Ox 100% on R/A; zb 10:53 Body Mass Index 45.54 (112.94 kg, 157.48 cm) ll1 ED Course: 10:41 Patient arrived in ED. iw 10:45 Triage completed. iw 10:55 Arm band placed on. ll1 11:03 Jose Roberto Ann PA is PHCP. jr8 11:03 Ricardo Valencia MD is Attending Physician. jr8 11:10 Maintain EMS IV. Dressing intact. Site clean \T\ dry. Gauge \T\ site: 22 R FA. ll 1 11:15 Inserted saline lock: 22 gauge in left forearm, using aseptic technique. Blood ll1 collected. 11:53 Paola Patel, RN is Primary Nurse. iw 12:01 EKG done, by ED staff, reviewed by Jose Roberto MORGAN. dh3 12:39 Nita Gaona, CHELSEA is Primary Nurse. zb 15:49 Patient has correct armband on for positive identification. Bed in low position. Call zb light in reach. Side rails up X 1. Pulse ox on. NIBP on. Door closed. Noise minimized. 15:49 No provider procedures requiring assistance completed. IV discontinued, intact, zb bleeding controlled, No redness/swelling at site. Pressure dressing applied. Administered Medications: 11:20 Drug: Tylenol 1000 mg Route: PO; ll1 14:12 Follow up: Response: No adverse reaction; Pain is unchanged, physician notified zb 11:21 Drug: Pepcid (famotidine) 20 mg Route: PO; ll1 14:12 Follow up: Response: No adverse reaction zb 14:12 Drug: Ringers - Lactated Ringers Solution 1000 ml Route: IV; Rate: bolus; Site: right zb wrist; 15:30 Follow up: Response: No adverse reaction; IV Status: Completed infusion; IV Intake: zb 1000ml 14:12 Drug: Ketorolac 15 mg Route: IVP; Site: right wrist; zb 14:58 Follow up: Response: No adverse reaction; Marked relief of symptoms zb Intake: 15:30 IV: 1000ml; Total: 1000ml. zb Outcome: 14:40 Discharge ordered by MD. oneill 15:30 Discharged to home ambulatory, with family. zb 15:30 Condition: stable 15:30 Discharge instructions given to patient, Instructed on discharge instructions, follow up and referral plans. Demonstrated understanding of instructions, follow-up care. 15:40 Patient left the ED. iw Signatures: Paola Patel RN RN iw Jose Roberto Ann PA PA jrNoemi Ritter 3 Nicolás Hines RN RN ll1 Nita Gaona RN RN zb Corrections: (The following items were deleted from the chart) 10:47 10:46 Home Meds: symbacort; iw iw 10:55 10:53 BP 131 / 58; Pulse 51bpm; Resp 22bpm; Pulse Ox 97% Nasal Cannula; Temp 97.8F; ll1 112.94 kg; Height 5 ft. 2 in.; BMI: 45.5; Pain 8/10; ll1
[2021-02-16 16:34] VITALS: TEMP 97.8
[2021-02-16 16:37] VITALS: BP 140/64; O2SAT 100
== END 2021-02-16 15:40 | disposition home or self-care (01) ==
LOC: ER 10:38
DX: R51.9 Headache, unspecified (principal); E86.0 Dehydration; Z87.891 Personal history of nicotine dependence; I11.0 Hypertensive heart disease with heart failure; I50.9 Heart failure, unspecified; J44.9 Chronic obstructive pulmonary disease, unspecified; E11.9 Type 2 diabetes mellitus without complications; I25.2 Old myocardial infarction; Z79.4 Long term (current) use of insulin
CPT/HCPCS: 96365; 85025; 80048; 36415; 80076; 84484; 83690; 96375; 99284; J7120; 93005

== ENCOUNTER 2021-07-12 08:28 | Inpatient (IN) | payer OTHER ==
--- OUTSIDE RECORDS SUMMARY | 2021-07-12 08:32 | XMS REPORT | Continuity of Care Document ---
:1945 Author Organization [facility] t Address [address] [place] [address] Care Team Providers Name Role Phone VIRGIL Attending Clinician Unavailable Toshia ZELAYA Attending Clinician Unavailable VIRGIL Admitting Clinician Unavailable Toshia ZELAYA Admitting Clinician Unavailable Payers Payer Name Policy Type Policy Number Effective Date Expiration Date S brenda MEDICARE [place]: [id number] 2012 webme 00:00:00 - [facility] Problems This patient has no known problems. Allergies, Adverse Reactions, Alerts This patient has no known allergies or adverse reactions. Medications This patient has no known medications. Procedures This patient has no known procedures. Encounters Start End Encounter Admission Attending Care Care Encounter Source Date/Time Date/Time Type Type Clinicians Facility Department ID 2020-07-19 2020-07-19 [facility] [address] Megan 11:12:00 11:12:00 _L [facility] Results Test Description Test Time Test Comments Results Result Comments Source POCT-GLUCOSE METER 2016-10-25 18:02:00 Test Item Value Reference Range Interpretation Comme nts POC-GLUCOSE METER ([facility]) (test 125 mg/dL 70-110 H TESTED AT [facility] [address] [facility] code = 1538) [facility] 7703 0 POCT-GLUCOSE [id number] 11:32:00 Test Item Value Reference Range Interpretation Comments POC-GLUCOSE METER 178 mg/dL 70-110 H TESTED AT [facility] 6720 ([facility]) (test code = BERTNE R [facility] 1538) [address] POCT-GLUCOSE [id number] 07:36:00 Test Item Value Reference Range Interpretation Comments POC-GLUCOSE METER 159 mg/dL 70-110 H TESTED AT [facility] 6720 (BEAKER) (test code = CANDIDO GALVAN [place] 1538) [address] [id number] 04:24:00 Test Item Value Reference Range Interpretation Comments MAGNESIUM (BEAKER) (test code = 1.8 mg/dL 1.6-2.6 627) Please draw today if not done already.BASIC METABOLIC [id number] 04:24:00 Test Item Value Reference Range Interpretation [...] % 36.0-45.0 L 411) MEAN CORPUSCULAR VOLUME ([facility]) 94.8 fL 82.0-99.0 (test code = 753) MEAN CORPUSCULAR HEMOGLOBIN 32.6 pg 27.0-33.0 (AKER) (test code = 751) MEAN CORPUSCULAR HEMOGLOBIN CONC 34.4 GM/DL 32.0-36.0 ([facility]) (test code = 752) RED CELL DISTRIBUTION WIDTH 13.7 % 10.3-14.2 ([facility]) (test code = 412) PLATELET COUNT ([facility]) (test 318 K/CU MM 150-430 code = 756) MEAN PLATELET VOLUME ([facility]) 7.2 fL 6.5-10.5 (test code = 754) NUCLEATED RED BLOOD CELLS 0 /100 WBC 0-0 ([facility]) (test code = 413) 0.00POCT-GLUCOSE [id number] 21:59:00 Test Item Value Reference Range Interpretation Comments POC-GLUCOSE METER 161 mg/dL 70-110 H TESTED AT [place] [address] ([facility]) (test [facility] 1538) [address] POCT-GLUCOSE [id number] 17:22:00 Test Item Value Reference Range Interpretation Comments POC-GLUCOSE METER 106 mg/dL 70-110 TESTED AT [place] [address] ([facility]) (test code = [facility] 1538) [address] POCT-GLUCOSE [id number] 12:49:00 Test Item Value Reference Range Interpretation Comments POC-GLUCOSE METER 143 mg/dL 70-110 H TESTED AT [place] [address] ([facility]) (test code = [facility] Kaylee [facility] 1538) [address] POCT-GLUCOSE [id number] 08:52:00 Test Item Value Reference Range Interpretation Comments POC-GLUCOSE METER 257 mg/dL 70-110 H TESTED AT [place] [address] ([facility]) (test code = [facility] Kaylee [facility] 1538) [address] B-TYPE NATRIURETIC FACTOR (BNP)2016-10-24 05:49:00 Test Item Value Reference Range Interpretation Comments B-TYPE NATRIURETIC PEPTIDE ([facility]) 478 pg/mL 0-100 H (test code = 700) [id number] 05:45:00 Test Item Value Reference Range Interpretation Comments MAGNESIUM ([facility]) (test code = 2.0 mg/dL 1.6-2.6 627) Please draw today if not done already.BASIC METABOLIC [id number] 05:45:00 Test Item Value Reference Range Interpretation [...] Please draw today if not done already.POCT-GLUCOSE [id number] 21:05:00 Test Item Value Reference Range Interpretation Comments POC-GLUCOSE METER 207 mg/dL 70-110 H TESTED AT [facility] 6720 [facility] (test code = [facility] 1538) 44131 POCT-GLUCOSE [id number] 17:36:00 Test Item Value Reference Range Interpretation Comments POC-GLUCOSE METER 217 mg/dL 70-110 H TESTED AT [facility] 6720 (BEAKER) (test code = [facility] 1538) 72454 POCT-GLUCOSE [id number] 12:27:00 Test Item Value Reference Range Interpretation Comments POC-GLUCOSE METER 187 mg/dL 70-110 H TESTED AT [facility] 6720 (BEAKER) (test code = [facility] 1538) 59527 POCT-GLUCOSE [id number] 08:32:00 Test Item Value Reference Range Interpretation Comments POC-GLUCOSE METER 190 mg/dL 70-110 H TESTED AT [facility] 6720 [facility] (test code = [facility] 3981) 80463 CBC (HEMOGRAM ONLY)2016-10-23 05:22:00 Test Item Value [...] WBC 0-0 (BEAKER) (test code = 413) [id number] 05:21:00 Test Item Value Reference Range Interpretation Comments MAGNESIUM (BEAKER) (test code = 2.0 mg/dL 1.6-2.6 627) Please draw today if not done already.BASIC METABOLIC [id number] 05:21:00 Test Item Value Reference Range Interpretation [...] 358) GLUCOSE RANDOM 219 mg/dL 70-105 H ([facility]) (test code = 652) CALCIUM ([facility]) 8.8 mg/dL 8.4-10.2 (test code = 697) EGFR ([facility]) (test 73 mL/min/1.73 ESTIMA TAMMI GFR IS code = 1092) sq m NOT ACCURATE CREATININE CLEARANCE IN PREDICTING GLOMERULAR FILTRATION RATE . ESTIMATED GFR I S NOT APPLICABLE FOR DIALYSIS PATIEN TS. Please draw today if not done already.POCT-GLUCOSE [id number] 04:07:00 Test Item Value Reference Range Interpretation Comments POC-GLUCOSE METER 226 mg/dL 70-110 H TESTED AT [place] [address] ([facility]) (test code = [facility] 1538) [address] POCT-GLUCOSE [id number] 23:07:00 Test Item Value Reference Range Interpretation Comments POC-GLUCOSE METER 208 mg/dL 70-110 H TESTED AT [place] [address] ([facility]) (test code = [facility] 1538) 30272 POCT-GLUCOSE [id number] 20:53:00 Test Item Value Reference Range Interpretation Comments POC-GLUCOSE METER 279 mg/dL 70-110 H TESTED AT [place] [address] ([facility]) (test code = [facility] 1538) 89818 POCT-GLUCOSE [id number] 18:27:00 Test Item Value Reference Range Interpretation Comments POC-GLUCOSE METER 233 mg/dL 70-110 H TESTED AT [place] [address] ([facility]) (test code = [facility] Kaylee [facility] 1538) 61575 POCT-GLUCOSE [id number] 12:41:00 Test Item Value Reference Range Interpretation Comments POC-GLUCOSE METER 282 mg/dL 70-110 H TESTED AT [place] [address] ([facility]) (test code = [facility] [employer] [place] 1538) [address] BLOOD GAS, [id number] 10:14:00 Test Item Value Reference Range Interpretation Comments PH VENOUS ([facility]) (test code = 7.48 7.32-7.42 H 701) PCO2 VENOUS ([facility]) (test code = 41 mmHg 41-51 755) PO2 VENOUS ([facility]) (test code = 141 mmHg 25-40 H 702) O2 SATURATION VENOUS (BEAKER) 99.0 % 40.0-70.0 H (test code = 703) HCO3 VENOUS (BEAKER) (test code = 30 mmol/L 21-29 H 705) BASE EXCESS VENOUS (BEAKER) (test 5.5 mmol/L -2.0-3.0 H code = 704) PATIENT TEMPERATURE (BEAKER) (test 36.0 C code = 1818) FIO2 (BEAKER) (test code = 1819) 21.0 % POCT-GLUCOSE [id number] 08:55:00 Test Item Value Reference Range Interpretation Comments POC-GLUCOSE METER 149 mg/dL 70-110 H TESTED AT [facility] 6720 (BEAKER) (test code = CANDIDO Page GALVAN [place] 1538) 716[address] [id number] 07:04:00 Test Item Value Reference Range Interpretation Comments PARTIAL THROMBOPLASTIN TIME 27.7 seconds 22.5-36.0 (BEAKER) (test code = 760) [id number] 04:59:00 Test Item Value Reference Range Interpretation Comments MAGNESIUM (BEAKER) (test code = 1.9 mg/dL 1.6-2.6 627) Please draw today if not done already.BASIC METABOLIC [id number] 04:59:00 Test Item Value Reference Range Interpretation [...] 0-0 (BEAKER) (test code = 413) 0.00POCT-GLUCOSE [id number] 20:38:00 Test Item Value Reference Range Interpretation Comments POC-GLUCOSE METER 196 mg/dL 70-110 H TESTED AT [place] [address] ([facility]) (test code = CANDIDO GALVAN [place] 1538) 10522 POCT-GLUCOSE [id number] 17:09:00 Test Item Value Reference Range Interpretation Comments POC-GLUCOSE METER 146 mg/dL 70-110 H TESTED AT [place] [address] ([facility]) (test code = CANDIDO GALVAN [place] 1538) 64641 POCT-GLUCOSE [id number] 13:52:00 Test Item Value Reference Range Interpretation Comments POC-GLUCOSE METER 96 mg/dL 70-110 TESTED AT [place] [address] ([facility]) (test code = CANDIDO SURESH [address] 1538) [id number] 11:12:00 Test Item Value Reference Range Interpretation Comments ACTIVATED CLOTTING TIME 255 sec TEST ED AT [place] [address] [facility] (test code = CANDIDO Page [facility] 441) 312[address] [id number] 10:21:00 Test Item Value Reference Range Interpretation Comments ACTIVATED CLOTTING TIME 302 sec TEST ED AT [place] [address] ([facility]) (test code = CANDIDO Page [place] [address]) [address] [id number] 10:21:00 Test Item Value Reference Range Interpretation Comments ACTIVATED CLOTTING TIME 569 sec TEST ED AT [place] [address] [facility] (test code = CANDIDO Page [place] [address]) [address] POCT-GLUCOSE [id number] 07:23:00 Test Item Value Reference Range Interpretation Comments POC-GLUCOSE METER 87 mg/dL 70-110 TESTED AT [place] [address] ([facility]) (test code = CANDIDO Page [facility] [address] 1538) B-TYPE NATRIURETIC FACTOR (BNP)2016-10-21 06:33:00 Test Item Value Reference Range Interpretation Comments B-TYPE NATRIURETIC PEPTIDE (BEAKER) 494 pg/mL 0-100 H (test code = 700) [id number] 06:21:00 Test Item Value Reference Range Interpretation Comments MAGNESIUM (BEAKER) (test code = 1.9 mg/dL 1.6-2.6 627) Please draw today if not done already.BASIC METABOLIC [id number] 06:21:00 Test Item Value Reference Range Interpretation [...] 0-0 (BEAKER) (test code = 413) 0.00POCT-GLUCOSE [id number] 20:36:00 Test Item Value Reference Range Interpretation Comments POC-GLUCOSE METER 280 mg/dL 70-110 H TESTED AT [facility] 6720 ([facility]) (test code = CANDIDO GALVAN [place] 1538) [address] POCT-GLUCOSE [id number] 16:29:00 Test Item Value Reference Range Interpretation Comments POC-GLUCOSE METER 218 mg/dL 70-110 H TESTED AT [facility] 6720 ([facility]) (test code = CANDIDO GALVAN [place] 1538) [address]187 POCT-GLUCOSE [id number] 12:24:00 Test Item Value Reference Range Interpretation Comments POC-GLUCOSE METER 193 mg/dL 70-110 H TESTED AT [facility] 6720 (BEAKER) (test code = CANDIDO Page [facility] 1538) 79167 POCT-GLUCOSE [id number] 07:21:00 Test Item Value Reference Range Interpretation Comments POC-GLUCOSE METER 179 mg/dL 70-110 H TESTED AT [facility] 6720 (BEAKER) (test code = CANDIDO Page [facility] 1538) 35534 [id number] 06:24:00 Test Item Value Reference Range Interpretation Comments THYROID STIMULATING HORMONE 1.09 uIU/mL 0.35-4.94 (BEAKER) (test code = 772) [id number] 05:47:00 Test Item Value Reference Range Interpretation Comments MAGNESIUM (BEAKER) (test code = 2.0 mg/dL 1.6-2.6 627) Please draw today if not done already.BASIC METABOLIC [id number] 05:47:00 Test Item Value Reference Range Interpretation [...] Please draw today if not done already.POCT-GLUCOSE [id number] 21:41:00 Test Item Value Reference Range Interpretation Comments POC-GLUCOSE METER 191 mg/dL 70-110 H TESTED AT [place] [id number] (BEAKER) (test code = CANDIDO Page [facility] 1538) 89434 POCT-GLUCOSE [id number] 17:13:00 Test Item Value Reference Range Interpretation Comments POC-GLUCOSE METER 197 mg/dL 70-110 H TESTED AT [place] [address] (BEAKER) (test code = CANDIDO Page [facility] 1538) 24551 POCT-GLUCOSE [id number] 11:30:00 Test Item Value Reference Range Interpretation Comments POC-GLUCOSE METER 236 mg/dL 70-110 H TESTED AT [place] [address] (BEAKER) ([facility] 1538) 03556 POCT-GLUCOSE [id number] 07:26:00 Test Item Value Reference Range Interpretation Comments POC-GLUCOSE METER 231 mg/dL 70-110 H TESTED AT [place] [address] (BEAKER) (test code = [facility] Kaylee [facility] 1538) 93917 BASIC METABOLIC [id number] 06:07:00 Test Item Value Reference Range Interpretation [...] 0-0 (BEAKER) (test code = 413) 0.00TROPONIN [id number] 01:02:00 Test Item Value Reference Range Interpretation [...] acidosis, acute neurological disease, and persistent tachyarrhythmia.FastingLIPID [id number] 00:53:00 Test Item Value Reference Range Interpretation Comments TRIGLYCERIDES (BEAKER) (test code = 184 mg/dL 540) CHOLESTEROL (BEAKER) (test code = 204 mg/dL 631) HDL CHOLESTEROL (BEAKER) (test code 39 mg/dL = 976) LDL CHOLESTEROL CALCULATED ([facility]) 128 mg/dL (test code = 633) Triglyceride Reference Range: Low Risk <150 Borderline 150-199 High Risk 200-499 Very High Risk >=500Cholesterol Reference Range: Low Risk <200 Borderline 200-239 High Risk >240HDL Cholesterol Reference Range: Low Risk >=60 High Risk <40LDL Cholesterol Reference Range: Optimal <100 Near Optimal 100-129 Borderline 130-159 High 160-189 Very High >=190 FastingPOCT-GLUCOSE [id number] 21:57:00 Test Item Value Reference Range Interpretation Comments POC-GLUCOSE METER 223 mg/dL 70-110 H TESTED AT [place] [address] ([facility]) (test code = [facility] [place] 1538) [address] TROPONIN [id number] 18:46:00 Test Item Value Reference Range Interpretation Comments TROPONIN I ([facility]) (test code = 30.60 ng/mL 0.00-0.03 397) [...] acidosis, acute neurological disease, and persistent tachyarrhythmia.POCT-GLUCOSE [id number] 17:10:00 Test Item Value Reference Range Interpretation Comments POC-GLUCOSE METER 225 mg/dL 70-110 H TESTED AT [place] [address] ([facility]) (test code = [facility] [place] 1538) [address] POCT-GLUCOSE [id number] 14:36:00 Test Item Value Reference Range Interpretation Comments POC-GLUCOSE METER 303 mg/dL 70-110 H TESTED AT [place] [address] ([facility]) (test code = [facility] [place] 1538) [address]684 HEMOGLOBIN [id number] 13:32:00 Test Item Value Reference Range Interpretation Comments HEMOGLOBIN A1C (BEAKER) (test code = 11.4 % 4.3-6.1 H 368) TROPONIN [id number] 12:17:00 Test Item Value Reference Range Interpretation [...] acute neurological disease, and persistent tachyarrhythmia.COMPREHENSIVE METABOLIC [id number] 12:16:00 Test Item Value Reference Range Interpretation [...] pg/mL 0-100 H (test code = 700) [id number] 10:41:00 Test Item Value Reference Range Interpretation Comments PARTIAL THROMBOPLASTIN TIME 58.8 seconds 22.5-36.0 H (BEAKER) (test code = 760) Prior to initiating heparinPROTHROMBIN [id number] 10:40:00 Test Item Value Reference Range Interpretation [...] 41.8 % 36.0-45.0 411) MEAN CORPUSCULAR VOLUME ([facility]) 92.4 fL 82.0-99.0 (test code = 753) MEAN CORPUSCULAR HEMOGLOBIN 31.3 pg 27.0-33.0 ([facility]) (test code = 751) MEAN CORPUSCULAR HEMOGLOBIN CONC 33.9 GM/DL 32.0-36.0 ([facility]) (test code = 752) RED CELL DISTRIBUTION WIDTH 13.2 % 10.3-14.2 ([facility]) (test code = 412) PLATELET COUNT ([facility]) (test 242 K/CU MM 150-430 code = 756) MEAN PLATELET VOLUME ([facility]) 8.0 fL 6.5-10.5 (test code = 754) NUCLEATED RED BLOOD CELLS 0 /100 WBC 0-0 ([facility]) (test code = 413) POCT-GLUCOSE [id number] 09:41:00 Test Item Value Reference Range Interpretation Comments POC-GLUCOSE METER 416 mg/dL 70-110 HH TESTED AT [place] [address] ([facility]) (test code = CANDIDO Page [facility] 1538) 26454 [id number] 08:15:00 Test Item Value Reference Range Interpretation Comments ACTIVATED CLOTTING TIME 209 sec TEST ED AT [place] [address] ([facility]) (test code = CANDIDO Page [facility] 441) 22890 [id number] 07:18:00 Test Item Value Reference Range Interpretation Comments ACTIVATED CLOTTING TIME 286 sec TEST ED AT [place] [address] ([facility]) (test code = CANDIDO Page [facility] 441) [address]
[2021-07-12] MEDS ORDERED: LEVALBUTEROL 1.25 MG/3 ML NEB ONE (09:23)
[2021-07-12] MEDS ORDERED: METHYLPREDNISOLONE 125 MG INJ ONE (09:24)
[2021-07-12] MEDS ORDERED: MAGNESIUM SULFATE 1 gm IVPB 1 GM/100 ML BAG IV ONE (09:24)
--- NOTE | 2021-07-12 09:25 | RAD REPORT ---
EXAM DESCRIPTION: RAD - Chest Single View - 07/12/2021 9:12 am CLINICAL HISTORY: SOB COMPARISON: Chest Single View dated 02/10/2021; Chest Single View dated 02/08/2021; Chest Single View d ated 02/06/2021; Chest Single View dated 02/05/2021 FINDINGS: Lines: None. Lungs: No evidence of edema or pneumonia. Pleural: No significant pleural effusions or pneumothorax. Cardiac: Mild cardiomegaly. Bones: No acute fractures. Other: IMPRESSION: No acute cardiopulmonary disease.
[2021-07-12 09:52] LABS: Basophils % 0.5 % (0-1.3); Hematocrit 28.2 % (36.0-45.0); Lymphocytes % 10.2 % (15.3-44.8); MPV 7.2 fL (7.6-11.3)
[2021-07-12 10:03] LABS: Albumin 2.5 g/dL (3.4-5.0); Bilirubin Total 0.3 mg/dL (0.2-1.0); Troponin (Emerg Dept Use Only) 0.05 ng/mL (0.0-0.045)
[2021-07-12] MEDS ORDERED: FUROSEMIDE 20 MG/ 2ML VIAL ONE (10:13)
[2021-07-12 10:41] LABS: Protime INR 1.02
--- NOTE | 2021-07-12 11:00 | EDPHYS ---
Physician Documentation [facility] Name: Carrol Lundberg Age: 76 yrs Sex: Female : 1945 Arrival Date: 07/12/2021 Time: 08:29 Bed 19 Private MD: ED Physician Clarence Abreu HPI: 07/12 08:41 This 76 yrs old Female presents to ER via Unassigned with complaints of Shortness Of jmm Breath. 08:41 The patient has shortness of breath at rest, with light activity. Onset: The jmm symptoms/episode began/occurred gradually. 08:41 Duration: The symptoms are continuous. The patient's shortness of breath is aggravated jmm by is alleviated by nothing. 08:41 Associated signs and symptoms: Pertinent positives: swelling in extemities. The patient jmm has experienced similar episodes in the past, several times. 10:35 Is a 76-year-old female with a history of hypothyroidism, diabetes mellitus, COPD, CHF jmm the presents emerged part with complaints of progressively worsening shortness of breath and leg swelling. Patient denies fever. Patient states she has had home health wrapper legs. Patient states that her shortness of breath worsened today. Patient has been hospitalized on numerous occasions for similar symptoms.. Historical: - Allergies: 11:27 No Known Allergies; jg9 - PMHx: 09:00 Congestive heart failure; Chronic obstructive lung disease; Coronary atherosclerosis; jg9 Pneumonia; Diabetes mellitus; Hypertensive disorder; - Immunization history:: Client reports having NOT received the Covid vaccine. Pneumococcal vaccine status is unknown, Flu vaccine status is unknown. - Social history:: Smoking status: Patient/guardian denies using tobacco, the patient reports quitting approximately 5 years ago. ROS: 08:41 Constitutional: Negative for fever, chills, and weight loss, Cardiovascular: Negative jm for chest pain, palpitations, and edema. 08:41 Respiratory: Positive for cough, shortness of breath, wheezing. 08:41 MS/extremity: Positive for swelling. 08:41 All other systems are negative. Exam: 08:41 Constitutional: This is a well developed, well nourished patient who is awake, alert, jmm and in no acute distress. Head/Face: atraumatic. Eyes: EOMI, no conjunctival erythema appreciated ENT: Moist Mucus Membranes Neck: Trachea midline, Supple Chest/axilla: Normal chest wall appearance and motion. Cardiovascular: Regular rate and rhythm. No edema appreciated 08:41 Back: Normal ROM Skin: General appearance color normal 08:41 Respiratory: mild respiratory distress is noted, Respirations: labored breathing, that is mild, Breath sounds: wheezing: that is moderate, is heard diffusely. 08:41 Musculoskeletal/extremity: ROM: intact in all extremities, erythema,, pitting edema noted to the lower extremities bilaterally, compartments are soft, full dorsalis pulse, neurovascular intact. 08:41 Skin: Erythema noted to the right and left lower extremities. 08:41 Neuro: Orientation: is normal, Mentation: is normal, Memory: is normal. 08:41 Psych: Behavior/mood is pleasant, cooperative. Vital Signs: 09:00 BP 90 / 41; Pulse 61; Resp 22 S; Temp 96.9(TE); Pulse Ox 100% on 8% Nebulizer Mask; jg9 09:15 BP 119 / 75; Pulse 61; Resp 22; Temp 96.9(TE); Pulse Ox 100% on 3 lpm NC; Weight 108.86 jg9 kg (R); Height 5 ft. 2 in. (157.48 cm) (R); 09:30 BP 122 / 56; Pulse 63; Resp 21 S; Pulse Ox 100% on 3 lpm NC; jg9 09:45 BP 123 / 46; Pulse 58; Resp 21; Pulse Ox 100% on 3 lpm NC; jg9 10:00 BP 129 / 68; Pulse 66; Resp 20 S; Pulse Ox 100% 3 lpm ; jg9 10:30 BP 124 / 47; Pulse 60; Resp 18; Pulse Ox 100% on 3 lpm NC; jg9 11:00 BP 129 / 66; Pulse 62; Resp 19; Pulse Ox 100% on 3 lpm NC; jg9 12:35 BP 120 / 50; Pulse 67; Resp 17 S; Pulse Ox 100% on 3 lpm NC; jg9 12:45 BP 124 / 61; Pulse 66; Resp 20 S; Pulse Ox 100% on 3 lpm NC; jg9 13:00 BP 122 / 51; Pulse 66; Resp 17 S; Pulse Ox 100% on 3 lpm NC; jg9 13:30 BP 123 / 61; Pulse 63; Resp 16 S; Pulse Ox 100% on 3 lpm NC; [facility] 14:00 BP 128 / 41; Pulse 64; Resp 18 S; Pulse Ox 100% on 3 lpm NC; [facility] 14:15 BP 107 / 59; Pulse 63; Resp 18; Pulse Ox 100% on 3 lpm NC; [facility] 15:00 BP 147 / 52; Pulse 63; Resp 20 S; Pulse Ox 100% on 3 lpm NC; 9 09:15 Body Mass Index 43.90 (108.86 kg, 157.48 cm) [facility] MDM: 08:41 Patient medically screened. [facility] 10:27 Data reviewed: vital signs, nurses notes. Counseling: I had a detailed discussion with [facility] the patient and/or guardian regarding: the historical points, exam findings, and any diagnostic results supporting the discharge/admit diagnosis. 10:53 Counseling: I had a detailed discussion with the patient and/or guardian regarding: lab [facility] results, radiology results, the need for further work-up and treatment in the hospital. ED course: I discussed the patient with Dr. Youssef whom accepted the patient for admission. . 07/12 08:42 Order name: Basic Metabolic Panel; Complete Time: 11:11 [facility] 07/12 08:42 Order name: CBC with Diff; Complete Time: 09:54 [facility] 07/12 08:42 Order name: LFT's; Complete Time: 11:11 [facility] 07/12 08:42 Order name: Magnesium; Complete Time: 11:11 [facility] 07/12 08:42 Order name: NT PRO-BNP; Complete Time: 11:11 [facility] 07/12 08:42 Order name: PT-INR; Complete Time: 10:45 [facility] 07/12 08:42 Order name: Troponin (emerg Dept Use Only); Complete Time: 11:11 [facility] 07/12 08:42 Order name: XRAY Chest (1 view); Complete Time: 09:32 [facility] 07/12 08:42 Order name: SARS-COV-2 RT PCR (Document "Date of Onset" if Symptomatic); Complete Time: [facility] 10:38 07/12 08:44 Order name: Procalcitonin; Complete Time: 11:03 [facility] 07/12 08:44 Order name: Lactate; Complete Time: 11:10 [facility] 07/12 08:44 Order name: Blood Culture Adult (2) [facility] 07/12 14:27 Order name: Lactate Sepsis 2 HR Follow-up; Complete Time: 14:54 [facility] 07/12 15:13 Order name: ABG Arterial Blood Gas; Complete Time: 15:49 [facility] 07/12 08:42 Order name: EKG; Complete Time: 08:44 [facility] 07/12 08:42 Order name: Cardiac monitoring; Complete Time: 09:22 [facility] 07/12 08:42 Order name: EKG - Nurse/Tech; Complete Time: 09:21 [facility] 07/12 08:42 Order name: IV Saline Lock; Complete Time: 09:32 [facility] 07/12 08:42 Order name: Labs collected and sent; Complete Time: 09:32 [facility] 07/12 08:42 Order name: O2 Per Protocol; Complete Time: 09:21 [facility] 07/12 08:42 Order name: O2 Sat Monitoring; Complete Time: 09:21 [facility] 07/12 10:09 Order name: Labs - recollect needed: recollect blue top; Complete Time: 10:26 07/12 10:11 Order name: Labs - recollect needed: recollect green top; Complete Time: 10:26 07/12 10:51 Order name: CT Chest For PE Angio; Complete Time: 11:39 [facility] 07/12 12:17 Order name: CONS Physician Consult [facility] 07/12 14:47 Order name: Oxygen; Complete Time: 14:48 j9 Administered Medications: 09:25 Drug: Xopenex (levalbuterol) (3) 1.25 mg Route: Inhalation; 9 09:45 Follow up: Response: No adverse reaction; Wheezing unchanged jg9 09:30 Drug: SOLU-Medrol (methylPrednisoLONE) 125 mg Route: IVP; Site: left antecubital; jg9 09:45 Follow up: Response: No adverse reaction; Wheezing unchanged j9 09:56 Drug: Magnesium Sulfate 1 grams Route: IVPB; Infused Over: 1 hrs; Site: left 9 antecubital; 10:56 Follow up: IV Status: Completed infusion; IV Intake: 100ml j9 10:25 Drug: Lasix (furosemide) 20 mg Route: IVP; Infused Over: 2 mins; Site: right hand; j9 10:45 Follow up: Response: No adverse reaction; No change in condition jg9 11:07 Drug: Lasix (furosemide) 80 mg Route: IVP; Site: left antecubital; jg9 11:39 Follow up: Response: No adverse reaction; No change in condition jg9 14:35 Follow up: Response: Wheezing diminished jg9 Disposition: 07/13 07:50 Co-signature as Attending Physician, Clarence Abreu MD I agree with the assessment and sp3 plan of care. Disposition Summary: 07/12/21 11:00 Hospitalization Ordered Hospitalization Status: Observation [facility] Provider: Pedro Youssef Location: Telemetry/MedSurg (observation) [facility] Condition: Stable jm Problem: an acute exacerbation jm Symptoms: are unchanged [facility] Bed/Room Type: Standard [facility] Room Assignment: 221(07/12/21 13:56) bd Diagnosis - Acute on chronic combined systolic (congestive) and diastolic (congestive) heart [facility] failure - COPD/ Chronic obstructive pulmonary disease with (acute) exacerbation [facility] Forms: - Medication Reconciliation Form jmm - SBAR form [facility] Signatures: Dispatcher [employer] EDMS Gillian Mclean Joel, PA PA Clarence Oconnell MD MD sp3 Tatum Huynh jg9 Corrections: (The following items were deleted from the chart) 07/12 11:27 11:27 PMHx: CHF; jg9 jg9 11: 11:27 PMHx: Hypertension; jg9 jg9 11: 11:27 PMHx: Myocardial infarction; jg9 jg9 11: 11:27 PMHx: COPD; jg9 jg9 11: 11:27 PMHx: Diabetes - IDDM; jg9 jg9 11: 09:00 PMHx: Coronary atherosclerosis; jg9 jg9 11: 09:00 PMHx: Coronary atherosclerosis; jg9 jg9 11: 09:00 PMHx: Headache; jg9 jg9 13:56 11:00 [facility] bd
--- NOTE | 2021-07-12 11:00 | ER ---
Nurse's Notes [facility] Name: Carrol Lundberg Age: 76 yrs Sex: Female : 1945 Arrival Date: 07/12/2021 Time: 08:29 Bed 19 Private MD: Diagnosis: Acute on chronic combined systolic (congestive) and diastolic (congestive) heart failure;COPD/ Chronic obstructive pulmonary disease with (acute) exacerbation Presentation: 07/12 09:00 Chief complaint: EMS states: Hx CHF, COPD recently discharged after being admitted due jg9 to exacerbation of CHF/COPD. Patient sob this morning, home o2 not helping. Coronavirus screen: Vaccine status: Patient reports being unvaccinated. discussed risks with patient and educated on benefits of receiving vaccination due to multiple chronic problems. Ebola Screen: Patient negative for fever greater than or equal to 101.5 degrees Fahrenheit, and additional compatible Ebola Virus Disease symptoms Patient denies exposure to infectious person. Patient denies travel to an Ebola-affected area in the 21 days before illness onset. Initial Sepsis Screen: Does the patient meet any 2 criteria? No. Patient's initial sepsis screen is negative. Risk Assessment: Do you want to hurt yourself or someone else? Patient reports no desire to harm self or others. Onset of symptoms is unknown. Care prior to arrival: Medication(s) given: Albuterol Neb x 1. 09:00 Method Of Arrival: EMS: [facility] 9 09:00 Acuity: AUGUST 3 jg9 11:36 Initial Sepsis Screen: Does the patient have a suspected source of infection? Yes: jg9 Productive cough/pneumonia. Triage Assessment: 09:00 General: Appears distressed, uncomfortable, Behavior is anxious, Reports sob, pain to 9 buttocks. Pain: Complains of pain in buttocks- stage 1 on r buttocks Pain at worst was 8 out of 10 on a pain scale. Alleviated by repositioning, Aggravated by pressure. EENT: No deficits noted. Neuro: No deficits noted. Cardiovascular: No deficits noted. Cardiovascular: 4+ pitting edema-leaking fluids. Rhythm is atrial fibrillation With PVC's. Respiratory: Reports shortness of breath chronic cough that is productive, Airway is patent Trachea midline Respiratory effort is labored, Respiratory pattern is symmetrical, tachypnea Sputum is thick, yellow Breath sounds are diminished bilaterally. Breath sounds with wheezes in right upper lobe, right middle lobe and right lower lobe Onset: The symptoms/episode began/occurred yesterday, the patient has moderate shortness of breath. GI: No deficits noted. : No deficits noted. Derm: Skin stage 1 pressure ulcer to r buttocks, red/escoriated private area. Musculoskeletal: No deficits noted. Historical: - Allergies: 11:27 No Known Allergies; jg9 - PMHx: 09:00 Congestive heart failure; Chronic obstructive lung disease; Coronary atherosclerosis; jg9 Pneumonia; Diabetes mellitus; Hypertensive disorder; - Immunization history:: Client reports having NOT received the Covid vaccine. Pneumococcal vaccine status is unknown, Flu vaccine status is unknown. - Social history:: Smoking status: Patient/guardian denies using tobacco, the patient reports quitting approximately 5 years ago. Screenin:00 Abuse screen: Denies threats or abuse. Denies injuries from another. Nutritional jg9 screening: No deficits noted. Tuberculosis screening: No symptoms or risk factors identified. Fall Risk Fall in past 12 months (25 points). Assessment: 09:00 General: Appears distressed, uncomfortable, Behavior is anxious. Pain: Complains of jg9 pain in buttocks-right mid. Neuro: No deficits noted. Cardiovascular: 4+ pitting edema-leaking bilateral lower extremities. Cardiovascular: No deficits noted. Rhythm is atrial fibrillation With PVC's. Respiratory: Reports shortness of breath Airway is patent Trachea midline Respiratory effort is labored, Respiratory pattern is tachypnea. GI: No deficits noted. : Reports pain entire area worse if r buttocks where stage 1 ulcer was noted. EENT: No deficits noted. Derm: Bruising that is dark purple, on abdomen-diffuse lower abd pain secondary to heparin injection when admitted in hospital prior to to today. Decubitus located on right buttocks is stage I. Musculoskeletal: No deficits noted. 15:10 Reassessment: 1600 urine out in gibson, color-yellow, clear, no odor Patient states jg9 feeling better. Vital Signs: 09:00 BP 90 / 41; Pulse 61; Resp 22 S; Temp 96.9(TE); Pulse Ox 100% on 8% Nebulizer Mask; jg9 09:15 BP 119 / 75; Pulse 61; Resp 22; Temp 96.9(TE); Pulse Ox 100% on 3 lpm NC; Weight 108.86 jg9 kg (R); Height 5 ft. 2 in. (157.48 cm) (R); 09:30 BP 122 / 56; Pulse 63; Resp 21 S; Pulse Ox 100% on 3 lpm NC; jg9 09:45 BP 123 / 46; Pulse 58; Resp 21; Pulse Ox 100% on 3 lpm NC; jg9 10:00 BP 129 / 68; Pulse 66; Resp 20 S; Pulse Ox 100% 3 lpm ; jg9 10:30 BP 124 / 47; Pulse 60; Resp 18; Pulse Ox 100% on 3 lpm NC; jg9 11:00 BP 129 / 66; Pulse 62; Resp 19; Pulse Ox 100% on 3 lpm NC; jg9 12:35 BP 120 / 50; Pulse 67; Resp 17 S; Pulse Ox 100% on 3 lpm NC; jg9 12:45 BP 124 / 61; Pulse 66; Resp 20 S; Pulse Ox 100% on 3 lpm NC; jg9 13:00 BP 122 / 51; Pulse 66; Resp 17 S; Pulse Ox 100% on 3 lpm NC; jg9 13:30 BP 123 / 61; Pulse 63; Resp 16 S; Pulse Ox 100% on 3 lpm NC; jg9 14:00 BP 128 / 41; Pulse 64; Resp 18 S; Pulse Ox 100% on 3 lpm NC; jg9 14:15 BP 107 / 59; Pulse 63; Resp 18; Pulse Ox 100% on 3 lpm NC; jg9 15:00 BP 147 / 52; Pulse 63; Resp 20 S; Pulse Ox 100% on 3 lpm NC; jg9 09:15 Body Mass Index 43.90 (108.86 kg, 157.48 cm) jg9 Vitals: 09:15 Cardiac Rhythm Assessment Atrial fibrillation. jg9 ED Course: 08:29 Patient arrived in ED. ds1 08:35 Tatum Huynh is Primary Nurse. jg9 08:36 Chente Krause PA is PHCP. jmm 08:36 Clarence Abreu MD is Attending Physician. jmm 08:45 Arm band placed on right wrist. jg9 09:00 Patient has correct armband on for positive identification. Bed in low position. Call jg9 light in reach. Side rails up X 1. Warm blanket given. 09:12 XRAY Chest (1 view) In Process Unspecified. EDMS 09:20 Inserted saline lock: 22 gauge in left antecubital area, using aseptic technique. jg9 10:06 Gibson cath inserted, using sterile technique, 16 Fr., by ok, balloon inflated, to jg9 gravity drainage. 10:25 Inserted saline lock: 22 gauge in right hand, using aseptic technique. jg9 10:59 Pedro Youssef MD is Hospitalizing Provider. jmm 11:16 Triage completed. jg9 11:19 CT Chest For PE Angio In Process Unspecified. EDMS 11:39 Resting quietly. Awaiting bed assignment. jg9 13:00 No apparent distress. Resting quietly. Awaiting bed assignment. ice chips. jg9 14:34 No provider procedures requiring assistance completed. jg9 14:34 Patient admitted, IV remains in place. jg9 Administered Medications: 09:25 Drug: Xopenex (levalbuterol) (3) 1.25 mg Route: Inhalation; jg9 09:45 Follow up: Response: No adverse reaction; Wheezing unchanged jg9 09:30 Drug: SOLU-Medrol (methylPrednisoLONE) 125 mg Route: IVP; Site: left antecubital; jg9 09:45 Follow up: Response: No adverse reaction; Wheezing unchanged jg9 09:56 Drug: Magnesium Sulfate 1 grams Route: IVPB; Infused Over: 1 hrs; Site: left 9 antecubital; 10:56 Follow up: IV Status: Completed infusion; IV Intake: 100ml jg9 10:25 Drug: Lasix (furosemide) 20 mg Route: IVP; Infused Over: 2 mins; Site: right hand; jg9 10:45 Follow up: Response: No adverse reaction; No change in condition jg9 11:07 Drug: Lasix (furosemide) 80 mg Route: IVP; Site: left antecubital; jg9 11:39 Follow up: Response: No adverse reaction; No change in condition jg9 14:35 Follow up: Response: Wheezing diminished jg9 Intake: 10:56 IV: 100ml; Total: 100ml. jg9 Outcome: 11:00 Decision to Hospitalize by Provider. jmm 15:15 Admitted to Med/surg accompanied by tech, via stretcher, with oxygen, Report called to shae Harvey RN 15:15 Condition: unchanged j9 15:20 Patient left the ED. jg9 Signatures: Dispatcher [employer] EDChente Fermin PA PA jmm Sanford, Gail ds1 Tatum Huynh jg9 Corrections: (The following items were deleted from the chart) 11 11: PMHx: CHF; jg9 jg9 11: PMHx: Hypertension; jg9 jg9 11: PMHx: Myocardial infarction; jg9 jg9 11: PMHx: COPD; j9 jg9 11: PMHx: Diabetes - IDDM; jg9 jg9 09:00 PMHx: Coronary atherosclerosis; jg9 jg9 09:00 PMHx: Coronary atherosclerosis; jg9 jg9 09:00 PMHx: Headache; jg9 jg9
[2021-07-12] MEDS ORDERED: FUROSEMIDE 100 MG/10 ML VIAL IV ONE (11:03)
[2021-07-12 11:10] LABS: ALT/SGPT 29 U/L (12-78); AST/SGOT 15 U/L (15-37); Alkaline Phosphatase 85 U/L (45-117); BUN Blood Urea Nitrogen 38 mg/dL (7-18); Bicarbonate 26 mmol/L (21-32); Bilirubin Direct < 0.1 mg/dL (0-0.2); Glucose Level 76 mg/dL (74-106); Magnesium 2.5 mg/dL (1.8-2.4); NT PRO-BNP 3415 pg/mL (<125); Potassium 5.3 mmol/L (3.5-5.1); Protein, Total 7.2 g/dL (6.4-8.2); Sodium Level 142 mmol/L (136-145)
--- NOTE | 2021-07-12 11:32 | RAD REPORT ---
EXAM DESCRIPTION: CT - Chest For Pe Angio - 07/12/2021 11:19 am CLINICAL HISTORY: SOB COMPARISON: Thorax Wo Con dated 12/03/2016; CTANGIO CHEST FOR PE dated 06/17/2011 FINDINGS: Chest Wall: No suspicious thyroid nodules or pathologic lymphadenopathy. Lungs: No evidence of edema or consolidative airspace disease. Limited by motion. There are some secr etions within the bilateral lower lobe airways. Pleura: No significant effusions or pneumothorax. Mediastinum/nino: No pathologic lymphadenopathy. Pulmonary arteries/Aorta: No filling defect identified. No aortic aneurysm. Heart: No significant pericardial effusion. Normal heart size. Multi-vessel coronary artery disease. Upper abdomen: Cholelithiasis. Reflux of contrast into the hepatic veins. Bilateral adrenal nodularit y. This was present on prior CTs. Bones: No acute abnormality. All CT scans are performed using dose optimization technique as appropriate and may include automated exposure control or mA/KV adjustment according to patient size. IMPRESSION: Negative for pulmonary embolism. Secretions/mucus plugging the lower lobe airways which could be secondary to a nonspecific infectious or inflammatory process such as bronchitis.
--- NOTE | 2021-07-12 12:26 | P.HP ---
Certification for Inpatient Patient admitted to: Inpatient With expected LOS: >2 Midnights Practitioner: I am a practitioner with admitting privileges, knowledge of patient current condition, hospital course, and medical plan of care. Services: Services provided to patient in accordance with Admission requirements found in Title 42 Section 412.3 of the Code of Federal Regulations Patient History Date of Service: 07/12/21 Reason for admission: hypoxia, COPD / CHF exacerbations History of Present Illness: 76yo F, PMH: COPD on 3-4L NC at home, CHF (HFpEF), CKDIII, DM2 insulin dependent, HTN, chronic dizziness/gait instability Presents to ED due to several days of progressively worsening shortness of breath, associated with cough and wheeze. Also reporting increased lower e xtremity swelling and weeping from chronic wounds lately. More short of breath when laying flat as well, but hasn't been able to lay flat in "a long time". Reports has been taking her medications as prescribed, but has had a few changes over the last 2 months. Reports at least 2 separate hospitalizations for pneumonia and CHF exacerbation over the last 2 months, requiring multiple day hospitalization, even up to 2 weeks. She has been at home with home health, her son, and a part-time home care nurse. Reports some dysuria for "quite some time" now, no significant change, no foul smell, no change in urinary habits. No nausea/vomiting. In the ED, she was noted to have increased work of breathing, wheeze bilaterally, CTA negative for PE but noted mucous plugging, elevated BNP. ED provider requests admission for further management. Allergies No Known Allergies Allergy (Verified 02/14/20 12:33) Home Medications: Atorvastatin Calcium [Lipitor] 80 mg PO BEDTIME #60 tab 01/23/17 Clopidogrel Bisulfate [Plavix*] 75 mg PO DAILY #30 01/23/17 Spironolactone [Aldactone*] 25 mg PO BID #60 tab 01/23/17 Levothyroxine [Synthroid*] 150 mcg PO [id number] 06/03/19 Sertraline [Zoloft*] 2 tab PO DAILY 06/03/19 Aspirin Chewable [Aspirin Chewable*] 81 mg PO DAILY 02/17/20 Insulin Lispro [Humalog] 5 unit SQ TIDWM 02/17/20 NPH, Human Insulin Isophane [Humulin N] 25 unit SQ BID 02/17/20 Ipratropium Mdi [Atrovent Hf Inhaler*] 2 puff IH BID PRN 05/30/20 Furosemide 80 mg PO BID 02/05/21 predniSONE [Prednisone*] 20 mg PO SEECOM 4 Days #4 tab 02/10/21 - Past Medical/Surgical History Diabetic: Yes -: Postsurgical hypothyroidism -: History of atrial fibrillation -: Hyperlipidemia -: Hypertension -: CAD -: COPD -: Diabetes mellitus type 2 insulin dependent -: Diastolic CHF -: Depression with anxiety -: Kidney disease -: Thyroidectomy -: CAD with prior stents Psychosocial/ Personal History: Patient is a . She lives with son and grandkids. - Family History Father -: Cancer Sister -: Cancer morther -: Cancer - Social History Alcohol use: No CD- Drugs: No Caffeine use: Yes Review of Systems 10-point ROS is otherwise unremarkable Physical Examination - Physical Exam General: Alert, Oriented x3, Mild distress HEENT: EOMI, Sclerae nonicteric Neck: Supple Respiratory: Diminished, Expiratory wheezes Cardiovascular: Regular rate/rhythm, Edema (1-2+) Gastrointestinal: Soft and benign, Non-distended, No tenderness Musculoskeletal: No swelling, No tenderness Integumentary: Other (erythema in b/l ankles/feet, chronic wounds wrapped, with serous fluid noted on dressing, R > L) Neurological: Normal speech, Normal affect Urinary: Bo catheter (placed in ED) - Studies Laboratory Data (last 24 hrs) 07/12/21 10:20: PT 11.7, INR 1.02 07/12/21 09:25: WBC 9.50, Hgb 9.1 L, Hct 28.2 L, Plt Count 283 07/12/21 09:25: Sodium 142, Potassium 5.3 H, BUN 38 H, Creatinine 1.14, Glucose 76, Magnesium 2.5 H, Total Bilirubin 0.3, AST 15, ALT 29, Alkaline Phosphatase 85 Assessment and Plan - Advance Directives Does patient have a Living Will: No Does patient have a Durable POA for Healthcare: No Physician Review Additional Text: Problem List acute on chronic hypoxemic respiratory failure secondary to COPD exacerbation and CHF exacerbation Acute on chronic COPD exacerbation on chronic ~3-3.5L NC at home Acute on chronic CHF exacerbation (HFpEF) chronic dizziness / gait instability CKDIII DM2, insulin dependent HTN b/l chronic lymphedema -patient with wheeze and tachypnea / work of breathing on exam, on 4L NC -CTA negative for PE, shows mucus plugging, not a significant amount of pulm edema -supsect some CHF component and COPD -has had some increased weeping of b/l lower legs as well -IV lasix 40mg BID, continue spironolactone, nephrology consulted for assistance -Has not seen bark scaler in a long time, will consult pulmonology -insulin sliding scale, accucheks, confirm home regimen -confirm home meds, restart as appropriate VTE: lovenox Code: DNR Dispo: anticipate hospitalization >2 days Time Spent Managing Pts Care (In Minutes): 60
--- NOTE | 2021-07-12 13:35 | P.CNS ---
Date of Consult: 07/12/21 Chief Complaint: hypoxia, COPD / CHF exacerbations History of Present Illness: 76yo F, PMH: COPD on 3-4L NC at home, CHF (HFpEF), CKDIII, DM2 insulin dependent, HTN, chronic dizziness/gait instability Patient has a history of COPD recurrent hospital admissions was recently discharged from [facility]/diagnosis of diastolic heart failure COPD exacerbation patient was advised not to take a spironolactone she continued to use it on the advice of renal she has chronic lower extremity edema Allergies No Known Allergies Allergy (Verified 02/14/20 12:33) Home Medications: Atorvastatin Calcium [Lipitor] 80 mg PO BEDTIME #60 tab 01/23/17 Clopidogrel Bisulfate [Plavix*] 75 mg PO DAILY #30 01/23/17 Spironolactone [Aldactone*] 25 mg PO BID #60 tab 01/23/17 Levothyroxine [Synthroid*] 150 mcg PO [id number] 06/03/19 Sertraline [Zoloft*] 2 tab PO DAILY 06/03/19 Aspirin Chewable [Aspirin Chewable*] 81 mg PO DAILY 02/17/20 Insulin Lispro [Humalog] 5 unit SQ TIDWM 02/17/20 NPH, Human Insulin Isophane [Humulin N] 25 unit SQ BID 02/17/20 Ipratropium Mdi [Atrovent Hf Inhaler*] 2 puff IH BID PRN 05/30/20 Furosemide 80 mg PO BID 02/05/21 predniSONE [Prednisone*] 20 mg PO SEECOM 4 Days #4 tab 02/10/21 - Past Medical/Surgical History Diabetic: Yes -: Postsurgical hypothyroidism -: History of atrial fibrillation -: Hyperlipidemia -: Hypertension -: CAD -: COPD -: Diabetes mellitus type 2 insulin dependent -: Diastolic CHF -: Depression with anxiety -: Kidney disease -: Thyroidectomy -: CAD with prior stents Psychosocial/ Personal History: Patient is a . She lives with son and grandkids. - Family History Father Medical History: Cancer Sister Medical History: Cancer morther Medical History: Cancer - Social History Smoking Status: Former smoker Alcohol use: No CD- Drugs: No Caffeine use: Yes Review of Systems General: Weakness Respiratory: Shortness of Breath Cardiovascular: Edema (Significant lower extremity edema) Physical Examination General: Alert, Oriented x3, Mild distress Respiratory: Expiratory wheezes Cardiovascular: Regular rate/rhythm (3+ edema), Edema Gastrointestinal: Normal bowel sounds, Non-distended Musculoskeletal: No clubbing Laboratory Data (last 24 hrs) 07/12/21 10:20: PT 11.7, INR 1.02 07/12/21 09:25: WBC 9.50, Hgb 9.1 L, Hct 28.2 L, Plt Count 283 07/12/21 09:25: Sodium 142, Potassium 5.3 H, BUN 38 H, Creatinine 1.14, Glucose 76, Magnesium 2.5 H, Total Bilirubin 0.3, AST 15, ALT 29, Alkaline Phosphatase 85 - Problems (1) COPD exacerbation Current Visit: Yes Status: Acute Plan: Patient is 76 years of age with a history of COPD diastolic dysfunction admitted with worsening shortness of breath she has multiple hospital admissions will need long-acting bronchodilators and only uses albuterol inhaler at home is hyperkalemic secondary to use of spironolactone patient has had a dose of Lasix will check arterial blood gases CT scan of the chest is negative no evidence of sepsis patient was on Lasix 80 twice daily at home
[2021-07-12 15:12] LABS: Arterial Blood Carboxyhemoglob 1.4 % (0-1.5); Blood O2 Saturation 92.3 % (92-98.5)
[2021-07-12] MEDS ORDERED: ONDANSETRON 4 MG/2 ML VIAL IV PRN (17:22)
[2021-07-12] MEDS: INSULIN -REGULAR HUMAN 50 UNIT/0.5 ML ML SQ SCH ×2 (17:22→20:17)
[2021-07-12] MEDS: ENOXAPARIN 40 MG/0.4 ML SQ SCH (18:36)
[2021-07-12] MEDS: FUROSEMIDE 40 MG/4 ML VIAL IV SCH (18:36)
[2021-07-12] MEDS: ARFORMOTEROL TARTRATE 15 MCG/2 ML VIAL.NEB NEB SCH (20:00)
[2021-07-12] MEDS ORDERED: IPRATROPIUM BROM 0.5MG/2.5ML NEB SCH (20:00)
[2021-07-12] MEDS: GUAIFENESIN 600 MG SA TAB PO SCH (20:17)
[2021-07-12] MEDS: predniSONE 20 MG TAB PO SCH (20:17)
--- NOTE | 2021-07-12 20:59 | P.CNS ---
Date of Consult: 07/12/21 Reason for Consult: CKD/ Hyperkalemia Requesting Physician: Pedro Youssef Chief Complaint: hypoxia, COPD / CHF exacerbations History of Present Illness: 76yo F, PMH: COPD on 3-4L NC at home, CHF (HFpEF), CKDIII, DM2 insulin dependent, HTN, chronic dizziness/gait instability Presents to ED due to several days of progressively worsening shortness of breath, associated with cough and wheeze. Also reporting increased lower extremity swelling and weeping from chronic wounds lately. More short of breath when laying flat as well, but hasn't been able to lay flat in "a long time". Reports has been taking her medications as prescribed, but has had a few changes over the last 2 months. Reports at least 2 separate hospitalizations for pneumonia and CHF exacerbation over the last 2 months, requiring multiple day hospitalization, even up to 2 weeks. She has been at home with [facility], her son, and a part-time childcare administrator. Reports some dysuria for "quite some time" now, no significant change, no foul smell, no change in urinary habits. No nausea/vomiting. In the ED, she was noted to have increased work of breathing, wheeze bilaterally, CTA negative for PE but noted mucous plugging, elevated BNP. ED provider requests admission for further management. 08:41 This 76 yrs old Female presents to ER via Unassigned with complaints of Shortness Of jmm Breath. 08:41 The patient has shortness of breath at rest, with light activity. Onset: The jmm symptoms/episode began/occurred gradually. 08:41 Duration: The symptoms are continuous. The patient's shortness of breath is aggravated jmm by is alleviated by nothing. 08:41 Associated signs and symptoms: Pertinent positives: swelling in extemities. The patient jmm has experienced similar episodes in the past, several times. 10:35 Is a 76-year-old female with a history of hypothyroidism, diabetes mellitus, COPD, CHF jmm the presents emerged part with complaints of progressively worsening shortness of breath and leg swelling. Patient denies fever. Patient states she has had home health wrapper legs. Patient states that her shortness of breath worsened today. Patient has been hospitalized on numerous occasions for similar symptoms.. Allergies No Known Allergies Allergy (Verified 02/14/20 12:33) Home medications list reviewed: Yes Home Medications: Atorvastatin Calcium [Lipitor] 80 mg PO BEDTIME #60 tab 01/23/17 Clopidogrel Bisulfate [Plavix*] 75 mg PO DAILY #30 01/23/17 Levothyroxine [Synthroid*] 150 mcg PO [id number] 06/03/19 Sertraline [Zoloft*] 2 tab PO DAILY 06/03/19 Aspirin Chewable [Aspirin Chewable*] 81 mg PO DAILY 02/17/20 Ipratropium Mdi [Atrovent Hf Inhaler*] 2 puff IH BID PRN 05/30/20 predniSONE [Prednisone*] 20 mg PO SEECOM 4 Days #4 tab 02/10/21 Arformoterol Tartrate [Brovana] 15 mcg Q12HR 07/12/21 Carvedilol [Coreg] 3.125 mg PO BID 07/12/21 Furosemide [Lasix] 60 mg PO BID 07/12/21 Hydrocodone 5/APAP 325 [[place] 5/325*] 1 tab PO Q6HR 07/12/21 Insulin Glargine,Hum.rec.anlog [Lantus] 40 unit SQ BEDTIME 07/12/21 Ipratropium/Albuterol Sulfate [Iprat-Albut 0.5-3(2.5) mg/3 ml] 1 dose NEB Q6HR PRN 07/12/21 Nystatin Powder [Mycostatin (Powder)*] 15 gm TOP TID 07/12/21 - Past Medical/Surgical History Diabetic: Yes -: Postsurgical hypothyroidism -: History of atrial fibrillation -: Hyperlipidemia -: Hypertension -: CAD -: COPD -: Diabetes mellitus type 2 insulin dependent -: Diastolic CHF -: Depression with anxiety -: Kidney disease -: Thyroidectomy -: CAD with prior stents Psychosocial/ Personal History: Patient is a . She lives with son and grandkids. - Family History Father Medical History: Cancer Sister Medical History: Cancer morther Medical History: Cancer - Social History Smoking Status: Former smoker Alcohol use: No CD- Drugs: No Caffeine use: Yes Review of Systems 10-point ROS is otherwise unremarkable General: Weakness, Malaise Respiratory: Cough, Shortness of Breath Physical Examination Temp Pulse Resp BP Pulse Ox 98.2 F 65 23 H 120/52 L 100 07/12/21 16:00 07/12/21 16:00 07/12/21 16:00 07/12/21 18:36 07/12/21 16:00 General: Oriented x3, Cooperative HEENT: Atraumatic Neck: Supple Respiratory: Diminished, Expiratory wheezes Cardiovascular: Regular rate/rhythm, Edema Gastrointestinal: Soft and benign, Non-distended Musculoskeletal: No clubbing, No contractures Integumentary: No cyanosis, Skin breakdown, Erythema Neurological: Normal speech Laboratory Data (last 24 hrs) 07/12/21 10:20: PT 11.7, INR 1.02 07/12/21 09:25: WBC 9.50, Hgb 9.1 L, Hct 28.2 L, Plt Count 283 07/12/21 09:25: Sodium 142, Potassium 5.3 H, BUN 38 H, Creatinine 1.14, Glucose 76, Magnesium 2.5 H, Total Bilirubin 0.3, AST 15, ALT 29, Alkaline Phosphatase 85 Imagings Data: EXAM DESCRIPTION: CT - Chest For Pe Angio - 07/12/2021 11:19 am CLINICAL HISTORY: SOB COMPARISON: Thorax Wo Con dated 12/03/2016; CTANGIO CHEST FOR PE dated 06/17/2011 FINDINGS: Chest Wall: No suspicious thyroid nodules or pathologic lymphadenopathy. Lungs: No evidence of edema or consolidative airspace disease. Limited by motion. There are some secretions within the bilateral lower lobe airways. Pleura: No significant effusions or pneumothorax. Mediastinum/nino: No pathologic lymphadenopathy. Pulmonary arteries/Aorta: No filling defect identified. No aortic aneurysm. Heart: No significant pericardial effusion. Normal heart size. Multi-vessel coronary artery disease. Upper abdomen: Cholelithiasis. Reflux of contrast into the hepatic veins. Bilateral adrenal nodularity. This was present on prior CTs. Bones: No acute abnormality. All CT scans are performed using dose optimization technique as appropriate and may include automated exposure control or mA/KV adjustment according to patient size. IMPRESSION: Negative for pulmonary embolism. Secretions/mucus plugging the lower lobe airways which could be secondary to a nonspecific infectious or inflammatory process such as bronchitis. EXAM DESCRIPTION: RAD - Chest Single View - 07/12/2021 9:12 am CLINICAL HISTORY: SOB COMPARISON: Chest Single View dated 02/10/2021; Chest Single View dated 02/08/2021; Chest Single View dated 02/06/2021; Chest Single View dated 02/05/2021 FINDINGS: Lines: None. Lungs: No evidence of edema or pneumonia. Pleural: No significant pleural effusions or pneumothorax. Cardiac: Mild cardiomegaly. Bones: No acute fractures. Other: IMPRESSION: No acute cardiopulmonary disease. Conclusions/Impression: CKD III with proteinuria -No NSAIDs Hyperkalemia -Continue Lasix -Hold spironolactone HTN with CKD/ CHF -No antihypertensives at this time Diastolic CHF, A/C -Continue Lasix -Low sodium diet DM II with CKD & Hyperglycemia -RISS Moderate malnutrition -Encourage nutrition Anemia in chronic illness -Monitor H&H Thank you kindly for the consultation.
[2021-07-12] MEDS ORDERED: predniSONE 20 MG TAB PO SCH (21:00)
[2021-07-13] MEDS: IPRATROPIUM BROM 0.5MG/2.5ML NEB PRN ×3 (03:56→20:22)
[2021-07-13] MEDS: ALBUTEROL 2.5 MG/3 ML NEB SOL NEB PRN ×2 (03:56→15:02)
--- NOTE | 2021-07-13 05:59 | P.PN ---
Date of Service: 07/13/21 Subjective: feeling better, breathing more comfortably, but feels like she still needs breathing treatments feels weak reports dark / blackish hard stool yesterday denies prior dark stool, no diarrhea / loose stool ROS: 10 point ROS as noted above, otherwise negative Physical exam Gen: AAOx2, some confusion HEENT: normal conjunctiva, sclera anicteric CV: regular rate/rhythm Pulm: mildly labored on 3L NC, b/l wheeze Abd: soft, nontender, nondistended Skin: no rash/lesions Neuro: normal speech, normal affect Problem List acute on chronic hypoxemic respiratory failure secondary to COPD exacerbation and CHF exacerbation Acute on chronic COPD exacerbation on chronic ~3-3.5L NC at home Acute on chronic CHF exacerbation (HFpEF) anemia, iron deficiency, possible GI bleed Hyperkalemia chronic dizziness / gait instability CKDIII DM2, insulin dependent HTN b/l chronic lymphedema -patient with some improvement -CTA negative for PE, shows mucus plugging, not a significant amount of pulm edema -suspect some CHF component and COPD -has had some increased weeping of b/l lower legs as well -hold spironolactone, nephrology consulted for assistance -BP low, switch BID to daily for now -Has not seen radar scientist in a long time, pulm consulted -insulin sliding scale, accucheks, confirm home regimen, restart / increase stepwise -concern for GI bleed, pt reports dark stool x1, hgb downtrending despite diuresis -hold lovenox -anemia workup sent, initial results with iron deficiency -repeat H/H this evening, hemoccult stool ordered -no GI coverage, would need to be transferred if GI bleed VTE: lovenox (held) Code: DNR Dispo: anticipate hospitalization >2 days Time Spent Managing Pts Care (In Minutes): 35
[2021-07-13] MEDS ORDERED: IPRATROPIUM IH PRN (06:21)
[2021-07-13] MEDS ORDERED: ACETAMINOPHEN 500 MG TAB PO PRN (06:24)
[2021-07-13 06:34] LABS: Absolute Lymphocytes (CBC) 1.2 K/uL (0.7-4.9); Basophils % 0.3 % (0-1.3); Hematocrit 25.6 % (36.0-45.0); Lymphocytes % 14.6 % (15.3-44.8); MPV 7.1 fL (7.6-11.3); RBC Red Blood Cell Count 3.14 M/uL (3.86-4.86)
[2021-07-13 06:53] LABS: Albumin 2.2 g/dL (3.4-5.0); Bilirubin Total 0.3 mg/dL (0.2-1.0); Magnesium 2.3 mg/dL (1.8-2.4); Phosphorus 3.7 mg/dL (2.5-4.9); Potassium 4.3 mmol/L (3.5-5.1); Protein, Total 6.2 g/dL (6.4-8.2); Uric Acid 9.8 mg/dL (2.6-6.0)
[2021-07-13 07:06] LABS: Urine Appearance CLEAR (Clear); Urine Bilirubin NEGATIVE (Negative); Urine Blood NEGATIVE (Negative); Urine Color DK YELLOW (Yellow); Urine Glucose NEGATIVE (Negative); Urine Protein TRACE (Negative); Urine Specific Gravity >=1.030 (1.005-1.030); Urine Urobilinogen 0.2 mg/dL (0.2-1.0)
[2021-07-13 07:13] LABS: Urine Microscopic Reflex ORDER UMIC
[2021-07-13 07:16] LABS: Urine Bacteria <20 /HPF (<20); Urine Mucus 1+ /HPF (NONE SEEN); Urine RBC <5 /HPF (NONE SEEN); Urine Urothelial Cells <5 /HPF (NONE SEEN)
[2021-07-13] MEDS: INSULIN -REGULAR HUMAN 50 UNIT/0.5 ML ML SQ SCH ×4 (07:30→22:19)
[2021-07-13] MEDS: ENOXAPARIN 40 MG/0.4 ML SQ SCH (08:55)
[2021-07-13 08:59] LABS: RBC Red Blood Cell Count 3.12 M/uL (3.86-4.86)
[2021-07-13] MEDS: NYSTATIN PWDR 100000 UNIT/GM TOP SCH ×3 (09:00→22:25)
[2021-07-13] MEDS ORDERED: ARFORMOTEROL TARTRATE 15 MCG/2 ML IH SCH (09:00)
[2021-07-13 09:28] LABS: Ferritin 43.9 ng/mL (8-388)
[2021-07-13] MEDS: ARFORMOTEROL TARTRATE 15 MCG/2 ML VIAL.NEB NEB SCH ×2 (09:31→20:22)
[2021-07-13] MEDS: ASPIRIN 81 MG CHEWABLE TABLET PO SCH (09:33)
[2021-07-13] MEDS: predniSONE 20 MG TAB PO SCH ×2 (09:33→22:18)
[2021-07-13] MEDS: SERTRALINE HCL 100 MG TAB PO SCH (09:33)
[2021-07-13] MEDS: FUROSEMIDE 40 MG/4 ML VIAL IV SCH (09:34)
[2021-07-13] MEDS: GUAIFENESIN 600 MG SA TAB PO SCH ×2 (09:34→22:19)
[2021-07-13] MEDS: CLOPIDOGREL 75 MG TABLET PO SCH (09:34)
[2021-07-13] MEDS: TRAMADOL HCL 50 MG TAB PO PRN ×2 (09:34→15:43)
[2021-07-13 11:55] LABS: Hematocrit 24.3 % (36.0-45.0); MPV 7.2 fL (7.6-11.3); RBC Red Blood Cell Count 2.99 M/uL (3.86-4.86)
[2021-07-13 17:40] LABS: Hematocrit 24.5 % (36.0-45.0); MPV 7.5 fL (7.6-11.3); RBC Red Blood Cell Count 2.94 M/uL (3.86-4.86)
--- NOTE | 2021-07-13 17:44 | P.PN ---
Date of Service: 07/13/21 Vital Signs Temp Pulse Resp BP Pulse Ox 98.5 F 76 16 131/63 98 07/13/21 16:00 07/13/21 16:00 07/13/21 16:00 07/13/21 16:00 07/13/21 16:00 Medications Acetaminophen (Acetaminophen 500 Mg Tab) 500 mg PO Q6H PRN PRN Reason: Pain scale 5-7 (Moderate) Albuterol Sulfate (Albuterol 2.5 Mg/3 Ml Neb Shari) 2.5 mg NEB Q6HP PRN PRN Reason: SHORTNESS OF BREATH Last Admin: 07/13/21 15:02 Dose: 2.5 mg Documented by: Arformoterol Tartrate (Arformoterol Tartrate 15 Mcg/2 Ml Vial.Neb) 15 mcg NEB BIDRESP [facility] Last Admin: 07/13/21 09:31 Dose: 15 mcg Documented by: Aspirin (Aspirin 81 Mg Chewable Tablet) 81 mg PO DAILY [facility] Last Admin: 07/13/21 09:33 Dose: 81 mg Documented by: Atorvastatin Calcium (Atorvastatin 80 Mg Tab) 80 mg PO BEDTIME TRUONG Clopidogrel Bisulfate (Clopidogrel 75 Mg Tablet) 75 mg PO DAILY [facility] Last Admin: 07/13/21 09:34 Dose: 75 mg Documented by: Enoxaparin Sodium (Enoxaparin 30 Mg/0.3 Ml) 30 mg SQ DAILY TRUONG Furosemide (Furosemide 40 Mg/4 Ml Vial) 40 mg IV DAILY [facility] Guaifenesin (Guaifenesin 600 Mg Sa Tab) 600 mg PO BID [facility] Last Admin: 07/13/21 09:34 Dose: 600 mg Documented by: Home Med (Ipratropium Mdi [Atrovent Hf Inhaler*]) 2 puff IH BID PRN PRN Reason: SHORTNESS OF BREATH Insulin Glargine (Insulin Glargine 100 Unit/Ml) 25 unit SQ BEDTIME [facility] Insulin Human Regular (Insulin -Regular Human 50 Unit/0.5 Ml Ml) [address] [facility]; Protocol Last Admin: 07/13/21 15:43 Dose: 4 unit Documented by: Ipratropium [place] (Ipratropium Brom 0.5mg/2.5ml) 0.5 mg NEB [id number] PRN PRN Reason: WHEEZING Last Admin: 07/13/21 15:02 Dose: 0.5 mg Documented by: Levothyroxine Sodium (Levothyroxine Sod 0.1 Mg Tab) 0.15 mg PO [id number] [facility] Nystatin (Nystatin Pwdr [id number] Unit/Gm) 15 appl TOP TID [facility] Last Admin: 07/13/21 14:00 Dose: 15 appl Documented by: Ondansetron HCl (Ondansetron 4 Mg/2 Ml Vial) 4 mg IV Q6HP PRN PRN Reason: NAUSEA / VOMITING Prednisone (Prednisone 20 Mg Tab) 20 mg PO BID [facility] Last Admin: 07/13/21 09:33 Dose: 20 mg Documented by: Sertraline HCl (Sertraline Hcl 100 Mg Tab) 200 mg PO DAILY [facility] Last Admin: 07/13/21 09:33 Dose: 200 mg Documented by: Sodium Chloride (Flush Normal Saline 10 Ml) 10 ml IV BID [facility] Last Admin: 07/13/21 09:00 Dose: 10 ml Documented by: Tramadol HCl (Tramadol Hcl 50 Mg Tab) 50 mg PO Q6H PRN PRN Reason: Pain scale 8-10 (Severe) Last Admin: 07/13/21 15:43 Dose: 50 mg Documented by: Microbiology Results 07/12/21 09:39 Blood - Blood Aerobic Blood Culture - Preliminary No growth in 24 hours. 07/12/21 09:39 Blood - Blood Anaerobic Blood Culture - Preliminary No growth in 24 hours. 07/12/21 09:25 Blood - Blood Aerobic Blood Culture - Preliminary No growth in 24 hours. 07/12/21 09:25 Blood - Blood Anaerobic Blood Culture - Preliminary No growth in 24 hours. Assessment/ Plan: Nephrology Dyspnea improving with diuresis. +MERCER +Malaise and weakness No chest pain No acute events overnight Vitals, medications, blood work and imaging reviewed in the chart General: Oriented x3, Cooperative. Obese. HEENT: Atraumatic Neck: Supple Respiratory: Diminished, Expiratory wheezes Cardiovascular: Regular rate/rhythm, Edema with weeping Gastrointestinal: Soft and benign, Non-distended Musculoskeletal: No clubbing, No contractures Integumentary: No cyanosis, Skin breakdown, Erythema Neurological: Normal speech Laboratory Data (last 24 hrs) 07/12/21 10:20: PT 11.7, INR 1.02 07/12/21 09:25: WBC 9.50, Hgb 9.1 L, Hct 28.2 L, Plt Count 283 12/09/21 09:25: Sodium 142, Potassium 5.3 H, BUN 38 H, Creatinine 1.14, Glucose 76, Magnesium 2.5 H, Total Bilirubin 0.3, AST 15, ALT 29, Alkaline Phosphatase 85 Imagings Data: EXAM DESCRIPTION: CT - Chest For Pe Angio - 07/12/2021 11:19 am CLINICAL HISTORY: SOB COMPARISON: Thorax Wo Con dated 12/03/2016; CTANGIO CHEST FOR PE dated 06/17/2011 FINDINGS: Chest Wall: No suspicious thyroid nodules or pathologic lymphadenopathy. Lungs: No evidence of edema or consolidative airspace disease. Limited by motion. There are some secretions within the bilateral lower lobe airways. Pleura: No significant effusions or pneumothorax. Mediastinum/nino: No pathologic lymphadenopathy. Pulmonary arteries/Aorta: No filling defect identified. No aortic aneurysm. Heart: No significant pericardial effusion. Normal heart size. Multi-vessel coronary artery disease. Upper abdomen: Cholelithiasis. Reflux of contrast into the hepatic veins. Bilateral adrenal nodularity. This was present on prior CTs. Bones: No acute abnormality. All CT scans are performed using dose optimization technique as appropriate and may include automated exposure control or mA/KV adjustment according to patient size. IMPRESSION: Negative for pulmonary embolism. Secretions/mucus plugging the lower lobe airways which could be secondary to a nonspecific infectious or inflammatory process such as bronchitis. EXAM DESCRIPTION: RAD - Chest Single View - 07/12/2021 9:12 am CLINICAL HISTORY: SOB COMPARISON: Chest Single View dated 02/10/2021; Chest Single View dated 02/08/2021; Chest Single View dated 02/06/2021; Chest Single View dated 02/05/2021 FINDINGS: Lines: None. Lungs: No evidence of edema or pneumonia. Pleural: No significant pleural effusions or pneumothorax. Cardiac: Mild cardiomegaly. Bones: No acute fractures. Other: IMPRESSION: No acute cardiopulmonary disease. Conclusions/Impression: CHELLE likely due to diuresis CKD III with proteinuria -No NSAIDs Hyperkalemia -Agree with reducing furosemide -Hold spironolactone HTN with CKD/ CHF -No antihypertensives at this time Diastolic CHF, A/C -Continue Lasix -Low sodium diet DM II with CKD & Hyperglycemia -Continue Lantus -RISS Moderate malnutrition -Encourage nutrition Anemia in chronic illness Iron Deficiency 6% -Monitor H&H -Continue IV iron -Consider GI evaluation
[2021-07-13] MEDS: ATORVASTATIN 80 MG TAB PO SCH (22:18)
[2021-07-13] MEDS: INSULIN GLARGINE 100 UNIT/ML SQ SCH (22:24)
[2021-07-14] MEDS: LEVOTHYROXINE SOD 0.1 MG TAB PO SCH (05:19)
[2021-07-14 06:05] LABS: Absolute Lymphocytes (CBC) 0.7 K/uL (0.7-4.9); Basophils % 0.2 % (0-1.3); Hematocrit 23.7 % (36.0-45.0); Lymphocytes % 11.3 % (15.3-44.8); MPV 7.2 fL (7.6-11.3); RBC Red Blood Cell Count 2.91 M/uL (3.86-4.86)
--- NOTE | 2021-07-14 06:06 | P.PN ---
Date of Service: 07/14/21 Subjective: feeling better, breathing more comfortably, swelling improving no n/v/d, no BM yesterday or today, no bleeding feels very weak ROS: 10 point ROS as noted above, otherwise negative Physical exam Gen: AAOx2, some confusion HEENT: normal conjunctiva, sclera anicteric CV: regular rate/rhythm, trace-1+ b/l edema Pulm: mildly labored on 2L NC, mild b/l wheeze Abd: soft, nontender, nondistended Skin: no rash/lesions Neuro: normal speech, normal affect Problem List acute on chronic hypoxemic respiratory failure secondary to COPD exacerbation and CHF exacerbation Acute on chronic COPD exacerbation on chronic ~3-3.5L NC at home Acute on chronic CHF exacerbation (HFpEF) anemia, iron deficiency, possible GI bleed Hyperkalemia chronic dizziness / gait instability CKDIII DM2, insulin dependent HTN b/l chronic lymphedema -continues to improve -CTA negative for PE, shows mucus plugging, not a significant amount of pulm edema -suspect some CHF component and COPD -has had some increased weeping of b/l lower legs as well -hold spironolactone, nephrology consulted for assistance -BP low, switched lasis BID to daily on 07/13 -Has not seen welcome desk agent in a long time, pulm consulted -insulin sliding scale, accucheks, restarted home insulin at lower dose, uptitrate as needed -concern for GI bleed, pt reports dark stool x1, (~2 days ago), Hgb downtrended, now stable -dc lovenox, continue with home plavix -anemia workup sent, initial results with iron deficiency -H/H stable -start IV iron -no GI coverage, would need to be transferred if GI bleed -PT consulted VTE: lovenox (held) Code: DNR Dispo: anticipate dc home in ~2 days Time Spent Managing Pts Care (In Minutes): 35
[2021-07-14 06:33] LABS: Albumin 2.2 g/dL (3.4-5.0); Bilirubin Total 0.3 mg/dL (0.2-1.0); Magnesium 2.4 mg/dL (1.8-2.4); Phosphorus 3.6 mg/dL (2.5-4.9); Protein, Total 6.1 g/dL (6.4-8.2); Uric Acid 9.4 mg/dL (2.6-6.0)
[2021-07-14] MEDS: INSULIN -REGULAR HUMAN 50 UNIT/0.5 ML ML SQ SCH ×4 (07:30→21:02)
--- NOTE | 2021-07-14 08:04 | RAD REPORT ---
EXAM DESCRIPTION: RAD - Chest Single View - 07/14/2021 6:52 am CLINICAL HISTORY: hypoxia COMPARISON: Chest Single View dated 07/12/2021; Chest Single View dated 02/10/2021; Chest Single View dated 02/08/2021; Chest Single View dated 02/06/2021; Chest For Pe Angio dated 07/12/2021 FINDINGS: Lines: None. Lungs: No evidence of edema or pneumonia. Pleural: No significant pleural effusions or pneumothorax. Cardiac: Cardiomegaly. Bones: No acute fractures. Other: IMPRESSION: No acute cardiopulmonary disease.
[2021-07-14] MEDS: ALBUTEROL 2.5 MG/3 ML NEB SOL NEB PRN ×2 (08:14→18:03)
[2021-07-14] MEDS: ARFORMOTEROL TARTRATE 15 MCG/2 ML VIAL.NEB NEB SCH ×2 (08:14→19:27)
[2021-07-14] MEDS: IPRATROPIUM BROM 0.5MG/2.5ML NEB PRN ×2 (08:14→18:03)
[2021-07-14] MEDS ORDERED: ENOXAPARIN 30 MG/0.3 ML SQ SCH (09:00)
[2021-07-14] MEDS ORDERED: FUROSEMIDE 40 MG/4 ML VIAL IV SCH (09:00)
[2021-07-14] MEDS: SERTRALINE HCL 100 MG TAB PO SCH (09:31)
[2021-07-14] MEDS: ASPIRIN 81 MG CHEWABLE TABLET PO SCH (09:31)
--- NOTE | 2021-07-14 09:34 | P.PN ---
Date of Service: 07/14/21 Vital Signs Temp Pulse Resp BP Pulse Ox 97.6 F 70 17 119/54 L 96 07/14/21 08:00 07/14/21 08:00 07/14/21 08:00 07/14/21 08:00 07/14/21 08:00 Medications Acetaminophen (Acetaminophen 500 Mg Tab) 500 mg PO Q6H PRN PRN Reason: Pain scale 5-7 (Moderate) Albuterol Sulfate (Albuterol 2.5 Mg/3 Ml Neb Shari) 2.5 mg NEB Q6HP PRN PRN Reason: SHORTNESS OF BREATH Last Admin: 07/14/21 08:14 Dose: 2.5 mg Documented by: Arformoterol Tartrate (Arformoterol Tartrate 15 Mcg/2 Ml Vial.Neb) 15 mcg NEB BIDRESP [facility] Last Admin: 07/14/21 08:14 Dose: 15 mcg Documented by: Aspirin (Aspirin 81 Mg Chewable Tablet) 81 mg PO DAILY [facility] Last Admin: 07/13/21 09:33 Dose: 81 mg Documented by: Atorvastatin Calcium (Atorvastatin 80 Mg Tab) 80 mg PO BEDTIME [facility] Last Admin: 07/13/21 22:18 Dose: 80 mg Documented by: Clopidogrel Bisulfate (Clopidogrel 75 Mg Tablet) 75 mg PO DAILY [facility] Last Admin: 07/13/21 09:34 Dose: 75 mg Documented by: Cyanocobalamin (Cyanocobalamin 1000mcg/Ml Inj) 1,000 mcg SQ DAILY [facility] Enoxaparin Sodium (Enoxaparin 30 Mg/0.3 Ml) 30 mg SQ DAILY [facility] Folic Acid (Folic Acid 1 Mg Tablet) 1 mg PO DAILY [facility] Furosemide (Furosemide 40 Mg/4 Ml Vial) 40 mg IV DAILY [facility] Guaifenesin (Guaifenesin 600 Mg Sa Tab) 600 mg PO BID [facility] Last Admin: 07/13/21 22:19 Dose: 600 mg Documented by: Home Med (Ipratropium Mdi [Atrovent Hf Inhaler*]) 2 puff IH BID PRN PRN Reason: SHORTNESS OF BREATH Ferric Sodium Gluconate Complex 250 mg/ Sodium Chloride 120 mls @ 100 mls/hr IV DAILY [facility] Stop: 07/17/21 10:11 Insulin Glargine (Insulin Glargine 100 Unit/Ml) 25 unit SQ BEDTIME [facility] Last Admin: 07/13/21 22:24 Dose: 25 unit Documented by: Insulin Human Regular (Insulin -Regular Human 50 Unit/0.5 Ml Ml) 0 unit SQ ACHS [facility]; Protocol Last Admin: 07/14/21 07:30 Dose: Not Given Documented by: Ipratropium [place] (Ipratropium Brom 0.5mg/2.5ml) 0.5 mg NEB [id number] PRN PRN Reason: WHEEZING Last Admin: 07/14/21 08:14 Dose: 0.5 mg Documented by: Levothyroxine Sodium (Levothyroxine Sod 0.1 Mg Tab) 0.15 mg PO [id number] [facility] Last Admin: 07/14/21 05:19 Dose: 0.15 mg Documented by: Nystatin (Nystatin Pwdr [id number] Unit/Gm) 15 appl TOP TID [facility] Last Admin: 07/13/21 22:25 Dose: 15 appl Documented by: Ondansetron HCl (Ondansetron 4 Mg/2 Ml Vial) 4 mg IV Q6HP PRN PRN Reason: NAUSEA / VOMITING Prednisone (Prednisone 20 Mg Tab) 20 mg PO BID [facility] Last Admin: 07/13/21 22:18 Dose: 20 mg Documented by: Sertraline HCl (Sertraline Hcl 100 Mg Tab) 200 mg PO DAILY [facility] Last Admin: 07/13/21 09:33 Dose: 200 mg Documented by: Sodium Chloride (Flush Normal Saline 10 Ml) 10 ml IV BID [facility] Last Admin: 07/13/21 22:20 Dose: 10 ml Documented by: Tramadol HCl (Tramadol Hcl 50 Mg Tab) 50 mg PO Q6H PRN PRN Reason: Pain scale 8-10 (Severe) Last Admin: 07/13/21 15:43 Dose: 50 mg Documented by: Microbiology Results 07/12/21 09:39 Blood - Blood Aerobic Blood Culture - Preliminary No growth in 24 hours. 07/12/21 09:39 Blood - Blood Anaerobic Blood Culture - Preliminary No growth in 24 hours. 07/12/21 09:25 Blood - Blood Aerobic Blood Culture - Preliminary No growth in 24 hours. 07/12/21 09:25 Blood - Blood Anaerobic Blood Culture - Preliminary No growth in 24 hours. Assessment/ Plan: Nephrology No dyspnea +MERCER +Malaise and weakness but feeling better. No chest pain No acute events overnight Vitals, medications, blood work and imaging reviewed in the chart General: Oriented x3, Cooperative. Obese. HEENT: Atraumatic Neck: Supple Respiratory: Diminished, Expiratory wheezes Cardiovascular: Regular rate/rhythm, Edema Gastrointestinal: Soft and benign, Non-distended Musculoskeletal: No clubbing, No contractures Integumentary: No cyanosis, Skin breakdown, Erythema Neurological: Normal speech Laboratory Data (last 24 hrs) 07/12/21 10:20: PT 11.7, INR 1.02 07/12/21 09:25: WBC 9.50, Hgb 9.1 L, Hct 28.2 L, Plt Count 283 07/12/21 09:25: Sodium 142, Potassium 5.3 H, BUN 38 H, Creatinine 1.14, Glucose 76, Magnesium 2.5 H, Total Bilirubin 0.3, AST 15, ALT 29, Alkaline Phosphatase 85 Imagings Data: EXAM DESCRIPTION: CT - Chest For Pe Angio - 07/12/2021 11:19 am CLINICAL HISTORY: SOB COMPARISON: Thorax Wo Con dated 12/03/2016; CTANGIO CHEST FOR PE dated 06/17/2011 FINDINGS: Chest Wall: No suspicious thyroid nodules or pathologic lymphadenopathy. Lungs: No evidence of edema or consolidative airspace disease. Limited by motion. There are some secretions within the bilateral lower lobe airways. Pleura: No significant effusions or pneumothorax. Mediastinum/nino: No pathologic lymphadenopathy. Pulmonary arteries/Aorta: No filling defect identified. No aortic aneurysm. Heart: No significant pericardial effusion. Normal heart size. Multi-vessel coronary artery disease. Upper abdomen: Cholelithiasis. Reflux of contrast into the hepatic veins. Bilateral adrenal nodularity. This was present on prior CTs. Bones: No acute abnormality. All CT scans are performed using dose optimization technique as appropriate and may include automated exposure control or mA/KV adjustment according to patient size. IMPRESSION: Negative for pulmonary embolism. Secretions/mucus plugging the lower lobe airways which could be secondary to a nonspecific infectious or inflammatory process such as bronchitis. EXAM DESCRIPTION: RAD - Chest Single View - 07/12/2021 9:12 am CLINICAL HISTORY: SOB COMPARISON: Chest Single View dated 02/10/2021; Chest Single View dated 02/08/2021; Chest Single View dated 02/06/2021; Chest Single View dated 02/05/2021 FINDINGS: Lines: None. Lungs: No evidence of edema or pneumonia. Pleural: No significant pleural effusions or pneumothorax. Cardiac: Mild cardiomegaly. Bones: No acute fractures. Other: IMPRESSION: No acute cardiopulmonary disease. Conclusions/Impression: CHELLE likely due to diuresis CKD III with proteinuria -No NSAIDs Hyperkalemia -Agree with reducing furosemide -Hold spironolactone HTN with CKD/ CHF -No antihypertensives at this time Diastolic CHF, A/C -Continue Lasix -Low sodium diet DM II with CKD & Hyperglycemia -Continue Lantus -RISS Moderate malnutrition -Encourage nutrition Anemia in chronic illness Iron Deficiency 6% -Monitor H&H -Start daily iv iron -Start daily SQ B12 -Consider GI evaluation as needed Case reviewed with Dr. Youssef
[2021-07-14] MEDS: GUAIFENESIN 600 MG SA TAB PO SCH ×2 (09:37→20:33)
[2021-07-14] MEDS: predniSONE 20 MG TAB PO SCH ×2 (09:37→20:33)
[2021-07-14] MEDS: CLOPIDOGREL 75 MG TABLET PO SCH (09:37)
--- NOTE | 2021-07-14 10:13 | P.PN ---
Subjective Date of Service: 07/14/21 Chief Complaint: COPD exacerbation Subjective: Improving ( patient is feeling better more alert responsive cooperative denies any history of GI bleeding) Review of Systems General: Weakness Respiratory: Shortness of Breath Physical Examination - Vital Signs Temperature: 97.6 F Blood Pressure: 119/54 Pulse: 70 Respirations: 17 Pulse Ox (%): 96 - Physical Exam General: Alert, In no apparent distress, Oriented x3 Respiratory: Clear to auscultation bilaterally, Diminished Cardiovascular: Normal S1 S2, Edema Assessment & Plan - Problems (Diagnosis) (1) COPD exacerbation Current Visit: Yes Status: Acute Plan: patient is doing much better she is feeling better and benefit from long-acting bronchodilators at home mildly anemic normocytic no history of GI bleeding renal function has improved patient is not ambulatory at home requires considerable assistance barely able to walk to the commode plan for discharge reduce dose of prednisone change to p.o. Lasix patient will need a long-acting nebulizer order an inhaler at home will check with the pharmacy if trilogy 100 is covered
[2021-07-14] MEDS: SOD FERRIC GLUC COMPLX/SUCROSE 250 MG in NA CHLORIDE 0.9% 100 ML IV SCH (10:24)
[2021-07-14] MEDS: TRAMADOL HCL 50 MG TAB PO PRN ×2 (10:25→21:01)
[2021-07-14] MEDS: FOLIC ACID 1 MG TABLET PO SCH (10:25)
[2021-07-14] MEDS: CYANOCOBALAMIN 1000MCG/ML INJ SQ SCH (10:25)
[2021-07-14] MEDS: NYSTATIN PWDR 100000 UNIT/GM TOP SCH ×3 (11:54→20:34)
[2021-07-14] MEDS: ATORVASTATIN 80 MG TAB PO SCH (20:33)
[2021-07-14] MEDS: INSULIN GLARGINE 100 UNIT/ML SQ SCH (21:02)
[2021-07-15] MEDS: IPRATROPIUM BROM 0.5MG/2.5ML NEB PRN ×3 (00:33→14:35)
[2021-07-15] MEDS: ALBUTEROL 2.5 MG/3 ML NEB SOL NEB PRN ×3 (00:33→14:35)
[2021-07-15] MEDS: LEVOTHYROXINE SOD 0.1 MG TAB PO SCH (05:03)
[2021-07-15 06:07] LABS: Absolute Lymphocytes (CBC) 0.9 K/uL (0.7-4.9); Basophils % 0.2 % (0-1.3); Hematocrit 23.7 % (36.0-45.0); Lymphocytes % 11.4 % (15.3-44.8); MPV 7.3 fL (7.6-11.3)
--- NOTE | 2021-07-15 06:13 | P.PN ---
Date of Service: 07/15/21 Subjective: No acute events overnight Down to 2 L nasal cannula Feels nebulizer treatments are helping Started IV iron yesterday, tolerated well, hemoglobin stable Patient reported she is "tired of fighting", and going to all of this. Had a long discussion regarding advanced care planning/hospice ROS: 10 point ROS as noted above, otherwise negative Physical exam Gen: AAOx3 HEENT: normal conjunctiva, sclera anicteric CV: regular rate/rhythm, trace b/l edema Pulm: mildly labored on 2L NC, mild b/l wheeze Abd: soft, nontender, nondistended Skin: b/l lower extremities with wound dressings in place Neuro: normal speech, normal affect Problem List acute on chronic hypoxemic respiratory failure secondary to COPD exacerbation and CHF exacerbation Acute on chronic COPD exacerbation on chronic ~3-3.5L NC at home Acute on chronic CHF exacerbation (HFpEF) anemia, iron deficiency, possible GI bleed Hyperkalemia chronic dizziness / gait instability CKDIII DM2, insulin dependent HTN b/l chronic lymphedema -continues to improve -CTA negative for PE, shows mucus plugging, not a significant amount of pulm edema -suspect some CHF component and COPD -has had some increased weeping of b/l lower legs as well -hold spironolactone, nephrology consulted for assistance, renal function improving -BP low, switched lasix BID to daily on 07/13 -Has not seen angio technologist in a long time, pulm consulted -added Brovana -insulin sliding scale, accucheks, restarted home insulin at lower dose, uptitrate as needed -concern for GI bleed, pt reports dark stool x1, (~3 days ago), Hgb downtrended, now stable -Anemia work-up consistent with iron deficiency, no history of GI bleed -Started IV iron on 07/14 -no GI coverage, would need to be transferred if GI bleed -PT consulted Had long discussion this morning with the patient, she stated she was "tired of fighting" this. She has been in and out of hospital multiple times in the last few months. States her sister recently went home on home hospice Had long discussion regarding continuing with full treatment, and what hospice means. It seems like her goals of care are most in line with hospice Patient states she wanted to process all of this information will talk with family, will get back to us afterwards VTE: lovenox (held) Code: DNR Dispo: anticipate dc home ~2 days Patient to think about options, possibly home with hospice Time Spent Managing Pts Care (In Minutes): 35
[2021-07-15 06:31] LABS: Albumin 2.1 g/dL (3.4-5.0); Bilirubin Total 0.2 mg/dL (0.2-1.0); Folic Acid, (Folate) 11.4 ng/mL (3.1-17.5); Potassium 4.6 mmol/L (3.5-5.1); Protein, Total 5.9 g/dL (6.4-8.2); Thyroid Stimulating Hormone 13.6 uIU/mL (0.360-3.740)
[2021-07-15] MEDS: TRAMADOL HCL 50 MG TAB PO PRN ×2 (06:37→21:05)
[2021-07-15] MEDS: INSULIN -REGULAR HUMAN 50 UNIT/0.5 ML ML SQ SCH ×4 (07:30→21:11)
[2021-07-15] MEDS: ARFORMOTEROL TARTRATE 15 MCG/2 ML VIAL.NEB NEB SCH ×2 (08:28→20:15)
[2021-07-15 09:25] LABS: Platelet Estimate ADEQ; Platelets, Giant FEW PRESENT
[2021-07-15 09:28] LABS: Anisocytosis 1+; Blood Morphology Comment NOTED (NOT SEEN); Hypochromasia 1+
[2021-07-15] MEDS: FUROSEMIDE 40 MG TABLET PO SCH (09:54)
[2021-07-15] MEDS: FOLIC ACID 1 MG TABLET PO SCH (09:55)
[2021-07-15] MEDS: GUAIFENESIN 600 MG SA TAB PO SCH ×2 (09:55→21:06)
[2021-07-15] MEDS: SERTRALINE HCL 100 MG TAB PO SCH (09:55)
[2021-07-15] MEDS: CYANOCOBALAMIN 1000MCG/ML INJ SQ SCH (09:55)
[2021-07-15] MEDS: CLOPIDOGREL 75 MG TABLET PO SCH (09:55)
[2021-07-15] MEDS: predniSONE 20 MG TAB PO SCH ×2 (09:55→21:07)
[2021-07-15] MEDS: ASPIRIN 81 MG CHEWABLE TABLET PO SCH (09:55)
[2021-07-15] MEDS: carvediloL 3.125 MG TAB PO SCH ×2 (09:55→21:07)
[2021-07-15] MEDS: NYSTATIN PWDR 100000 UNIT/GM TOP SCH ×3 (09:56→21:10)
[2021-07-15] MEDS: SOD FERRIC GLUC COMPLX/SUCROSE 250 MG in NA CHLORIDE 0.9% 100 ML IV SCH (10:56)
[2021-07-15 17:53] VITALS: BMI 37.6
[2021-07-15] MEDS: ATORVASTATIN 80 MG TAB PO SCH (21:07)
[2021-07-15] MEDS: INSULIN GLARGINE 100 UNIT/ML SQ SCH (21:12)
[2021-07-16 04:05] LABS: Basophils % 0.5 % (0-1.3); Hematocrit 24.4 % (36.0-45.0); Lymphocytes % 9.7 % (15.3-44.8); MPV 7.2 fL (7.6-11.3); RBC Red Blood Cell Count 2.98 M/uL (3.86-4.86)
[2021-07-16 04:33] LABS: Potassium 6.4 mmol/L (3.5-5.1)
[2021-07-16] MEDS ORDERED: SOD POLYSTYREN SUL 15 GM/60 ML UCUP PO ONE (04:41)
[2021-07-16] MEDS ORDERED: CALCIUM GLUC 10% INJ 9.3 MEQ in NA CHLORIDE 0.9% 100 ML IV ONE (04:41)
[2021-07-16] MEDS ORDERED: ALBUTEROL 2.5 MG/3 ML NEB SOL NEB ONE (04:41)
[2021-07-16] MEDS ORDERED: INSULIN -REGULAR HUMAN 50 UNIT/0.5 ML ML IV ONE (04:42)
[2021-07-16] MEDS ORDERED: D50W 25 GM/50 ML SYRINGE IV ONE (04:43)
[2021-07-16] MEDS ORDERED: FUROSEMIDE 40 MG/4 ML VIAL IV ONE (04:43)
[2021-07-16] MEDS ORDERED: CALCIUM GLUCONATE 1 GM IVPB 2 GM/100 ML BAG IV ONE (05:06)
--- NOTE | 2021-07-16 06:10 | P.PN ---
Date of Service: 07/16/21 Subjective: no acute events overnight, continues with slight improvement still with dyspnea, even at rest at times, not significantly hypoxic, but she feels like she cannot catch her breath often, breathing treatment helps Had long discussions with patient, whose goals seem to be in line with home hospice. She feels as though she has been pulled both directions from her children, and feels guilty/like she is letting people down if she "gives up" But she states that she has been fighting fighting, and things are not getting better, she has been in and out of the hospital for few times most months. She states she has "ready to go home", and she further clarified this by saying home means hemanthn ROS: 10 point ROS as noted above, otherwise negative Physical exam Gen: AAOx3 HEENT: normal conjunctiva, sclera anicteric CV: regular rate/rhythm, trace b/l edema Pulm: mildly labored on 2L NC, mild b/l wheeze Abd: soft, nontender, nondistended Skin: b/l lower extremities with wound dressings in place Neuro: normal speech, normal affect Problem List acute on chronic hypoxemic respiratory failure secondary to COPD exacerbation and CHF exacerbation Acute on chronic COPD exacerbation on chronic ~3-3.5L NC at home Acute on chronic CHF exacerbation (HFpEF) anemia, iron deficiency, possible GI bleed Hyperkalemia chronic dizziness / gait instability CKDIII DM2, insulin dependent HTN b/l chronic lymphedema -continues to improve slowly -CTA negative for PE, shows mucus plugging, not a significant amount of pulm edema -suspect some CHF component and COPD -has had some increased weeping of b/l lower legs at home, improved here -hold spironolactone, nephrology consulted for assistance, renal function improving -BP low, switched lasix BID to daily on 07/13 -Has not seen manager military in a long time, pulm consulted -added Brovana -insulin sliding scale, accucheks, restarted home insulin at lower dose, uptitrate as needed -concern for GI bleed, pt reports dark stool x1, (~3-4 days ago), Hgb downtrended, now stable -Anemia work-up consistent with iron deficiency, no history of GI bleed -Started IV iron on 07/14 -no GI coverage, would need to be transferred if GI bleed -PT consulted Had long discussions with the patient yesterday and again this morning. She stated she was "tired of fighting" this. She has been in and out of hospital multiple times in the last few months. States her sister recently went home on home hospice Had long discussion regarding continuing with full treatment, and what hospice means. It seems like her goals of care are most in line with hospice Patient asked me to talk with her sons, and then she will talk with them after I answer any other questions. It seems she wants hospice, but does not want to upset anybody or to see him as though she is giving up and letting people down. VTE: lovenox (held) Code: DNR Dispo: Patient will discuss with family, suspect will go home on hospice Both of her sons were called and updated. Both stated they would respect their mother's wishes. Alfonzo (who lives with the patient), states he has seen what his mother has been dealing with over the past several months, and really has been declining over the last year. Alfonzo states his mother has been seen over the last 6 months that she is "ready to go home" (jeny). Updated the eldest son (), lives out of town saw the patient ~1 month ago and ~5 months ago. He expressed his reservations regarding hospice, his questions were answered, and that in the conversation, he also agreed that we should respect the patient's wishes, proceed with hospice Time Spent Managing Pts Care (In Minutes): 35
[2021-07-16] MEDS: LEVOTHYROXINE SOD 0.1 MG TAB PO SCH (06:47)
[2021-07-16] MEDS: INSULIN -REGULAR HUMAN 50 UNIT/0.5 ML ML SQ SCH ×4 (07:30→21:37)
[2021-07-16 08:09] LABS: Potassium 4.5 mmol/L (3.5-5.1)
[2021-07-16] MEDS: predniSONE 20 MG TAB PO SCH ×2 (08:20→21:38)
[2021-07-16] MEDS: ASPIRIN 81 MG CHEWABLE TABLET PO SCH (08:20)
[2021-07-16] MEDS: carvediloL 3.125 MG TAB PO SCH ×2 (08:21→21:38)
[2021-07-16] MEDS: GUAIFENESIN 600 MG SA TAB PO SCH ×2 (08:21→21:39)
[2021-07-16] MEDS: FOLIC ACID 1 MG TABLET PO SCH (08:21)
[2021-07-16] MEDS: FUROSEMIDE 40 MG TABLET PO SCH (08:21)
[2021-07-16] MEDS: CYANOCOBALAMIN 1000MCG/ML INJ SQ SCH (08:21)
[2021-07-16] MEDS: SERTRALINE HCL 100 MG TAB PO SCH (08:21)
[2021-07-16] MEDS: CLOPIDOGREL 75 MG TABLET PO SCH (08:22)
[2021-07-16] MEDS: NYSTATIN PWDR 100000 UNIT/GM TOP SCH ×3 (08:23→21:39)
[2021-07-16] MEDS: ARFORMOTEROL TARTRATE 15 MCG/2 ML VIAL.NEB NEB SCH ×2 (09:07→20:00)
[2021-07-16] MEDS: SOD FERRIC GLUC COMPLX/SUCROSE 250 MG in NA CHLORIDE 0.9% 250 ML IV SCH (09:37)
--- NOTE | 2021-07-16 11:00 | P.PN ---
Date of Service: 07/16/21 Vital Signs Temp Pulse Resp BP Pulse Ox 97.8 F 65 16 134/63 94 07/16/21 08:00 07/16/21 08:00 07/16/21 08:00 07/16/21 08:00 07/16/21 08:00 Medications Acetaminophen (Acetaminophen 500 Mg Tab) 500 mg PO Q6H PRN PRN Reason: Pain scale 5-7 (Moderate) Albuterol Sulfate (Albuterol 2.5 Mg/3 Ml Neb Shari) 2.5 mg NEB Q6HP PRN PRN Reason: SHORTNESS OF BREATH Last Admin: 07/15/21 14:35 Dose: 2.5 mg Documented by: Arformoterol Tartrate (Arformoterol Tartrate 15 Mcg/2 Ml Vial.Neb) 15 mcg NEB BIDRESP [facility] Last Admin: 07/16/21 09:07 Dose: 15 mcg Documented by: Aspirin (Aspirin 81 Mg Chewable Tablet) 81 mg PO DAILY [facility] Last Admin: 07/16/21 08:20 Dose: 81 mg Documented by: Atorvastatin Calcium (Atorvastatin 80 Mg Tab) 80 mg PO BEDTIME [facility] Last Admin: 07/15/21 21:07 Dose: 80 mg Documented by: Carvedilol (Carvedilol 3.125 Mg Tab) 3.125 mg PO BID [facility] Last Admin: 07/16/21 08:21 Dose: 3.125 mg Documented by: Clopidogrel Bisulfate (Clopidogrel 75 Mg Tablet) 75 mg PO DAILY [facility] Last Admin: 07/16/21 08:22 Dose: 75 mg Documented by: Cyanocobalamin (Cyanocobalamin 1000mcg/Ml Inj) 1,000 mcg SQ DAILY [facility] Last Admin: 07/16/21 08:21 Dose: 1,000 mcg Documented by: Folic Acid (Folic Acid 1 Mg Tablet) 1 mg PO DAILY [facility] Last Admin: 07/16/21 08:21 Dose: 1 mg Documented by: Furosemide (Furosemide 40 Mg Tablet) 40 mg PO DAILY [facility] Last Admin: 07/16/21 08:21 Dose: 40 mg Documented by: Guaifenesin (Guaifenesin 600 Mg Sa Tab) 600 mg PO BID [facility] Last Admin: 07/16/21 08:21 Dose: 600 mg Documented by: Home Med (Ipratropium Mdi [Atrovent Hf Inhaler*]) 2 puff IH BID PRN PRN Reason: SHORTNESS OF BREATH Ferric Sodium Gluconate Complex 250 mg/ Sodium Chloride 270 mls @ 225 mls/hr IV DAILY [facility] Last Admin: 07/16/21 09:37 Dose: 270 mls Documented by: Insulin Glargine (Insulin Glargine 100 Unit/Ml) 25 unit SQ BEDTIME [facility] Last Admin: 07/15/21 21:12 Dose: 25 unit Documented by: Insulin Human Regular (Insulin -Regular Human 50 Unit/0.5 Ml Ml) 0 unit SQ ACHS [facility]; Protocol Last Admin: 07/16/21 07:30 Dose: Not Given Documented by: Ipratropium [place] (Ipratropium Brom 0.5mg/2.5ml) 0.5 mg NEB [id number] PRN PRN Reason: WHEEZING Last Admin: 07/15/21 14:35 Dose: 0.5 mg Documented by: Levothyroxine Sodium (Levothyroxine Sod 0.1 Mg Tab) 0.15 mg PO [id number] [facility] Last Admin: 07/16/21 06:47 Dose: 0.15 mg Documented by: Nystatin (Nystatin Pwdr [id number] Unit/Gm) 15 appl TOP TID [facility] Last Admin: 07/16/21 08:23 Dose: 15 appl Documented by: Ondansetron HCl (Ondansetron 4 Mg/2 Ml Vial) 4 mg IV Q6HP PRN PRN Reason: NAUSEA / VOMITING Prednisone (Prednisone 20 Mg Tab) 10 mg PO BID [facility] Last Admin: 07/16/21 08:20 Dose: 10 mg Documented by: Sertraline HCl (Sertraline Hcl 100 Mg Tab) 200 mg PO DAILY [facility] Last Admin: 07/16/21 08:21 Dose: 200 mg Documented by: Sodium Chloride (Flush Normal Saline 10 Ml) 10 ml IV BID [facility] Last Admin: 07/16/21 08:23 Dose: 10 ml Documented by: Tramadol HCl (Tramadol Hcl 50 Mg Tab) 50 mg PO Q6H PRN PRN Reason: Pain scale 8-10 (Severe) Last Admin: 07/15/21 21:05 Dose: 50 mg Documented by: Microbiology Results 07/12/21 09:39 Blood - Blood Aerobic Blood Culture - Preliminary No growth in 24 hours. 07/12/21 09:39 Blood - Blood Anaerobic Blood Culture - Preliminary No growth in 24 hours. 07/12/21 09:25 Blood - Blood Aerobic Blood Culture - Preliminary No growth in 24 hours. 07/12/21 09:25 Blood - Blood Anaerobic Blood Culture - Preliminary No growth in 24 hours. Assessment/ Plan: Nephrology No dyspnea +MERCER +Weakness No chest pain No acute events overnight Vitals, medications, blood work and imaging reviewed in the chart General: Oriented x3, Cooperative. Obese. HEENT: Atraumatic Neck: Supple Respiratory: Diminished, Expiratory wheezes Cardiovascular: Regular rate/rhythm, Edema Gastrointestinal: Soft and benign, Non-distended Musculoskeletal: No clubbing, No contractures Integumentary: No cyanosis, Skin breakdown, Erythema Neurological: Normal speech Laboratory Data (last 24 hrs) 07/12/21 10:20: PT 11.7, INR 1.02 07/12/21 09:25: WBC 9.50, Hgb 9.1 L, Hct 28.2 L, Plt Count 283 07/12/21 09:25: Sodium 142, Potassium 5.3 H, BUN 38 H, Creatinine 1.14, Glucose 76, Magnesium 2.5 H, Total Bilirubin 0.3, AST 15, ALT 29, Alkaline Phosphatase 85 Imagings Data: EXAM DESCRIPTION: CT - Chest For Pe Angio - 07/12/2021 11:19 am CLINICAL HISTORY: SOB COMPARISON: Thorax Wo Con dated 12/03/2016; CTANGIO CHEST FOR PE dated 06/17/2011 FINDINGS: Chest Wall: No suspicious thyroid nodules or pathologic lymphadenopathy. Lungs: No evidence of edema or consolidative airspace disease. Limited by motion. There are some secretions within the bilateral lower lobe airways. Pleura: No significant effusions or pneumothorax. Mediastinum/nino: No pathologic lymphadenopathy. Pulmonary arteries/Aorta: No filling defect identified. No aortic aneurysm. Heart: No significant pericardial effusion. Normal heart size. Multi-vessel coronary artery disease. Upper abdomen: Cholelithiasis. Reflux of contrast into the hepatic veins. Bilateral adrenal nodularity. This was present on prior CTs. Bones: No acute abnormality. All CT scans are performed using dose optimization technique as appropriate and may include automated exposure control or mA/KV adjustment according to patient size. IMPRESSION: Negative for pulmonary embolism. Secretions/mucus plugging the lower lobe airways which could be secondary to a nonspecific infectious or inflammatory process such as bronchitis. EXAM DESCRIPTION: RAD - Chest Single View - 07/12/2021 9:12 am CLINICAL HISTORY: SOB COMPARISON: Chest Single View dated 02/10/2021; Chest Single View dated 02/08/2021; Chest Single View dated 02/06/2021; Chest Single View dated 02/05/2021 FINDINGS: Lines: None. Lungs: No evidence of edema or pneumonia. Pleural: No significant pleural effusions or pneumothorax. Cardiac: Mild cardiomegaly. Bones: No acute fractures. Other: IMPRESSION: No acute cardiopulmonary disease. Conclusions/Impression: CHELLE likely due to diuresis CKD III with proteinuria -No NSAIDs Hyperkalemia -Continue furosemide -Hold spironolactone HTN with CKD/ CHF -No antihypertensives at this time Diastolic CHF, A/C -Continue Lasix -Low sodium diet DM II with CKD & Hyperglycemia -Continue Lantus -RISS Moderate malnutrition -Encourage nutrition Anemia in chronic illness Iron Deficiency 6% -Monitor H&H -Continue daily iv iron -Continue daily SQ B12 -Consider GI evaluation as needed [place] patient is considering hospice.
[2021-07-16] MEDS: SILVER SULFADIAZINE 1% 25 GM TOP SCH (11:37)
[2021-07-16] MEDS: IPRATROPIUM BROM 0.5MG/2.5ML NEB PRN (20:00)
[2021-07-16] MEDS: TRAMADOL HCL 50 MG TAB PO PRN (21:35)
[2021-07-16] MEDS: INSULIN GLARGINE 100 UNIT/ML SQ SCH (21:36)
[2021-07-16] MEDS: ATORVASTATIN 80 MG TAB PO SCH (21:39)
[2021-07-17 04:28] LABS: Hematocrit 23.5 % (36.0-45.0); MPV 7.1 fL (7.6-11.3); RBC Red Blood Cell Count 2.87 M/uL (3.86-4.86)
[2021-07-17 04:32] LABS: Phosphorus 3.5 mg/dL (2.5-4.9)
[2021-07-17] MEDS: LEVOTHYROXINE SOD 0.1 MG TAB PO SCH (06:24)
[2021-07-17] MEDS: INSULIN -REGULAR HUMAN 50 UNIT/0.5 ML ML SQ SCH ×4 (07:30→20:23)
[2021-07-17] MEDS: ASPIRIN 81 MG CHEWABLE TABLET PO SCH (08:45)
[2021-07-17] MEDS: ARFORMOTEROL TARTRATE 15 MCG/2 ML VIAL.NEB NEB SCH ×2 (08:45→19:33)
[2021-07-17] MEDS: FOLIC ACID 1 MG TABLET PO SCH (08:46)
[2021-07-17] MEDS: SERTRALINE HCL 100 MG TAB PO SCH (08:46)
[2021-07-17] MEDS: predniSONE 20 MG TAB PO SCH ×2 (08:46→20:21)
[2021-07-17] MEDS: GUAIFENESIN 600 MG SA TAB PO SCH ×2 (08:46→20:22)
[2021-07-17] MEDS: CLOPIDOGREL 75 MG TABLET PO SCH (08:46)
[2021-07-17] MEDS: FUROSEMIDE 40 MG TABLET PO SCH (08:47)
[2021-07-17] MEDS: carvediloL 3.125 MG TAB PO SCH ×2 (08:47→20:22)
[2021-07-17] MEDS: CYANOCOBALAMIN 1000MCG/ML INJ SQ SCH (08:48)
[2021-07-17] MEDS: NYSTATIN PWDR 100000 UNIT/GM TOP SCH ×3 (08:48→20:22)
[2021-07-17] MEDS: SILVER SULFADIAZINE 1% 25 GM TOP SCH (08:48)
[2021-07-17] MEDS: SOD FERRIC GLUC COMPLX/SUCROSE 250 MG in NA CHLORIDE 0.9% 250 ML IV SCH (09:21)
--- NOTE | 2021-07-17 16:11 | P.PN ---
Subjective Date of Service: 07/17/21 Chief Complaint: COPD exacerbation Dyspneic when talking. She has decided to pursue hospice and her focus at this point in time is to be kept comfortable. Physical Examination - Vital Signs Temperature: 97.7 F Blood Pressure: 141/64 Pulse: 60 Respirations: 20 Pulse Ox (%): 94 - Studies Microbiology Data (last 24 hrs): 07/12/21 09:39 Blood - Blood Aerobic Blood Culture - Final No growth in 5 days. 07/12/21 09:39 Blood - Blood Anaerobic Blood Culture - Final No growth in 5 days. 07/12/21 09:25 Blood - Blood Aerobic Blood Culture - Final No growth in 5 days. 07/12/21 09:25 Blood - Blood Anaerobic Blood Culture - Final No growth in 5 days. Assessment And Plan - Plan Problem List acute on chronic hypoxemic respiratory failure secondary to COPD exacerbation and CHF exacerbation Acute on chronic COPD exacerbation on chronic ~3-3.5L NC at home Acute on chronic CHF exacerbation (HFpEF) anemia, iron deficiency, possible GI bleed Hyperkalemia chronic dizziness / gait instability CKDIII DM2, insulin dependent HTN b/l chronic lymphedema -No significant change from yesterday. -CTA negative for PE, shows mucus plugging. -Spironolactone on hold due to hyperkalemia. Nephrology is assisting with management -BP low, Lasix decreased from BID to daily on 07/13 -Patient seen by pulmonary, [place]annah added. -Continue insulin sliding scale and Lantus insulin. -concern for GI bleed. -Anemia work-up consistent with iron deficiency, no history of GI bleed -Started IV iron on 07/14. Continue IV iron Goals of care: Patient stated she would like to pursue comfort measures. She stated she has discussed her decision with her family and they agree. I discussed hospice with her which she is agreeable. Consult placed for hospice evaluation. Disposition: Home with hospice. VTE: lovenox (held) Code: DNR Physician Review Additional Text: Problem List acute on chronic hypoxemic respiratory failure secondary to COPD exacerbation and CHF exacerbation Acute on chronic COPD exacerbation on chronic ~3-3.5L NC at home Acute on chronic CHF exacerbation (HFpEF) chronic dizziness / gait instability CKDIII DM2, insulin dependent HTN b/l chronic lymphedema -patient with wheeze and tachypnea / work of breathing on exam, on 4L NC -CTA negative for PE, shows mucus plugging, not a significant amount of pulm edema -supsect some CHF component and COPD -has had some increased weeping of b/l lower legs as well -IV lasix 40mg BID, continue spironolactone, nephrology consulted for assistance -Has not seen harpoon engagement planning operator in a long time, will consult pulmonology -insulin sliding scale, accucheks, confirm home regimen -confirm home meds, restart as appropriate VTE: lovenox Code: DNR Dispo: anticipate hospitalization >2 days
[2021-07-17] MEDS: IPRATROPIUM BROM 0.5MG/2.5ML NEB PRN (19:33)
[2021-07-17] MEDS: ATORVASTATIN 80 MG TAB PO SCH (20:21)
[2021-07-17] MEDS: INSULIN GLARGINE 100 UNIT/ML SQ SCH (20:23)
[2021-07-17] MEDS: TRAMADOL HCL 50 MG TAB PO PRN (20:30)
--- NOTE | 2021-07-17 21:21 | P.PN ---
Date of Service: 07/17/21 Vital Signs Temp Pulse Resp BP Pulse Ox 97.7 F 65 16 128/60 94 07/17/21 20:00 07/17/21 20:22 07/17/21 20:30 07/17/21 20:22 07/17/21 20:30 Medications Acetaminophen (Acetaminophen 500 Mg Tab) 500 mg PO Q6H PRN PRN Reason: Pain scale 5-7 (Moderate) Albuterol Sulfate (Albuterol 2.5 Mg/3 Ml Neb Shari) 2.5 mg NEB Q6HP PRN PRN Reason: SHORTNESS OF BREATH Last Admin: 07/15/21 14:35 Dose: 2.5 mg Documented by: Arformoterol Tartrate (Arformoterol Tartrate 15 Mcg/2 Ml Vial.Neb) 15 mcg NEB BIDRESP [facility] Last Admin: 07/17/21 19:33 Dose: 15 mcg Documented by: Aspirin (Aspirin 81 Mg Chewable Tablet) 81 mg PO DAILY [facility] Last Admin: 07/17/21 08:45 Dose: 81 mg Documented by: Atorvastatin Calcium (Atorvastatin 80 Mg Tab) 80 mg PO BEDTIME [facility] Last Admin: 07/17/21 20:21 Dose: 80 mg Documented by: Carvedilol (Carvedilol 3.125 Mg Tab) 3.125 mg PO BID [facility] Last Admin: 07/17/21 20:22 Dose: 3.125 mg Documented by: Clopidogrel Bisulfate (Clopidogrel 75 Mg Tablet) 75 mg PO DAILY [facility] Last Admin: 07/17/21 08:46 Dose: 75 mg Documented by: Cyanocobalamin (Cyanocobalamin 1000mcg/Ml Inj) 1,000 mcg SQ DAILY [facility] Last Admin: 07/17/21 08:48 Dose: 1,000 mcg Documented by: Folic Acid (Folic Acid 1 Mg Tablet) 1 mg PO DAILY [facility] Last Admin: 07/17/21 08:46 Dose: 1 mg Documented by: Furosemide (Furosemide 40 Mg Tablet) 40 mg PO DAILY [facility] Last Admin: 07/17/21 08:47 Dose: 40 mg Documented by: Guaifenesin (Guaifenesin 600 Mg Sa Tab) 600 mg PO BID [facility] Last Admin: 07/17/21 20:22 Dose: 600 mg Documented by: Home Med (Ipratropium Mdi [Atrovent Hf Inhaler*]) 2 puff IH BID PRN PRN Reason: SHORTNESS OF BREATH Ferric Sodium Gluconate Complex 250 mg/ Sodium Chloride 270 mls @ 225 mls/hr IV DAILY [facility] Last Admin: 07/17/21 09:21 Dose: 270 mls Documented by: Insulin Glargine (Insulin Glargine 100 Unit/Ml) 25 unit SQ BEDTIME [facility] Last Admin: 07/17/21 20:23 Dose: 25 unit Documented by: Insulin Human Regular (Insulin -Regular Human 50 Unit/0.5 Ml Ml) 0 unit SQ ACHS [facility]; Protocol Last Admin: 07/17/21 20:23 Dose: 2 unit Documented by: Ipratropium Cameron (Ipratropium Brom 0.5mg/2.5ml) 0.5 mg NEB [id number] PRN PRN Reason: WHEEZING Last Admin: 07/17/21 19:33 Dose: 0.5 mg Documented by: Levothyroxine Sodium (Levothyroxine Sod 0.1 Mg Tab) 0.15 mg PO [id number] [facility] Last Admin: 07/17/21 06:24 Dose: 0.15 mg Documented by: Nystatin (Nystatin Pwdr [id number] Unit/Gm) 15 appl TOP TID [facility] Last Admin: 07/17/21 20:22 Dose: 15 appl Documented by: Ondansetron HCl (Ondansetron 4 Mg/2 Ml Vial) 4 mg IV Q6HP PRN PRN Reason: NAUSEA / VOMITING Prednisone (Prednisone 20 Mg Tab) 10 mg PO BID [facility] Last Admin: 07/17/21 20:21 Dose: 10 mg Documented by: Sertraline HCl (Sertraline Hcl 100 Mg Tab) 200 mg PO DAILY [facility] Last Admin: 07/17/21 08:46 Dose: 200 mg Documented by: Silver Sulfadiazine (Silver Sulfadiazine 1% 25 Gm) 1 appl TOP DAILY [facility] Last Admin: 07/17/21 08:48 Dose: 1 appl Documented by: Sodium Chloride (Flush Normal Saline 10 Ml) 10 ml IV BID [facility] Last Admin: 07/17/21 20:23 Dose: 10 ml Documented by: Tramadol HCl (Tramadol Hcl 50 Mg Tab) 50 mg PO Q6H PRN PRN Reason: Pain scale 8-10 (Severe) Last Admin: 07/17/21 20:30 Dose: 50 mg Documented by: Microbiology Results 07/12/21 09:39 Blood - Blood Aerobic Blood Culture - Final No growth in 5 days. 07/12/21 09:39 Blood - Blood Anaerobic Blood Culture - Final No growth in 5 days. 07/12/21 09:25 Blood - Blood Aerobic Blood Culture - Final No growth in 5 days. 07/12/21 09:25 Blood - Blood Anaerobic Blood Culture - Final No growth in 5 days. Assessment/ Plan: Nephrology No dyspnea +MERCER +Weakness No chest pain No acute events overnight Vitals, medications, blood work and imaging reviewed in the chart General: Oriented x3, Cooperative. Obese. HEENT: Atraumatic Neck: Supple Respiratory: Diminished, Expiratory wheezes Cardiovascular: Regular rate/rhythm, Edema Gastrointestinal: Soft and benign, Non-distended Musculoskeletal: No clubbing, No contractures Integumentary: No cyanosis, Skin breakdown, Erythema Neurological: Normal speech Laboratory Data (last 24 hrs) 07/12/21 10:20: PT 11.7, INR 1.02 07/12/21 09:25: WBC 9.50, Hgb 9.1 L, Hct 28.2 L, Plt Count 283 07/12/21 09:25: Sodium 142, Potassium 5.3 H, BUN 38 H, Creatinine 1.14, Glucose 76, Magnesium 2.5 H, Total Bilirubin 0.3, AST 15, ALT 29, Alkaline Phosphatase 85 Imagings Data: EXAM DESCRIPTION: CT - Chest For Pe Angio - 07/12/2021 11:19 am CLINICAL HISTORY: SOB COMPARISON: Thorax Wo Con dated 12/03/2016; CTANGIO CHEST FOR PE dated 06/17/2011 FINDINGS: Chest Wall: No suspicious thyroid nodules or pathologic lymphadenopathy. Lungs: No evidence of edema or consolidative airspace disease. Limited by motion. There are some secretions within the bilateral lower lobe airways. Pleura: No significant effusions or pneumothorax. Mediastinum/nino: No pathologic lymphadenopathy. Pulmonary arteries/Aorta: No filling defect identified. No aortic aneurysm. Heart: No significant pericardial effusion. Normal heart size. Multi-vessel coronary artery disease. Upper abdomen: Cholelithiasis. Reflux of contrast into the hepatic veins. Bilateral adrenal nodularity. This was present on prior CTs. Bones: No acute abnormality. All CT scans are performed using dose optimization technique as appropriate and may include automated exposure control or mA/KV adjustment according to patient size. IMPRESSION: Negative for pulmonary embolism. Secretions/mucus plugging the lower lobe airways which could be secondary to a nonspecific infectious or inflammatory process such as bronchitis. EXAM DESCRIPTION: RAD - Chest Single View - 07/12/2021 9:12 am CLINICAL HISTORY: SOB COMPARISON: Chest Single View dated 02/10/2021; Chest Single View dated 2020; Chest Single View dated 02/06/2021; Chest Single View dated 02/05/2021 FINDINGS: Lines: None. Lungs: No evidence of edema or pneumonia. Pleural: No significant pleural effusions or pneumothorax. Cardiac: Mild cardiomegaly. Bones: No acute fractures. Other: IMPRESSION: No acute cardiopulmonary disease. Conclusions/Impression: CHELLE likely due to diuresis CKD III with proteinuria -No NSAIDs Hyperkalemia -Continue furosemide -Hold spironolactone HTN with CKD/ CHF -No antihypertensives at this time Diastolic CHF, A/C -Continue Lasix -Low sodium diet DM II with CKD & Hyperglycemia -Continue Lantus -RISS Moderate malnutrition -Encourage nutrition Anemia in chronic illness Iron Deficiency 6% -Monitor H&H -Continue daily iv iron -Continue daily SQ B12 -Consider GI evaluation as needed [place] patient is considering hospice.
[2021-07-17] MEDS ORDERED: DOCUSATE NA 100 MG CAP PO PRN (22:51)
[2021-07-17] MEDS ORDERED: POLYETHYL GLY 3350 17 GM/DOSE PO PRN (22:51)
[2021-07-18] MEDS: LEVOTHYROXINE SOD 0.1 MG TAB PO SCH (05:05)
[2021-07-18 06:24] VITALS: TEMP 97.5
[2021-07-18] MEDS: INSULIN -REGULAR HUMAN 50 UNIT/0.5 ML ML SQ SCH ×2 (07:30→11:30)
[2021-07-18] MEDS: ARFORMOTEROL TARTRATE 15 MCG/2 ML VIAL.NEB NEB SCH (08:33)
[2021-07-18 08:56] VITALS: O2SAT 99
[2021-07-18] MEDS: SILVER SULFADIAZINE 1% 25 GM TOP SCH (09:00)
[2021-07-18] MEDS: NYSTATIN PWDR 100000 UNIT/GM TOP SCH ×2 (09:00→14:00)
[2021-07-18] MEDS: CYANOCOBALAMIN 1000MCG/ML INJ SQ SCH (09:00)
[2021-07-18] MEDS: carvediloL 3.125 MG TAB PO SCH (09:00)
[2021-07-18] MEDS: SOD FERRIC GLUC COMPLX/SUCROSE 250 MG in NA CHLORIDE 0.9% 250 ML IV SCH (09:15)
[2021-07-18] MEDS: ASPIRIN 81 MG CHEWABLE TABLET PO SCH (09:46)
[2021-07-18] MEDS: predniSONE 20 MG TAB PO SCH (09:47)
[2021-07-18] MEDS: GUAIFENESIN 600 MG SA TAB PO SCH (09:48)
[2021-07-18] MEDS: FOLIC ACID 1 MG TABLET PO SCH (09:48)
[2021-07-18] MEDS: SERTRALINE HCL 100 MG TAB PO SCH (09:48)
[2021-07-18] MEDS: CLOPIDOGREL 75 MG TABLET PO SCH (09:48)
[2021-07-18] MEDS: FUROSEMIDE 40 MG TABLET PO SCH (09:49)
--- NOTE | 2021-07-18 14:48 | P.DS ---
Admission Date: 07/12/21 Discharge Date: 07/18/21 Disposition: HOSPICE-HOME Discharge Condition: FAIR Reason for Admission: COPD exacerbation Brief History of Present Illness: 76yo F, PMH: COPD on 3-4L NC at home, CHF (HFpEF), CKDIII, DM2 insulin dependent, HTN, chronic dizziness/gait instability Patient presented to ED due to several days of progressively worsening shortness of breath, associated with cough and wheeze. Also reporting increased lower extremity swelling and weeping from chronic wounds lately. She reported at least 2 separate hospitalizations for pneumonia and CHF exacerbation over the last 2 months, requiring multiple day hospitalization, even up to 2 weeks. She has been at home with home health, her son, and a part-time care team assistant. She also report dysuria. No nausea/vomiting. In the ED, she was noted to have increased work of breathing, wheeze bilaterally, CTA negative for PE but noted mucous plugging, elevated BNP. Patient admitted for further management. Hospital Course: Problem List acute on chronic hypoxemic respiratory failure secondary to COPD exacerbation and CHF exacerbation Acute on chronic COPD exacerbation on chronic ~3-3.5L NC at home Acute on chronic CHF exacerbation (HFpEF) anemia, iron deficiency, possible GI bleed Hyperkalemia chronic dizziness / gait instability CKDIII DM2, insulin dependent HTN b/l chronic lymphedema Hospital course Patient admitted to the medical floor and treated for COPD exacerbation with scheduled bronchodilators and steroid. She was treated with Brovana. Spironolactone held due to hyperkalemia. Nephrology consulted to assist with management. She was also treated for CHF exacerbation with Lasix. Patient seen by pulmonary Patient at this point wants to pursue hospice which is appropriate. Patient accepted to home with hospice. Vital Signs/Physical Exam: Temp Pulse Resp BP Pulse Ox 97.5 F 63 18 140/61 99 07/18/21 12:00 07/18/21 12:00 07/18/21 12:00 07/18/21 12:00 07/18/21 12:00 General: Alert, In no apparent distress HEENT: Mucous membr. moist/pink Neck: JVD not distended Respiratory: Diminished Cardiovascular: Regular rate/rhythm, Normal S1 S2 Gastrointestinal: Soft and benign, Non-distended Musculoskeletal: No swelling Integumentary: No rashes Neurological: Normal strength at 5/5 x4 extr Laboratory Data at Discharge: WBC 10.00 K/uL (4.3-10.9) 07/17/21 04:02 Hgb 7.6 g/dL (12.0-15.0) L 07/17/21 04:02 Hct 23.5 % (36.0-45.0) L 07/17/21 04:02 Plt Count 253 K/uL (152-406) 07/17/21 04:02 PT 11.7 SECONDS (9.5-12.5) 07/12/21 10:20 INR 1.02 07/12/21 10:20 Sodium 142 mmol/L (136-145) 07/17/21 04:02 Potassium 4.0 mmol/L (3.5-5.1) 07/17/21 04:02 BUN 38 mg/dL (7-18) H 07/17/21 04:02 Creatinine 1.32 mg/dL (0.55-1.3) H 07/17/21 04:02 Glucose 94 mg/dL (74-106) 07/17/21 04:02 Uric Acid 9.4 mg/dL (2.6-6.0) H 07/14/21 05:30 Phosphorus 3.5 mg/dL (2.5-4.9) 07/17/21 04:02 Magnesium 2.4 mg/dL (1.8-2.4) 07/14/21 05:30 Total Bilirubin 0.2 mg/dL (0.2-1.0) 07/15/21 05:35 AST 11 U/L (15-37) L 07/15/21 05:35 ALT 25 U/L (12-78) 07/15/21 05:35 Alkaline Phosphatase 68 U/L (45-117) 07/15/21 05:35 Home Medications: Atorvastatin Calcium [Lipitor] 80 mg PO BEDTIME #60 tab 01/23/17 Clopidogrel Bisulfate [Plavix*] 75 mg PO DAILY #30 01/23/17 Levothyroxine [Synthroid*] 150 mcg PO [id number] 06/03/19 Sertraline [Zoloft*] 2 tab PO DAILY 06/03/19 Aspirin Chewable [Aspirin Chewable*] 81 mg PO DAILY 02/17/20 Ipratropium Mdi [Atrovent Hf Inhaler*] 2 puff IH BID PRN 05/30/20 Arformoterol Tartrate [Brovana] 15 mcg Q12HR 07/12/21 Carvedilol [Coreg] 3.125 mg PO BID 07/12/21 Furosemide [Lasix] 60 mg PO BID 07/12/21 Hydrocodone 5/APAP 325 [Chappell 5/325*] 1 tab PO Q6HR 07/12/21 Insulin Glargine,Hum.rec.anlog [Lantus] 40 unit SQ BEDTIME 07/12/21 Ipratropium/Albuterol Sulfate [Iprat-Albut 0.5-3(2.5) mg/3 ml] 1 dose NEB Q6HR PRN 07/12/21 Nystatin Powder [Mycostatin (Powder)*] 15 gm TOP TID 07/12/21 Silver Sulfadiazine [Silvadene 1% Cream] 1 appl TOP DAILY #1 tube 07/18/21 predniSONE [Prednisone*] 10 mg PO BID #10 tab 07/18/21 New Medications: predniSONE [Prednisone*] 10 mg PO BID #10 tab Silver Sulfadiazine [Silvadene 1% Cream] 1 appl TOP DAILY #1 tube Diet: AHA Activity: Ad alireza Followup: NONE,NONE [Primary Care Provider] - Time spent managing pt's care (in minutes): 36
[2021-07-18 17:11] VITALS: BP 140/65
--- NOTE | 2021-07-18 20:16 | P.PN ---
Date of Service: 07/18/21 Vital Signs Temp Pulse Resp BP Pulse Ox 97.5 F 59 18 140/65 98 07/18/21 16:00 07/18/21 16:00 07/18/21 16:00 07/18/21 16:00 07/18/21 16:00 Microbiology Results 07/12/21 09:39 Blood - Blood Aerobic Blood Culture - Final No growth in 5 days. 07/12/21 09:39 Blood - Blood Anaerobic Blood Culture - Final No growth in 5 days. 07/12/21 09:25 Blood - Blood Aerobic Blood Culture - Final No growth in 5 days. 07/12/21 09:25 Blood - Blood Anaerobic Blood Culture - Final No growth in 5 days. Assessment/ Plan: Nephrology No dyspnea +MERCER +Weakness No chest pain No acute events overnight Vitals, medications, blood work and imaging reviewed in the chart General: Oriented x3, Cooperative. Obese. HEENT: Atraumatic Neck: Supple Respiratory: Diminished, Expiratory wheezes Cardiovascular: Regular rate/rhythm, Edema Gastrointestinal: Soft and benign, Non-distended Musculoskeletal: No clubbing, No contractures Integumentary: No cyanosis, Skin breakdown, Erythema Neurological: Normal speech Laboratory Data (last 24 hrs) 07/12/21 10:20: PT 11.7, INR 1.02 07/12/21 09:25: WBC 9.50, Hgb 9.1 L, Hct 28.2 L, Plt Count 283 07/12/21 09:25: Sodium 142, Potassium 5.3 H, BUN 38 H, Creatinine 1.14, Glucose 76, Magnesium 2.5 H, Total Bilirubin 0.3, AST 15, ALT 29, Alkaline Phosphatase 85 Imagings Data: EXAM DESCRIPTION: CT - Chest For Pe Angio - 07/12/2021 11:19 am CLINICAL HISTORY: SOB COMPARISON: Thorax Wo Con dated 12/03/2016; CTANGIO CHEST FOR PE dated 06/17/2011 FINDINGS: Chest Wall: No suspicious thyroid nodules or pathologic lymphadenopathy. Lungs: No evidence of edema or consolidative airspace disease. Limited by motion. There are some secretions within the bilateral lower lobe airways. Pleura: No significant effusions or pneumothorax. Mediastinum/nino: No pathologic lymphadenopathy. Pulmonary arteries/Aorta: No filling defect identified. No aortic aneurysm. Heart: No significant pericardial effusion. Normal heart size. Multi-vessel coronary artery disease. Upper abdomen: Cholelithiasis. Reflux of contrast into the hepatic veins. Bilateral adrenal nodularity. This was present on prior CTs. Bones: No acute abnormality. All CT scans are performed using dose optimization technique as appropriate and may include automated exposure control or mA/KV adjustment according to patient size. IMPRESSION: Negative for pulmonary embolism. Secretions/mucus plugging the lowe r lobe airways which could be secondary to a nonspecific infectious or inflammatory process such as bronchitis. EXAM DESCRIPTION: RAD - Chest Single View - 07/12/2021 9:12 am CLINICAL HISTORY: SOB COMPARISON: Chest Single View dated 02/10/2021; Chest Single View dated 02/08/2021; Chest Single View dated 02/06/2021; Chest Single View dated 02/05/2021 FINDINGS: Lines: None. Lungs: No evidence of edema or pneumonia. Pleural: No significant pleural effusions or pneumothorax. Cardiac: Mild cardiomegaly. Bones: No acute fractures. Other: IMPRESSION: No acute cardiopulmonary disease. Conclusions/Impression: CHELLE likely due to diuresis CKD III with proteinuria -No NSAIDs Hyperkalemia -Continue furosemide -Hold spironolactone HTN with CKD/ CHF -No antihypertensives at this time Diastolic CHF, A/C -Continue Lasix -Low sodium diet DM II with CKD & Hyperglycemia -Continue Lantus -RISS Moderate malnutrition -Encourage nutrition Anemia in chronic illness Iron Deficiency 6% -Monitor H&H -Continue daily iv iron -Continue daily SQ B12 -Consider GI evaluation as needed [place] patient is considering hospice. Case reviewed with Dr. Velazquez
== END 2021-07-18 18:06 | disposition hospice, home (50) | DRG 291 ==
LOC: ER 08:28 → ERHOLD 12:29 → 2ND 16:32
PROVIDERS: ADMIT Hospitalist; ATTEND Internal Medicine
DX: I13.0 Hypertensive heart and chronic kidney disease with heart failure and stage 1 through stage 4 chronic kidney disease, or unspecified chronic kidney disease (principal); J96.21 Acute and chronic respiratory failure with hypoxia; I50.33 Acute on chronic diastolic (congestive) heart failure; J44.1 Chronic obstructive pulmonary disease with (acute) exacerbation; E44.0 Moderate protein-calorie malnutrition; Z68.41 Body mass index [BMI] 40.0-44.9, adult; N17.9 Acute kidney failure, unspecified; K92.2 Gastrointestinal hemorrhage, unspecified; N18.30 Chronic kidney disease, stage 3 unspecified; E11.22 Type 2 diabetes mellitus with diabetic chronic kidney disease; E11.65 Type 2 diabetes mellitus with hyperglycemia; I25.10 Atherosclerotic heart disease of native coronary artery without angina pectoris; E78.5 Hyperlipidemia, unspecified; E66.9 Obesity, unspecified; E87.5 Hyperkalemia; D50.9 Iron deficiency anemia, unspecified; I89.0 Lymphedema, not elsewhere classified; R42 Dizziness and giddiness; Z66 Do not resuscitate; Z87.891 Personal history of nicotine dependence; Z99.81 Dependence on supplemental oxygen; Z79.4 Long term (current) use of insulin; Z79.890 Hormone replacement therapy; Z79.82 Long term (current) use of aspirin; Z79.52 Long term (current) use of systemic steroids; Z79.02 Long term (current) use of antithrombotics/antiplatelets; Z79.899 Other long term (current) drug therapy; Z95.5 Presence of coronary angioplasty implant and graft; Z20.822 Contact with and (suspected) exposure to COVID-19
CPT/HCPCS: 36415; 51702; 71045; 71275; 80048; 80053; 80069; 80076; 81003; 81015; 82607; 82728; 82746; 82805; 82947; 83010; 83540; 83605; 83615; 83735; 83880; 84100; 84145; 84439; 84443; 84466; 84484; 84550; 85025; 85027; 85044; 85610; 87040; 87086; 87088; 93005; 94640; 94760; 97161; 97530; 99251; 99285; J0610; J1650; J1940; J2916; J2930; J3420; J3475; J7050; J7512; J7605; Q9967; U0003